=== PATIENT | male | born 1950 | race Caucasian/White ===

== ENCOUNTER → 2016-10-21 | Outpatient (CLI) | payer MEDICARE, OTHER ==
--- NOTE | 2016-10-21 13:49 | XR ---
EXAMINATION TYPE: XR chest 2V DATE OF EXAM: 10/21/2016 1:32 PM COMPARISON: Prior chest x-ray 04 August 2014 HISTORY: COPD TECHNIQUE: Frontal and lateral views of the chest are obtained. FINDINGS: There is no focal air space opacity, pleural effusion, or pneumothorax seen. The cardiac silhouette size is within stable. Prominent lung volume may be indicative of COPD. The osseous struc tures are remarkable for stable nonhealed right clavicular fracture. The aorta is dense. IMPRESSION: Cardiomegaly and additional findings above.
== END | disposition home or self-care (01) ==
LOC: RADXRMAIN 13:07
PROVIDERS: ATTEND Family Medicine
DX: I51.7 Cardiomegaly (principal)
CPT/HCPCS: 71020

== ENCOUNTER 2016-12-29 07:46 | Emergency (ER) | payer MEDICARE, OTHER ==
[2016-12-29 08:01] VITALS: RESP 16
[2016-12-29] MEDS ORDERED: DIPH,PERTUS(ACELL)TETVAC-LF 0.5 ML VIAL IM ONE (08:10)
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
--- NOTE | 2016-12-29 09:13 | XR ---
EXAMINATION TYPE: XR hand complete RT DATE OF EXAM ORDERED: 12/29/2016 9:08 AM HISTORY: Pain. COMPARISON: None. FINDINGS: There is a mildly displaced fracture through the proximal metaphysis of the first metacarp al. There is mild joint space loss in the PIP and PIP joints of the second through fifth digits. Ther e is a small ossific density adjacent to the interphalangeal joint of the thumb. This appears chronic . No other osseous lesion is seen. IMPRESSION: MILDLY DISPLACED FRACTURE THROUGH THE PROXIMAL METAPHYSIS OF THE FIRST METACARPAL.
--- NOTE | 2016-12-29 09:20 | CT ---
EXAMINATION TYPE: CT brain cspine wo con DATE OF EXAM: 12/29/2016 9:09 AM COMPARISON: NONE HISTORY: Fall injury with headache and neck pain. CT DLP: 1658.10 mGycm. Automated Exposure Control for Dose Reduction was Utilized. TECHNIQUE: CT scan of the head and cervical spine are performed without contrast. FINDINGS: There is no acute intracranial hemorrhage or midline shift identified. There is ventricul ar and sulcal prominence consistent with diffuse cerebral atrophy. Low-attenuation periventricular wh ite matter is present. There is persistent near complete opacification of left mastoid air cells. Sof t tissue density fills left external auditory canal likely reflects cerumen. There is additional soft tissue density surrounding middle ear ossicles on current study more prominent than prior. Moderate mucosal thickening anteriorly in left maxillary sinus is redemonstrated. Remainder paranasal sinuses are clear. Both lenses are thinned. Vascular calcification distal internal carotid arteries is redemo nstrated bilaterally. Calvarium is intact. Old displaced fracture mid right clavicle is redemonstrated on localizer Cervical spine is visualized in its entirety from C1 through upper thoracic levels and demonstrates satisfactory alignment withou t evidence of acute fracture or dislocation. Prevertebral soft tissue appears within normal limits. The C1-C2 articulation is within normal limits on the coronal images. Osseous structures are demineralized. Vertebral body heights and disc space heights are fairly well m aintained. Spinal canal is preserved. Review of axial images shows uncovertebral facet degenerative changes on the left at C2-C3 level bila terally at C3-C4 and C4-C5 levels. There is moderate to severe emphysematous change in visualized georgie g apices. There is partial visualization of prominent or mildly dilated proximal esophagus with some dependent debris. Scattered subcentimeter lymph nodes are seen throughout the neck bilaterally. There is moderate to severe calcified plaque at both carotid bulbs, right greater than left. Consider none mergent carotid ultrasound correlation. IMPRESSION: 1. There is no acute fracture or dislocation evident in the cervical spine. Demineralization, degener ative findings, and other findings as noted above. 2. No acute intracranial hemorrhage or midline shift is seen. Mild to moderate diffuse cerebral atrop hy and chronic small vessel ischemic change redemonstrated. No significant change from prior study is seen. Possible left-sided mastoiditis and middle ear infection. Clinical correlation advised. Consid er ENT follow-up.
[2016-12-29 09:40] VITALS: BP 173/97; PULSE 83; TEMP 98
== END 2016-12-29 09:40 | disposition home or self-care (01) ==
LOC: EC 07:46
DX: S62.291A Other fracture of first metacarpal bone, right hand, initial encounter for closed fracture (principal); S80.212A Abrasion, left knee, initial encounter; M54.2 Cervicalgia; I10 Essential (primary) hypertension; E78.5 Hyperlipidemia, unspecified; J44.9 Chronic obstructive pulmonary disease, unspecified; E11.9 Type 2 diabetes mellitus without complications; K21.9 Gastro-esophageal reflux disease without esophagitis; Z87.891 Personal history of nicotine dependence; Z79.01 Long term (current) use of anticoagulants; Z79.02 Long term (current) use of antithrombotics/antiplatelets; Z79.84 Long term (current) use of oral hypoglycemic drugs; Z79.899 Other long term (current) drug therapy; Z99.81 Dependence on supplemental oxygen; Z96.651 Presence of right artificial knee joint; Z23 Encounter for immunization; W01.0XXA Fall on same level from slipping, tripping and stumbling without subsequent striking against object, initial encounter
CPT/HCPCS: 29125; 70450; 72125; 90471; 90715; 99284

== ENCOUNTER 2017-05-06 11:52 | Inpatient (IN) | payer MEDICARE, OTHER ==
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
[2017-05-06] MEDS ORDERED: LORazepam 2 MG/ML SYRINGE IV STA (12:24)
[2017-05-06] MEDS ORDERED: LEVOFLOXACIN 750MG-D5W PMX 750 MG in DEXTROSE/WATER 1 150ML.BAG IVPB STA (12:24)
[2017-05-06] MEDS ORDERED: ACETAMINOPHEN IV (For NPO) 1,000 MG in EMPTY BAG 1 BAG IVPB STA (12:24)
[2017-05-06] MEDS ORDERED: ALBUTEROL NEBULIZED 2.5 MG/3 ML INHALATION STA (12:24)
[2017-05-06] MEDS ORDERED: KETOROLAC 30 MG/ML 1 ML VIAL IVP STA (12:24)
[2017-05-06] MEDS ORDERED: SODIUM CHLORIDE 0.9% 1,000 ML IV STA ×2 (12:24)
[2017-05-06] MEDS ORDERED: MORPHINE SULFATE 4 MG/ML SYRINGE IVP STA (12:24)
[2017-05-06] MEDS ORDERED: methylPREDNISolone SOD SUCCI 125 MG/2 ML VIAL IV STA (12:24)
[2017-05-06] MEDS ORDERED: IPRATROPIUM 0.5 MG/2.5 ML NEBU INHALATION STA (12:24)
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
[2017-05-06 12:47] LABS: Basophils # (A) 0.2 k/uL (0-0.2); Basophils % (A) 1 %; CH 30.4; CHCM 31.6; Eosinophils # (A) 0.2 k/uL (0-0.7); Eosinophils % (A) 1 %; HCT 43.4 % (39.0-53.0); HDW 2.67; HGB 13.2 gm/dL (13.0-17.5); Hypochromasia Slight; Luc % (Auto) 2; Lymphocytes # (A) 3.3 k/uL (1.0-4.8); Lymphocytes % (A) 22 %; MCH 29.5 pg (25.0-35.0); MCHC 30.4 g/dL (31.0-37.0); MCV 96.9 fL (80.0-100.0); Mean Platelet Volume 8.1; Monocytes # (A) 0.9 k/uL (0-1.0); Monocytes % (A) 6 %; Neutrophils # (A) 10.6 k/uL (1.3-7.7); Neutrophils % (A) 68 %; RBC 4.48 m/uL (4.30-5.90); RDW 15.6 % (11.5-15.5); WBC 15.5 k/uL (3.8-10.6); WBC (Perox) 15.18
[2017-05-06 12:56] LABS: ALT 31 U/L (21-72); AST 24 U/L (17-59); Alkaline Phosphatase 115 U/L (38-126); Anion Gap 11 mmol/L; Blood Urea Nitrogen 10 mg/dL (9-20); Carbon Dioxide 30 mmol/L (22-30); Chloride 104 mmol/L (98-107); Glucose 162 mg/dL (74-99); Magnesium 1.3 mg/dL (1.6-2.3); Non-African American GFR(MDRD) >60 (>60 ml/min/1.73 sqM); Potassium 4.6 mmol/L (3.5-5.1); Sodium 145 mmol/L (137-145); Total Bilirubin 0.3 mg/dL (0.2-1.3); Total Protein 7.2 g/dL (6.3-8.2)
[2017-05-06 13:16] LABS: Creatine Kinase 42 U/L (55-170)
[2017-05-06 13:27] LABS: Creatine Kinase MB 0.6 ng/mL (0.0-2.4); Troponin I <0.012 ng/mL (0.000-0.034)
[2017-05-06 13:40] LABS: INR 3.5 (<1.2); Prothrombin Time 33.9 sec (9.0-12.0)
[2017-05-06] MEDS ORDERED: PNEUMONIA PROTOCOL UTILIZED 1 EACH MISC PO PRN (13:47)
[2017-05-06 13:57] LABS: Partial Thromboplastin Time 31.6 sec (22.0-30.0)
[2017-05-06] MEDS: SODIUM CHLORIDE 0.9% 1,000 ML IV SCH (14:01)
[2017-05-06 15:42] VITALS: BMI 30.7
[2017-05-06] MEDS ORDERED: IPRATROPIUM-ALBUTEROL 3 ML NEB INHALATION SCH ×2 (16:00→20:00)
[2017-05-06 16:51] LABS: Glucose,Whole Blood 134 mg/dL (75-99)
[2017-05-06] MEDS: INSULIN LISPRO (humaLOG) 300 UNIT/3 ML VIAL SQ SCH ×2 (17:14→20:49)
[2017-05-06] MEDS ORDERED: WARFARIN 5 MG TAB PO SCH (18:00)
[2017-05-06] MEDS: metFORMIN 500 MG TAB PO SCH (18:21)
[2017-05-06] MEDS: BUDESONIDE 1 MG/2 ML NEBU INHALATION SCH (19:59)
[2017-05-06 20:06] LABS: Hemoglobin A1C 6.5 % (4.2-6.1)
[2017-05-06 20:27] LABS: Glucose,Whole Blood 206 mg/dL (75-99)
[2017-05-06] MEDS: guaiFENesin 600 MG TABLET.ER PO SCH (20:47)
[2017-05-06] MEDS: ATORVASTATIN 80 MG TAB PO SCH (20:48)
[2017-05-06] MEDS: METOPROLOL TARTRATE 25 MG TAB PO SCH (20:48)
[2017-05-06] MEDS: hydrALAZINE HCL 25 MG TAB PO SCH (20:48)
[2017-05-06] MEDS: HYDROcodone/APAP 10-325MG 1 EACH TAB PO PRN (20:48)
[2017-05-06] MEDS: METOCLOPRAMIDE 10 MG TAB PO SCH (20:48)
[2017-05-07] MEDS: SODIUM CHLORIDE 0.9% 1,000 ML IV SCH ×2 (00:28→21:57)
[2017-05-07] MEDS: HYDROcodone/APAP 10-325MG 1 EACH TAB PO PRN ×4 (02:33→19:50)
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
[2017-05-07] MEDS: BUDESONIDE 1 MG/2 ML NEBU INHALATION SCH ×2 (06:59→19:25)
[2017-05-07] MEDS: IPRATROPIUM-ALBUTEROL 3 ML NEB INHALATION SCH ×4 (06:59→19:25)
[2017-05-07 07:03] LABS: Glucose,Whole Blood 138 mg/dL (75-99)
[2017-05-07] MEDS: INSULIN LISPRO (humaLOG) 300 UNIT/3 ML VIAL SQ SCH ×4 (07:48→21:56)
[2017-05-07] MEDS: PANTOPRAZOLE 40 MG TABLET PO SCH (07:49)
[2017-05-07] MEDS: hydrALAZINE HCL 25 MG TAB PO SCH ×3 (07:49→21:06)
[2017-05-07] MEDS: ENOXAPARIN 40 MG/0.4 ML SYRINGE SQ SCH (07:49)
[2017-05-07] MEDS: metFORMIN 500 MG TAB PO SCH ×3 (07:49→16:33)
[2017-05-07] MEDS: guaiFENesin 600 MG TABLET.ER PO SCH ×2 (07:49→21:06)
[2017-05-07] MEDS: CLOPIDOGREL 75 MG TAB PO SCH (07:49)
[2017-05-07] MEDS: LISINOPRIL 10 MG TAB PO SCH (07:50)
[2017-05-07] MEDS: LORATADINE 10 MG TAB PO SCH (07:50)
[2017-05-07] MEDS: METOCLOPRAMIDE 10 MG TAB PO SCH ×3 (07:50→21:06)
[2017-05-07] MEDS: ISOSORBIDE MONONITRATE ER 60 MG TAB.ER.24H PO SCH (07:50)
[2017-05-07] MEDS: METOPROLOL TARTRATE 25 MG TAB PO SCH ×2 (07:50→21:05)
[2017-05-07] MEDS: VERAPAMIL SR 240 MG TABLET.ER PO SCH (07:50)
[2017-05-07 08:27] LABS: INR 3.5 (<1.2); Prothrombin Time 34.4 sec (9.0-12.0)
--- NOTE | 2017-05-07 09:08 | XR ---
EXAMINATION TYPE: XR chest 2V DATE OF EXAM: 05/07/2017 COMPARISON: 05/06/2017 TECHNIQUE: PA and lateral views submitted. HISTORY: Pneumonia FINDINGS: Diffuse interstitial pattern seen with tiny bilateral effusion and subsegmental basilar consolidation . Heart size mildly prominent but stable. Chronic deformity of the right clavicle. No pneumothorax. U nderlying COPD noted. Atherosclerotic change aorta and degenerative change spine. IMPRESSION: 1. Correlate for mild venous congestion or interstitial lung disease. 2. Basilar atelectasis or infiltrate stable with tiny effusions.
[2017-05-07] MEDS ORDERED: MULTIVITAMINS, THERA 1 EACH TAB PO SCH (12:00)
[2017-05-07 12:05] LABS: Glucose,Whole Blood 91 mg/dL (75-99)
--- NOTE | 2017-05-07 13:59 | P.PN ---
Progress Note - Text DATE OF SERVICE: 05/07/2017 PRESENTING COMPLAINT: Short of breath cough and wheezing HISTORY OF PRESENT ILLNESS: Patient presented with worsening shortness of breath, cough, clear sputum production, intermittent fever, weak, tired, rundown. Admitted for pneumonia, acute COPD exacerbation INTERVAL HISTORY: 05/07/2017: Patient sitting up in bed states he feels much better, breathing is better continues have a cough with clear sputum production no fever, appetite good eating between 75% and 100% of his meals, last BM 05/07/2017. Encouraged patient to be up and about in the [place]. REVIEW OF SYSTEMS: Done for constitutional ,cardiovascular, GI, pulmonary with relevant findings as above. CURRENT MEDICATIONS [place], DuoNeb 3 mL solution, Pulmicort, ceftriaxone thousand milligrams IV piggyback, Plavix 75 mg by mouth daily, Lovenox 40 mg subcu daily, guaifenesin 1200 mg by mouth twice a day, Imdur 60 mg by mouth daily, Levaquin 750 mg by mouth every 24 hours, Zestril 10 mg by mouth daily, Claritin 10 mg by mouth daily, Lopressor 25 mg by mouth twice a day. Verapamil 240 mg by mouth daily the Coumadin 5 mg Thursday, Coumadin 2.5 mg Thursday PHYSICAL EXAM VITAL SIGNS: GENERAL APPEARANCE: Average build. Lying in bed, not in distress. EYES: Pupils equal. Conjunctiva normal. NECK: JVD not raised. Mass not palpable. RESPIRATORY: Respiratory effort normal. Lungs clear to auscultation. CARDIOVASCULAR: First and second sounds normal. No edema. ABDOMEN: Soft. Liver and spleen not palpable. No tenderness. No mass palpable. PSYCHIATRY: Alert and oriented x3. Mood and affect normal. NEUROLOGICAL: Cranial nerves grossly intact. No facial asymmetry. Power and sensation grossly intact INVESTIGATIONS: INR 3.5 ASSESSMENT: -Acute chronic obstructive pulmonary disease exacerbation secondary to bilateral basal pneumonia suspect gram-negative organism, present on admission, but causing acute hypoxic respiratory failure. -Chronic hypoxic respiratory failure and chronic obstructive pulmonary disease in an ex-smoker. -Diabetes mellitus type 2 on oral hypoglycemics. -Gastroesophageal reflux disease. -Hyperlipidemia. -Essential hypertension. -Primary osteoarthritis of multiple joints bilateral. 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 -Coumadin monitoring PLAN: Continue ceftriaxone and Levaquin, Claritin, inhalers. INR 3.5 for the pre- past 2 days, Coumadin held. We'll resume once INR below 3. Patient will likely discharge in the morning tomorrow. Plan of care discussed the patient at the bedside he is in agreement. We'll follow closely. ANIMAL BIOLOGIST statement: Patient was seen and examined by nurse practitioner Carol Brown and all elements of the case discussed with attending Dr. Ayoub
[2017-05-07] MEDS ORDERED: LEVOFLOXACIN 750MG-D5W PMX 750 MG in DEXTROSE/WATER 1 150ML.BAG IVPB SCH (14:00)
[2017-05-07 14:17] LABS: CH 30.5; CHCM 31.8; HCT 39.3 % (39.0-53.0); HDW 2.76; HGB 12.2 gm/dL (13.0-17.5); Hypochromasia Slight; MCH 30.1 pg (25.0-35.0); MCHC 31.1 g/dL (31.0-37.0); MCV 96.8 fL (80.0-100.0); Mean Platelet Volume 9.5; RBC 4.06 m/uL (4.30-5.90); RDW 15.9 % (11.5-15.5); WBC 23.9 k/uL (3.8-10.6)
[2017-05-07] MEDS: predniSONE 20 MG TAB PO SCH (16:33)
[2017-05-07 17:05] LABS: Glucose,Whole Blood 94 mg/dL (75-99)
[2017-05-07 20:33] LABS: Glucose,Whole Blood 128 mg/dL (75-99)
[2017-05-07] MEDS ORDERED: traZODone HCL 50 MG TAB PO SCH (21:00)
[2017-05-07] MEDS: CEFUROXIME 250 MG TAB PO SCH (21:05)
[2017-05-07] MEDS: ATORVASTATIN 80 MG TAB PO SCH (21:06)
--- NOTE | 2017-05-07 22:11 | PN ---
PROGRESS NOTE DATE OF SERVICE: 05/07/2017. ATTENDING NOTE: This patient was seen and examined by me. I discussed with my nurse practitioner, Ms. Brown. Breathing is getting better. Some slight shortness of breath. Decreased cough. Decreased sputum production. Eating better, up to the bathroom. EXAMINATION: Afebrile, blood pressure 167/89. LUNGS: Decreased breath sounds. Prolonged expiration. CARDIOVASCULAR: 1st and 2nd sounds normal. INVESTIGATIONS: White count 23.9. INR 3.5. ASSESSMENT: 1. Acute chronic obstructive pulmonary disease exacerbation secondary to by bilateral basal pneumonia. 2. Leukocytosis likely from steroids. PLAN: Cut back the dose of Coumadin. Continued on IV ceftriaxone. Care was discussed with the patient. Follow. MMODL / IJN: [id number] /
[2017-05-08] MEDS: HYDROcodone/APAP 10-325MG 1 EACH TAB PO PRN ×2 (02:17→08:23)
[2017-05-08 07:09] LABS: Glucose,Whole Blood 112 mg/dL (75-99)
[2017-05-08] MEDS: CEFUROXIME 250 MG TAB PO SCH (07:40)
[2017-05-08] MEDS: metFORMIN 500 MG TAB PO SCH (07:40)
[2017-05-08] MEDS: LORATADINE 10 MG TAB PO SCH (07:40)
[2017-05-08] MEDS: hydrALAZINE HCL 25 MG TAB PO SCH (07:41)
[2017-05-08] MEDS: METOCLOPRAMIDE 10 MG TAB PO SCH (07:41)
[2017-05-08] MEDS: LISINOPRIL 10 MG TAB PO SCH (07:41)
[2017-05-08] MEDS: guaiFENesin 600 MG TABLET.ER PO SCH (07:41)
[2017-05-08] MEDS: predniSONE 20 MG TAB PO SCH (07:41)
[2017-05-08] MEDS: CLOPIDOGREL 75 MG TAB PO SCH (07:41)
[2017-05-08] MEDS: METOPROLOL TARTRATE 25 MG TAB PO SCH (07:41)
[2017-05-08] MEDS: VERAPAMIL SR 240 MG TABLET.ER PO SCH (07:41)
[2017-05-08 07:42] VITALS: RESP 18; TEMP 96.2
[2017-05-08] MEDS: PANTOPRAZOLE 40 MG TABLET PO SCH (07:42)
[2017-05-08] MEDS: ISOSORBIDE MONONITRATE ER 60 MG TAB.ER.24H PO SCH (07:42)
[2017-05-08] MEDS: INSULIN LISPRO (humaLOG) 300 UNIT/3 ML VIAL SQ SCH (07:44)
[2017-05-08] MEDS: ENOXAPARIN 40 MG/0.4 ML SYRINGE SQ SCH (07:44)
[2017-05-08] MEDS: BUDESONIDE 1 MG/2 ML NEBU INHALATION SCH (08:31)
[2017-05-08] MEDS: IPRATROPIUM-ALBUTEROL 3 ML NEB INHALATION SCH (08:32)
[2017-05-08 08:40] VITALS: BP 150/82
[2017-05-08 08:44] VITALS: PULSE 88
[2017-05-08 08:53] LABS: Basophils % (A) 0 %; CH 29.1; CHCM 30.2; Eosinophils # (A) 0.1 k/uL (0-0.7); Eosinophils % (A) 0 %; HCT 39.6 % (39.0-53.0); HDW 2.65; HGB 12.3 gm/dL (13.0-17.5); Hypochromasia Moderate; Luc # (Auto) 0.39; Luc % (Auto) 2; Lymphocytes # (A) 2.4 k/uL (1.0-4.8); Lymphocytes % (A) 11 %; MCH 30.3 pg (25.0-35.0); MCHC 31.2 g/dL (31.0-37.0); MCV 97.2 fL (80.0-100.0); Mean Platelet Volume 7.4; Monocytes # (A) 1.1 k/uL (0-1.0); Monocytes % (A) 5 %; Neutrophils # (A) 18.5 k/uL (1.3-7.7); Neutrophils % (A) 82 %; RBC 4.07 m/uL (4.30-5.90); WBC 22.5 k/uL (3.8-10.6); WBC (Perox) 24.03
[2017-05-08 09:05] LABS: Anion Gap 12 mmol/L; Blood Urea Nitrogen 16 mg/dL (9-20); Calcium 9.7 mg/dL (8.4-10.2); Carbon Dioxide 29 mmol/L (22-30); Chloride 104 mmol/L (98-107); Glucose 121 mg/dL (74-99); Non-African American GFR(MDRD) >60 (>60 ml/min/1.73 sqM); Potassium 4.7 mmol/L (3.5-5.1); Sodium 145 mmol/L (137-145)
[2017-05-08 09:26] LABS: INR 2.1 (<1.2)
[2017-05-08 10:02] LABS: Prothrombin Time 20.3 sec (9.0-12.0)
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
[2017-05-08] MEDS ORDERED: LEVOFLOXACIN 750 MG TAB PO SCH (14:00)
--- NOTE | 2017-05-10 11:06 | DS ---
DISCHARGE SUMMARY ATTENDING NOTE: This patient was seen and examined by me. I discussed this with the nurse practitioner, Ms. Brown. This patient was seen by me yesterday on 05/08/17. The patient is doing somewhat better. Only some clear sputum is coming up. The patient is very keen to go home. EXAMINATION: On exam, LUNGS: Decreased breath sounds. CARDIOVASCULAR: First and second sounds normal. ASSESSMENT: Pneumonia with clinical improvement and causing chronic obstructive pulmonary disease exacerbation. PLAN: Care was discussed with the patient. The patient should follow up with family doctor and check lab as outpatient. Discharge planning more than 35 minutes. MMODL / IJN: [id number] /
[2017-05-10] MEDS ORDERED: WARFARIN 2.5 MG TAB PO SCH (18:00)
== END 2017-05-08 08:54 | disposition home or self-care (01) | DRG 190 ==
LOC: EC 11:52 → 4MS4W 13:48
PROVIDERS: ADMIT Hospitalist; ATTEND Hospitalist
DX: J44.0 Chronic obstructive pulmonary disease with (acute) lower respiratory infection (principal); J15.6 Pneumonia due to other Gram-negative bacteria; J96.21 Acute and chronic respiratory failure with hypoxia; Z99.81 Dependence on supplemental oxygen; E11.9 Type 2 diabetes mellitus without complications; I10 Essential (primary) hypertension; D72.829 Elevated white blood cell count, unspecified; E78.5 Hyperlipidemia, unspecified; J44.1 Chronic obstructive pulmonary disease with (acute) exacerbation; H91.90 Unspecified hearing loss, unspecified ear; K21.9 Gastro-esophageal reflux disease without esophagitis; M15.9 Polyosteoarthritis, unspecified; T38.0X5A Adverse effect of glucocorticoids and synthetic analogues, initial encounter; Z79.01 Long term (current) use of anticoagulants; Z79.02 Long term (current) use of antithrombotics/antiplatelets; Z79.84 Long term (current) use of oral hypoglycemic drugs; Z79.899 Other long term (current) drug therapy; Z87.891 Personal history of nicotine dependence; Z89.511 Acquired absence of right leg below knee
CPT/HCPCS: 36415; 71010; 71020; 80048; 80053; 82550; 82553; 83036; 83735; 83880; 84484; 85025; 85027; 85610; 85730; 87040; 93005; 94640; 94644; 94760

== ENCOUNTER → 2017-12-23 | Outpatient (CLI) | payer MEDICARE, OTHER ==
[2017-12-23 10:22] LABS: Blood Urea Nitrogen 9 mg/dL (9-20)
--- NOTE | 2017-12-23 13:15 | CT ---
EXAMINATION TYPE: CT angio neck DATE OF EXAM: 12/23/2017 HISTORY: Carotid stenosis COMPARISON: 12/29/2016 CT DLP: 286.4 mGycm. Automated Exposure Control for Dose Reduction was Utilized. TECHNIQUE: CTA scan of the neck is performed with IV Contrast, patient injected with 65 mL of Isovue 370, axial images are obtained, coronal and sagittal reformatted images are reviewed. Three-D recons tructed images are created on an independent workstation and reviewed. FINDINGS: Carotid/Vascular Structures: Right carotid: There is approximately 20% stenosis (nonhemodynamically significant stenosis) from lela cific and noncalcific atheromatous plaquing at the ostia of the right brachiocephalic artery. Very mi nimal nonhemodynamically significant calcific and noncalcific atheromatous plaquing is seen of the co mmon carotid artery on the right. At the carotid bulb there is a short segment measuring 1.1 cm in le ngth where there is focal 80% stenosis. Distal to this within the internal carotid artery there are m ultifocal regions where there is 75% stenosis. The first is just distal to the carotid bulb measuring 8 mm in length and the second is approximately 50% stenosis measuring 1.4 cm in length. Approximatel y 50% stenosis is also seen in the supraclinoid portion of the right internal carotid artery. Left carotid: Nonhemodynamically significant atheromatous plaquing is seen at the ostia. Within the p roximal common carotid artery there is noncalcific plaquing occupying less than 50% of the luminal di ameter. At the carotid bulb there is stenosis over a 1.2 cm distance of approximately 50%. Distal to this within the internal carotid artery there is stenosis of approximately 70% proximally and up to 9 0% distally within a segment measuring 1.4 cm. The remainder of the left internal carotid artery demo nstrates no hemodynamically significant stenosis. Subclavian: There is severe stenosis of the proximal left subclavian artery of approximately 75% from the ostia to the branch point of the internal mammary artery. Vertebrals: There is a left vertebral artery occlusion with few collateral vessels seen. This raises suspicion for subclavian steal. Just proximal to the basilar artery there is a diminutive left verteb ral artery possibly from collateral vasculature flow or from a reversal flow. Intracranial vasculature: The visualized portion of the [place] appears unremarkable. Other: At least moderate centrilobular emphysematous changes are seen at the lung apices. Slight hete rogeneity of the thyroid gland is noted. IMPRESSION: 1. Complete occlusion of the left vertebral artery with few collateral vessels seen. There is diminut mark vertebral artery on the left seen just proximal to the basilar artery. Considering these findings there is concern for subclavian steal syndrome which could be confirmed with ultrasound demonstratin g reversal flow within the right vertebral artery. 2. Multifocal stenosis within the right carotid artery with carotid bulb stenosis of 80% and internal carotid artery stenosis of 75%. 3. Multifocal stenosis of the left carotid artery with a focal segment measuring 1.4 cm at the consumer insights intern al carotid artery proximally demonstrating 70% and distally demonstrating 90% stenosis. 4. Severe stenosis of the proximal left subclavian artery of approximately 75%.
== END | disposition home or self-care (01) ==
LOC: RADCTMAIN 09:55
PROVIDERS: ATTEND Thoracic Surgery (Cardiothoracic Vascular Surgery)
DX: I65.23 Occlusion and stenosis of bilateral carotid arteries (principal); I65.02 Occlusion and stenosis of left vertebral artery; I70.8 Atherosclerosis of other arteries
CPT/HCPCS: 82565; 84520; 70498; 36415; Q9967

== ENCOUNTER 2018-01-02 11:11 | Emergency (ER) | payer MEDICARE, OTHER ==
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
[2018-01-02 12:42] LABS: Prothrombin Time 49.6 sec (9.0-12.0)
[2018-01-02 12:48] LABS: INR 5.5 (<1.2)
[2018-01-02 13:21] VITALS: BP 177/74; PULSE 74; RESP 22; TEMP 97.4
== END 2018-01-02 13:20 | disposition home or self-care (01) ==
LOC: EC 11:11
DX: S51.812A Laceration without foreign body of left forearm, initial encounter (principal); J44.9 Chronic obstructive pulmonary disease, unspecified; E11.9 Type 2 diabetes mellitus without complications; K21.9 Gastro-esophageal reflux disease without esophagitis; E78.5 Hyperlipidemia, unspecified; I10 Essential (primary) hypertension; Z87.891 Personal history of nicotine dependence; Z79.02 Long term (current) use of antithrombotics/antiplatelets; Z79.51 Long term (current) use of inhaled steroids; Z79.01 Long term (current) use of anticoagulants; Z79.84 Long term (current) use of oral hypoglycemic drugs; Z79.899 Other long term (current) drug therapy; W01.10XA Fall on same level from slipping, tripping and stumbling with subsequent striking against unspecified object, initial encounter; Y92.89 Other specified places as the place of occurrence of the external cause; Z99.81 Dependence on supplemental oxygen
CPT/HCPCS: 36415; 85610; 99283

== ENCOUNTER → 2018-02-17 | Outpatient (CLI) | payer MEDICARE, OTHER ==
--- NOTE | 2018-02-17 13:32 | XR ---
EXAMINATION TYPE: XR chest 2V DATE OF EXAM: 02/17/2018 COMPARISON: 05/07/2017 TECHNIQUE: PA and lateral views submitted. HISTORY: COPD FINDINGS: Diffuse interstitial pattern is stable may be chronic, correlate clinically. Heart size mildly promin ent but stable. Atherosclerotic change aorta. Chronic deformity of the right clavicle. No pneumothor ax. Underlying COPD noted. Atherosclerotic change aorta and degenerative change spine. IMPRESSION:
== END | disposition home or self-care (01) ==
LOC: RADXRMAIN 12:46
PROVIDERS: ATTEND Family Medicine
DX: J44.9 Chronic obstructive pulmonary disease, unspecified (principal)
CPT/HCPCS: 71046

== ENCOUNTER → 2018-04-27 | Outpatient (CLI) | payer MEDICARE, OTHER ==
[2018-04-27 10:46] LABS: Anisocytosis Slight; Basophils # (A) 0.1 k/uL (0-0.2); Basophils % (A) 1 %; Eosinophils # (A) 0.3 k/uL (0-0.7); Eosinophils % (A) 3 %; HCT 36.2 % (39.0-53.0); HGB 10.5 gm/dL (13.0-17.5); Hypochromasia Marked; Lymphocytes # (A) 2.4 k/uL (1.0-4.8); Lymphocytes % (A) 22 %; MCH 27.4 pg (25.0-35.0); MCHC 28.8 g/dL (31.0-37.0); MCV 94.9 fL (80.0-100.0); Mean Platelet Volume 6.9; Monocytes # (A) 0.9 k/uL (0-1.0); Monocytes % (A) 8 %; Neutrophils # (A) 7.1 k/uL (1.3-7.7); Neutrophils % (A) 64 %; Platelet Count 454 k/uL (150-450); RBC 3.82 m/uL (4.30-5.90); WBC 11.1 k/uL (3.8-10.6)
[2018-04-27 10:49] LABS: Appearance,Urine Clear (Clear); Bilirubin,Urine Negative (Negative); Blood,Urine Negative (Negative); Color,Urine Yellow; Glucose,Urine (UA) Negative (Negative); Hyaline Casts,Urine 15 /lpf (0-2); Ketones,Urine Negative (Negative); Leukocyte Esterase,Urine Trace (Negative); Mucus,Urine Few /hpf; Nitrite,Urine Negative (Negative); PH, Urine 5.5 (5.0-8.0); Protein,Urine Trace (Negative); RBC,Urine 1 /hpf (0-5); Specific Gravity,Urine 1.017 (1.001-1.035); Squamous Epithelial Cell,Urine <1 /hpf (0-4); Urobilinogen,Urine <2.0 mg/dL (<2.0); WBC,Urine 5 /hpf (0-5)
[2018-04-27 10:59] LABS: INR 1.9 (<1.2); Partial Thromboplastin Time 28.5 sec (22.0-30.0); Prothrombin Time 17.6 sec (9.0-12.0)
[2018-04-27 11:06] LABS: Anion Gap 6 mmol/L; Blood Urea Nitrogen 6 mg/dL (9-20); Carbon Dioxide 36 mmol/L (22-30); Chloride 99 mmol/L (98-107); Glucose 112 mg/dL (74-99); Sodium 141 mmol/L (137-145)
[2018-04-27 11:09] LABS: Potassium 4.5 mmol/L (3.5-5.1)
== END | disposition home or self-care (01) ==
LOC: LABPAT 09:51
PROVIDERS: ATTEND Surgery
DX: Z01.812 Encounter for preprocedural laboratory examination (principal); I65.29 Occlusion and stenosis of unspecified carotid artery; E11.9 Type 2 diabetes mellitus without complications; Z79.01 Long term (current) use of anticoagulants
CPT/HCPCS: 36415; 80051; 81001; 82565; 82947; 84520; 85025; 85610; 85730; 86850; 86900; 86901

== ENCOUNTER 2018-05-04 06:43 | Inpatient (IN) | payer MEDICARE, OTHER ==
[2018-04-26 10:37] VITALS: BMI 29.4
[~2018-05-04 06:43] MED LIST: DEXAMETHASONE SOD PHOSPHATE 10 MG/ML 1 ML VIAL IV ONE; LIDOCAINE 1% 20 ML VIAL (10MG/ML) FOR IV START INTRADERMA PRN; MIDAZOLAM 2 MG/2 ML VIAL IV PRN; ONDANSETRON 4 MG/2 ML VIAL IVP ONE; ceFAZolin IN SWFI 2 GM/20 ML SYRINGE IVP ONE; fentaNYL (PF) 50 MCG/ML 2 ML AMP IV PRN
[2018-05-04] MEDS: LACTATED RINGERS 1,000 ML IV SCH (07:32)
[2018-05-04 07:43] LABS: Glucose,Whole Blood 109 mg/dL (75-99)
[2018-05-04 08:38] LABS: INR 1.1 (<1.2); Prothrombin Time 10.8 sec (9.0-12.0)
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
[2018-05-04] MEDS ORDERED: LIDOCAINE 1% INJ 10MG/ML (20 ML MDV) SQ ONE (10:08)
[2018-05-04] MEDS ORDERED: THROMBIN (BOVINE) 5,000 UNIT VIAL MISCELLANE ONE ×2 (10:26)
[2018-05-04] MEDS ORDERED: GELATIN SPONGE,ABSORB (LARGE) 1 EACH SPONGE MISCELLANE ONE (10:26)
[2018-05-04] MEDS ORDERED: ALBUTEROL NEBULIZED 2.5 MG/3 ML INHALATION PRN (11:51)
[2018-05-04] MEDS ORDERED: BENZOCAINE/MENTHOL LOZENG 1 EACH LOZENGE MUCOUS MEM PRN (11:53)
[2018-05-04] MEDS ORDERED: ACETAMINOPHEN TAB 325 MG TAB PO PRN (11:53)
[2018-05-04] MEDS ORDERED: TRIMETHOBENZAMIDE 100 MG/ML 2 ML VIAL IM PRN (11:53)
[2018-05-04] MEDS ORDERED: MAG HYDROX/AL HYDROX/SIMETH 30 ML CUP PO PRN (11:53)
[2018-05-04] MEDS ORDERED: MORPHINE SULFATE 2 MG/ML SYRINGE IVP PRN (11:53)
[2018-05-04] MEDS ORDERED: LACTATED RINGERS 1,000 ML IV ONE ×2 (11:56)
[2018-05-04] MEDS ORDERED: LACTATED RINGERS 1,000 ML IV SCH (12:00)
[2018-05-04 12:15] LABS: Glucose,Whole Blood 123 mg/dL (75-99)
[2018-05-04 12:35] LABS: Anisocytosis Slight; Basophils # (A) 0.1 k/uL (0-0.2); Basophils % (A) 1 %; Eosinophils % (A) 0 %; HCT 34.8 % (39.0-53.0); HGB 10.4 gm/dL (13.0-17.5); Hypochromasia Marked; Lymphocytes # (A) 1.2 k/uL (1.0-4.8); Lymphocytes % (A) 11 %; MCH 28.2 pg (25.0-35.0); MCHC 29.9 g/dL (31.0-37.0); MCV 94.5 fL (80.0-100.0); Mean Platelet Volume 6.9; Monocytes # (A) 0.2 k/uL (0-1.0); Monocytes % (A) 2 %; Neutrophils # (A) 9.8 k/uL (1.3-7.7); Neutrophils % (A) 87 %; Platelet Count 438 k/uL (150-450); RBC 3.69 m/uL (4.30-5.90); RDW 16.6 % (11.5-15.5); WBC 11.3 k/uL (3.8-10.6)
[2018-05-04 13:01] LABS: Glucose,Whole Blood 136 mg/dL (75-99)
[2018-05-04 13:29] LABS: Anion Gap 4 mmol/L; Blood Urea Nitrogen 8 mg/dL (9-20); Calcium 8.6 mg/dL (8.4-10.2); Carbon Dioxide 35 mmol/L (22-30); Chloride 102 mmol/L (98-107); Glucose 134 mg/dL (74-99); Sodium 141 mmol/L (137-145)
[2018-05-04] MEDS: HYDROcodone/APAP 10-325MG 1 EACH TAB PO PRN ×2 (15:50→21:31)
[2018-05-04] MEDS: HEPARIN SODIUM,PORCINE 5,000 UNIT/ML 1 ML VIAL SQ SCH (15:50)
[2018-05-04] MEDS: METOCLOPRAMIDE 10 MG TAB PO SCH ×2 (15:53→21:20)
--- NOTE | 2018-05-04 16:47 | P.OP ---
Date of Procedure: 05/04/18 Preoperative Diagnosis: Left internal carotid artery stenosis 80-99% Postoperative Diagnosis: Same Procedure(s) Performed: Left carotid endarterectomy with patch angioplasty Implants: Bovine pericardial patch Anesthesia: HUY Surgeon: Khalif Wong Estimated Blood Loss (ml): 30 Pathology: other (left carotid artery plaque) Condition: stable Disposition: PACU Indications for Procedure: 67-year-old gentleman who presented to the office secondary to increased stenosis of bilateral carotid arteries. Under ultrasound his left internal carotid artery was 80-99% stenosis and then visualized on CT angiogram demonstrated a common carotid stenosis as well as internal carotid artery stenosis greater than 80%. He presents to the hospital for an elective left carotid endarterectomy. Patient does have a history of symptoms in the past which she states stem from speech issues and with the increased stenosis his left carotid was to be done first. He denies any fevers, chills, chest pain or shortness of breath. He was seen by his picu nurse and cleared for surgical intervention. Operative Findings: Dense plaque within the left common and internal carotid artery extending with a posterior tongue to the internal carotid artery. The carotid system was rotated with the external carotid artery lateral and internal carotid artery which was posterior and medial. Description of Procedure: After written informed consent was obtained the patient all risks benefits competitions were described patient is brought to the operative suite and laid in a beach-chair position. The area of the neck was prepped and draped in usual sterile fashion after appropriate anesthetic was performed per the anesthesiologist. Timeout was performed in normal fashion antibiotics were administered prior to incision. An oblique incision just anterior to the sternocleidomastoid musculature was created and dissection was carried down with electrocautery to the carotid sheath. Sheath was then dissected free to the common carotid artery. Of note the ansa cervicalis was laying directly over the carotid artery and the external carotid artery. This was dissected free and moved laterally. There was a portion of the ansa cervicalis that was ligated in order to fully visualize the carotid artery. Dissection was then carried around the common carotid and external carotid arteries which were circumferentially dissected and controlled with vessel loops. The internal carotid artery which was posterior and medial to the external carotid artery was also dissected in circumferential manner and controlled with vessel loops. Upon palpation of the carotid vessel there was dense plaque noted extending distal to the internal carotid artery. A portion of the artery was then dissected free and controlled. Patient was administered heparin and followed with serial ACTs for appropriate heparinization. Once heparin was allowed to circulate for approximately 3-5 minutes the vessels were then clamped both proximally and distally with vascular clamps. Arteriotomy was then created with 11 blade scalpel and extended with Pott Duarte scissors to the internal carotid artery from the common carotid artery. Stump pressures were then obtained demonstrating a systolic blood pressure greater than 100 and mean arterial pressure of 80. Due to the stump pressures being elevated there is no shunt utilized. Endarterectomy was then performed with an endarterectomy knife and the plaque was removed and feathered to the internal carotid artery. There was good endpoint noted and all free debris was removed and irrigated with heparinized saline. Once completed a patch angioplasty was performed with a bovine pericardial patch with 6-0 Prolene suture in a running fashion. Prior to last sutures being placed the internal carotid artery was released allowing good backbleeding as well as the external carotid artery. Internal carotid artery was clamped and the common carotid artery was released allowing good pulsatile blood flow to expel any debris or air from the patch. Final sutures were then placed and the external carotid artery was released to allow for any free debris to be placed in the external system. After multiple pulsations the internal carotid artery was released. Flow was then assessed with Doppler demonstrating good multiphasic flow in the common carotid and external carotid and internal carotid artery without any diminished flow noted. The area was then copiously irrigated with antibiotic solution. Hemostasis was assured with Gelfoam and thrombin. Once hemostatic a 10-[place] drain was then placed and sutured in place with 3-0 nylon suture. The incision was then closed in a multilayer fashion skin was then cleansed and dressings were placed. The patient tied procedure well was awoken in the operating room following commands and moving his right upper extremity. He was then sent to PACU for recovery.
[2018-05-04] MEDS: SYMBICORT 80-4.5 MCG INHALER INHALATION SCH (19:46)
[2018-05-04] MEDS ORDERED: ATORVASTATIN 80 MG TAB PO SCH (21:00)
[2018-05-04] MEDS ORDERED: ADVAIR INHALATION SCH (21:00)
[2018-05-04] MEDS ORDERED: hydrALAZINE HCL 25 MG TAB PO SCH (21:00)
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
[2018-05-04] MEDS: hydrALAZINE HCL 25 MG TAB PO SCH (21:18)
[2018-05-04] MEDS: METOPROLOL TARTRATE 12.5 MG TAB PO SCH (21:18)
[2018-05-04] MEDS: ISOSORBIDE MONONITRATE ER 60 MG TAB.ER.24H PO SCH (21:30)
[2018-05-04] MEDS: LISINOPRIL 10 MG TAB PO SCH (21:31)
[2018-05-05] MEDS: HEPARIN SODIUM,PORCINE 5,000 UNIT/ML 1 ML VIAL SQ SCH ×2 (00:35→08:13)
[2018-05-05] MEDS: HYDROcodone/APAP 10-325MG 1 EACH TAB PO PRN ×2 (03:51→09:48)
[2018-05-05 04:27] LABS: Anisocytosis Slight; Basophils % (A) 0 %; Eosinophils % (A) 0 %; HCT 31.3 % (39.0-53.0); HGB 9.4 gm/dL (13.0-17.5); Hypochromasia Marked; Lymphocytes % (A) 13 %; MCH 28.2 pg (25.0-35.0); MCHC 30.2 g/dL (31.0-37.0); MCV 93.4 fL (80.0-100.0); Mean Platelet Volume 7.3; Monocytes # (A) 1.1 k/uL (0-1.0); Monocytes % (A) 7 %; Neutrophils # (A) 11.7 k/uL (1.3-7.7); Neutrophils % (A) 78 %; Platelet Count 404 k/uL (150-450); RBC 3.35 m/uL (4.30-5.90); RDW 16.8 % (11.5-15.5); WBC 15.1 k/uL (3.8-10.6)
[2018-05-05 04:31] LABS: Anion Gap 3 mmol/L; Blood Urea Nitrogen 9 mg/dL (9-20); Calcium 8.7 mg/dL (8.4-10.2); Carbon Dioxide 35 mmol/L (22-30); Chloride 99 mmol/L (98-107); Glucose 110 mg/dL (74-99); Magnesium 1.3 mg/dL (1.6-2.3); Potassium 4.8 mmol/L (3.5-5.1); Sodium 137 mmol/L (137-145)
[2018-05-05] MEDS ORDERED: Magnesium Replacement Protocol 1 EACH MISC MISCELLANE PRN (05:21)
[2018-05-05] MEDS: MAGNESIUM SULFATE-D5W PMX 1 GM in DEXTROSE/WATER 1 100ML.BAG IVPB SCH ×3 (05:27→08:40)
[2018-05-05] MEDS: LACTATED RINGERS 1,000 ML IV SCH (05:31)
[2018-05-05] MEDS: SYMBICORT 80-4.5 MCG INHALER INHALATION SCH (07:44)
[2018-05-05] MEDS ORDERED: IPRATROPIUM-ALBUTEROL 3 ML NEB INHALATION SCH (08:00)
[2018-05-05] MEDS: ISOSORBIDE MONONITRATE ER 60 MG TAB.ER.24H PO SCH (08:14)
[2018-05-05] MEDS: hydrALAZINE HCL 25 MG TAB PO SCH (08:15)
[2018-05-05] MEDS: METOPROLOL TARTRATE 12.5 MG TAB PO SCH (08:16)
[2018-05-05] MEDS: LISINOPRIL 10 MG TAB PO SCH (08:25)
[2018-05-05 08:28] VITALS: TEMP 98.2
[2018-05-05] MEDS: METOCLOPRAMIDE 10 MG TAB PO SCH (08:56)
[2018-05-05] MEDS ORDERED: MAGNESIUM OXIDE 400 MG TAB PO SCH (09:00)
[2018-05-05] MEDS ORDERED: PANTOPRAZOLE 40 MG TABLET PO SCH (09:00)
[2018-05-05] MEDS ORDERED: LORATADINE 10 MG TAB PO SCH (09:00)
[2018-05-05] MEDS ORDERED: CLOPIDOGREL 75 MG TAB PO SCH (09:00)
[2018-05-05] MEDS ORDERED: TAMSULOSIN 0.4 MG CAP.ER.24H PO SCH (09:00)
[2018-05-05] MEDS ORDERED: LISINOPRIL 10 MG TAB PO SCH (09:00)
[2018-05-05] MEDS ORDERED: ISOSORBIDE MONONITRATE ER 60 MG TAB.ER.24H PO SCH (09:00)
[2018-05-05] MEDS ORDERED: metFORMIN 500 MG TAB PO SCH (09:00)
[2018-05-05] MEDS ORDERED: METOPROLOL TARTRATE 25 MG TAB PO SCH (09:00)
[2018-05-05] MEDS ORDERED: VERAPAMIL SR 240 MG TABLET.ER PO SCH (09:00)
[2018-05-05] MEDS ORDERED: MULTIVITAMINS, THERA 1 EACH TAB PO SCH (12:00)
[2018-05-05 12:59] VITALS: BP 115/57; PULSE 69; RESP 29
--- NOTE | 2018-05-05 23:53 | PN ---
PROGRESS NOTE DATE OF SERVICE: 05/05/2018 PRESENTING COMPLAINT: Left carotid endarterectomy. INTERVAL HISTORY: Patient is status post left carotid endarterectomy, doing much better, tolerating a diet, sitting up. Breathing is stable. No chest pain or shortness of breath. REVIEW OF SYSTEMS: Done for constitutional, cardiovascular, GI, pulmonary; relevant findings as above. CURRENT MEDICATIONS: Reviewed. PHYSICAL EXAMINATION: Pulse 69, respiration 16, blood pressure 137/66, pulse ox 89% on 3 L. GENERAL APPEARANCE: Sitting up, comfortable. EYES: Pupils equal. Conjunctivae normal. HEENT: External appearance of nose and ears normal. Oral cavity normal. NECK: JVD not raised. Incision healing well. LUNGS: Decreased breath sounds. Mild wheezing. CARDIOVASCULAR: First and second sounds normal. No edema. ABDOMEN: Soft, non-tender. Liver and spleen not palpable. PSYCHIATRY: Alert and oriented x3. Mood and affect normal. INVESTIGATIONS: Hemoglobin 9.4, white count 15.1, potassium 4.8. ASSESSMENT: 1. Left carotid endarterectomy; incision healing well. 2. Chronic obstructive pulmonary disease in an ex-smoker. 3. Diabetes mellitus, type 2, on oral hypoglycemic. 4. Essential hypertension. 5. Primary osteoarthritis. 6. Hyperlipidemia. 7. Chronic hypoxic respiratory failure from underlying chronic obstructive pulmonary disease. 8. Gastroesophageal reflux disease. 9. Benign prostatic hypertrophy. PLAN: Patient's home medications are to be continued. I did stop patient's hydralazine and increased the Lopressor to 25 mg twice a day. Care was discussed with the patient. Patient should follow up with Dr. Marcus and Dr. Wong upon discharge. MMODL / IJN: [id number] /
[2018-05-06] MEDS ORDERED: WARFARIN 2.5 MG TAB PO SCH (18:00)
== END 2018-05-05 13:13 | disposition home or self-care (01) | DRG 38 ==
LOC: 2ORMAIN 06:43 → 6ICU 12:05
PROVIDERS: ADMIT Surgery; ATTEND Surgery
PROC: 03UL0KZ Supplement Left Internal Carotid Artery with Nonautologous Tissue Substitute, Open Approach (ICD-10-PCS; 2018-05-04)
PROC: 03CL0ZZ Extirpation of Matter from Left Internal Carotid Artery, Open Approach (ICD-10-PCS; principal; 2018-05-04 08:45)
DX: I65.23 Occlusion and stenosis of bilateral carotid arteries (principal); J96.11 Chronic respiratory failure with hypoxia; E78.5 Hyperlipidemia, unspecified; I10 Essential (primary) hypertension; J44.9 Chronic obstructive pulmonary disease, unspecified; K21.9 Gastro-esophageal reflux disease without esophagitis; M19.91 Primary osteoarthritis, unspecified site; N40.0 Benign prostatic hyperplasia without lower urinary tract symptoms; H91.92 Unspecified hearing loss, left ear; Z79.01 Long term (current) use of anticoagulants; Z79.02 Long term (current) use of antithrombotics/antiplatelets; Z79.84 Long term (current) use of oral hypoglycemic drugs; Z79.899 Other long term (current) drug therapy; E11.51 Type 2 diabetes mellitus with diabetic peripheral angiopathy without gangrene; Z87.891 Personal history of nicotine dependence; Z99.81 Dependence on supplemental oxygen; Z86.79 Personal history of other diseases of the circulatory system; Z97.13 Presence of artificial right leg (complete) (partial); Z89.511 Acquired absence of right leg below knee; Z90.81 Acquired absence of spleen; Z98.42 Cataract extraction status, left eye; Z98.41 Cataract extraction status, right eye; Z96.1 Presence of intraocular lens
CPT/HCPCS: 80048; 83735; 85025; 85610; 86850; 86900; 86901; 88304; 88311; 94640

== ENCOUNTER → 2018-09-10 | Outpatient (CLI) | payer MEDICARE, OTHER ==
--- NOTE | 2018-09-10 13:19 | XR ---
Lumbar spine HISTORY: Fecal urgency 3 views of the lumbar spine. There is anterolisthesis grade 1 at L5-S1, there is associated loss of disc height, spondylosis, vacu um phenomenon. Bilateral spondylolysis is suspected L5. Lumbar vertebral bodies show preserved height and bone mineralization is reduced. Sclerosis present in the posterior elements compatible with face t arthropathy. Surgical clips present in the upper abdomen. Dense vascular calcifications are present . IMPRESSION: Spondylolysis, spondylolisthesis, degenerative disc disease and facet arthropathy. Additi onal findings above.
== END ==
LOC: RADXRMAIN 10:08
PROVIDERS: ATTEND Family Medicine
DX: M51.36 Other intervertebral disc degeneration, lumbar region (principal); M47.816 Spondylosis without myelopathy or radiculopathy, lumbar region; M43.16 Spondylolisthesis, lumbar region; M46.96 Unspecified inflammatory spondylopathy, lumbar region
CPT/HCPCS: 72100

== ENCOUNTER → 2018-11-29 | Outpatient (CLI) | payer MEDICARE, OTHER ==
[2018-11-29 16:35] LABS: HCT 31.6 % (39.0-53.0); HGB 9.3 gm/dL (13.0-17.5); Hypochromasia Marked; MCH 27.9 pg (25.0-35.0); MCHC 29.6 g/dL (31.0-37.0); MCV 94.4 fL (80.0-100.0); Mean Platelet Volume 7.4; Platelet Count 428 k/uL (150-450); Poikilocytosis Slight; RBC 3.35 m/uL (4.30-5.90); RDW 15.7 % (11.5-15.5)
[2018-11-29 16:39] LABS: INR 3.6 (<1.2)
[2018-11-29 16:54] LABS: Anion Gap 7 mmol/L; Blood Urea Nitrogen 11 mg/dL (9-20); Carbon Dioxide 29 mmol/L (22-30); Chloride 110 mmol/L (98-107); Potassium 3.7 mmol/L (3.5-5.1); Sodium 146 mmol/L (137-145)
== END ==
LOC: LABPAT 15:29
PROVIDERS: ATTEND Internal Medicine Interventional Cardiology
DX: Z01.812 Encounter for preprocedural laboratory examination (principal); E11.9 Type 2 diabetes mellitus without complications; I10 Essential (primary) hypertension; I25.10 Atherosclerotic heart disease of native coronary artery without angina pectoris
CPT/HCPCS: 36415; 80051; 82565; 84520; 85027; 85610

== ENCOUNTER 2018-12-01 10:42 | Day surgery (SDC) | payer MEDICARE, OTHER ==
[2018-11-30 09:59] VITALS: BMI 27.8
[~2018-12-01 10:42] MED LIST changes: +ALPRAZolam 0.25 MG TAB PO PRN; +ALPRAZolam 0.5 MG TAB PO PRN; +ASPIRIN 325 MG TAB PO STA; +ATORVASTATIN 80 MG TAB PO STA; -DEXAMETHASONE SOD PHOSPHATE 10 MG/ML 1 ML VIAL IV ONE; -LIDOCAINE 1% 20 ML VIAL (10MG/ML) FOR IV START INTRADERMA PRN; -MIDAZOLAM 2 MG/2 ML VIAL IV PRN; +NITROGLYCERIN SL TABS 0.4 MG TAB SUBLINGUAL PRN; -ONDANSETRON 4 MG/2 ML VIAL IVP ONE; +SODIUM CHLORIDE 0.9% 1,000 ML in EMPTY BAG 1 BAG IV ONE; -ceFAZolin IN SWFI 2 GM/20 ML SYRINGE IVP ONE; -fentaNYL (PF) 50 MCG/ML 2 ML AMP IV PRN
[2018-12-01 11:18] LABS: Glucose,Whole Blood 124 mg/dL (75-99)
[2018-12-01] MEDS ORDERED: HEPARIN SODIUM 1,000 UN/ML (10ML VL) ONE (12:08)
[2018-12-01] MEDS ORDERED: fentaNYL (PF) 50 MCG/ML 2 ML AMP ONE (12:08)
[2018-12-01] MEDS ORDERED: VERAPAMIL 2.5 MG/ML 2 ML AMP ONE (12:08)
[2018-12-01 12:13] LABS: Basophils # (A) 0.1 k/uL (0-0.2); Basophils % (A) 1 %; Eosinophils # (A) 0.4 k/uL (0-0.7); Eosinophils % (A) 3 %; HCT 33.3 % (39.0-53.0); HGB 9.5 gm/dL (13.0-17.5); Hypochromasia Marked; Lymphocytes # (A) 2.5 k/uL (1.0-4.8); Lymphocytes % (A) 19 %; MCH 26.7 pg (25.0-35.0); MCHC 28.5 g/dL (31.0-37.0); MCV 93.4 fL (80.0-100.0); Mean Platelet Volume 7.7; Monocytes % (A) 8 %; Neutrophils # (A) 9.2 k/uL (1.3-7.7); Neutrophils % (A) 69 %; Platelet Count 480 k/uL (150-450); Poikilocytosis Slight; RBC 3.57 m/uL (4.30-5.90); RDW 15.7 % (11.5-15.5); WBC 13.5 k/uL (3.8-10.6)
[2018-12-01] MEDS ORDERED: LIDOCAINE 1% INJ 10MG/ML (20 ML MDV) ONE (12:17)
[2018-12-01 12:21] LABS: INR 1.9 (<1.2); Prothrombin Time 18.3 sec (9.0-12.0)
[2018-12-01] MEDS ORDERED: SODIUM CHLORIDE 0.9% 1,000 ML IV ONE (12:28)
[2018-12-01] MEDS ORDERED: LIDOCAINE 2% (PF) 20 MG/ML 2 ML VIAL SQ ONE (12:50)
[2018-12-01] MEDS ORDERED: fentaNYL (PF) 50 MCG/ML 2 ML AMP IVP ONE (12:50)
[2018-12-01] MEDS ORDERED: MIDAZOLAM 2 MG/2 ML VIAL IVP ONE (12:53)
[2018-12-01] MEDS ORDERED: VERAPAMIL SYRINGE (5 MG/10 ML) INTRAARTER ONE (12:53)
[2018-12-01] MEDS ORDERED: BIVALIRUDIN 250 MG in SODIUM CHLORIDE 0.9% 50 ML IV ONE (12:57)
[2018-12-01] MEDS ORDERED: BIVALIRUDIN BOLUS 250 MG/50 ML IV ONE (12:57)
[2018-12-01] MEDS ORDERED: NITROGLYCERIN 1000MCG/10ML SYRINGE INTRACORON ONE (13:11)
[2018-12-01] MEDS ORDERED: IOPAMIDOL-370 100ML BTL INJ ONE ×2 (13:13→13:26)
[2018-12-01] MEDS ORDERED: ZOLPIDEM 5 MG TAB PO PRN (13:39)
[2018-12-01] MEDS ORDERED: ATROPINE SULFATE 0.1 MG/ML 10ML SYRINGE IV PRN (13:39)
[2018-12-01] MEDS ORDERED: RX INFO: IV CONTRAST WAS GIVEN 1 EACH MISC MISCELLANE PRN (13:39)
[2018-12-01] MEDS ORDERED: NITROGLYCERIN SL TABS 0.4 MG TAB SUBLINGUAL PRN ×2 (13:39→13:40)
[2018-12-01] MEDS ORDERED: MAG HYDROX/AL HYDROX/SIMETH 30 ML CUP PO PRN (13:39)
[2018-12-01] MEDS ORDERED: ALBUTEROL NEBULIZED 2.5 MG/3 ML INHALATION PRN (13:40)
[2018-12-01] MEDS ORDERED: SODIUM CHLORIDE 0.9% 1,000 ML IV SCH (13:45)
[2018-12-01 16:20] LABS: Glucose,Whole Blood 134 mg/dL (75-99)
[2018-12-01] MEDS: CARVEDILOL 12.5 MG TAB PO SCH (17:17)
[2018-12-01] MEDS: HYDROcodone/APAP 10-325MG 1 EACH TAB PO PRN (18:27)
[2018-12-01] MEDS: SYMBICORT 80-4.5 MCG INHALER INHALATION SCH (19:31)
--- NOTE | 2018-12-01 20:08 | CC ---
CARDIAC CATHETERIZATION REPORT Mr. Burgos is a 68-year-old male with a history of coronary artery disease, who has underwent cardiac catheterization recently in [place] and was found to have critical stenosis involving the ostium of the left circumflex. The patient was treated medically, but has continued to complain of chest discomfort and after evaluation by Dr. Vu, recommendation made regarding cardiac catheterization. The procedures as well as risks and complications were discussed with the patient who is in full understanding and agreement. PROCEDURE: Patient was brought to mini lab operator in a fasting state after receiving fentanyl and Benadryl and achieving moderate conscious sedated state. Using Xylocaine anesthesia and Seldinger technique, a 6-[place] sheath was introduced in the right radial artery. Following that, 6-[place] 3.5 guiding catheter was introduced into the system. After contained cannulating the left main a 0.014 balanced medium weight J-wire was advanced and positioned in the distal LAD. Subsequently another 0.014 balanced medium weight J- wire was advanced and positioned in the first obtuse marginal branch. Attempts to advance a Whisper J-wire in the second obtuse marginal branch were unsuccessful. At that point, the whisper J-wire was removed and a 2.25 x 12 mm Trek balloon was advanced and one inflation was done at 8 atmospheres. Following that, the balloon was removed and a 2.5 x 12 mm Xience Regina stent was advanced, deployed and post dilated at 16 atmospheres. After the last inflation, after appropriate wait, the balloon and the guidewire were withdrawn back in the catheter. Images were obtained and repeated. Those images revealed stable successful stenting. At that point, the guiding catheter, the balloon and the guidewire were removed. The sheath was removed. Hemostasis was obtained with deployment of a TR band. There was no immediate complication. Patient was returned to his room in stable condition. Of note, the patient had chest discomfort with the inflation that improved at the end of the procedure. He had no significant EKG changes. RESULTS: Successful stenting of the ostium of the left circumflex with reduction of stenosis from 99% to less than 5%. RECOMMENDATION: Patient be continued on aspirin, Plavix, beta jaret, and LEIGHA inhibitor. The importance of dual antiplatelet treatment was discussed with the patient and his family who are in full understanding and agreement. Duration of procedure is 36 minutes. MMODL / IJN: [id number] /
[2018-12-01] MEDS ORDERED: ATORVASTATIN 80 MG TAB PO SCH (21:00)
[2018-12-01] MEDS ORDERED: TAMSULOSIN 0.4 MG CAP.ER.24H PO SCH (21:00)
[2018-12-01 21:01] LABS: Glucose,Whole Blood 129 mg/dL (75-99)
[2018-12-02] MEDS: HYDROcodone/APAP 10-325MG 1 EACH TAB PO PRN (00:31)
[2018-12-02 04:35] LABS: Glucose,Whole Blood 104 mg/dL (75-99)
[2018-12-02] MEDS: CARVEDILOL 12.5 MG TAB PO SCH (06:08)
[2018-12-02 07:20] LABS: Anion Gap 2 mmol/L; Blood Urea Nitrogen 13 mg/dL (9-20); Calcium 8.6 mg/dL (8.4-10.2); Carbon Dioxide 31 mmol/L (22-30); Chloride 110 mmol/L (98-107); Glucose 103 mg/dL (74-99); Potassium 3.9 mmol/L (3.5-5.1); Sodium 143 mmol/L (137-145)
[2018-12-02] MEDS ORDERED: PANTOPRAZOLE 40 MG TABLET PO SCH (07:30)
--- NOTE | 2018-12-02 07:36 | PN ---
PROGRESS NOTE Mr. Burgos is a 68-year-old male with known history of hypertension, hyperlipidemia, diabetes mellitus, who was found to have critical stenosis involving the ostium of the left circumflex underwent stenting of that vessel yesterday. He is doing well this morning. His breathing is stable. He is denying any chest pain. No dizziness. No palpitation. No nausea. He continues to be on aspirin once a day, Plavix 75 mg daily, Lipitor 80 mg daily, Coreg 12.5 mg twice a day, isosorbide mononitrate 60 mg daily, and Flomax. PHYSICAL EXAMINATION: Blood pressure 129/70 with the heart rate in the 70s. LUNGS: Clear. HEART: Regular rate and rhythm. S1, S2. No S3. No rub. ABDOMEN: Soft, nontender. EXTREMITIES: No edema. Right radial pulse intact. EKG revealed no acute changes. LAB DATA: Lab data revealed BUN and creatinine 13 and 0.67. IMPRESSION: 1. Status post stenting of the ostium of the left circumflex. 2. Hypertension. 3. Hyperlipidemia. 4. Diabetes mellitus. RECOMMENDATION: Patient will be able to be discharged home today and followed as an outpatient with Dr. Vu. MMAGUSL / SILVERION: [id number] /
[2018-12-02] MEDS ORDERED: IPRATROPIUM-ALBUTEROL 3 ML NEB INHALATION SCH (08:00)
[2018-12-02] MEDS: SYMBICORT 80-4.5 MCG INHALER INHALATION SCH (08:17)
[2018-12-02] MEDS ORDERED: ASPIRIN 81 MG PO SCH (09:00)
[2018-12-02] MEDS ORDERED: LORATADINE 10 MG TAB PO SCH (09:00)
[2018-12-02] MEDS ORDERED: ISOSORBIDE MONONITRATE ER 60 MG TAB.ER.24H PO SCH (09:00)
[2018-12-02] MEDS ORDERED: acetaZOLAMIDE 250 MG TAB PO SCH (09:00)
[2018-12-02] MEDS ORDERED: CLOPIDOGREL 75 MG TAB PO SCH (09:00)
[2018-12-02 09:29] VITALS: BP 124/71; PULSE 79; RESP 16; TEMP 97.9
== END 2018-12-02 09:17 | disposition home or self-care (01) ==
LOC: CATHCVL 10:42 → 3SCARD 13:58 → CATHCVL 12-02 09:17
PROVIDERS: ATTEND Internal Medicine Interventional Cardiology
DX: I25.10 Atherosclerotic heart disease of native coronary artery without angina pectoris (principal); I10 Essential (primary) hypertension; Z72.0 Tobacco use; I77.9 Disorder of arteries and arterioles, unspecified; E78.00 Pure hypercholesterolemia, unspecified; J44.9 Chronic obstructive pulmonary disease, unspecified; E11.51 Type 2 diabetes mellitus with diabetic peripheral angiopathy without gangrene; I71.4 Abdominal aortic aneurysm, without rupture; Z89.519 Acquired absence of unspecified leg below knee; E78.5 Hyperlipidemia, unspecified; Z79.01 Long term (current) use of anticoagulants; Z79.84 Long term (current) use of oral hypoglycemic drugs; Z79.51 Long term (current) use of inhaled steroids; Z79.899 Other long term (current) drug therapy; Z79.02 Long term (current) use of antithrombotics/antiplatelets; Z79.891 Long term (current) use of opiate analgesic
CPT/HCPCS: 94640 ×4; 85347; 80048; 85025; 85610; C9600; C1769 ×3; C1887; C1894; C1725; C1874; J2250; J3010; J0583; J2001; Q9967

== ENCOUNTER → 2019-06-25 | Outpatient (CLI) | payer MEDICARE, OTHER ==
--- NOTE | 2019-06-25 17:22 | XR ---
EXAMINATION TYPE: XR humerus RT DATE OF EXAM: 06/25/2019 COMPARISON: None HISTORY: Pain TECHNIQUE: 2 view right humerus FINDINGS: No acute fractures are evident. Joint spaces appear preserved. Soft tissues are unremarkabl e. Old right clavicular fracture is present. IMPRESSION: 1. Normal 2 view right humerus.
== END | disposition home or self-care (01) ==
LOC: RADXRMAIN 11:15
PROVIDERS: ATTEND Family Medicine
DX: M79.601 Pain in right arm (principal)

== ENCOUNTER → 2019-08-03 | Outpatient (CLI) | payer MEDICARE, OTHER ==
--- NOTE | 2019-08-03 11:17 | XR ---
EXAMINATION TYPE: XR cervical spine limited DATE OF EXAM: 08/03/2019 COMPARISON: NONE HISTORY: Pain TECHNIQUE: Four views are submitted. FINDINGS: The odontoid is intact. There are no compression deformities. The prevertebral soft tissue structur es are within normal limits. Multilevel facet arthropathy. There is a grade 1 anterolisthesis of C4 on C5. Degenerative disc disease C5-6 and C6-C7. IMPRESSION: 1. Multilevel degenerative disc disease and facet arthropathy with grade 1 anterolisthesis C4 on C5. Recommend follow-up MRI.
== END | disposition home or self-care (01) ==
LOC: RADXRMAIN 10:52
PROVIDERS: ATTEND Family Medicine
DX: M50.322 Other cervical disc degeneration at C5-C6 level (principal); M43.12 Spondylolisthesis, cervical region; M46.92 Unspecified inflammatory spondylopathy, cervical region
CPT/HCPCS: 72040

== ENCOUNTER → 2019-09-16 | Outpatient (CLI) | payer MEDICARE, OTHER ==
--- NOTE | 2019-09-16 12:03 | XR ---
EXAMINATION TYPE: XR chest 2V DATE OF EXAM: 09/16/2019 COMPARISON: 02/17/2018 TECHNIQUE: PA and lateral views submitted. HISTORY: Shortness of breath FINDINGS: The lungs are clear and there is no pneumothorax, pleural effusion, or focal pneumonia. Atheroscler otic change aorta. Chronic deformity of the right clavicle. Arthropathy of the left shoulder. Enlarge ment pulmonary arteries compatible with pulmonary arterial hypertension. No consolidation. IMPRESSION: 1. COPD. Correlate for pulmonary arterial hypertension.
== END | disposition home or self-care (01) ==
LOC: RADXRMAIN 09:49
PROVIDERS: ATTEND Family Medicine
DX: J44.9 Chronic obstructive pulmonary disease, unspecified (principal)
CPT/HCPCS: 71046

== ENCOUNTER 2019-10-05 07:43 | Day surgery (SDC) | payer MEDICARE, OTHER ==
[2019-09-30 17:23] VITALS: BMI 27.3
[~2019-10-05 07:43] MED LIST changes: -ALPRAZolam 0.25 MG TAB PO PRN; -ALPRAZolam 0.5 MG TAB PO PRN; -ASPIRIN 325 MG TAB PO STA; -ATORVASTATIN 80 MG TAB PO STA; +LACTATED RINGERS 1,000 ML IV SCH; +LIDOCAINE 1% 20 ML VIAL (10MG/ML) FOR IV START INTRADERMA PRN; -NITROGLYCERIN SL TABS 0.4 MG TAB SUBLINGUAL PRN; -SODIUM CHLORIDE 0.9% 1,000 ML in EMPTY BAG 1 BAG IV ONE
[2019-10-05 08:02] VITALS: TEMP 97.9
[2019-10-05 08:09] LABS: Glucose,Whole Blood 111 mg/dL (75-99)
[2019-10-05] MEDS ORDERED: PROPOFOL 10 MG/ML 20 ML VIAL IV ONE (08:30)
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
--- NOTE | 2019-10-05 09:02 | P.PCN ---
Date of Procedure: 10/05/19 Description of Procedure: PREOPERATIVE DIAGNOSIS: Colonoscopy screening Ischemic cardiomyopathy Chronic anticoagulation Long-term anticoagulant use Oxygen dependence status Colonoscopy screening History of leg amputation POSTOPERATIVE DIAGNOSIS: Colonoscopy screening Ischemic cardiomyopathy Chronic anticoagulation Long-term anticoagulant use Oxygen dependence status Colonoscopy screening History of leg amputation Sigmoid diverticulosis Hepatic flexure OPERATION: Colonoscopy to the ileocecal valve and appendiceal orifice. Colonoscopy with hot snare polypectomies SURGEON: Devora Nunn MD. ANESTHESIA: MAC. INDICATIONS: The patient is an 69-year-old male who presents for colonoscopy screening. Last colonoscopy 5 years ago. Benefits and risks were described and informed consent was obtained. DESCRIPTION OF PROCEDURE: The patient had undergone Suprep. He had been brought into the operating room and laid in the left lateral decubitus position. After adequate intravenous sedation, the rectum was examined with 2% lidocaine jelly. The prostate fossa was unremarkable. External hemorrhoids were encountered. The rectal tone was within normal limits. No lesions were palpated in the rectal vault. An Olympus colonoscope was advanced until the ileocecal valve and appendiceal orifice were clearly viewed. The prep was fair. Sigmoid diverticulosis was encountered. Hepatic flexure adenoma 8 mm was snare polypectomy. No evidence of focal colitis was found. Retroflexion of the scope demonstrated grade 1 internal hemorrhoids without active bleeding or inflammation. The colon was desufflated. The patient had tolerated the procedure well. Withdrawal time was over 6 minutes. FINDINGS: Aronchick preparation quality scale 2 (1-5) Internal hemorrhoids, grade 1 No external hemorrhoids No arteriovenous malformations. Sigmoid diverticulosis Removal of 1 polyps: - Snare polypectomy hepatic flexure, 8 mm tubulovillous adenoma polyp. No focal colitis. RECOMMENDATIONS: Repeat colonoscopy in 3 years, 2022 Plan - Discharge Summary Discharge Rx Participant: No New Discharge Prescriptions: No Action Warfarin [Coumadin] 2.5 mg PO DAILY HYDROcodone/APAP 10-325MG [[place] 10-325] 1 tab PO Q6H PRN PRN Reason: Pain Fluticasone/Salmeterol [Advair 250-50 Diskus] 1 puff INHALATION RT-BID Isosorbide Mononitrate ER [Imdur] 60 mg PO DAILY Atorvastatin [Lipitor] 80 mg PO HS Tamsulosin [Flomax] 0.4 mg PO DAILY Ipratropium/Albuterol Sulfate [Combivent Respimat Inhaler] 1 puff INHALATION RT-DAILY Pantoprazole [Protonix] 40 mg PO HS acetaZOLAMIDE [Diamox] 250 mg PO DAILY Aspirin 81 mg PO DAILY Loratadine 10 mg PO BID metFORMIN HCL ER [Glucophage Xr] 500 mg PO DAILY Carvedilol 25 mg PO BID Discharge Medication List Fluticasone/Salmeterol [Advair 250-50 Diskus] 1 puff INHALATION RT-BID 11/07/14 [History] HYDROcodone/APAP 10-325MG [[place] 10-325] 1 tab PO Q6H PRN 11/07/14 [History] Isosorbide Mononitrate ER [Imdur] 60 mg PO DAILY 11/07/14 [History] Warfarin [Coumadin] 2.5 mg PO DAILY 11/07/14 [History] Atorvastatin [Lipitor] 80 mg PO HS 11/28/15 [History] Ipratropium/Albuterol Sulfate [Combivent Respimat Inhaler] 1 puff INHALATION RT- DAILY 04/26/18 [History] Pantoprazole [Protonix] 40 mg PO HS 04/26/18 [History] Tamsulosin [Flomax] 0.4 mg PO DAILY 04/26/18 [History] Aspirin 81 mg PO DAILY 11/30/18 [History] acetaZOLAMIDE [Diamox] 250 mg PO DAILY 11/30/18 [History] Carvedilol 25 mg PO BID 02/21/19 [History] Loratadine 10 mg PO BID 02/21/19 [History] metFORMIN HCL ER [Glucophage Xr] 500 mg PO DAILY 02/21/19 [History] Follow up Appointment(s)/Referral(s): Devora Nunn MD [STAFF PHYSICIAN] - As Needed Patient Instructions/Handouts: Colorectal Polyps (DC), Diverticulosis Diet (GEN) Activity/Diet/Wound Care/Special Instructions: Repeat colonoscopy in 3 years, 2022 Discharge Disposition: HOME SELF-CARE
[2019-10-05 09:17] VITALS: BP 159/78; PULSE 102; RESP 18
== END 2019-10-05 10:08 | disposition home or self-care (01) ==
LOC: ORWHC2ENDO 07:43
PROVIDERS: ATTEND Surgery Plastic and Reconstructive Surgery
DX: Z12.11 Encounter for screening for malignant neoplasm of colon (principal); D12.3 Benign neoplasm of transverse colon; K57.30 Diverticulosis of large intestine without perforation or abscess without bleeding; K64.4 Residual hemorrhoidal skin tags; K64.0 First degree hemorrhoids; I25.5 Ischemic cardiomyopathy; J44.9 Chronic obstructive pulmonary disease, unspecified; K21.9 Gastro-esophageal reflux disease without esophagitis; H91.90 Unspecified hearing loss, unspecified ear; E78.5 Hyperlipidemia, unspecified; I10 Essential (primary) hypertension; M19.90 Unspecified osteoarthritis, unspecified site; Z99.81 Dependence on supplemental oxygen; Z89.511 Acquired absence of right leg below knee; I73.9 Peripheral vascular disease, unspecified; Z95.820 Peripheral vascular angioplasty status with implants and grafts; I65.29 Occlusion and stenosis of unspecified carotid artery; Z98.49 Cataract extraction status, unspecified eye; Z97.2 Presence of dental prosthetic device (complete) (partial); Z87.891 Personal history of nicotine dependence; I25.2 Old myocardial infarction; E11.9 Type 2 diabetes mellitus without complications; Z79.4 Long term (current) use of insulin; Z79.01 Long term (current) use of anticoagulants; Z79.84 Long term (current) use of oral hypoglycemic drugs; Z79.891 Long term (current) use of opiate analgesic; Z79.82 Long term (current) use of aspirin; Z79.51 Long term (current) use of inhaled steroids; Z79.899 Other long term (current) drug therapy
CPT/HCPCS: 45385; 88305

== ENCOUNTER → 2020-03-09 | Outpatient (CLI) | payer MEDICARE, OTHER ==
--- NOTE | 2020-03-09 12:16 | MR ---
EXAMINATION TYPE: MR cervical spine wo con DATE OF EXAM: 03/09/2020 11:47 AM COMPARISON: NONE HISTORY: Neck pain Multiplanar MultiSpin echo imaging of the cervical spine was performed. Examination is limited by pa tient motion and resultant artifact. Comparison: none C2-C3: No evidence for degenerative disc disease. No disc bulge/herniation or protrusion. No Canal stenosis. Foramina are patent bilaterally. C3-C4: Mild decreased signal ossified compatible with degenerative disc disease. Posterior disc bulge with mild effacement ventral thecal sac. No herniation or central stenosis. Hypertrophic change righ t-sided uncovertebral joints with foraminal encroachment. C4-C5: Mild decreased signal ossified compatible with degenerative disc disease. Posterior disc bulge with mild effacement ventral thecal sac. No herniation or central stenosis. Hypertrophic change righ t-sided uncovertebral joints with foraminal encroachment. C5-C6: Mild disc desiccation with posterior disc bulge. Mild effacement ventral thecal sac. No eviden ce for herniation or central stenosis. No foraminal encroachment. C6-C7: Mild disc desiccation with posterior disc bulge. Mild effacement ventral thecal sac. No eviden ce for herniation or central stenosis. Mild left-sided foraminal encroachment. C7-T1: No evidence for degenerative disc disease. No disc bulge/herniation or protrusion. No Canal stenosis. Foramina ar e patent bilaterally. Cervical segments are intact. There is normal alignment. Cervical spinal cord is of normal signal. Craniovertebral junction relationships are within normal limits. IMPRESSION: 1. Degenerative disc disease with varying degrees of disc bulging however there is no evidence for he rniation or central stenosis. Foraminal encroachment as outlined above.
== END | disposition home or self-care (01) ==
LOC: RADMRIMAIN 10:49
PROVIDERS: ATTEND Physical Medicine & Rehabilitation
DX: M50.10 Cervical disc disorder with radiculopathy, unspecified cervical region (principal)
CPT/HCPCS: 72141

== ENCOUNTER → 2020-04-03 | Outpatient (CLI) | payer MEDICARE, OTHER ==
[2020-04-03 18:12] LABS: INR 1.03 (0.90-1.11); Partial Thromboplastin Time 25.4 sec (24.7-29.9)
[2020-04-03 18:51] LABS: ALT 9 U/L (10-49); AST 15 U/L (14-35); Albumin/Globulin Ratio 1.57 (1.60-3.17); Alkaline Phosphatase 103 U/L (41-126); Bilirubin, Conjugated <0.20 mg/dL (0.20-0.40); Globulin 2.3 g/dL (1.6-3.3); Total Bilirubin 0.4 mg/dL (0.2-1.2); Total Protein 5.9 g/dL (6.2-8.2)
== END | disposition home or self-care (01) ==
LOC: LABWHC1 11:24
PROVIDERS: ATTEND Physical Medicine & Rehabilitation
DX: M54.6 Pain in thoracic spine (principal); M50.122 Cervical disc disorder at C5-C6 level with radiculopathy; M47.812 Spondylosis without myelopathy or radiculopathy, cervical region; Z79.01 Long term (current) use of anticoagulants
CPT/HCPCS: 36415; 80076; 85610; 85730

== ENCOUNTER → 2020-04-17 | Outpatient (CLI) | payer MEDICARE, OTHER ==
[2020-04-17 12:28] LABS: Anisocytosis Slight; HCT 36.1 % (39.0-53.0); HGB 9.8 gm/dL (13.0-17.5); Hypochromasia Marked; MCH 25.8 pg (25.0-35.0); MCHC 27.1 g/dL (31.0-37.0); MCV 95.3 fL (80.0-100.0); Mean Platelet Volume 7.8; Platelet Count 434 k/uL (150-450); RBC 3.78 m/uL (4.30-5.90); RDW 17.4 % (11.5-15.5); WBC 7.3 k/uL (3.8-10.6)
[2020-04-17 18:27] LABS: ALT 12 U/L (10-49); AST 15 U/L (14-35); Albumin/Globulin Ratio 1.64 (1.60-3.17); Alkaline Phosphatase 92 U/L (41-126); Bilirubin, Conjugated <0.20 mg/dL (0.20-0.40); Globulin 2.2 g/dL (1.6-3.3); Total Bilirubin 0.3 mg/dL (0.2-1.2); Total Protein 5.8 g/dL (6.2-8.2)
== END | disposition home or self-care (01) ==
LOC: LABWHC1 10:47
PROVIDERS: ATTEND Physical Medicine & Rehabilitation
DX: M54.6 Pain in thoracic spine (principal); M50.123 Cervical disc disorder at C6-C7 level with radiculopathy; M47.812 Spondylosis without myelopathy or radiculopathy, cervical region
CPT/HCPCS: 36415; 80076; 85027; 85730

== ENCOUNTER → 2020-04-18 | Outpatient (CLI) | payer MEDICARE, OTHER ==
[2020-04-18 08:29] LABS: INR 1.2 (<1.2); Prothrombin Time 12.2 sec (9.0-12.0)
== END | disposition home or self-care (01) ==
LOC: LABWHC1 07:46
PROVIDERS: ATTEND Physical Medicine & Rehabilitation
DX: Z51.81 Encounter for therapeutic drug level monitoring (principal); Z79.01 Long term (current) use of anticoagulants
CPT/HCPCS: 36415; 85610

== ENCOUNTER → 2020-05-11 | Outpatient (CLI) | payer MEDICARE, OTHER ==
--- NOTE | 2020-05-11 13:19 | CT ---
EXAMINATION TYPE: CT chest wo con DATE OF EXAM: 05/11/2020 COMPARISON: 10/25/2011 HISTORY: right side chest pain CT DLP: 326.2 mGycm. Automated Exposure Control for Dose Reduction was Utilized. TECHNIQUE: CT scan of the thorax is performed without IV contrast. FINDINGS: LUNGS: Diffuse emphysematous changes are seen. Areas of subsegmental groundglass changes are most typ ical of atelectasis bilaterally. No sizable pneumothorax or pleural effusion. Peripheral vague 5 mm n odule lateral margin of left lower lobes likely postinflammatory. Additional areas of consolidation a re seen at the lung bases most likely on the basis of atelectasis.. MEDIASTINUM: Lack of IV contrast is noted to limit evaluation for mediastinal and especially hilar ad enopathy. There are no definitive greater than 1 cm hilar or mediastinal lymph nodes. Large hiatal he rnia. Tiny pericardial effusion with dense three-vessel coronary artery disease. Heart is mildly enla rged. Atherosclerotic change aorta. Trace gynecomastia bilaterally. Hypoechoic density in the left up per quadrant likely represents a splenule.. OTHER: Chronic rib deformities are suggestive of remote trauma. Hypertrophic change of the spine.. Ex tensive atherosclerotic changes and vascular. IMPRESSION: 1. Diffuse COPD no evidence of pneumothorax. Areas of subsegmental consolidation which atelectasis is favored over pneumonia correlate clinically. 2. Dense coronary artery calcification is cardiomegaly and tiny pericardial effusion correlate clinic ally. 3. Moderate to large sized hiatal hernia. 4. Vague 5 mm peripheral left lower lobe nodule likely postinflammatory recommend 6 month follow-up t o confirm stability.
== END | disposition home or self-care (01) ==
LOC: RADCTMAIN 12:49
PROVIDERS: ATTEND Physical Medicine & Rehabilitation
DX: J44.9 Chronic obstructive pulmonary disease, unspecified (principal); J98.11 Atelectasis; I25.10 Atherosclerotic heart disease of native coronary artery without angina pectoris; I51.7 Cardiomegaly; R91.1 Solitary pulmonary nodule
CPT/HCPCS: 71250

== ENCOUNTER 2020-06-18 15:23 | Inpatient (IN) | payer MEDICARE, OTHER ==
[2020-06-18] MEDS ORDERED: SODIUM CHLORIDE 0.9% 1,000 ML IV STA (15:49)
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
[2020-06-18 16:25] LABS: Anisocytosis Slight; Basophils # (A) 0.1 k/uL (0-0.2); Basophils % (A) 1 %; Eosinophils # (A) 0.1 k/uL (0-0.7); Eosinophils % (A) 1 %; HCT 35.8 % (39.0-53.0); HGB 9.8 gm/dL (13.0-17.5); Hypochromasia Marked; Lymphocytes # (A) 2.2 k/uL (1.0-4.8); Lymphocytes % (A) 20 %; MCH 26.8 pg (25.0-35.0); MCHC 27.4 g/dL (31.0-37.0); MCV 98.1 fL (80.0-100.0); Macrocytosis Slight; Mean Platelet Volume 8.4; Monocytes # (A) 0.9 k/uL (0-1.0); Monocytes % (A) 8 %; Neutrophils # (A) 7.2 k/uL (1.3-7.7); Neutrophils % (A) 67 %; Platelet Count 482 k/uL (150-450); RBC 3.65 m/uL (4.30-5.90); RDW 17.9 % (11.5-15.5); WBC 10.8 k/uL (3.8-10.6)
[2020-06-18 16:39] LABS: Albumin 3.4 g/dL (3.5-5.0); Magnesium 1.4 mg/dL (1.6-2.3); Phosphorus 3.1 mg/dL (2.5-4.5); Potassium 4.6 mmol/L (3.5-5.1); Total Bilirubin 0.5 mg/dL (0.2-1.3); Total Protein 6.5 g/dL (6.3-8.2)
[2020-06-18 16:52] LABS: INR 2.9 (<1.2); Partial Thromboplastin Time 31.8 sec (22.0-30.0); Prothrombin Time 28.6 sec (9.0-12.0)
--- NOTE | 2020-06-18 17:20 | CT ---
EXAMINATION TYPE: CT brain wo con DATE OF EXAM: 06/18/2020 HISTORY: SOB, weakness CT DLP: 975.9 mGycm. Automated Exposure Control for Dose Reduction was Utilized. TECHNIQUE: CT scan of the head is performed without contrast. COMPARISON: CT brain December 29, 2016. FINDINGS: There is no acute intracranial hemorrhage or midline shift identified. There is diffuse v entricular and sulcal prominence consistent with diffuse age-related cerebral atrophy. There is low- attenuation in the periventricular white matter consistent with chronic small vessel ischemic change. The calvarium is intact. The globes are intact and the visualized sinuses are clear. IMPRESSION: No acute intracranial hemorrhage or midline shift. There is mild to moderate diffuse ag e-related cerebral atrophy and chronic small vessel ischemic change redemonstrated. No significant c hange from prior study.
--- NOTE | 2020-06-18 17:27 | CT ---
EXAMINATION TYPE: CT ChestAbdPelvis w con DATE OF EXAM: 06/18/2020 COMPARISON: 05/11/2020 HISTORY: SOB, weakness CT DLP: 909.6 mGycm Automated exposure control for dose reduction was used. CONTRAST: CT scan of the chest, abdomen and pelvis is performed without Oral Contrast and with IV Contrast, pat ient injected with 80 mL of Isovue 300. FINDINGS: LUNGS: There is moderate to marked centrilobular emphysema. There are small opacities in the left upp er and bilateral lower lobes. No pleural effusion or pneumothorax. MEDIASTINUM: There are no greater than 1 cm hilar or mediastinal lymph nodes. No pericardial effusi on is seen. OTHER: No additional significant abnormality is seen. LIVER/GB: No significant abnormality is appreciated. PANCREAS: No significant abnormality is seen. SPLEEN: No significant abnormality is seen. ADRENALS: No significant abnormality is seen. KIDNEYS: No significant abnormality is seen. BOWEL: No significant abnormality is seen. Colonic diverticulosis without acute diverticulitis. REPRODUCTIVE ORGANS: No gross abnormality seen. LYMPH NODES: No greater than 1 cm abdominal or pelvic lymph nodes are appreciated. OSSEOUS STRUCTURES: No acute abnormality. Moderate to severe L5-S1 spondylosis with grade 1 anterolis thesis. OTHER: Advanced atherosclerotic disease. IMPRESSION: Marked emphysema with bilateral small airspace opacities which may represent chronic change versus de veloping infiltrates. Recommend clinical correlation. No acute abnormality of the abdomen or pelvis.
[2020-06-18] MEDS ORDERED: ASPIRIN 81 MG PO STA (17:55)
[2020-06-18] MEDS ORDERED: NITROGLYCERIN SL TABS 0.4 MG TAB SUBLINGUAL PRN (17:55)
[2020-06-18] MEDS: METOPROLOL TARTRATE 25 MG TAB PO SCH (19:37)
[2020-06-18] MEDS: SODIUM CHLORIDE 0.9% 1,000 ML IV SCH (19:38)
[2020-06-18 21:01] LABS: Glucose,Whole Blood 134 mg/dL (75-99)
[2020-06-18] MEDS: NITROGLYCERIN OINT 1 INCH/GM PACKET TOPICAL SCH (21:13)
[2020-06-18] MEDS: HEPARIN SOD,PORK IN 0.45% NACL 25,000 UNIT in 0.45% NACL 1 250ML.BAG IV SCH (21:14)
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
[2020-06-18] MEDS: LORATADINE 10 MG TAB PO SCH (22:50)
[2020-06-18] MEDS: PREGABALIN 75 MG CAP PO SCH (22:50)
[2020-06-18] MEDS: PANTOPRAZOLE 40 MG TABLET PO SCH (22:50)
[2020-06-18] MEDS: carvediloL 12.5 MG TAB PO SCH (22:50)
[2020-06-18] MEDS: INSULIN ASPART (NovoLOG) 100 UNIT/ML VIAL SQ SCH (22:51)
[2020-06-18] MEDS: IPRATROPIUM-ALBUTEROL 3 ML NEB INHALATION SCH (23:22)
--- NOTE | 2020-06-18 23:36 | US ---
EXAMINATION TYPE: US kidneys/renal and bladder DATE OF EXAM: 06/18/2020 COMPARISON: CT, US CLINICAL HISTORY: elevated creatinine. Elevated creatinine. EXAM MEASUREMENTS: Right Kidney: 12.1 x 5.2 x 5.9 cm Left Kidney: 11.3 x 6.1 x 6.2 cm Right Kidney: Measures slightly enlarged versus upper limits of normal. Hypoechoic area seen upper po le measurin.0 x 1.0 x 0.9 cm. Left Kidney: No hydronephrosis or masses seen. Spleen not visualized for comparison. Bladder: Appears to be anechoic. Bilateral Jets seen: Not during exam. IMPRESSION: Small right renal cortical cyst. No evidence of solid renal mass or obstruction. Ureteral jets not se en during the exam.
[2020-06-19 03:13] LABS: Appearance,Urine Clear (Clear); Bilirubin,Urine Negative (Negative); Blood,Urine Negative (Negative); Color,Urine Yellow; Glucose,Urine (UA) Negative (Negative); Ketones,Urine Trace (Negative); Leukocyte Esterase,Urine Negative (Negative); Nitrite,Urine Negative (Negative); Protein,Urine Trace (Negative); Urobilinogen,Urine <2.0 mg/dL (<2.0)
[2020-06-19 03:14] LABS: Specific Gravity,Urine >1.050 (1.001-1.035)
[2020-06-19] MEDS: IPRATROPIUM-ALBUTEROL 3 ML NEB INHALATION SCH ×6 (03:44→23:48)
[2020-06-19 03:49] LABS: Cholesterol 80 mg/dL (<200); HDL Cholesterol 35 mg/dL (40-60); LDL Cholesterol,Calculated 20 mg/dL (0-99); Triglycerides 126 mg/dL (<150)
[2020-06-19] MEDS: NITROGLYCERIN OINT 1 INCH/GM PACKET TOPICAL SCH ×5 (04:59→23:12)
[2020-06-19] MEDS: carvediloL 12.5 MG TAB PO SCH ×2 (06:08→17:14)
[2020-06-19] MEDS: SODIUM CHLORIDE 0.9% 1,000 ML IV SCH ×3 (06:09→23:12)
[2020-06-19 06:25] LABS: Glucose,Whole Blood 101 mg/dL (75-99)
[2020-06-19] MEDS: INSULIN ASPART (NovoLOG) 100 UNIT/ML VIAL SQ SCH ×4 (06:38→20:24)
[2020-06-19] MEDS ORDERED: INSULIN ASPART (NovoLOG) 100 UNIT/ML VIAL SQ SCH (07:30)
[2020-06-19] MEDS: BUDESONIDE 1 MG/2 ML NEBU INHALATION SCH ×2 (08:00→19:52)
[2020-06-19] MEDS: PREGABALIN 75 MG CAP PO SCH ×2 (08:15→20:22)
[2020-06-19] MEDS: LORATADINE 10 MG TAB PO SCH ×2 (08:15→20:21)
[2020-06-19] MEDS: ISOSORBIDE MONONITRATE ER 60 MG TAB.ER.24H PO SCH (08:15)
[2020-06-19] MEDS: acetaZOLAMIDE 250 MG TAB PO SCH (08:15)
[2020-06-19] MEDS: ATORVASTATIN 80 MG TAB PO SCH (08:16)
[2020-06-19] MEDS: TAMSULOSIN 0.4 MG CAP.ER.24H PO SCH (08:16)
[2020-06-19] MEDS: METOPROLOL TARTRATE 25 MG TAB PO SCH (08:19)
[2020-06-19] MEDS: metFORMIN 500 MG TAB PO SCH ×2 (08:19→20:22)
[2020-06-19] MEDS ORDERED: ASPIRIN 325 MG TAB PO SCH (09:00)
[2020-06-19] MEDS ORDERED: amLODIPine 5 MG TAB PO SCH (09:15)
--- NOTE | 2020-06-19 09:24 | XR ---
EXAMINATION TYPE: XR chest 2V DATE OF EXAM: 06/19/2020 CLINICAL HISTORY: Shortness of breath TECHNIQUE: Frontal and lateral views of the chest are obtained. COMPARISON: 09/16/[address] chest 06/18/2020 FINDINGS: Cardiomegaly. Marked emphysematous change with bronchiectasis and interstitial coarsening. Right basilar airspace opacity. No pneumothorax. No pleural effusion. Old redemonstrated right clavi cular discontinuity may be related to old trauma or postsurgical change. IMPRESSION: Marked emphysematous change. Superimposed right basilar airspace opacity may represent at electasis and/or pneumonia.
[2020-06-19] MEDS: LOSARTAN 50 MG TAB PO SCH (10:14)
[2020-06-19] MEDS ORDERED: Magnesium Replacement Protocol 1 EACH MISC MISCELLANE PRN (11:44)
[2020-06-19] MEDS: MAGNESIUM SULFATE-D5W PMX 1 GM in DEXTROSE/WATER 1 100ML.BAG IVPB SCH ×3 (11:56→14:09)
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
--- NOTE | 2020-06-19 12:02 | ECHOF ---
Referral Reason:elevTrop MEASUREMENTS -------- HEIGHT: 177.8 cm WEIGHT: 79.8 kg BP: 163/69 IVSd: 1.3 cm (0.6 - 1.1) LVIDd: 4.5 cm (3.9 - 5.3) LVPWd: 1.4 cm (0.6 - 1.1) IVSs: 1.9 cm LVIDs: 2.1 cm LVPWs: 2.1 cm LAESV Index (A-L): 26.42 ml/m Ao Diam: 2.8 cm (2.0 - 3.7) AV Cusp: 1.9 cm (1.5 - 2.6) LA Diam: 3.1 cm (2.7 - 3.8) MV EXCURSION: 20.477 mm (> 18.000) MV EF SLOPE: 68 mm/s (70 - 150) EPSS: 0.3 cm MV E Jorge: 1.07 m/s MV DecT: 247 ms MV A Jorge: 1.04 m/s MV E/A Ratio: 1.03 AR PHT: 199 ms RAP: 15.00 mmHg RVSP: 27.59 mmHg TAPSE: 25.14 mm FINDINGS -------- This was a technically good study. The left ventricular size is normal. There is moderate concentric left ventricular hypertrophy. O verall left ventricular systolic function is normal with, an EF between 55 - 60 %. Takotsubo The right ventricle is normal in size. The left atrial size is normal. Normal LA size by volume 22+/-6 ml/m2. The right atrial size is normal. Interatrial and interventricular septum intact. The aortic valve is trileaflet and appears structurally normal. Trace amount of aortic regurgitatio n. The mitral valve is normal. Mild mitral annular calcification present. Mild mitral regurgitation is present. The tricuspid valve appears structurally normal. Mild tricuspid regurgitation present. Right vent ricular systolic pressure is normal at < 35 mmHg. There is no pulmonic regurgitation present. The aortic root size is normal. The inferior vena cava is mildly dilated. There is no pericardial effusion. CONCLUSIONS -------- 1. The left ventricular size is normal. 2. There is moderate concentric left ventricular hypertrophy. 3. Overall left ventricular systolic function is normal with, an EF between 55 - 60 %. 4. The aortic valve is trileaflet and appears structurally normal. 5. Trace amount of aortic regurgitation. 6. Mild mitral annular calcification present. 7. Mild mitral regurgitation is present. 8. Mild tricuspid regurgitation present. 9. There is no pericardial effusion. RECORD MAKER: Cassy Mccullough RDCS
[2020-06-19 12:05] LABS: INR 2.6 (<1.2); Prothrombin Time 25.8 sec (9.0-12.0)
[2020-06-19 12:07] LABS: Glucose,Whole Blood 162 mg/dL (75-99)
[2020-06-19 12:41] LABS: African American GFR (CKD) >90 (>60 ml/min/1.73 sqM); Anion Gap -1 mmol/L; Blood Urea Nitrogen 19 mg/dL (9-20); Carbon Dioxide 38 mmol/L (22-30); Chloride 107 mmol/L (98-107); Glucose 165 mg/dL (74-99); Non-African American GFR(CKD) 89 (>60 ml/min/1.73 sqM); Potassium 4.5 mmol/L (3.5-5.1); Sodium 144 mmol/L (137-145)
[2020-06-19 16:59] LABS: Glucose,Whole Blood 135 mg/dL (75-99)
[2020-06-19 20:14] LABS: Glucose,Whole Blood 145 mg/dL (75-99)
[2020-06-19] MEDS: HYDROcodone/APAP 10-325MG 1 EACH TAB PO PRN (20:21)
[2020-06-19] MEDS: PANTOPRAZOLE 40 MG TABLET PO SCH (20:22)
[2020-06-19] MEDS: HEPARIN SOD,PORK IN 0.45% NACL 25,000 UNIT in 0.45% NACL 1 250ML.BAG IV SCH (20:24)
[2020-06-19] MEDS: methylPREDNISolone SOD SUCCI 40 MG/ML 1 ML VIAL IV SCH ×2 (23:12→23:19)
--- NOTE | 2020-06-19 23:21 | P.PN ---
Progress Note - Text Progress Note Date: 06/19/20 Chief Complaint: Feeling unwell History of presenting complaint: This is a 69-year-old patient of Dr. Patti Marcus. Chronic stable medical conditions include COPD, diabetes, GERD, hypertension, hyperlipidemia, osteoarthritis, right below-knee amputation, hard of hearing, splenectomy, home oxygen 3 L. Patient presents with multiple nonspecific symptoms. Has been having nausea chest pain dizziness lightheadedness perspiration. Falling. At her baseline is always short of breath. No new edema. Tired rundown. Troponin came back elevated in the ER at 7.2. Patient's INR is only 2.9. Cardiology was consulted. Just feels tired and rundown short of breath. Admitted with acute non-ST elevation myocardial infarction, acute COPD exacerbation. INR was therapeutic. Coumadin was held. Started on IV Solu- Medrol, bronchodilators Today-laying in bed. Breathing better. No chest pain. Some wheezing. Review of systems: Was done for constitutional, cardiovascular, GI, pulmonary. relevant finding as above Active Medications Hydrocodone Bitart/Acetaminophen (Hydrocodone/Apap 10-325mg 1 Each Tab) 1 each PO Q6H PRN PRN Reason: Pain Last Admin: 06/19/20 20:21 Dose: 1 each Documented by: Acetazolamide (Acetazolamide 250 Mg Tab) 250 mg PO QAM [facility] Last Admin: 06/19/20 08:15 Dose: 250 mg Documented by: Albuterol/Ipratropium (Ipratropium-Albuterol 3 Ml Neb) 3 ml INHALATION RT-Q4H [facility] Last Admin: 06/19/20 19:52 Dose: 3 ml Documented by: Aspirin (Aspirin 81 Mg) 81 mg PO DAILY [facility] Atorvastatin Calcium (Atorvastatin 80 Mg Tab) 80 mg PO DAILY [facility] Last Admin: 06/19/20 08:16 Dose: 80 mg Documented by: Budesonide (Budesonide 1 Mg/2 Ml Nebu) 1 mg INHALATION RT-BID [facility] Last Admin: 06/19/20 19:52 Dose: 1 mg Documented by: Carvedilol (Carvedilol 12.5 Mg Tab) 12.5 mg PO HS@1730 [facility] Last Admin: 06/19/20 17:14 Dose: 12.5 mg Documented by: Carvedilol (Carvedilol 12.5 Mg Tab) 25 mg PO QAM@0730 [facility] Last Admin: 06/19/20 06:08 Dose: 25 mg Documented by: Sodium Chloride (Saline 0.9%) 1,000 mls @ 100 mls/hr IV .Q10H [facility] Last Admin: 06/19/20 23:12 Dose: 100 mls/hr Documented by: Heparin Sodium/Sodium Chloride (25,000 unit/ Sodium Chloride) 250 mls @ 9.525 mls/hr IV .Q24H [facility]; Protocol Last Admin: 06/19/20 20:24 Dose: 12 units/kg/hr, 9.525 mls/hr Documented by: Insulin Aspart (Insulin Aspart (Novolog) 100 Unit/Ml Vial) 0 unit SQ ACHS [facility]; Protocol Last Admin: 06/19/20 20:24 Dose: Not Given Documented by: Isosorbide Mononitrate (Isosorbide Mononitrate Er 60 Mg Tab.Er.24h) 60 mg PO QAM [facility] Last Admin: 06/19/20 08:15 Dose: 60 mg Documented by: Loratadine (Loratadine 10 Mg Tab) 10 mg PO BID [facility] Last Admin: 06/19/20 20:21 Dose: 10 mg Documented by: Losartan Potassium (Losartan 50 Mg Tab) 100 mg PO DAILY [facility] Last Admin: 06/19/20 10:14 Dose: 100 mg Documented by: Metformin HCl (Metformin 500 Mg Tab) 250 mg PO BID [facility] Last Admin: 06/19/20 20:22 Dose: 250 mg Documented by: Methylprednisolone Sodium Succinate (Methylprednisolone Sod Succi 40 Mg/Ml 1 Ml Vial) 40 mg IV Q8HR [facility] Last Admin: 06/19/20 23:12 Dose: 40 mg Documented by: Miscellaneous Information (Magnesium Replacement Protocol [facility]) 1 each MISCELLANE DAILY PRN; Protocol PRN Reason: Per Protocol Nitroglycerin (Nitroglycerin Sl Tabs 0.4 Mg Tab) 0.4 mg SUBLINGUAL Q5M PRN PRN Reason: Chest Pain Nitroglycerin (Nitroglycerin Oint 1 Inch/Gm Packet) 1 inch TOPICAL Q6HR [facility] Last Admin: 06/19/20 23:12 Dose: 1 inch Documented by: Pantoprazole Sodium (Pantoprazole 40 Mg Tablet) 40 mg PO HS [facility] Last Admin: 06/19/20 20:22 Dose: 40 mg Documented by: Pregabalin (Pregabalin 75 Mg Cap) 75 mg PO BID [facility] Last Admin: 06/19/20 20:22 Dose: 75 mg Documented by: Tamsulosin HCl (Tamsulosin 0.4 Mg Cap.Er.24h) 0.4 mg PO DAILY [facility] Last Admin: 06/19/20 08:16 Dose: 0.4 mg Documented by: Physical examination: VITAL SIGNS: 98.1, 70, 17, 120/60, 96% on 3 L GENERAL: Laying in bed, but more restful EYES: Pupils equal. Conjunctiva normal. HEENT: External appearance of nose and ears normal, oral cavity grossly normal. NECK: JVD not raised; masses not palpable. HEART: First and second heart sounds are normal; no edema. LUNGS:[ Respiratory rate increased; decreased breath sounds prolonged expiration. ABDOMEN: Soft, nontender, liver spleen not palpable, no masses palpable. PSYCH: Alert and oriented x3; mood and affect tired. MUSCULAR skeletal: Right below-knee amputation with a prosthesis INVESTIGATIONS, reviewed in the clinical context: INR 2.6 potassium 4.5 creatinine 0.88 Pro-calcitonin 0.10 Admission testing White count 10.8 hemoglobin 9.8 platelets 42 2 INR 2.9 potassium 4.6 bun 23 creatinine 1.28 Troponin I 7.2, 8.5 TSH 0.345 EKG tracing personally reviewed by me-sinus rhythm, ST segment depression in leads V4 to V6 and subtle changes in lead 1 and aVL. Computed tomography scan brain-chronic changes Computed tomography scan of the chest EMPHYSEMA with bilateral small airspace opacities. Moderate to severe L5-S1 spondylosis. Colonic diverticulosis. Assessment: -Acute non-ST elevation myocardial infarction suspect in the inferior lateral wall -Acute COPD exacerbation in an ex-smoker -Diabetes mellitus type 2 -GERD -Hard of hearing -Hyperlipidemia -Essential hypertension -Primary osteoarthritis -Chronic hypoxic respiratory failure on home oxygen 3 L -Right below-knee amputation with a right leg prosthesis -Splenectomy should follow up for immunizations with his family doctor -Peripheral artery disease with a stent to the left leg -Suspect chronic kidney disease with a creatinine of 1.8. Patient lost documented normal creatinine was 0.7 in November 2018. -Possible pneumonia Plan: Continue with bronchodilators steroids. On Nitropaste. Consult nephrology. Repeat BMP in the morning.
[2020-06-20] MEDS: IPRATROPIUM-ALBUTEROL 3 ML NEB INHALATION SCH ×5 (03:33→22:01)
[2020-06-20] MEDS: LORATADINE 10 MG TAB PO SCH ×2 (04:56→20:31)
[2020-06-20] MEDS: TAMSULOSIN 0.4 MG CAP.ER.24H PO SCH (04:56)
[2020-06-20] MEDS: HYDROcodone/APAP 10-325MG 1 EACH TAB PO PRN ×2 (04:57→17:21)
[2020-06-20] MEDS: PREGABALIN 75 MG CAP PO SCH ×2 (04:57→20:31)
[2020-06-20] MEDS: ISOSORBIDE MONONITRATE ER 60 MG TAB.ER.24H PO SCH (04:58)
[2020-06-20] MEDS: acetaZOLAMIDE 250 MG TAB PO SCH (04:58)
[2020-06-20] MEDS: ATORVASTATIN 80 MG TAB PO SCH (04:59)
[2020-06-20] MEDS: LOSARTAN 50 MG TAB PO SCH (04:59)
[2020-06-20] MEDS: carvediloL 12.5 MG TAB PO SCH ×2 (04:59→17:12)
[2020-06-20] MEDS: NITROGLYCERIN OINT 1 INCH/GM PACKET TOPICAL SCH ×3 (05:00→17:13)
[2020-06-20] MEDS: methylPREDNISolone SOD SUCCI 40 MG/ML 1 ML VIAL IV SCH ×2 (05:00→17:13)
[2020-06-20 06:05] LABS: Glucose,Whole Blood 201 mg/dL (75-99)
[2020-06-20] MEDS: INSULIN ASPART (NovoLOG) 100 UNIT/ML VIAL SQ SCH ×4 (06:47→20:31)
[2020-06-20] MEDS: metFORMIN 500 MG TAB PO SCH ×2 (07:25→20:31)
[2020-06-20] MEDS: BUDESONIDE 1 MG/2 ML NEBU INHALATION SCH ×2 (07:27→22:01)
[2020-06-20 07:51] LABS: INR 1.5 (<1.2); Partial Thromboplastin Time 52.4 sec (22.0-30.0); Prothrombin Time 14.4 sec (9.0-12.0)
[2020-06-20 08:14] LABS: African American GFR (CKD) >90 (>60 ml/min/1.73 sqM); Anion Gap 0 mmol/L; Blood Urea Nitrogen 16 mg/dL (9-20); Calcium 7.5 mg/dL (8.4-10.2); Carbon Dioxide 35 mmol/L (22-30); Chloride 107 mmol/L (98-107); Glucose 174 mg/dL (74-99); Magnesium 1.7 mg/dL (1.6-2.3); Non-African American GFR(CKD) >90 (>60 ml/min/1.73 sqM); Potassium 4.7 mmol/L (3.5-5.1); Sodium 142 mmol/L (137-145)
[2020-06-20] MEDS ORDERED: ASPIRIN 81 MG PO SCH (09:00)
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
[2020-06-20] MEDS ORDERED: ALPRAZolam 0.25 MG TAB PO PRN (11:07)
[2020-06-20] MEDS ORDERED: SODIUM CHLORIDE 0.9% 1,000 ML in EMPTY BAG 1 BAG IV ONE (11:07)
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
[2020-06-20 12:00] LABS: Glucose,Whole Blood 245 mg/dL (75-99)
[2020-06-20] MEDS: SODIUM CHLORIDE 0.9% 1,000 ML IV SCH (12:29)
[2020-06-20 16:59] LABS: Glucose,Whole Blood 182 mg/dL (75-99)
--- NOTE | 2020-06-20 19:17 | P.PN ---
Progress Note - Text Progress Note Date: 06/20/20 Chief Complaint: Feeling unwell History of presenting complaint: This is a 69-year-old patient of Dr. Patti Marcus. Chronic stable medical conditions include COPD, diabetes, GERD, hypertension, hyperlipidemia, osteoarthritis, right below-knee amputation, hard of hearing, splenectomy, home oxygen 3 L. Patient presents with multiple nonspecific symptoms. Has been having nausea chest pain dizziness lightheadedness perspiration. Falling. At her baseline is always short of breath. No new edema. Tired rundown. Troponin came back elevated in the ER at 7.2. Patient's INR is only 2.9. Cardiology was consulted. Just feels tired and rundown short of breath. Admitted with acute non-ST elevation myocardial infarction, acute COPD exacerbation, pneumonia. INR was therapeutic. Coumadin was held. Started on IV Solu-Medrol, bronchodilators. [place] to have acute kidney injury. Creatinine dropped from 1.8 down to 0.8. Today-breathing improved. No chest pain. Eating better. Cardiology is planning for cath tomorrow. Review of systems: Was done for constitutional, cardiovascular, GI, pulmonary. relevant finding as above Active Medications Hydrocodone Bitart/Acetaminophen (Hydrocodone/Apap 10-325mg 1 Each Tab) 1 each PO Q6H PRN PRN Reason: Pain Last Admin: 06/20/20 17:21 Dose: 1 each Documented by: Acetazolamide (Acetazolamide 250 Mg Tab) 250 mg PO QAM [facility] Last Admin: 06/20/20 04:58 Dose: 250 mg Documented by: Albuterol/Ipratropium (Ipratropium-Albuterol 3 Ml Neb) 3 ml INHALATION RT-Q4H [facility] Last Admin: 06/20/20 15:22 Dose: 3 ml Documented by: Alprazolam (Alprazolam 0.25 Mg Tab) 0.25 mg PO Q6HR PRN PRN Reason: Mild Anxiety Alprazolam (Alprazolam 0.5 Mg Tab) 0.5 mg PO Q6HR PRN PRN Reason: Moderate Anxiety Aspirin (Aspirin 325 Mg Tab) 325 mg PO ONCE ONE Stop: 06/21/20 06:01 Aspirin (Aspirin 81 Mg) 81 mg PO DAILY [facility] Atorvastatin Calcium (Atorvastatin 80 Mg Tab) 80 mg PO DAILY [facility] Last Admin: 06/20/20 04:59 Dose: 80 mg Documented by: Budesonide (Budesonide 1 Mg/2 Ml Nebu) 1 mg INHALATION RT-BID [facility] Last Admin: 06/20/20 07:27 Dose: 1 mg Documented by: Carvedilol (Carvedilol 12.5 Mg Tab) 12.5 mg PO HS@1730 [facility] Last Admin: 06/20/20 17:12 Dose: 12.5 mg Documented by: Carvedilol (Carvedilol 12.5 Mg Tab) 25 mg PO QAM@0730 [facility] Last Admin: 06/20/20 04:59 Dose: 25 mg Documented by: Heparin Sodium/Sodium Chloride (25,000 unit/ Sodium Chloride) 250 mls @ 9.525 mls/hr IV .Q24H [facility]; Protocol Last Admin: 06/19/20 20:24 Dose: 12 units/kg/hr, 9.525 mls/hr Documented by: Ceftriaxone Sodium 1 gm/ (Sodium Chloride) 50 mls @ 100 mls/hr IVPB Q24H [facility] Last Admin: 06/20/20 00:23 Dose: 100 mls/hr Documented by: Sodium Chloride 1,000 ml/ IV (Solution) 1,000 mls @ 80.1 mls/hr IV .[id number] ONE Stop: 06/20/20 23:36 Last Admin: 06/20/20 13:21 Dose: 80.1 mls/hr Documented by: Insulin Aspart (Insulin Aspart (Novolog) 100 Unit/Ml Vial) 0 unit SQ ACHS [facility]; Protocol Last Admin: 06/20/20 17:13 Dose: 4 unit Documented by: Isosorbide Mononitrate (Isosorbide Mononitrate Er 60 Mg Tab.Er.24h) 60 mg PO QAM [facility] Last Admin: 06/20/20 04:58 Dose: 60 mg Documented by: Loratadine (Loratadine 10 Mg Tab) 10 mg PO BID [facility] Last Admin: 06/20/20 04:56 Dose: 10 mg Documented by: Losartan Potassium (Losartan 50 Mg Tab) 100 mg PO DAILY [facility] Last Admin: 06/20/20 04:59 Dose: 100 mg Documented by: Metformin HCl (Metformin 500 Mg Tab) 250 mg PO BID [facility] Last Admin: 06/20/20 07:25 Dose: Not Given Documented by: Methylprednisolone Sodium Succinate (Methylprednisolone Sod Succi 40 Mg/Ml 1 Ml Vial) 40 mg IV Q8HR [facility] Last Admin: 06/20/20 17:13 Dose: 40 mg Documented by: Miscellaneous Information (Magnesium Replacement Protocol 1 Each [facility]) 1 each MISCELLANE DAILY PRN; Protocol PRN Reason: Per Protocol Nitroglycerin (Nitroglycerin Sl Tabs 0.4 Mg Tab) 0.4 mg SUBLINGUAL Q5M PRN PRN Reason: Chest Pain Nitroglycerin (Nitroglycerin Oint 1 Inch/Gm Packet) 1 inch TOPICAL Q6HR [facility] Last Admin: 06/20/20 17:13 Dose: 1 inch Documented by: Pantoprazole Sodium (Pantoprazole 40 Mg Tablet) 40 mg PO HS [facility] Last Admin: 06/19/20 20:22 Dose: 40 mg Documented by: Pregabalin (Pregabalin 75 Mg Cap) 75 mg PO BID [facility] Last Admin: 06/20/20 04:57 Dose: 75 mg Documented by: Tamsulosin HCl (Tamsulosin 0.4 Mg Cap.Er.24h) 0.4 mg PO DAILY [facility] Last Admin: 06/20/20 04:56 Dose: 0.4 mg Documented by: Physical examination: VITAL SIGNS: 97.7, 69, 20, 150/69, 94% on 6 L GENERAL: Laying in bed, comfortable EYES: Pupils equal. Conjunctiva normal. HEENT: External appearance of nose and ears normal, oral cavity grossly normal. NECK: JVD not raised; masses not palpable. HEART: First and second heart sounds are normal; no edema. LUNGS:[ Respiratory rate normal; decreased breath sounds. ABDOMEN: Soft, nontender, liver spleen not palpable, no masses palpable. PSYCH: Alert and oriented x3; mood and affect tired. MUSCULAR skeletal: Right below-knee amputation with a prosthesis INVESTIGATIONS, reviewed in the clinical context: INR 1.5 potassium 4.7 creatinine 0.8 Pro-calcitonin 0.10 Admission testing White count 10.8 hemoglobin 9.8 platelets 42 2 INR 2.9 potassium 4.6 bun 23 creatinine 1.28 Troponin I 7.2, 8.5 TSH 0.345 EKG tracing personally reviewed by me-sinus rhythm, ST segment depression in leads V4 to V6 and subtle changes in lead 1 and aVL. Computed tomography scan brain-chronic changes Computed tomography scan of the chest EMPHYSEMA with bilateral small airspace opacities. Moderate to severe L5-S1 spondylosis. Colonic diverticulosis. Assessment: -Acute non-ST elevation myocardial infarction suspect in the inferior lateral wall -Acute COPD exacerbation in an ex-smoker -Diabetes mellitus type 2 -GERD -Hard of hearing -Hyperlipidemia -Essential hypertension -Primary osteoarthritis -Chronic hypoxic respiratory failure on home oxygen 3 L -Right below-knee amputation with a right leg prosthesis -Splenectomy should follow up for immunizations with his family doctor -Peripheral artery disease with a stent to the left leg -Acute kidney injury-possibly ATN [No chronic kidney disease. documented normal creatinine was 0.7 in November 2018]. 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 Awaiting cardiac catheterization tomorrow. Continue ceftriaxone. [place] Solu-Medrol to by mouth prednisone-starting morning.
[2020-06-20 20:23] LABS: Glucose,Whole Blood 154 mg/dL (75-99)
[2020-06-20] MEDS: PANTOPRAZOLE 40 MG TABLET PO SCH (20:31)
[2020-06-20] MEDS: HEPARIN SOD,PORK IN 0.45% NACL 25,000 UNIT in 0.45% NACL 1 250ML.BAG IV SCH (22:34)
[2020-06-21] MEDS: IPRATROPIUM-ALBUTEROL 3 ML NEB INHALATION SCH ×7 (00:06→23:42)
[2020-06-21] MEDS: NITROGLYCERIN OINT 1 INCH/GM PACKET TOPICAL SCH ×5 (01:30→22:48)
[2020-06-21] MEDS: HYDROcodone/APAP 10-325MG 1 EACH TAB PO PRN ×3 (04:41→20:01)
[2020-06-21] MEDS ORDERED: ASPIRIN 325 MG TAB PO ONE (06:00)
[2020-06-21] MEDS: ATORVASTATIN 80 MG TAB PO SCH (06:11)
[2020-06-21] MEDS: carvediloL 12.5 MG TAB PO SCH ×2 (06:11→17:32)
[2020-06-21] MEDS: acetaZOLAMIDE 250 MG TAB PO SCH (06:11)
[2020-06-21] MEDS: PREGABALIN 75 MG CAP PO SCH ×2 (06:12→19:59)
[2020-06-21] MEDS: LOSARTAN 50 MG TAB PO SCH (06:12)
[2020-06-21] MEDS: LORATADINE 10 MG TAB PO SCH ×2 (06:12→19:58)
[2020-06-21] MEDS: predniSONE 20 MG TAB PO SCH (06:12)
[2020-06-21] MEDS: ISOSORBIDE MONONITRATE ER 60 MG TAB.ER.24H PO SCH (06:12)
[2020-06-21] MEDS: metFORMIN 500 MG TAB PO SCH ×2 (06:14→19:54)
[2020-06-21] MEDS: TAMSULOSIN 0.4 MG CAP.ER.24H PO SCH (06:14)
[2020-06-21] MEDS: INSULIN ASPART (NovoLOG) 100 UNIT/ML VIAL SQ SCH ×4 (06:17→20:44)
[2020-06-21 06:18] LABS: Glucose,Whole Blood 138 mg/dL (75-99)
[2020-06-21] MEDS: BUDESONIDE 1 MG/2 ML NEBU INHALATION SCH ×2 (07:35→20:56)
[2020-06-21] MEDS ORDERED: LIDOCAINE 1% INJ 10MG/ML (20 ML MDV) ONE (07:43)
--- NOTE | 2020-06-21 09:37 | P.PN ---
Subjective Patient is seen in follow-up for acute kidney injury. Renal function back to baseline. Oral intake is fair. No vomiting or diarrhea. Scheduled for cardiac catheterization. Vital signs are stable. General: The patient appeared well nourished and normally developed. HEENT: Head exam is unremarkable. Neck is without jugular venous distension. LUNGS: Lungs are clear to auscultation and percussion. Breath sounds decreased. HEART: Rate and Rhythm are regular. ABDOMEN: Soft, nontender. EXTREMITITES: No clubbing, cyanosis, or edema. Right BKA. Objective - Vital Signs Vital signs: Vital Signs Temp 97.5 F L 06/21/20 07:06 Pulse 72 06/21/20 07:49 Resp 18 06/21/20 07:45 BP 104/51 06/21/20 07:06 Pulse Ox 96 06/21/20 07:06 Intake & Output 06/20/20 06/21/20 06/21/20 18:59 06:59 18:59 Intake Total 900 249.238 86.995 Output Total 100 300 Balance 800 -50.762 86.995 Weight 76.1 kg Intake: Intake, IV Titration 249.238 86.995 Amount Heparin Sod,Pork in 0.45% 249.238 86.995 NaCl 25,000 unit In 0.45 % NaCl 1 250ml.bag @ 12 UNITS/KG/HR 9.525 mls/hr IV .Q24H [facility] Rx#: [id number] Oral 900 0 Output: Urine 100 300 Other: Voiding Method Urinal # Voids 0 # Bowel Movements 0 - Labs CBC & Chem 7: 06/18/20 16:12 06/20/20 07:16 Labs: Abnormal Lab Results - Last 24 Hours (Table) 06/20/20 06/20/20 06/20/20 Range/Units 11:56 16:58 20:21 POC Glucose (mg/dL) 245 H 182 H 154 H (75-99) mg/dL 06/21/20 Range/Units 06:16 POC Glucose (mg/dL) 138 H (75-99) mg/dL Assessment and Plan Plan: Assessment: 1. Acute kidney injury mostly prerenal improved with IV hydration. GFR back to baseline. UA fairly benign. No hydronephrosis noted on kidney ultrasound. 2. Status post right thcyq-wxq-ydtg amputation. 3. Non-ST elevated myocardial infarction maintained on heparin drip. Cardiology following. Scheduled for cardiac catheterization today. 4. Hypomagnesemia from poor intake status post replacement. Better. 5. Diabetes mellitus. 6. COPD exacerbation. 7. Benign hypertension. Currently on the lower side. Plan: Maintain IV hydration. Hep-Lock IV fluids 8 hours after cardiac catheteriza tion. Continue metformin. Avoid a GFR less than 30. Hold losartan for systolic blood pressure less than 120. Avoid nephrotoxins. Continue to monitor renal function and urine output. He received IV contrast on June 18 and is scheduled to receive IV contrast again today.
[2020-06-21 10:34] LABS: INR 1.3 (<1.2); Partial Thromboplastin Time 25.3 sec (22.0-30.0); Prothrombin Time 13.3 sec (9.0-12.0)
[2020-06-21] MEDS ORDERED: IV FLUID CONTINUATION 1,000 ML IV ONE (11:08)
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
[2020-06-21] MEDS ORDERED: fentaNYL (PF) 50 MCG/ML 2 ML AMP IV ONE (11:36)
[2020-06-21] MEDS ORDERED: LIDOCAINE 1% INJ 10MG/ML (20 ML MDV) SQ ONE ×2 (11:38→12:01)
[2020-06-21] MEDS ORDERED: IOPAMIDOL-370 125ML BTL INJ ONE (12:29)
[2020-06-21] MEDS ORDERED: RX INFO: IV CONTRAST WAS GIVEN 1 EACH MISC MISCELLANE PRN (12:43)
--- NOTE | 2020-06-21 12:51 | P.CARDCATH ---
Date of Procedure: 06/21/20 Preoperative Diagnosis: Subacute myocardial infarction Postoperative Diagnosis: Cardiac catheterization was abandoned because of access difficulties Description of Procedure: Patient was brought to the lab in a fasting state. He was prepped and draped in the usual fashion. Both groins were prepared. Attempts were made to the Patient from the right groin. The artery was cannulated and widely was advanced but sheaths could not be advanced after multiple attempts with the dilators. The procedure was abandoned from the right groin. The left was prepared in the usual fashion. Lidocaine was given for local anesthesia in both groins. The left femoral artery was entered and wide was advanced. A 5-Tajik sheath was advanced with difficulty. However, while could not. Once the antibiotics. 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 There is a good downward floor. The films were reviewed with Dr. Peralta. Because of the dissection, the procedure was abandoned. Manual compression was applied in both groins for hemostasis. Patient tolerated the procedure well. Both legs were warm and have good perfusion. The procedure was canceled for today. Attempts will be made to do the procedure, probably from the brachial approach in 24-48 hours
[2020-06-21] MEDS: SODIUM CHLORIDE 0.9% 1,000 ML IV SCH (12:57)
[2020-06-21 13:02] LABS: Glucose,Whole Blood 140 mg/dL (75-99)
[2020-06-21 17:11] LABS: Glucose,Whole Blood 234 mg/dL (75-99)
[2020-06-21] MEDS: HEPARIN SOD,PORK IN 0.45% NACL 25,000 UNIT in 0.45% NACL 1 250ML.BAG IV SCH (17:28)
[2020-06-21] MEDS: PANTOPRAZOLE 40 MG TABLET PO SCH (19:58)
[2020-06-21 20:43] LABS: Glucose,Whole Blood 115 mg/dL (75-99)
--- NOTE | 2020-06-22 00:21 | P.PN ---
Progress Note - Text Progress Note Date: 06/21/20 Chief Complaint: Feeling unwell History of presenting complaint: This is a 69-year-old patient of Dr. Patti Marcus. Chronic stable medical conditions include COPD, diabetes, GERD, hypertension, hyperlipidemia, osteoarthritis, right below-knee amputation, hard of hearing, splenectomy, home oxygen 3 L. Patient presents with multiple nonspecific symptoms. Has been having nausea chest pain dizziness lightheadedness perspiration. Falling. At her baseline is always short of breath. No new edema. Tired rundown. Troponin came back elevated in the ER at 7.2. Patient's INR is only 2.9. Cardiology was consulted. Just feels tired and rundown short of breath. Admitted with acute non-ST elevation myocardial infarction, acute COPD exacerbation, pneumonia. INR was therapeutic. Coumadin was held. Started on IV Solu-Medrol, bronchodilators. Dinosaur to have acute kidney injury. Creatinine dropped from 1.8 down to 0.8. Today-cardiac catheterization was aborted. Trouble having an access. No chest pain. Laying in bed. Review of systems: Was done for constitutional, cardiovascular, GI, pulmonary. relevant finding as above A Active Medications Hydrocodone Bitart/Acetaminophen (Hydrocodone/Apap 10-325mg 1 Each Tab) 1 each PO Q6H PRN PRN Reason: Pain Last Admin: 06/21/20 20:01 Dose: 1 each Documented by: Acetazolamide (Acetazolamide 250 Mg Tab) 250 mg PO QAM [facility] Last Admin: 06/21/20 06:11 Dose: 250 mg Documented by: Albuterol/Ipratropium (Ipratropium-Albuterol 3 Ml Neb) 3 ml INHALATION RT-Q4H [facility] Last Admin: 06/21/20 23:42 Dose: Not Given Documented by: Alprazolam (Alprazolam 0.25 Mg Tab) 0.25 mg PO Q6HR PRN PRN Reason: Mild Anxiety Alprazolam (Alprazolam 0.5 Mg Tab) 0.5 mg PO Q6HR PRN PRN Reason: Moderate Anxiety Aspirin (Aspirin 81 Mg) 81 mg PO DAILY [facility] Atorvastatin Calcium (Atorvastatin 80 Mg Tab) 80 mg PO DAILY [facility] Last Admin: 06/21/20 06:11 Dose: 80 mg Documented by: Budesonide (Budesonide 1 Mg/2 Ml Nebu) 1 mg INHALATION RT-BID [facility] Last Admin: 06/21/20 20:56 Dose: 1 mg Documented by: Carvedilol (Carvedilol 12.5 Mg Tab) 12.5 mg PO HS@1730 [facility] Last Admin: 06/21/20 17:32 Dose: 12.5 mg Documented by: Carvedilol (Carvedilol 12.5 Mg Tab) 25 mg PO QAM@0730 [facility] Last Admin: 06/21/20 06:11 Dose: 25 mg Documented by: Heparin Sodium/Sodium Chloride (25,000 unit/ Sodium Chloride) 250 mls @ 9.525 mls/hr IV .Q24H [facility]; Protocol Last Admin: 06/21/20 17:28 Dose: 12 units/kg/hr, 9.525 mls/hr Documented by: Ceftriaxone Sodium 1 gm/ (Sodium Chloride) 50 mls @ 100 mls/hr IVPB Q24H [facility] Last Admin: 06/21/20 22:48 Dose: 100 mls/hr Documented by: Sodium Chloride (Saline 0.9%) 1,000 mls @ 75 mls/hr IV .[id number] [facility] Last Admin: 06/21/20 12:57 Dose: 75 mls/hr Documented by: Insulin Aspart (Insulin Aspart (Novolog) 100 Unit/Ml Vial) 0 unit SQ ACHS [facility]; Protocol Last Admin: 06/21/20 20:44 Dose: Not Given Documented by: Isosorbide Mononitrate (Isosorbide Mononitrate Er 60 Mg Tab.Er.24h) 60 mg PO QAM [facility] Last Admin: 06/21/20 06:12 Dose: 60 mg Documented by: Loratadine (Loratadine 10 Mg Tab) 10 mg PO BID [facility] Last Admin: 06/21/20 19:58 Dose: 10 mg Documented by: Losartan Potassium (Losartan 50 Mg Tab) 100 mg PO DAILY [facility] Last Admin: 06/21/20 06:12 Dose: 100 mg Documented by: Metformin HCl (Metformin 500 Mg Tab) 250 mg PO BID [facility] Last Admin: 06/21/20 19:54 Dose: Not Given Documented by: Miscellaneous Information (Magnesium Replacement Protocol 1 Each Misc) 1 each MISCELLANE DAILY PRN; Protocol PRN Reason: Per Protocol Miscellaneous Information (Rx Info: Iv Contrast Was Given 1 Each Misc) 1 each MISCELLANE DAILY PRN PRN Reason: Per Protocol Stop: 06/23/20 12:43 Nitroglycerin (Nitroglycerin Sl Tabs 0.4 Mg Tab) 0.4 mg SUBLINGUAL Q5M PRN PRN Reason: Chest Pain Last Admin: 06/21/20 11:14 Dose: 0.4 mg Documented by: Nitroglycerin (Nitroglycerin Oint 1 Inch/Gm Packet) 1 inch TOPICAL Q6HR [facility] Last Admin: 06/21/20 22:48 Dose: 1 inch Documented by: Pantoprazole Sodium (Pantoprazole 40 Mg Tablet) 40 mg PO HS [facility] Last Admin: 06/21/20 19:58 Dose: 40 mg Documented by: Prednisone (Prednisone 20 Mg Tab) 40 mg PO DAILY [facility] Last Admin: 06/21/20 06:12 Dose: 40 mg Documented by: Pregabalin (Pregabalin 75 Mg Cap) 75 mg PO BID [facility] Last Admin: 06/21/20 19:59 Dose: 75 mg Documented by: Tamsulosin HCl (Tamsulosin 0.4 Mg Cap.Er.24h) 0.4 mg PO DAILY [facility] Last Admin: 06/21/20 06:14 Dose: Not Given Documented by: Physical examination: VITAL SIGNS: 86.5, 91, 79, 14, and 60/72, 91% on 5 L GENERAL: Laying in bed, comfortable EYES: Pupils equal. Conjunctiva normal. HEENT: External appearance of nose and ears normal, oral cavity grossly normal. NECK: JVD not raised; masses not palpable. HEART: First and second heart sounds are normal; no edema. LUNGS:[ Respiratory rate normal; decreased breath sounds. ABDOMEN: Soft, nontender, liver spleen not palpable, no masses palpable. PSYCH: Alert and oriented x3; mood and affect tired. MUSCULAR skeletal: Right below-knee amputation with a prosthesis INVESTIGATIONS, reviewed in the clinical context: INR 1.3 Pro-calcitonin 0.10 Admission testing White count 10.8 hemoglobin 9.8 platelets 42 2 INR 2.9 potassium 4.6 bun 23 creatinine 1.28 Troponin I 7.2, 8.5 TSH 0.345 EKG tracing personally reviewed by me-sinus rhythm, ST segment depression in leads V4 to V6 and subtle changes in lead 1 and aVL. Computed tomography scan brain-chronic changes Computed tomography scan of the chest EMPHYSEMA with bilateral small airspace opacities. Moderate to severe L5-S1 spondylosis. Colonic diverticulosis. Assessment: -Acute non-ST elevation myocardial infarction suspect in the inferior lateral wall. Cardiac catheterization was aborted because of unable to access -Acute COPD exacerbation in an ex-smoker -Diabetes mellitus type 2 -GERD -Hard of hearing -Hyperlipidemia -Essential hypertension -Primary osteoarthritis -Chronic hypoxic respiratory failure on home oxygen 3 L -Right below-knee amputation with a right leg prosthesis -Splenectomy should follow up for immunizations with his family doctor -Peripheral artery disease with a stent to the left leg -Acute kidney injury-possibly ATN [No chronic kidney disease. documented normal creatinine was 0.7 in November 2018]. -Possible pneumonia Plan: Continue current medication treatment plan. Discussed with the patient. Hopefully home tomorrow.
[2020-06-22] MEDS: SODIUM CHLORIDE 0.9% 1,000 ML IV SCH (01:26)
[2020-06-22] MEDS: IPRATROPIUM-ALBUTEROL 3 ML NEB INHALATION SCH ×7 (03:47→23:38)
[2020-06-22] MEDS ORDERED: FUROSEMIDE 10 MG/ML 4 ML VIAL ONE (05:39)
[2020-06-22 05:46] LABS: Glucose,Whole Blood 115 mg/dL (75-99)
--- NOTE | 2020-06-22 05:56 | XR ---
EXAMINATION TYPE: XR chest 1V portable DATE OF EXAM: 06/22/2020 CLINICAL HISTORY: Difficulty breathing progress study. TECHNIQUE: Single AP portable upright view of the chest is obtained. COMPARISON: Chest x-ray from 3 days earlier and older studies. CT 4 days ago. FINDINGS: Background chronic emphysematous change and cardiomegaly with increasing central vascular congestion. Persistent right basilar opacity. Persistent bilateral hilar prominence suspicious for un derlying pulmonary artery hypertension. Atherosclerotic thoracic aorta. Old nonhealed displaced fract ure deformity right clavicle redemonstrated. IMPRESSION: Increasing central vascular congestion felt present. Background chronic emphysematous chastity nge and cardiomegaly. Stable right basilar acute infiltrate and/or atelectasis.
[2020-06-22] MEDS ORDERED: FUROSEMIDE 10 MG/ML 4 ML VIAL IV STA (06:16)
[2020-06-22 06:28] LABS: Glucose,Whole Blood 123 mg/dL (75-99)
[2020-06-22] MEDS: INSULIN ASPART (NovoLOG) 100 UNIT/ML VIAL SQ SCH ×4 (06:28→20:51)
[2020-06-22 06:32] LABS: African American GFR (CKD) >90 (>60 ml/min/1.73 sqM); Anion Gap 3 mmol/L; Blood Urea Nitrogen 15 mg/dL (9-20); Calcium 7.7 mg/dL (8.4-10.2); Carbon Dioxide 33 mmol/L (22-30); Chloride 109 mmol/L (98-107); Glucose 113 mg/dL (74-99); Magnesium 1.5 mg/dL (1.6-2.3); Non-African American GFR(CKD) 89 (>60 ml/min/1.73 sqM); Potassium 4.7 mmol/L (3.5-5.1); Sodium 145 mmol/L (137-145)
[2020-06-22] MEDS: NITROGLYCERIN OINT 1 INCH/GM PACKET TOPICAL SCH ×4 (06:33→22:45)
[2020-06-22] MEDS: carvediloL 12.5 MG TAB PO SCH ×2 (06:33→17:01)
[2020-06-22] MEDS: MAGNESIUM SULFATE-D5W PMX 1 GM in DEXTROSE/WATER 1 100ML.BAG IVPB SCH ×4 (06:49→22:52)
[2020-06-22] MEDS: BUDESONIDE 1 MG/2 ML NEBU INHALATION SCH ×2 (07:43→19:43)
[2020-06-22] MEDS: HEPARIN SOD,PORK IN 0.45% NACL 25,000 UNIT in 0.45% NACL 1 250ML.BAG IV SCH (08:29)
[2020-06-22] MEDS: LOSARTAN 50 MG TAB PO SCH (08:31)
[2020-06-22] MEDS: predniSONE 20 MG TAB PO SCH (08:31)
[2020-06-22] MEDS: TAMSULOSIN 0.4 MG CAP.ER.24H PO SCH (08:31)
[2020-06-22] MEDS: LORATADINE 10 MG TAB PO SCH ×2 (08:31→20:50)
[2020-06-22] MEDS: ATORVASTATIN 80 MG TAB PO SCH (08:31)
[2020-06-22] MEDS: ASPIRIN 81 MG PO SCH (08:31)
[2020-06-22] MEDS: ISOSORBIDE MONONITRATE ER 60 MG TAB.ER.24H PO SCH (08:31)
[2020-06-22] MEDS: acetaZOLAMIDE 250 MG TAB PO SCH (08:31)
[2020-06-22] MEDS: metFORMIN 500 MG TAB PO SCH ×2 (08:32→20:50)
[2020-06-22] MEDS: PREGABALIN 75 MG CAP PO SCH ×2 (08:32→20:49)
[2020-06-22] MEDS ORDERED: LACTULOSE 20 GM/30 ML CUP PO PRN (09:08)
--- NOTE | 2020-06-22 09:23 | P.PN ---
Subjective Patient is seen in follow-up for acute kidney injury. Renal function back to baseline. This morning patient became short of breath and received 2 doses of 40 mg IV Lasix. Feels better now. Cardiac catheterization could not be done yesterday due to access issues. Radial attempt will be made today. Vital signs are stable. General: The patient appeared well nourished and normally developed. HEENT: Head exam is unremarkable. Neck is without jugular venous distension. LUNGS: Lungs are clear to auscultation and percussion. Breath sounds decreased. HEART: Rate and Rhythm are regular. ABDOMEN: Soft, nontender. EXTREMITITES: No clubbing, cyanosis, or edema. Right BKA. Objective - Vital Signs Vital signs: Vital Signs Temp 97.6 F 06/22/20 08:24 Pulse 67 06/22/20 08:24 Resp 22 06/22/20 08:55 BP 117/56 06/22/20 08:24 Pulse Ox 88 L 06/22/20 08:55 Intake & Output 06/21/20 06/22/20 06/22/20 18:59 06:59 18:59 Intake Total 1444.995 607.243 39.767 Output Total 800 1200 1200 Balance 644.995 -592.757 -1160.233 Weight 76.1 kg 89.5 kg Intake: IV 1358 10 Invasive Line 1 10 Sodium Chloride 0.9% 1, 600 000 ml @ 75 mls/hr IV . [id number] [facility] Rx#:[id number] Sodium Chloride 0.9% 1, 608 000 ml In Empty Bag 1 bag @ 1 ML/KG/HR 80.1 mls/hr IV .[id number] [facility] Rx#: [id number] Intake, IV Titration 86.995 137.243 29.767 Amount Heparin Sod,Pork in 0.45% 86.995 137.243 29.767 NaCl 25,000 unit In 0.45 % NaCl 1 250ml.bag @ 12 UNITS/KG/HR 9.525 mls/hr IV .Q24H [facility] Rx#: [id number] Oral 0 470 Output: Urine 800 1200 1200 Uretheral (Crane) 800 1200 Other: Voiding Method Indwelling Catheter Indwelling Catheter - Labs CBC & Chem 7: 06/18/20 16:12 06/22/20 05:55 Labs: Abnormal Lab Results - Last 24 Hours (Table) 06/21/20 06/21/20 06/21/20 Range/Units 09:54 12:58 17:08 PT 13.3 H (9.0-12.0) sec INR 1.3 H (<1.2) APTT (22.0-30.0) sec Chloride (98-107) mmol/L Carbon Dioxide (22-30) mmol/L Glucose (74-99) mg/dL POC Glucose (mg/dL) 140 H 234 H (75-99) mg/dL Calcium (8.4-10.2) mg/dL Magnesium (1.6-2.3) mg/dL Troponin I (0.000-0.034) ng/mL 06/21/20 06/21/20 06/22/20 Range/Units 20:42 23:30 05:44 PT (9.0-12.0) sec INR (<1.2) APTT 33.9 H (22.0-30.0) sec Chloride (98-107) mmol/L Carbon Dioxide (22-30) mmol/L Glucose (74-99) mg/dL POC Glucose (mg/dL) 115 H 115 H (75-99) mg/dL Calcium (8.4-10.2) mg/dL Magnesium (1.6-2.3) mg/dL Troponin I (0.000-0.034) ng/mL 06/22/20 06/22/20 06/22/20 Range/Units 05:55 05:55 05:55 PT (9.0-12.0) sec INR (<1.2) APTT 34.4 H (22.0-30.0) sec Chloride 109 H (98-107) mmol/L Carbon Dioxide 33 H (22-30) mmol/L Glucose 113 H (74-99) mg/dL POC Glucose (mg/dL) (75-99) mg/dL Calcium 7.7 L (8.4-10.2) mg/dL Magnesium 1.5 L (1.6-2.3) mg/dL Troponin I 1.160 H* (0.000-0.034) ng/mL 06/22/20 Range/Units 06:27 PT (9.0-12.0) sec INR (<1.2) APTT (22.0-30.0) sec Chloride (98-107) mmol/L Carbon Dioxide (22-30) mmol/L Glucose (74-99) mg/dL POC Glucose (mg/dL) 123 H (75-99) mg/dL Calcium (8.4-10.2) mg/dL Magnesium (1.6-2.3) mg/dL Troponin I (0.000-0.034) ng/mL Assessment and Plan Plan: Assessment: 1. Acute kidney injury mostly prerenal improved with IV hydration. GFR back to baseline. UA fairly benign. No hydronephrosis noted on kidney ultrasound. 2. Status post right ugwjw-[id number]-tebd amputation. 3. Non-ST elevated myocardial infarction maintained on heparin drip. Cardiology following. Reattempt cardiac catheterization today via radial a pproach. 4. Hypomagnesemia from poor intake and diuresis. 5. Diabetes mellitus. 6. COPD exacerbation. 7. Benign hypertension. Controlled. 8. Volume overload. Status post 2 doses IV Lasix this morning. Plan: Hep-Lock IV fluids. Continue metformin. Avoid if GFR less than 30. Hold losartan for systolic blood pressure less than 120. Avoid nephrotoxins. Continue to monitor renal function and urine output. He received IV contrast on June 18 and is scheduled to receive IV contrast again today. Replace magnesium. 2 g IV today.
[2020-06-22 12:04] LABS: Glucose,Whole Blood 110 mg/dL (75-99)
[2020-06-22] MEDS: methylPREDNISolone SOD SUCCI 125 MG/2 ML VIAL IV SCH ×3 (12:11→22:45)
[2020-06-22] MEDS: FUROSEMIDE 10 MG/ML 4 ML VIAL IV SCH ×3 (12:12→22:45)
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
[2020-06-22 17:03] LABS: Glucose,Whole Blood 194 mg/dL (75-99)
[2020-06-22] MEDS: HYDROcodone/APAP 10-325MG 1 EACH TAB PO PRN ×2 (17:19→22:48)
[2020-06-22] MEDS: FORMOTEROL FUMARATE 20 MCG/2 ML NEBU INHALATION SCH (19:43)
[2020-06-22 20:31] LABS: Glucose,Whole Blood 171 mg/dL (75-99)
[2020-06-22] MEDS: ALPRAZolam 0.5 MG TAB PO PRN (20:50)
[2020-06-22] MEDS: PANTOPRAZOLE 40 MG TABLET PO SCH (20:50)
[2020-06-22] MEDS: HEPARIN SODIUM,PORCINE 5,000 UNIT/ML 1 ML VIAL SQ SCH (20:51)
--- NOTE | 2020-06-22 22:52 | P.PN ---
Progress Note - Text Progress Note Date: 06/22/20 Chief Complaint: Feeling unwell History of presenting complaint: This is a 69-year-old patient of Dr. Patti Marcus. Chronic stable medical conditions include COPD, diabetes, GERD, hypertension, hyperlipidemia, osteoarthritis, right below-knee amputation, hard of hearing, splenectomy, home oxygen 3 L. Patient presents with multiple nonspecific symptoms. Has been having nausea chest pain dizziness lightheadedness perspiration. Falling. At her baseline is always short of breath. No new edema. Tired rundown. Troponin came back elevated in the ER at 7.2. Patient's INR is only 2.9. Cardiology was consulted. Just feels tired and rundown short of breath. Admitted with acute non-ST elevation myocardial infarction, acute COPD exacerbation, pneumonia. INR was therapeutic. Coumadin was held. Started on IV Solu-Medrol, bronchodilators. [place] to have acute kidney injury. Creatinine dropped from 1.8 down to 0.8.cardiac catheterization attempt was aborted. Trouble with access. Today- went into respiratory distress this morning. Short of breath. Given IV Lasix. Doing better. On high flow oxygen. Review of systems: Was done for constitutional, cardiovascular, GI, pulmonary. relevant finding as above Active Medications Hydrocodone Bitart/Acetaminophen (Hydrocodone/Apap 10-325mg 1 Each Tab) 1 each PO Q6H PRN PRN Reason: Pain Last Admin: 06/22/20 17:19 Dose: 1 each Documented by: Acetazolamide (Acetazolamide 250 Mg Tab) 250 mg PO QAM [facility] Last Admin: 06/22/20 08:31 Dose: 250 mg Documented by: Albuterol/Ipratropium (Ipratropium-Albuterol 3 Ml Neb) 3 ml INHALATION RT-Q4H [facility] Last Admin: 06/22/20 19:43 Dose: 3 ml Documented by: Alprazolam (Alprazolam 0.25 Mg Tab) 0.25 mg PO Q6HR PRN PRN Reason: Mild Anxiety Alprazolam (Alprazolam 0.5 Mg Tab) 0.5 mg PO Q6HR PRN PRN Reason: Moderate Anxiety Last Admin: 06/22/20 20:50 Dose: 0.5 mg Documented by: Aspirin (Aspirin 81 Mg) 81 mg PO DAILY [facility] Last Admin: 06/22/20 08:31 Dose: 81 mg Documented by: Atorvastatin Calcium (Atorvastatin 80 Mg Tab) 80 mg PO DAILY [facility] Last Admin: 06/22/20 08:31 Dose: 80 mg Documented by: Budesonide (Budesonide 1 Mg/2 Ml Nebu) 1 mg INHALATION RT-BID [facility] Last Admin: 06/22/20 19:43 Dose: 1 mg Documented by: Carvedilol (Carvedilol 12.5 Mg Tab) 12.5 mg PO HS@1730 [facility] Last Admin: 06/22/20 17:01 Dose: 12.5 mg Documented by: Carvedilol (Carvedilol 12.5 Mg Tab) 25 mg PO QAM@0730 [facility] Last Admin: 06/22/20 06:33 Dose: 25 mg Documented by: Formoterol Fumarate (Formoterol Fumarate 20 Mcg/2 Ml Nebu) 20 mcg INHALATION RT-BID [facility] Last Admin: 06/22/20 19:43 Dose: 20 mcg Documented by: Furosemide (Furosemide 10 Mg/Ml 4 Ml Vial) 40 mg IV Q8HR [facility] Last Admin: 06/22/20 22:45 Dose: 40 mg Documented by: Heparin Sodium (Porcine) (Heparin Sodium,Porcine 5,000 Unit/Ml 1 Ml Vial) 5,000 unit SQ Q12HR [facility] Last Admin: 06/22/20 20:51 Dose: 5,000 unit Documented by: Ceftriaxone Sodium 1 gm/ (Sodium Chloride) 50 mls @ 100 mls/hr IVPB Q24H [facility] Last Admin: 06/22/20 22:12 Dose: 100 mls/hr Documented by: Magnesium Sulfate/Dextrose 1 (gm/ IV Solution) 100 mls @ 100 mls/hr IVPB Q1H [facility] Stop: 06/23/20 00:29 Insulin Aspart (Insulin Aspart (Novolog) 100 Unit/Ml Vial) 0 unit SQ ACHS [facility]; Protocol Last Admin: 06/22/20 20:51 Dose: 4 unit Documented by: Isosorbide Mononitrate (Isosorbide Mononitrate Er 60 Mg Tab.Er.24h) 60 mg PO QAM [facility] Last Admin: 06/22/20 08:31 Dose: 60 mg Documented by: Lactulose (Lactulose 20 Gm/30 Ml Cup) 15 gm PO ONCE PRN PRN Reason: Constipation Last Admin: 06/22/20 17:19 Dose: 15 gm Documented by: Loratadine (Loratadine 10 Mg Tab) 10 mg PO BID [facility] Last Admin: 06/22/20 20:50 Dose: 10 mg Documented by: Losartan Potassium (Losartan 50 Mg Tab) 100 mg PO DAILY [facility] Last Admin: 06/22/20 08:31 Dose: 100 mg Documented by: Metformin HCl (Metformin 500 Mg Tab) 250 mg PO BID [facility] Last Admin: 06/22/20 20:50 Dose: Not Given Documented by: Methylprednisolone Sodium Succinate (Methylprednisolone Sod Succi 125 Mg/2 Ml Vial) 60 mg IV Q6HR [facility] Last Admin: 06/22/20 22:45 Dose: 60 mg Documented by: Miscellaneous Information (Magnesium Replacement Protocol 1 Each Misc) 1 each MISCELLANE DAILY PRN; Protocol PRN Reason: Per Protocol Miscellaneous Information (Rx Info: Iv Contrast Was Given 1 Each Misc) 1 each MISCELLANE DAILY PRN PRN Reason: Per Protocol Stop: 06/23/20 12:43 Nitroglycerin (Nitroglycerin Sl Tabs 0.4 Mg Tab) 0.4 mg SUBLINGUAL Q5M PRN PRN Reason: Chest Pain Last Admin: 06/21/20 11:14 Dose: 0.4 mg Documented by: Nitroglycerin (Nitroglycerin Oint 1 Inch/Gm Packet) 1 inch TOPICAL Q6HR [facility] Last Admin: 06/22/20 22:45 Dose: 1 inch Documented by: Pantoprazole Sodium (Pantoprazole 40 Mg Tablet) 40 mg PO HS [facility] Last Admin: 06/22/20 20:50 Dose: 40 mg Documented by: Pregabalin (Pregabalin 75 Mg Cap) 75 mg PO BID [facility] Last Admin: 06/22/20 20:49 Dose: 75 mg Documented by: Tamsulosin HCl (Tamsulosin 0.4 Mg Cap.Er.24h) 0.4 mg PO DAILY [facility] Last Admin: 06/22/20 08:31 Dose: 0.4 mg Documented by: Physical examination: VITAL SIGNS: 98.6, 72, 20, 108/53, 93% on 10 L GENERAL: [place] in bed, short of breath EYES: Pupils equal. Conjunctiva normal. HEENT: External appearance of nose and ears normal, oral cavity grossly normal. NECK: JVD not raised; masses not palpable. HEART: First and second heart sounds are normal; no edema. LUNGS:[ Respiratory rate increased decreased breath sounds. ABDOMEN: Soft, nontender, liver spleen not palpable, no masses palpable. PSYCH: Alert and oriented x3; mood and affect . Anxious MUSCULAR skeletal: Right below-knee amputation with a prosthesis INVESTIGATIONS, reviewed in the clinical context: Potassium 4.7 creatinine 0.88 troponin 1.1 Admission testing White count 10.8 hemoglobin 9.8 platelets 42 2 INR 2.9 potassium 4.6 bun 23 creatinine 1.28 Troponin I 7.2, 8.5 TSH 0.345 EKG tracing personally reviewed by me-sinus rhythm, ST segment depression in leads V4 to V6 and subtle changes in lead 1 and aVL. Computed tomography scan brain-chronic changes Computed tomography scan of the chest EMPHYSEMA with bilateral small airspace opacities. Moderate to severe L5-S1 spondylosis. Colonic diverticulosis. Pro-calcitonin 0.10 2-D echocardiogram-moderate concentric LVH, EF 55-60% Assessment: -Acute non-ST elevation myocardial infarction suspect in the inferior lateral wall. Cardiac catheterization was aborted because of unable to access -Acute hypoxic respiratory failure-today from pulmonary edema -Acute congestive heart failure exacerbation from diastolic dysfunction EF 55- 60% -Acute COPD exacerbation in an ex-smoker -Diabetes mellitus type 2 -GERD -Hard of hearing -Hyperlipidemia -Essential hypertension -Primary osteoarthritis -Chronic hypoxic respiratory failure on home oxygen 3 L -Right below-knee amputation with a right leg prosthesis -Splenectomy should follow up for immunizations with his family doctor -Peripheral artery disease with a stent to the left leg -Acute kidney injury-possibly ATN [No chronic kidney disease documented normal creatinine was 0.7 in November 2018]. -Possible pneumonia Plan: Gen. quitting high flow oxygen. Not stable to proceed for any further cardiac catheterization at this point. Patient is already outside the 48 hours window of an acute [place]. Given his acute hypoxic failure and kidney dysfunction postponing cardiac catheterization will be a prudent option. Care discussed with the patient and the mother at the bedside.
[2020-06-23] MEDS: MAGNESIUM SULFATE-D5W PMX 1 GM in DEXTROSE/WATER 1 100ML.BAG IVPB SCH (00:08)
[2020-06-23] MEDS: IPRATROPIUM-ALBUTEROL 3 ML NEB INHALATION SCH ×6 (03:10→23:39)
[2020-06-23 06:15] LABS: Glucose,Whole Blood 188 mg/dL (75-99)
[2020-06-23] MEDS: NITROGLYCERIN OINT 1 INCH/GM PACKET TOPICAL SCH ×4 (06:34→23:16)
[2020-06-23] MEDS: INSULIN ASPART (NovoLOG) 100 UNIT/ML VIAL SQ SCH ×4 (06:35→20:33)
[2020-06-23] MEDS: carvediloL 12.5 MG TAB PO SCH (06:35)
[2020-06-23] MEDS: methylPREDNISolone SOD SUCCI 125 MG/2 ML VIAL IV SCH ×4 (06:35→23:11)
[2020-06-23] MEDS: FORMOTEROL FUMARATE 20 MCG/2 ML NEBU INHALATION SCH ×2 (07:46→21:00)
[2020-06-23] MEDS: BUDESONIDE 1 MG/2 ML NEBU INHALATION SCH ×2 (07:46→21:00)
[2020-06-23] MEDS: ATORVASTATIN 80 MG TAB PO SCH (08:44)
[2020-06-23] MEDS: TAMSULOSIN 0.4 MG CAP.ER.24H PO SCH (08:44)
[2020-06-23] MEDS: LOSARTAN 50 MG TAB PO SCH (08:44)
[2020-06-23] MEDS: PREGABALIN 75 MG CAP PO SCH ×2 (08:44→20:32)
[2020-06-23] MEDS: metFORMIN 500 MG TAB PO SCH ×2 (08:44→20:32)
[2020-06-23] MEDS: ISOSORBIDE MONONITRATE ER 60 MG TAB.ER.24H PO SCH (08:44)
[2020-06-23] MEDS: HEPARIN SODIUM,PORCINE 5,000 UNIT/ML 1 ML VIAL SQ SCH ×2 (08:44→20:33)
[2020-06-23] MEDS: FUROSEMIDE 10 MG/ML 4 ML VIAL IV SCH ×3 (08:44→23:11)
[2020-06-23] MEDS: ASPIRIN 81 MG PO SCH (08:44)
[2020-06-23] MEDS: LORATADINE 10 MG TAB PO SCH ×2 (08:45→20:32)
[2020-06-23] MEDS: acetaZOLAMIDE 250 MG TAB PO SCH (08:45)
[2020-06-23 08:49] LABS: African American GFR (CKD) >90 (>60 ml/min/1.73 sqM); Blood Urea Nitrogen 17 mg/dL (9-20); Chloride 98 mmol/L (98-107); Glucose 158 mg/dL (74-99); Magnesium 2.1 mg/dL (1.6-2.3); Non-African American GFR(CKD) >90 (>60 ml/min/1.73 sqM); Potassium 3.9 mmol/L (3.5-5.1); Sodium 142 mmol/L (137-145)
[2020-06-23] MEDS: HYDROcodone/APAP 10-325MG 1 EACH TAB PO PRN (08:53)
[2020-06-23] MEDS: ALPRAZolam 0.5 MG TAB PO PRN (08:53)
[2020-06-23] MEDS ORDERED: FUROSEMIDE 40 MG TAB PO SCH (09:00)
[2020-06-23 09:05] LABS: Anion Gap 7 mmol/L; Carbon Dioxide 37 mmol/L (22-30)
[2020-06-23 11:54] LABS: Glucose,Whole Blood 224 mg/dL (75-99)
--- NOTE | 2020-06-23 12:44 | P.PN ---
Subjective This is a 69-year-old patient of Dr. Patti Marcus. Chronic stable medical conditions include COPD, diabetes, GERD, hypertension, hyperlipidemia, osteoarthritis, right below-knee amputation, hard of hearing, splenectomy, home oxygen 3 L. Patient presents with multiple nonspecific symptoms. Has been having nausea chest pain dizziness lightheadedness perspiration. Falling. At her baseline is always short of breath. No new edema. Tired rundown. Troponin came back elevated in the ER at 7.2. Patient's INR is only 2.9. Cardiology was consulted. Just feels tired and rundown short of breath. Admitted with acute non-ST elevation myocardial infarction, acute COPD exacerbation, pneumonia. INR was therapeutic. Coumadin was held. Started on IV Solu-Medrol, bronchodilators. [place] to have acute kidney injury. Creatinine dropped from 1.8 down to 0.8.cardiac catheterization attempt was aborted. Trouble with access. Today- went into respiratory distress this morning. Short of breath. Given IV Lasix. Doing better. On high flow oxygen. 06/23/2020 Patient remains on 10 L positive this time. Patient does have bibasilar crackles patient is on IV Lasix no much of wheezing we'll cut down the dose of IV steroids. Constitutional: Denied any fatigue denied any fever. Cardio vascular: denied any chest pain, palpitations Gastrointestinal denied any nausea vomiting Pulmonary: He believes his shortness of breath is better Neurologic denied any new focal deficits All inpatient medications were reviewed and appropriate changes in these medications as dictated in the interval history and assessment and plan. Objective - Vital Signs Vital signs: Vital Signs Temp 97.6 F 06/23/20 11:30 Pulse 64 06/23/20 11:40 Resp 18 06/23/20 11:40 BP 100/50 06/23/20 11:30 Pulse Ox 90 L 06/23/20 11:30 Intake & Output 06/22/20 06/23/20 06/23/20 18:59 06:59 18:59 Intake Total 1272.158 200 180 Output Total 2800 6480 525 Balance -1527.842 -6280 -345 Weight 87.2 kg Intake: IV 40 Invasive Line 1 40 Intake, IV Titration 92.158 200 Amount Heparin Sod,Pork in 0.45% 92.158 NaCl 25,000 unit In 0.45 % NaCl 1 250ml.bag @ 12 UNITS/KG/HR 9.525 mls/hr IV .Q24H [facility] Rx#: [id number] Magnesium Sulfate-D5w Pmx 200 1 gm In Dextrose/Water 1 100ml.bag @ 100 mls/hr IVPB Q1H [facility] Rx#: [id number] Oral 1140 180 Output: Urine 2800 6480 525 Uretheral (Crane) 2800 1600 Other: Voiding Method Indwelling Catheter Indwelling Catheter Indwelling Catheter - Exam PHYSICAL EXAMINATION: GENERAL: The patient is alert and oriented x3, not in any acute distress. Well developed, well nourished. HEENT: Pupils are round and equally reacting to light. EOMI. No scleral icterus. No conjunctival pallor. Normocephalic, atraumatic. No pharyngeal erythema. No thyromegaly. CARDIOVASCULAR: S1 and S2 present. No murmurs, rubs, or gallops. PULMONARY: Bibasilar crackles. ABDOMEN: Soft, nontender, nondistended, normoactive bowel sounds. No palpable organomegaly. MUSCULOSKELETAL: No joint swelling or deformity. EXTREMITIES: No cyanosis, clubbing, or pedal edema. NEUROLOGICAL: Gross neurological examination did not reveal any focal deficits. SKIN: No rashes. - Labs CBC & Chem 7: 06/18/20 16:12 06/23/20 07:13 Labs: Abnormal Lab Results - Last 24 Hours (Table) 06/22/20 06/22/20 06/22/20 Range/Units 12:26 16:56 20:29 APTT 40.2 H (22.0-30.0) sec Carbon Dioxide (22-30) mmol/L Glucose (74-99) mg/dL POC Glucose (mg/dL) 194 H 171 H (75-99) mg/dL Calcium (8.4-10.2) mg/dL 06/23/20 06/23/20 06/23/20 Range/Units 06:14 07:13 11:52 APTT (22.0-30.0) sec Carbon Dioxide 37 H (22-30) mmol/L Glucose 158 H (74-99) mg/dL POC Glucose (mg/dL) 188 H 224 H (75-99) mg/dL Calcium 8.0 L (8.4-10.2) mg/dL Assessment and Plan Plan: -Acute non-ST elevation myocardial infarction suspect in the inferior lateral wall. Cardiac catheterization was aborted because of unable to access -Acute hypoxic respiratory failure-today from pulmonary edema -Acute congestive heart failure exacerbation from diastolic dysfunction EF 55- 60% with acute exacerbation continue with IV Lasix presently on 10 L of oxygen will continue to taper this down -Acute COPD exacerbation in an ex-smoker with mild acute exacerbation and the cutting down the steroids as mentioned above -Diabetes mellitus type 2 -GERD -Hard of hearing -Hyperlipidemia -Essential hypertension -Primary osteoarthritis -Chronic hypoxic respiratory failure on home oxygen 3 L -Right below-knee amputation with a right leg prosthesis -Splenectomy should follow up for immunizations with his family doctor -Peripheral artery disease with a stent to the left leg -Acute kidney injury-possibly ATN [No chronic kidney disease documented normal creatinine was 0.7 in November 2018].
--- NOTE | 2020-06-23 13:00 | PN ---
PROGRESS NOTE HISTORY: Patient is seen for followup for acute kidney injury. Renal function has improved. Patient denies any significant complaints. EXAMINATION: Today blood pressure was 100/50, heart rate 64 per minute, he is afebrile. Examination of the heart S1, S2. Examination of the lungs, bilateral breath sounds are heard. Abdomen is soft, nontender. Examination of lower extremities shows no significant edema. Patient has right BKA. LABS: From today show sodium 142, potassium 3.9, BUN 17, creatinine 0.83. ASSESSMENT: 1. Acute kidney injury on initial admission, currently improved. 2. Status post right BKA. 3. Non-ST elevation [place], maintained on heparin drip. 4. Volume overload currently improved. PLAN: Renal function is significantly improved. We will continue to monitor post IV contrast exposure. Continue to hold off on the losartan for now as blood pressure stays on the lower side. MMODL / IJN: [id number] /
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
[2020-06-23 15:20] LABS: ABG Base Excess 13.4 mmol/L; ABG Oxygen Saturation 92.9 % (94-97); ABG PH 7.31 (7.35-7.45); ABG PO2 71 mmHg (83-108); ABG TCO2 42 mmol/L (19-24); Allen Test Performed? Yes
[2020-06-23 15:27] LABS: ABG PCO2 80 mmHg (35-45)
[2020-06-23 15:28] LABS: ABG HCO3 40 mmol/L (21-25)
--- NOTE | 2020-06-23 15:36 | PN ---
PROGRESS NOTE Mr. Burgos is in sinus rhythm. He had aborted cardiac cath because of bilateral groin vascular disease. However, he is very lethargic and sleepy and he has significant severe COPD with CO2 retention type picture. I have asked the nurse to call and talk to the show horse driver and possibly place him on a BiPAP machine. According to Dr. Grace is note he was a he has advised him not to have any coronary angiography until his pulmonary status has stabilized. We will therefore cancel his cardiac cath. Blood pressure is 110/70, pulse rate is about 70 per minute. JVD is 1-2 cm. No carotid bruit. S1-S2 heard normally. Distant heart sounds. Diminished air entry. Abdomen and lower extremity exam unchanged plan are unchanged. The plan is to reduce his losartan and Coreg and continue with BiPAP and see how he does. Prognosis remains guarded. MMAGUSL / SILVERION: [id number] /
[2020-06-23] MEDS ORDERED: methylPREDNISolone SOD SUCCI 40 MG/ML 1 ML VIAL IV SCH ×2 (16:00→21:00)
[2020-06-23 16:54] LABS: Glucose,Whole Blood 167 mg/dL (75-99)
[2020-06-23] MEDS: carvediloL 3.125 MG TAB PO SCH (18:13)
[2020-06-23 19:46] LABS: Glucose,Whole Blood 152 mg/dL (75-99)
[2020-06-23] MEDS: PANTOPRAZOLE 40 MG TABLET PO SCH (20:32)
[2020-06-24] MEDS: IPRATROPIUM-ALBUTEROL 3 ML NEB INHALATION SCH ×6 (03:38→23:52)
[2020-06-24] MEDS: methylPREDNISolone SOD SUCCI 125 MG/2 ML VIAL IV SCH ×2 (06:06→11:56)
[2020-06-24] MEDS: NITROGLYCERIN OINT 1 INCH/GM PACKET TOPICAL SCH ×4 (06:06→23:27)
[2020-06-24 06:08] LABS: Glucose,Whole Blood 154 mg/dL (75-99)
[2020-06-24] MEDS: INSULIN ASPART (NovoLOG) 100 UNIT/ML VIAL SQ SCH ×4 (06:32→20:56)
[2020-06-24 07:09] LABS: Anisocytosis Slight; HGB 9.1 gm/dL (13.0-17.5); Hypochromasia Marked; MCH 27.5 pg (25.0-35.0); MCHC 28.3 g/dL (31.0-37.0); MCV 97.1 fL (80.0-100.0); Macrocytosis Slight; Mean Platelet Volume 8.5; Platelet Count 498 k/uL (150-450); RDW 17.8 % (11.5-15.5); WBC 30.2 k/uL (3.8-10.6)
[2020-06-24 07:21] LABS: African American GFR (CKD) >90 (>60 ml/min/1.73 sqM); Anion Gap 3 mmol/L; Blood Urea Nitrogen 25 mg/dL (9-20); Calcium 7.8 mg/dL (8.4-10.2); Chloride 99 mmol/L (98-107); Glucose 142 mg/dL (74-99); Non-African American GFR(CKD) 87 (>60 ml/min/1.73 sqM); Potassium 4.2 mmol/L (3.5-5.1); Sodium 142 mmol/L (137-145)
[2020-06-24] MEDS: BUDESONIDE 1 MG/2 ML NEBU INHALATION SCH ×2 (07:37→19:54)
[2020-06-24] MEDS: FORMOTEROL FUMARATE 20 MCG/2 ML NEBU INHALATION SCH ×2 (07:37→19:54)
[2020-06-24 07:48] LABS: Carbon Dioxide 40 mmol/L (22-30)
[2020-06-24 08:21] LABS: ABG Base Excess 17.6 mmol/L; ABG Oxygen Saturation 93.1 % (94-97); ABG PCO2 68 mmHg (35-45); ABG PO2 65 mmHg (83-108); ABG TCO2 44 mmol/L (19-24); Allen Test Performed? Yes
[2020-06-24 08:23] LABS: ABG HCO3 42 mmol/L (21-25)
[2020-06-24] MEDS: LORATADINE 10 MG TAB PO SCH ×2 (09:27→21:31)
[2020-06-24] MEDS: TAMSULOSIN 0.4 MG CAP.ER.24H PO SCH (09:27)
[2020-06-24] MEDS: FUROSEMIDE 10 MG/ML 4 ML VIAL IV SCH ×3 (09:27→23:26)
[2020-06-24] MEDS: ATORVASTATIN 80 MG TAB PO SCH (09:28)
[2020-06-24] MEDS: HEPARIN SODIUM,PORCINE 5,000 UNIT/ML 1 ML VIAL SQ SCH ×2 (09:28→20:56)
[2020-06-24] MEDS: acetaZOLAMIDE 250 MG TAB PO SCH ×2 (09:28→21:31)
[2020-06-24] MEDS: ISOSORBIDE MONONITRATE ER 60 MG TAB.ER.24H PO SCH (09:28)
[2020-06-24] MEDS: LOSARTAN 25 MG TAB PO SCH (09:28)
[2020-06-24] MEDS: metFORMIN 500 MG TAB PO SCH ×2 (09:28→21:30)
[2020-06-24] MEDS: ASPIRIN 81 MG PO SCH (09:28)
--- NOTE | 2020-06-24 10:26 | PN ---
PROGRESS NOTE Mr. Burgos feels better. He was on a BiPAP yesterday, felt much better. He is more alert, oriented, communicating, talking, complains of some discomfort in the right IV site. No chest pain. Given his multiple medical problems including severe pulmonary issues, we will hold off on the cath for now and see how he does. Vitals are stable today. Blood pressure is actually elevated. We will increase losartan to 50 mg. S1-S2 heard normally. Short systolic murmur noted. Lungs reveal diminished air entry. Abdomen and lower exam is unchanged. MMODL / IJN: [id number] /
[2020-06-24 11:46] LABS: Glucose,Whole Blood 193 mg/dL (75-99)
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
--- NOTE | 2020-06-24 12:20 | PN ---
PROGRESS NOTE The patient is seen for acute kidney injury, metabolic acidosis. He is being diuresed for volume overload and congestive heart failure exacerbation. Serum creatinine is about 0.9. However, his CO2 has gone up to 40. The patient has been maintained on oral Diamox. He remains with bilateral lower extremity edema, although his respiratory status has improved per patient. PHYSICAL EXAMINATION: On examination today, blood pressure was 131/60, heart rate 86 per minute. He is afebrile. Examination of the heart S1, S2. Examination of the lungs, bilateral breath sounds are heard. Decreased breath sounds at bases. Abdomen is soft, nontender. Examination of lower extremities shows edema 2+ bilaterally. 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 LABS: Show sodium 142, potassium 4.2, CO2 is 40, BUN 25, creatinine 0.9, hemoglobin 9.1 g/dL. ASSESSMENT: 1. Metabolic alkalosis associated with diuresis. Increase Diamox to 500 mg b.i.d. 2. Acute kidney injury mostly cardiorenal, currently improved. 3. Volume overload, maintained on IV Lasix. The patient remains with significant edema. I will continue with the IV Lasix for now. 4. Non ST elevation myocardial infarction, maintained on heparin drip. 5. Status post right BKA. PLAN: Increase the Diamox. Continue to hold off on losartan for now. Continue with IV Lasix. Repeat labs in a.m. MMODL / IJN: [id number] /
--- NOTE | 2020-06-24 13:10 | P.PN ---
Subjective This is a 69-year-old patient of Dr. Patti Marcus. Chronic stable medical conditions include COPD, diabetes, GERD, hypertension, hyperlipidemia, osteoarthritis, right below-knee amputation, hard of hearing, splenectomy, home oxygen 3 L. Patient presents with multiple nonspecific symptoms. Has been having nausea chest pain dizziness lightheadedness perspiration. Falling. At her baseline is always short of breath. No new edema. Tired rundown. Troponin came back elevated in the ER at 7.2. Patient's INR is only 2.9. Cardiology was consulted. Just feels tired and rundown short of breath. Admitted with acute non-ST elevation myocardial infarction, acute COPD exacerbation, pneumonia. INR was therapeutic. Coumadin was held. Started on IV Solu-Medrol, bronchodilators. [place] to have acute kidney injury. Creatinine dropped from 1.8 down to 0.8.cardiac catheterization attempt was aborted. Trouble with access. Today- went into respiratory distress this morning. Short of breath. Given IV Lasix. Doing better. On high flow oxygen. 06/23/2020 Patient remains on 10 L positive this time. Patient does have bibasilar crackles patient is on IV Lasix no much of wheezing we'll cut down the dose of IV steroids. 06/24/2020 Patient the is on high flow Lungs in today does have significant wheezing on exam. Patient appears to have both a acute hypoxic as well as hypercapnic respiratory failure was on BiPAP cutting down the steroids again to resume 40 every 8 continue with breathing treatments is pretty support. Constitutional: Denied any fatigue denied any fever. Cardio vascular: denied any chest pain, palpitations Gastrointestinal denied any nausea vomiting Pulmonary: He believes his shortness of breath is better Neurologic denied any new focal deficits All inpatient medications were reviewed and appropriate changes in these medications as dictated in the interval history and assessment and plan. Objective - Vital Signs Vital signs: Vital Signs Temp 97.9 F 06/24/20 11:59 Pulse 75 06/24/20 11:59 Resp 15 06/24/20 11:59 BP 104/48 06/24/20 11:59 Pulse Ox 83 L 06/24/20 11:59 Intake & Output 06/23/20 06/24/20 06/24/20 18:59 06:59 18:59 Intake Total 478 220 240 Output Total 525 800 900 Balance -47 580 -660 Weight 81.5 kg Intake: Intake, IV Titration 100 Amount cefTRIAXone 1 gm In 100 Sodium Chloride 0.9% 50 ml @ 100 mls/hr IVPB Q24H [facility] Rx#:[id number] Oral 478 120 240 Output: Urine 525 800 900 Uretheral (Crane) 800 Other: Voiding Method Indwelling Catheter Indwelling Catheter Indwelling Catheter - Exam PHYSICAL EXAMINATION: GENERAL: The patient is alert and oriented x3, not in any acute distress. Well developed, well nourished. HEENT: Pupils are round and equally reacting to light. EOMI. No scleral icterus. No conjunctival pallor. Normocephalic, atraumatic. No pharyngeal erythema. No thyromegaly. CARDIOVASCULAR: S1 and S2 present. No murmurs, rubs, or gallops. PULMONARY: Bibasilar crackles, significant expiratory wheezing. ABDOMEN: Soft, nontender, nondistended, normoactive bowel sounds. No palpable organomegaly. MUSCULOSKELETAL: No joint swelling or deformity. EXTREMITIES: No cyanosis, clubbing, or pedal edema. NEUROLOGICAL: Gross neurological examination did not reveal any focal deficits. SKIN: No rashes. - Labs CBC & Chem 7: 06/24/20 06:51 06/24/20 06:51 Labs: Abnormal Lab Results - Last 24 Hours (Table) 06/23/20 06/23/20 06/23/20 Range/Units 14:58 16:52 19:43 WBC (3.8-10.6) k/uL RBC (4.30-5.90) m/uL Hgb (13.0-17.5) gm/dL Hct (39.0-53.0) % MCHC (31.0-37.0) g/dL RDW (11.5-15.5) % Plt Count (150-450) k/uL ABG pH 7.31 L (7.35-7.45) ABG pCO2 80 H* (35-45) mmHg ABG pO2 71 L (83-108) mmHg ABG HCO3 40 H* (21-25) mmol/L ABG Total CO2 42 H (19-24) mmol/L ABG O2 Saturation 92.9 L (94-97) % Carbon Dioxide (22-30) mmol/L BUN (9-20) mg/dL Glucose (74-99) mg/dL POC Glucose (mg/dL) 167 H 152 H (75-99) mg/dL Calcium (8.4-10.2) mg/dL 06/24/20 06/24/20 06/24/20 Range/Units 06:06 06:51 06:51 WBC 30.2 H (3.8-10.6) k/uL RBC 3.30 L (4.30-5.90) m/uL Hgb 9.1 L (13.0-17.5) gm/dL Hct 32.0 L (39.0-53.0) % MCHC 28.3 L (31.0-37.0) g/dL RDW 17.8 H (11.5-15.5) % Plt Count 498 H (150-450) k/uL ABG pH (7.35-7.45) ABG pCO2 (35-45) mmHg ABG pO2 (83-108) mmHg ABG HCO3 (21-25) mmol/L ABG Total CO2 (19-24) mmol/L ABG O2 Saturation (94-97) % Carbon Dioxide 40 H (22-30) mmol/L BUN 25 H (9-20) mg/dL Glucose 142 H (74-99) mg/dL POC Glucose (mg/dL) 154 H (75-99) mg/dL Calcium 7.8 L (8.4-10.2) mg/dL 06/24/20 06/24/20 Range/Units 08:12 11:44 WBC (3.8-10.6) k/uL RBC (4.30-5.90) m/uL Hgb (13.0-17.5) gm/dL Hct (39.0-53.0) % MCHC (31.0-37.0) g/dL RDW (11.5-15.5) % Plt Count (150-450) k/uL ABG pH (7.35-7.45) ABG pCO2 68 H (35-45) mmHg ABG pO2 65 L (83-108) mmHg ABG HCO3 42 H* (21-25) mmol/L ABG Total CO2 44 H (19-24) mmol/L ABG O2 Saturation 93.1 L (94-97) % Carbon Dioxide (22-30) mmol/L BUN (9-20) mg/dL Glucose (74-99) mg/dL POC Glucose (mg/dL) 193 H (75-99) mg/dL Calcium (8.4-10.2) mg/dL Assessment and Plan Plan: -Acute non-ST elevation myocardial infarction suspect in the inferior lateral wall. Cardiac catheterization was aborted because of poor access. -Acute hypoxic respiratory failure from pulmonary edema -Acute hypercapnic respiratory failure secondary to COPD exacerbation continue with systemic steroids inhalational treatments -Acute congestive heart failure exacerbation from diastolic dysfunction EF 55- 60% with acute exacerbation continue with IV Lasix presently on 10 L of oxygen will continue to taper this down -Acute COPD exacerbation in an ex-smoker with acute exacerbation and the cutting down the steroids as mentioned above -Diabetes mellitus type 2 -GERD -Hard of hearing -Hyperlipidemia -Essential hypertension -Primary osteoarthritis -Chronic hypoxic respiratory failure on home oxygen 3 L -Right below-knee amputation with a right leg prosthesis -Splenectomy should follow up for immunizations with his family doctor -Peripheral artery disease with a stent to the left leg -Acute kidney injury-possibly ATN [No chronic kidney disease documented normal creatinine was 0.7 in November 2018].
[2020-06-24 16:47] LABS: Glucose,Whole Blood 108 mg/dL (75-99)
[2020-06-24] MEDS: carvediloL 3.125 MG TAB PO SCH (17:13)
[2020-06-24] MEDS: methylPREDNISolone SOD SUCCI 40 MG/ML 1 ML VIAL IV SCH ×2 (17:13→23:26)
[2020-06-24 20:12] LABS: Glucose,Whole Blood 226 mg/dL (75-99)
[2020-06-24] MEDS: PANTOPRAZOLE 40 MG TABLET PO SCH (21:31)
[2020-06-25] MEDS: IPRATROPIUM-ALBUTEROL 3 ML NEB INHALATION SCH ×5 (04:16→19:45)
[2020-06-25] MEDS: NITROGLYCERIN OINT 1 INCH/GM PACKET TOPICAL SCH ×4 (05:33→23:12)
[2020-06-25 06:36] LABS: Glucose,Whole Blood 134 mg/dL (75-99)
[2020-06-25] MEDS: INSULIN ASPART (NovoLOG) 100 UNIT/ML VIAL SQ SCH ×4 (06:38→20:55)
[2020-06-25] MEDS: FORMOTEROL FUMARATE 20 MCG/2 ML NEBU INHALATION SCH ×2 (08:24→19:45)
[2020-06-25] MEDS: FUROSEMIDE 10 MG/ML 4 ML VIAL IV SCH ×3 (08:24→23:12)
[2020-06-25] MEDS: BUDESONIDE 1 MG/2 ML NEBU INHALATION SCH ×2 (08:24→19:45)
[2020-06-25] MEDS: acetaZOLAMIDE 250 MG TAB PO SCH ×2 (08:25→20:55)
[2020-06-25] MEDS: HEPARIN SODIUM,PORCINE 5,000 UNIT/ML 1 ML VIAL SQ SCH ×2 (08:25→20:55)
[2020-06-25] MEDS: methylPREDNISolone SOD SUCCI 40 MG/ML 1 ML VIAL IV SCH ×3 (08:25→23:12)
[2020-06-25] MEDS: ISOSORBIDE MONONITRATE ER 60 MG TAB.ER.24H PO SCH (08:25)
[2020-06-25] MEDS: ASPIRIN 81 MG PO SCH (08:25)
[2020-06-25] MEDS: ATORVASTATIN 80 MG TAB PO SCH (08:25)
[2020-06-25] MEDS: TAMSULOSIN 0.4 MG CAP.ER.24H PO SCH (08:26)
[2020-06-25] MEDS: LORATADINE 10 MG TAB PO SCH ×2 (08:26→20:55)
[2020-06-25] MEDS: metFORMIN 500 MG TAB PO SCH ×2 (08:26→20:56)
[2020-06-25 08:27] LABS: African American GFR (CKD) >90 (>60 ml/min/1.73 sqM); Blood Urea Nitrogen 24 mg/dL (9-20); Calcium 8.3 mg/dL (8.4-10.2); Chloride 98 mmol/L (98-107); Glucose 143 mg/dL (74-99); Non-African American GFR(CKD) 89 (>60 ml/min/1.73 sqM); Potassium 3.5 mmol/L (3.5-5.1); Sodium 144 mmol/L (137-145)
[2020-06-25 08:34] LABS: Anion Gap 8 mmol/L; Carbon Dioxide 38 mmol/L (22-30)
--- NOTE | 2020-06-25 08:59 | XR ---
EXAMINATION TYPE: XR chest 1V portable DATE OF EXAM: 06/25/2020 COMPARISON: Prior chest x-ray 06/22/2020 HISTORY: Congestive heart failure TECHNIQUE: Single frontal view of the chest is obtained. FINDINGS: Findings are similar to prior exam. No evident pneumothorax. Patchy basilar density is aga in seen. Heart is at the upper limit of normal, size may be accentuated by rotation. Prominence of pu lmonary artery could be indicative of pulmonary artery hypertension. Aorta is dense. IMPRESSION: Findings are similar to prior exam. Emphysema. Findings could represent congestive failu re in a patient with pre-existing COPD, correlate for pneumonia versus edema or atelectasis.
[2020-06-25] MEDS ORDERED: RX INFO: IV CONTRAST WAS GIVEN 1 EACH MISC MISCELLANE PRN (10:19)
[2020-06-25] MEDS: LOSARTAN 25 MG TAB PO SCH (10:57)
[2020-06-25] MEDS: PIPERACILLIN-TAZOBACTAM 3.375 GM in SODIUM CHLORIDE 0.9% 100 ML IVPB SCH ×3 (12:15→23:12)
[2020-06-25 12:16] LABS: Glucose,Whole Blood 146 mg/dL (75-99)
--- NOTE | 2020-06-25 12:18 | P.PN ---
Subjective This is a 69-year-old patient of Dr. Patti Marcus. Chronic stable medical conditions include COPD, diabetes, GERD, hypertension, hyperlipidemia, osteoarthritis, right below-knee amputation, hard of hearing, splenectomy, home oxygen 3 L. Patient presents with multiple nonspecific symptoms. Has been having nausea chest pain dizziness lightheadedness perspiration. Falling. At her baseline is always short of breath. No new edema. Tired rundown. Troponin came back elevated in the ER at 7.2. Patient's INR is only 2.9. Cardiology was consulted. Just feels tired and rundown short of breath. Admitted with acute non-ST elevation myocardial infarction, acute COPD exacerbation, pneumonia. INR was therapeutic. Coumadin was held. Started on IV Solu-Medrol, bronchodilators. [place] to have acute kidney injury. Creatinine dropped from 1.8 down to 0.8.cardiac catheterization attempt was aborted. Trouble with access. Today- went into respiratory distress this morning. Short of breath. Given IV Lasix. Doing better. On high flow oxygen. 06/23/2020 Patient remains on 10 L positive this time. Patient does have bibasilar crackles patient is on IV Lasix no much of wheezing we'll cut down the dose of IV steroids. 06/24/2020 Patient the is on high flow Lungs in today does have significant wheezing on exam. Patient appears to have both a acute hypoxic as well as hypercapnic respiratory failure was on BiPAP cutting down the steroids again to resume 40 every 8 continue with breathing treatments is pretty support. 06/25/2020 Patient is still requiring the significant amount of oxygen patient will undergo CT of the chest today. Constitutional: Denied any fatigue denied any fever. Cardio vascular: denied any chest pain, palpitations Gastrointestinal denied any nausea vomiting Pulmonary: He believes his shortness of breath is better Neurologic denied any new focal deficits All inpatient medications were reviewed and appropriate changes in these medications as dictated in the interval history and assessment and plan. Objective - Vital Signs Vital signs: Vital Signs Temp 98.4 F 06/25/20 08:00 Pulse 83 06/25/20 11:37 Resp 24 06/25/20 11:37 BP 132/60 06/25/20 10:54 Pulse Ox 94 L 06/25/20 11:00 Intake & Output 06/24/20 06/25/20 06/25/20 18:59 06:59 18:59 Intake Total 720 470 365 Output Total 1875 925 Balance -5458 -544 573 Weight 76.8 kg Intake: Intake, IV Titration 50 Amount cefTRIAXone 1 gm In 50 Sodium Chloride 0.9% 50 ml @ 100 mls/hr IVPB Q24H [facility] Rx#:[id number] Oral 720 420 365 Output: Urine 1875 925 Other: Voiding Method Indwelling Catheter Indwelling Catheter Indwelling Catheter # Voids 1 - Exam PHYSICAL EXAMINATION: GENERAL: The patient is alert and oriented x3, not in any acute distress. Well developed, well nourished. HEENT: Pupils are round and equally reacting to light. EOMI. No scleral icterus. No conjunctival pallor. Normocephalic, atraumatic. No pharyngeal erythema. No thyromegaly. CARDIOVASCULAR: S1 and S2 present. No murmurs, rubs, or gallops. PULMONARY: Bibasilar crackles, significant expiratory wheezing. ABDOMEN: Soft, nontender, nondistended, normoactive bowel sounds. No palpable organomegaly. MUSCULOSKELETAL: No joint swelling or deformity. EXTREMITIES: No cyanosis, clubbing, or pedal edema. NEUROLOGICAL: Gross neurological examination did not reveal any focal deficits. SKIN: No rashes. - Labs CBC & Chem 7: 06/24/20 06:51 06/25/20 07:47 Labs: Abnormal Lab Results - Last 24 Hours (Table) 06/24/20 06/24/20 06/25/20 Range/Units 16:45 20:10 06:34 Carbon Dioxide (22-30) mmol/L BUN (9-20) mg/dL Glucose (74-99) mg/dL POC Glucose (mg/dL) 108 H 226 H 134 H (75-99) mg/dL Calcium (8.4-10.2) mg/dL 06/25/20 Range/Units 07:47 Carbon Dioxide 38 H (22-30) mmol/L BUN 24 H (9-20) mg/dL Glucose 143 H (74-99) mg/dL POC Glucose (mg/dL) (75-99) mg/dL Calcium 8.3 L (8.4-10.2) mg/dL Assessment and Plan Plan: -Acute non-ST elevation myocardial infarction suspect in the inferior lateral wall. Cardiac catheterization was aborted because of poor access. -Acute hypoxic respiratory failure from pulmonary edema -Acute hypercapnic respiratory failure secondary to COPD exacerbation continue with systemic steroids inhalational treatments -Acute congestive heart failure exacerbation from diastolic dysfunction EF 55- 60% with acute exacerbation continue with IV Lasix presently on 10 L of oxygen will continue to taper this down -Acute COPD exacerbation in an ex-smoker with acute exacerbation and the cutting down the steroids as mentioned above -Diabetes mellitus type 2 -GERD -Hard of hearing -Hyperlipidemia -Essential hypertension -Primary osteoarthritis -Chronic hypoxic respiratory failure on home oxygen 3 L -Right below-knee amputation with a right leg prosthesis -Splenectomy should follow up for immunizations with his family doctor -Peripheral artery disease with a stent to the left leg -Acute kidney injury-possibly ATN [No chronic kidney disease documented normal creatinine was 0.7 in November 2018].
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
--- NOTE | 2020-06-25 14:04 | CT ---
EXAMINATION TYPE: CT chest w con DATE OF EXAM: 06/25/2020 COMPARISON: CT chest 06/18/2020. CT abdomen pelvis 11/17/2013. HISTORY: Shortness of breath CT DLP: 433.4 mGycm Automated exposure control for dose reduction was used. CONTRAST: CT scan of the chest is performed with IV Contrast, patient injected with 100 mL of Isovue 300. FINDINGS: LUNGS: There is severe centrilobular emphysema. There are multifocal patchy consolidative opacities o f the bilateral lower lobes and the right middle lobe which are new versus 06/18/2020 CT comparison. Trace right pleural effusion and adjacent atelectasis. No pneumothorax. The tracheobronchial tree is patent. MEDIASTINUM/SOFT TISSUES: No axillary, hilar, or mediastinal lymphadenopathy greater than 1 cm. Cardi omegaly. Calcified coronary artery disease and mitral annular calcification. Trace new pericardial ef fusion. No thoracic aortic aneurysm. Marked calcified atherosclerotic disease. Bilateral gynecomastia . UPPER ABDOMEN: Moderate hiatal hernia. 1 cm hypodense lesion of the posterior right liver segment 7 i s likely hepatic cyst, and not significantly changed from 11/25/2013 CT comparison. Incompletely visua lized left renal too small to characterize hypodense lesion. OSSEOUS: No acute osseous abnormality. IMPRESSION: 1. Multilobar patchy airspace opacities, most likely pneumonia, and trace right pleural effusion are new versus 06/18/2020 CT comparison. 2. Severe emphysema. 3. Moderate hiatal hernia.
[2020-06-25 17:00] LABS: Glucose,Whole Blood 148 mg/dL (75-99)
[2020-06-25] MEDS: carvediloL 3.125 MG TAB PO SCH (17:20)
[2020-06-25 20:51] LABS: Glucose,Whole Blood 187 mg/dL (75-99)
[2020-06-25] MEDS: PANTOPRAZOLE 40 MG TABLET PO SCH (20:55)
[2020-06-26] MEDS: IPRATROPIUM-ALBUTEROL 3 ML NEB INHALATION SCH ×6 (02:48→20:06)
[2020-06-26 06:17] LABS: Glucose,Whole Blood 177 mg/dL (75-99)
[2020-06-26] MEDS: NITROGLYCERIN OINT 1 INCH/GM PACKET TOPICAL SCH ×2 (06:29→12:30)
[2020-06-26] MEDS: INSULIN ASPART (NovoLOG) 100 UNIT/ML VIAL SQ SCH ×4 (06:29→20:42)
[2020-06-26 07:47] LABS: Anisocytosis Slight; HCT 31.4 % (39.0-53.0); HGB 8.4 gm/dL (13.0-17.5); Hypochromasia Marked; MCH 26.2 pg (25.0-35.0); MCHC 26.9 g/dL (31.0-37.0); MCV 97.5 fL (80.0-100.0); Macrocytosis Slight; Mean Platelet Volume 8.9; Platelet Count 518 k/uL (150-450); RBC 3.22 m/uL (4.30-5.90); RDW 17.5 % (11.5-15.5); WBC 23.6 k/uL (3.8-10.6)
[2020-06-26 08:05] LABS: African American GFR (CKD) >90 (>60 ml/min/1.73 sqM); Blood Urea Nitrogen 25 mg/dL (9-20); Calcium 8.1 mg/dL (8.4-10.2); Chloride 100 mmol/L (98-107); Glucose 157 mg/dL (74-99); Magnesium 1.5 mg/dL (1.6-2.3); Non-African American GFR(CKD) 89 (>60 ml/min/1.73 sqM); Potassium 3.3 mmol/L (3.5-5.1); Sodium 144 mmol/L (137-145)
[2020-06-26 08:11] LABS: Anion Gap 6 mmol/L; Carbon Dioxide 38 mmol/L (22-30)
[2020-06-26] MEDS: FORMOTEROL FUMARATE 20 MCG/2 ML NEBU INHALATION SCH ×2 (08:18→20:06)
[2020-06-26] MEDS: BUDESONIDE 1 MG/2 ML NEBU INHALATION SCH ×2 (08:18→20:06)
[2020-06-26] MEDS: methylPREDNISolone SOD SUCCI 40 MG/ML 1 ML VIAL IV SCH ×3 (08:58→22:50)
[2020-06-26] MEDS: PIPERACILLIN-TAZOBACTAM 3.375 GM in SODIUM CHLORIDE 0.9% 100 ML IVPB SCH ×3 (08:59→22:50)
[2020-06-26] MEDS: ATORVASTATIN 80 MG TAB PO SCH (09:07)
[2020-06-26] MEDS: HEPARIN SODIUM,PORCINE 5,000 UNIT/ML 1 ML VIAL SQ SCH ×2 (09:07→20:41)
[2020-06-26] MEDS: ASPIRIN 81 MG PO SCH (09:07)
[2020-06-26] MEDS: acetaZOLAMIDE 250 MG TAB PO SCH (09:08)
[2020-06-26] MEDS: LORATADINE 10 MG TAB PO SCH ×2 (09:08→20:41)
[2020-06-26] MEDS ORDERED: Potassium Replacement Protocol 1 EACH MISC MISCELLANE PRN (09:11)
[2020-06-26] MEDS: metFORMIN 500 MG TAB PO SCH ×2 (09:11→20:42)
[2020-06-26] MEDS: TAMSULOSIN 0.4 MG CAP.ER.24H PO SCH (09:13)
[2020-06-26] MEDS: FUROSEMIDE 10 MG/ML 4 ML VIAL IV SCH (09:48)
--- NOTE | 2020-06-26 10:20 | P.PN ---
Subjective This is a 69-year-old patient of Dr. Patti Marcus. Chronic stable medical conditions include COPD, diabetes, GERD, hypertension, hyperlipidemia, osteoarthritis, right below-knee amputation, hard of hearing, splenectomy, home oxygen 3 L. Patient presents with multiple nonspecific symptoms. Has been having nausea chest pain dizziness lightheadedness perspiration. Falling. At her baseline is always short of breath. No new edema. Tired rundown. Troponin came back elevated in the ER at 7.2. Patient's INR is only 2.9. Cardiology was consulted. Just feels tired and rundown short of breath. Admitted with acute non-ST elevation myocardial infarction, acute COPD exacerbation, pneumonia. INR was therapeutic. Coumadin was held. Started on IV Solu-Medrol, bronchodilators. Coleman to have acute kidney injury. Creatinine dropped from 1.8 down to 0.8.cardiac catheterization attempt was aborted. Trouble with access. Today- went into respiratory distress this morning. Short of breath. Given IV Lasix. Doing better. On high flow oxygen. 06/23/2020 Patient remains on 10 L positive this time. Patient does have bibasilar crackles patient is on IV Lasix no much of wheezing we'll cut down the dose of IV steroids. 06/24/2020 Patient the is on high flow Lungs in today does have significant wheezing on exam. Patient appears to have both a acute hypoxic as well as hypercapnic respiratory failure was on BiPAP cutting down the steroids again to resume 40 every 8 continue with breathing treatments is pretty support. 06/25/2020 Patient is still requiring the significant amount of oxygen patient will undergo CT of the chest today. 06/21/[address] of the chestwhich showed diffuse emphysema with multilobar patchy of [id number] can be CHF or atypical pneumonia. Patient's antibiotic so switched from Rocephin to Zosyn with improvement in white blood cell count all the cultures are so far negative. I do not have any urine cultures available at this time there is no urinalysis available neither. Patient is h ypomagnesemic magnesium will be replaced is hypokalemic potassium will be replaced as well. Patient remains on IV Lasix Constitutional: Denied any fatigue denied any fever. Cardio vascular: denied any chest pain, palpitations Gastrointestinal denied any nausea vomiting Pulmonary: He believes his shortness of breath is better Neurologic denied any new focal deficits All inpatient medications were reviewed and appropriate changes in these medications as dictated in the interval history and assessment and plan. Objective - Vital Signs Vital signs: Vital Signs Temp 97.9 F 06/26/20 08:02 Pulse 72 06/26/20 08:39 Resp 20 06/26/20 08:02 BP 150/67 06/26/20 08:02 Pulse Ox 100 06/26/20 08:19 Intake & Output 06/25/20 06/26/20 06/26/20 18:59 06:59 18:59 Intake Total 837 540 380 Output Total 1999 1500 Balance -1163 960 380 Weight 78.8 kg Intake: Oral 837 540 380 Output: Urine 1999 1500 Other: Voiding Method Indwelling Catheter Indwelling Catheter # Voids 1 # Bowel Movements 1 - Exam PHYSICAL EXAMINATION: GENERAL: The patient is alert and oriented x3, not in any acute distress. Well developed, well nourished. HEENT: Pupils are round and equally reacting to light. EOMI. No scleral icterus. No conjunctival pallor. Normocephalic, atraumatic. No pharyngeal erythema. No thyromegaly. CARDIOVASCULAR: S1 and S2 present. No murmurs, rubs, or gallops. PULMONARY: Bibasilar crackles, wheezing improved ABDOMEN: Soft, nontender, nondistended, normoactive bowel sounds. No palpable organomegaly. MUSCULOSKELETAL: No joint swelling or deformity. EXTREMITIES: No cyanosis, clubbing, or pedal edema. NEUROLOGICAL: Gross neurological examination did not reveal any focal deficits. SKIN: No rashes. - Labs CBC & Chem 7: 06/26/20 07:16 06/26/20 07:16 Labs: Abnormal Lab Results - Last 24 Hours (Table) 06/25/20 06/25/20 06/25/20 Range/Units 12:05 16:56 20:41 WBC (3.8-10.6) k/uL RBC (4.30-5.90) m/uL Hgb (13.0-17.5) gm/dL Hct (39.0-53.0) % MCHC (31.0-37.0) g/dL RDW (11.5-15.5) % Plt Count (150-450) k/uL Potassium (3.5-5.1) mmol/L Carbon Dioxide (22-30) mmol/L BUN (9-20) mg/dL Glucose (74-99) mg/dL POC Glucose (mg/dL) 146 H 148 H 187 H (75-99) mg/dL Calcium (8.4-10.2) mg/dL Magnesium (1.6-2.3) mg/dL 06/26/20 06/26/20 06/26/20 Range/Units 06:06 07:16 07:16 WBC 23.6 H (3.8-10.6) k/uL RBC 3.22 L (4.30-5.90) m/uL Hgb 8.4 L (13.0-17.5) gm/dL Hct 31.4 L (39.0-53.0) % MCHC 26.9 L (31.0-37.0) g/dL RDW 17.5 H (11.5-15.5) % Plt Count 518 H (150-450) k/uL Potassium 3.3 L (3.5-5.1) mmol/L Carbon Dioxide 38 H (22-30) mmol/L BUN 25 H (9-20) mg/dL Glucose 157 H (74-99) mg/dL POC Glucose (mg/dL) 177 H (75-99) mg/dL Calcium 8.1 L (8.4-10.2) mg/dL Magnesium 1.5 L (1.6-2.3) mg/dL Assessment and Plan Plan: -Acute non-ST elevation myocardial infarction suspect in the inferior lateral wall. Cardiac catheterization was aborted because of poor access. -Acute hypoxic respiratory failure from pulmonary edema -Acute hypercapnic respiratory failure secondary to COPD exacerbation continue with systemic steroids inhalational treatments -Acute congestive heart failure exacerbation from diastolic dysfunction EF 55- 60% with acute exacerbation continue with IV Lasix presently on airvoand 50% FiO2. Possibility of pneumonia cannot be ruled out and patient is presently on Zosyn with improvement in leukocytosis -Acute COPD exacerbation in an ex-smoker with acute exacerbation and on kimberley roids -leukocytosis: Improving white blood cell count with Zosyn source probably pneumonia -Diabetes mellitus type 2 -GERD -Hyperlipidemia -Essential hypertension -Primary osteoarthritis -Chronic hypoxic respiratory failure on home oxygen 3 L -Peripheral artery disease with a stent to the left leg
[2020-06-26] MEDS: ISOSORBIDE MONONITRATE ER 60 MG TAB.ER.24H PO SCH ×2 (11:03→20:42)
[2020-06-26] MEDS: POTASSIUM CHLORIDE ER 20 MEQ TAB.ER PO SCH ×2 (11:04→12:31)
[2020-06-26] MEDS: LOSARTAN 25 MG TAB PO SCH (11:04)
[2020-06-26] MEDS: MAGNESIUM SULFATE-D5W PMX 1 GM in DEXTROSE/WATER 1 100ML.BAG IVPB SCH ×2 (11:06→12:31)
[2020-06-26 11:50] LABS: Glucose,Whole Blood 175 mg/dL (75-99)
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
--- NOTE | 2020-06-26 14:28 | PN ---
PROGRESS NOTE Patient is seen for followup for acute kidney injury, volume overload, metabolic alkalosis currently with significantly improved renal function. He remains on Lasix at 40 mg. He remains on Lasix currently switched to p.o. Lower extremity edema has improved. Serum creatinine has been staying at 0.8 mg/dL. PHYSICAL EXAMINATION: On examination today, blood pressure was 149/66, heart rate 72 per minute, patient is afebrile. Examination of the heart S1, S2. Examination of the lungs, bilateral breath sounds are heard. Abdomen is soft, nontender. Examination of lower extremities shows much decreased edema. 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 The patient has right BKA. LAB: 1. Show sodium 144, potassium 3.3, chloride 100, CO2 is 38, BUN 25, creatinine 0.8, hemoglobin 8.4 g/dL. ASSESSMENT: 1. Acute kidney injury cardiorenal, currently resolved. 2. Metabolic alkalosis secondary to diuretics currently stable status post Diamox. 3. Hypokalemia associated with diuresis now improved. 4. Volume overload, significantly improved. 5. Non ST elevation OH with history of coronary artery disease status post previous PCI to ostial circumflex in November of 2018. 6. Pneumonia maintained on antibiotics. Chest CT done yesterday shows patchy air space opacities, most likely pneumonia. PLAN: Agree with switching to oral diuretics. Replace potassium. MMODL / IJN: [id number] /
[2020-06-26 16:41] LABS: Glucose,Whole Blood 179 mg/dL (75-99)
[2020-06-26] MEDS: FUROSEMIDE 40 MG TAB PO SCH (17:33)
[2020-06-26] MEDS: carvediloL 3.125 MG TAB PO SCH (17:33)
[2020-06-26 20:15] LABS: Glucose,Whole Blood 147 mg/dL (75-99)
[2020-06-26] MEDS: PANTOPRAZOLE 40 MG TABLET PO SCH (20:41)
[2020-06-27] MEDS: IPRATROPIUM-ALBUTEROL 3 ML NEB INHALATION SCH ×6 (00:09→19:19)
[2020-06-27 06:06] LABS: Glucose,Whole Blood 192 mg/dL (75-99)
[2020-06-27] MEDS: INSULIN ASPART (NovoLOG) 100 UNIT/ML VIAL SQ SCH ×4 (06:37→20:58)
[2020-06-27 07:37] LABS: Anisocytosis Slight; HCT 32.2 % (39.0-53.0); HGB 9.2 gm/dL (13.0-17.5); Hypochromasia Marked; MCH 27.7 pg (25.0-35.0); MCHC 28.5 g/dL (31.0-37.0); MCV 97.2 fL (80.0-100.0); Macrocytosis Slight; Mean Platelet Volume 9.2; Platelet Count 533 k/uL (150-450); RBC 3.32 m/uL (4.30-5.90); RDW 17.8 % (11.5-15.5)
[2020-06-27 07:38] LABS: ALT 124 U/L (4-49); AST 44 U/L (17-59); African American GFR (CKD) >90 (>60 ml/min/1.73 sqM); Albumin 2.9 g/dL (3.5-5.0); Alkaline Phosphatase 78 U/L (38-126); Anion Gap 4 mmol/L; Blood Urea Nitrogen 29 mg/dL (9-20); Carbon Dioxide 35 mmol/L (22-30); Chloride 108 mmol/L (98-107); Glucose 208 mg/dL (74-99); Magnesium 1.9 mg/dL (1.6-2.3); Non-African American GFR(CKD) 89 (>60 ml/min/1.73 sqM); Potassium 4.5 mmol/L (3.5-5.1); Sodium 147 mmol/L (137-145); Total Bilirubin 0.6 mg/dL (0.2-1.3); Total Protein 5.8 g/dL (6.3-8.2)
[2020-06-27] MEDS: FORMOTEROL FUMARATE 20 MCG/2 ML NEBU INHALATION SCH ×2 (08:00→19:20)
[2020-06-27] MEDS: BUDESONIDE 1 MG/2 ML NEBU INHALATION SCH ×2 (08:00→19:20)
[2020-06-27 08:26] LABS: Lymphocytes # (M) 0.32 k/uL (1.0-4.8); Monocytes # (M) 0.32 k/uL (0-1.0); Neutrophils # (M) 15.42 k/uL (1.3-7.7); Neutrophils % (M) 97 %; Nucleated Red Blood Cells 2 /100 WBC (0-0); Total Cells Counted 200; WBC 15.9 k/uL (3.8-10.6)
[2020-06-27 08:28] LABS: Mixed Population RBC Present; Poikilocytosis (M) Present; Target Cells Present
[2020-06-27 08:29] LABS: RBC Fragments Present
[2020-06-27] MEDS ORDERED: HYDROcodone/APAP 10-325MG 1 EACH TAB PO ONE (08:36)
[2020-06-27] MEDS: LOSARTAN 25 MG TAB PO SCH (08:38)
[2020-06-27] MEDS: methylPREDNISolone SOD SUCCI 40 MG/ML 1 ML VIAL IV SCH ×3 (08:38→23:23)
[2020-06-27] MEDS: HEPARIN SODIUM,PORCINE 5,000 UNIT/ML 1 ML VIAL SQ SCH ×2 (08:38→20:39)
[2020-06-27] MEDS: TAMSULOSIN 0.4 MG CAP.ER.24H PO SCH (08:39)
[2020-06-27] MEDS: ASPIRIN 81 MG PO SCH (08:39)
[2020-06-27] MEDS: ATORVASTATIN 80 MG TAB PO SCH (08:39)
[2020-06-27] MEDS: FUROSEMIDE 40 MG TAB PO SCH ×2 (08:39→17:46)
[2020-06-27] MEDS: ISOSORBIDE MONONITRATE ER 60 MG TAB.ER.24H PO SCH ×2 (08:39→20:39)
[2020-06-27] MEDS: LORATADINE 10 MG TAB PO SCH ×2 (08:39→22:14)
[2020-06-27] MEDS: metFORMIN 500 MG TAB PO SCH ×2 (08:39→20:37)
[2020-06-27] MEDS: PIPERACILLIN-TAZOBACTAM 3.375 GM in SODIUM CHLORIDE 0.9% 100 ML IVPB SCH ×3 (08:39→23:24)
[2020-06-27] MEDS ORDERED: LOSARTAN 25 MG TAB PO STA (08:47)
[2020-06-27] MEDS: LOSARTAN 50 MG TAB PO SCH (09:07)
--- NOTE | 2020-06-27 09:20 | XR ---
EXAMINATION TYPE: XR chest 1V DATE OF EXAM: 06/27/2020 CLINICAL HISTORY: FU pneumonia. TECHNIQUE: Portable frontal view of the chest. COMPARISON: 06/25/2020 chest radiograph FINDINGS: Hiatal hernia. Lungs are hyperinflated with interstitial coarsening and flattening of the hemidiaphragms. The cardiomediastinal silhouette is within normal limits for size. There is mildly im proved aeration of the bilateral lung bases with no residual pleural effusion seen. Mildly persistent patchy airspace opacities. No pneumothorax. Postsurgical changes of the right clavicle. The osseous structures are intact. IMPRESSION: 1. Mildly improved aeration of the bilateral lung bases versus 06/25/2020. Persistent patchy airspace opacities. 2. Marked emphysematous change.
[2020-06-27 11:35] VITALS: BMI 24.3
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
[2020-06-27 12:02] LABS: Glucose,Whole Blood 210 mg/dL (75-99)
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
--- NOTE | 2020-06-27 16:17 | PN ---
PROGRESS NOTE Patient is seen for followup for acute kidney injury and volume overload. Renal function has improved with creatinine now at 0.8; however, sodium is noted to be 147 today. Patient has been switched to p.o. diuretics, currently getting 40 mg b.i.d. No significant complaints today. PHYSICAL EXAMINATION: Blood pressure was 132/61, heart rate 61 per minute, patient is afebrile. Examination of the heart S1 and S2. Examination of the lungs. bilateral breath sounds are heard. Decreased breath sounds at bases. Abdomen is soft, nontender. Examination of the lower extremities shows much improved edema. [employer]FT[employer] exam grossly intact. LABS: Show sodium of 147, potassium 4.5, chloride 108, CO2 is 35, BUN 29, creatinine 0.8, hemoglobin of 9.2 g/dL. ASSESSMENT: 1. Acute kidney injury cardiorenal, currently resolved. 2. Hypernatremia associated with free water deficit and recent diuresis. Patient is encouraged to increase free water just for 24 to 48 hours. I will recheck his sodium tomorrow. 3. Non ST elevation [place] with history of coronary artery disease, status post previous coronary stent placement in November of 2018. 4. Pneumonia maintained on antibiotics. Chest x-ray from today shows persistent patchy airspace disease with marked emphysematous changes. 5. CHF acute on top of chronic, mainly diastolic, ejection fraction 55%-60%. PLAN: Continue current dose of Lasix. Repeat labs in a.m. I will add free water if the sodium is worse tomorrow. MMODL / IJN: [id number] /
[2020-06-27 16:59] LABS: Glucose,Whole Blood 133 mg/dL (75-99)
[2020-06-27] MEDS: carvediloL 3.125 MG TAB PO SCH (17:16)
[2020-06-27] MEDS ORDERED: HYDROcodone/APAP 5-325MG 1 EACH TAB PO STA (19:45)
[2020-06-27 20:39] LABS: Glucose,Whole Blood 183 mg/dL (75-99)
[2020-06-27] MEDS: PANTOPRAZOLE 40 MG TABLET PO SCH (20:39)
[2020-06-28] MEDS: IPRATROPIUM-ALBUTEROL 3 ML NEB INHALATION SCH ×7 (00:15→23:45)
--- NOTE | 2020-06-28 01:11 | P.PN ---
Subjective Progress Note Date: 06/27/20 Principal diagnosis: -Acute hypoxic respiratory failure Secondary to acute CHF and COPD This is a 69-year-old patient of Dr. Patti Marcus. Chronic stable medical conditions include COPD, diabetes, GERD, hypertension, hyperlipidemia, osteoarthritis, right below-knee amputation, hard of hearing, splenectomy, home oxygen 3 L. Patient presents with multiple nonspecific symptoms. Has been having nausea chest pain dizziness lightheadedness perspiration. Falling. At her baseline is always short of breath. No new edema. Tired rundown. Troponin came back elevated in the ER at 7.2. Patient's INR is only 2.9. Cardiology was consulted. Just feels tired and rundown short of breath. Admitted with acute non-ST elevation myocardial infarction, acute COPD exacerbation, pneumonia. INR was therapeutic. Coumadin was held. Started on IV Solu-Medrol, bronchodilators. [place] to have acute kidney injury. Creatinine dropped from 1.8 down to 0.8.cardiac catheterization attempt was aborted. Trouble with access. Today- went into respiratory distress this morning. Short of breath. Given IV Lasix. Doing better. On high flow oxygen. 06/23/2020 Patient remains on 10 L positive this time. Patient does have bibasilar crackles patient is on IV Lasix no much of wheezing we'll cut down the dose of IV steroids. 06/24/2020 Patient the is on high flow Lungs in today does have significant wheezing on exam. Patient appears to have both a acute hypoxic as well as hypercapnic respiratory failure was on BiPAP cutting down the steroids again to resume 40 every 8 continue with breathing treatments is pretty support. 06/25/2020 Patient is still requiring the significant amount of oxygen patient will undergo CT of the chest today. 06/26/[address] of the chestwhich showed diffuse emphysema with multilobar patchy of [id number] can be CHF or atypical pneumonia. Patient's antibiotic so switched from Rocephin to Zosyn with improvement in white blood cell count all the cultures are so far negative. I do not have any urine cultures available at this time there is no urinalysis available neither. Patient is hypomagnesemic magnesium will be replaced is hypokalemic potassium will be replaced as well. Patient remains on IV Lasix 06/27/2020 Patient is currently lying in the bed comfortably. Currently on 15 L oxygen via Airvo. Denied any complaints of chest pain or shortness of breath. Breathing status is improving slowly. No fever no chills. Laboratory data showed WBC 15.9, hemoglobin 9.2, platelets 533 and RDW 17.8 Sodium 147, potassium 4.5, chloride 108, BUN 29 and creatinine 0.88 bicarb 35 albumin 2.9 and calcium 9.0 Constitutional: Denied any fatigue denied any fever. Cardio vascular: denied any chest pain, palpitations Gastrointestinal denied any nausea vomiting Pulmonary: He believes his shortness of breath is better Neurologic denied any new focal deficits All inpatient medications were reviewed and appropriate changes in these medications as dictated in the interval history and assessment and plan. Objective - Vital Signs Vital signs: Vital Signs Temp 98.2 F 06/27/20 11:45 Pulse 76 06/27/20 16:05 Resp 22 06/27/20 11:45 BP 132/61 06/27/20 11:45 Pulse Ox 92 L 06/27/20 15:57 Intake & Output 06/26/20 06/27/20 06/27/20 18:59 06:59 18:59 Intake Total 860 240 780 Output Total 1075 600 Balance -215 -360 780 Weight 79.2 kg 79.2 kg Intake: Intake, IV Titration 100 Amount Piperacillin-Tazobactam 3 100 .375 gm In Sodium Chloride 0.9% 100 ml @ 25 mls/hr IVPB Q8HR [facility] Rx# :[id number] Oral 860 240 680 Output: Urine 1075 600 Other: Voiding Method Indwelling Catheter Indwelling Catheter Indwelling Catheter - Exam PHYSICAL EXAMINATION: GENERAL: The patient is alert and oriented x3, not in any acute distress. Well developed, well nourished. HEENT: Pupils are round and equally reacting to light. EOMI. No scleral icterus. No conjunctival pallor. Normocephalic, atraumatic. No pharyngeal erythema. No thyromegaly. CARDIOVASCULAR: S1 and S2 present. No murmurs, rubs, or gallops. PULMONARY: Bibasilar crackles, wheezing improved ABDOMEN: Soft, nontender, nondistended, normoactive bowel sounds. No palpable organomegaly. MUSCULOSKELETAL: No joint swelling or deformity. EXTREMITIES: No cyanosis, clubbing, or pedal edema. RT BKA NEUROLOGICAL: Gross neurological examination did not reveal any focal deficits. SKIN: No rashes. - Labs CBC & Chem 7: 06/27/20 06:38 06/27/20 06:38 Labs: Abnormal Lab Results - Last 24 Hours (Table) 06/26/20 06/26/20 06/27/20 Range/Units 16:40 20:14 06:05 WBC (3.8-10.6) k/uL RBC (4.30-5.90) m/uL Hgb (13.0-17.5) gm/dL Hct (39.0-53.0) % MCHC (31.0-37.0) g/dL RDW (11.5-15.5) % Plt Count (150-450) k/uL Neutrophils # (Manual) (1.3-7.7) k/uL Lymphocytes # (Manual) (1.0-4.8) k/uL Nucleated RBCs (0-0) /100 WBC Sodium (137-145) mmol/L Chloride (98-107) mmol/L Carbon Dioxide (22-30) mmol/L BUN (9-20) mg/dL Glucose (74-99) mg/dL POC Glucose (mg/dL) 179 H 147 H 192 H (75-99) mg/dL ALT (4-49) U/L Total Protein (6.3-8.2) g/dL Albumin (3.5-5.0) g/dL 06/27/20 06/27/20 06/27/20 Range/Units 06:38 06:38 12:01 WBC 15.9 H (3.8-10.6) k/uL RBC 3.32 L (4.30-5.90) m/uL Hgb 9.2 L (13.0-17.5) gm/dL Hct 32.2 L (39.0-53.0) % MCHC 28.5 L (31.0-37.0) g/dL RDW 17.8 H (11.5-15.5) % Plt Count 533 H (150-450) k/uL Neutrophils # (Manual) 15.42 H (1.3-7.7) k/uL Lymphocytes # (Manual) 0.32 L (1.0-4.8) k/uL Nucleated RBCs 2 H (0-0) /100 WBC Sodium 147 H (137-145) mmol/L Chloride 108 H (98-107) mmol/L Carbon Dioxide 35 H (22-30) mmol/L BUN 29 H (9-20) mg/dL Glucose 208 H (74-99) mg/dL POC Glucose (mg/dL) 210 H (75-99) mg/dL ALT 124 H (4-49) U/L Total Protein 5.8 L (6.3-8.2) g/dL Albumin 2.9 L (3.5-5.0) g/dL Assessment and Plan Assessment: -Acute non-ST elevation myocardial infarction suspect in the inferior lateral wall. Cardiac catheterization was aborted because of poor access. -Acute hypoxic respiratory failure from pulmonary edema -Acute hypercapnic respiratory failure secondary to COPD exacerbation continue with systemic steroids inhalational treatments -Acute congestive heart failure exacerbation from diastolic dysfunction EF 55- 60% with acute exacerbation continue with IV Lasix presently on airvoand 50% FiO2. Possibility of pneumonia cannot be ruled out and patient is presently on Zosyn with improvement in leukocytosis -Acute COPD exacerbation in an ex-smoker with acute exacerbation and on steroids -leukocytosis: Improving white blood cell count with Zosyn source probably pneumonia -Diabetes mellitus type 2 -GERD -Hyperlipidemia -Essential hypertension -Primary osteoarthritis -Chronic hypoxic respiratory failure on home oxygen 3 L -Peripheral artery disease with a stent to the left leg, Rt BKA Time with Patient: Greater than 30
[2020-06-28 05:58] LABS: Glucose,Whole Blood 217 mg/dL (75-99)
[2020-06-28] MEDS: INSULIN ASPART (NovoLOG) 100 UNIT/ML VIAL SQ SCH ×4 (06:38→20:55)
[2020-06-28] MEDS: FORMOTEROL FUMARATE 20 MCG/2 ML NEBU INHALATION SCH ×2 (07:54→19:23)
[2020-06-28] MEDS: BUDESONIDE 1 MG/2 ML NEBU INHALATION SCH ×2 (07:54→19:23)
[2020-06-28 08:58] LABS: Anisocytosis Slight; Basophils % (A) 0 %; Eosinophils # (A) 0.1 k/uL (0-0.7); Eosinophils % (A) 0 %; HCT 33.8 % (39.0-53.0); HGB 9.2 gm/dL (13.0-17.5); Hypochromasia Marked; Lymphocytes # (A) 0.6 k/uL (1.0-4.8); Lymphocytes % (A) 4 %; MCH 26.3 pg (25.0-35.0); MCHC 27.1 g/dL (31.0-37.0); Macrocytosis Slight; Mean Platelet Volume 8.5; Monocytes # (A) 0.8 k/uL (0-1.0); Monocytes % (A) 5 %; Neutrophils % (A) 91 %; Platelet Count 562 k/uL (150-450); RBC 3.49 m/uL (4.30-5.90); RDW 17.5 % (11.5-15.5); WBC 16.6 k/uL (3.8-10.6)
[2020-06-28 09:51] LABS: African American GFR (CKD) >90 (>60 ml/min/1.73 sqM); Anion Gap 5 mmol/L; Blood Urea Nitrogen 35 mg/dL (9-20); Calcium 9.2 mg/dL (8.4-10.2); Carbon Dioxide 36 mmol/L (22-30); Chloride 103 mmol/L (98-107); Glucose 221 mg/dL (74-99); Non-African American GFR(CKD) 87 (>60 ml/min/1.73 sqM); Potassium 4.5 mmol/L (3.5-5.1); Sodium 144 mmol/L (137-145)
[2020-06-28] MEDS: methylPREDNISolone SOD SUCCI 40 MG/ML 1 ML VIAL IV SCH ×2 (10:07→16:51)
[2020-06-28] MEDS: PIPERACILLIN-TAZOBACTAM 3.375 GM in SODIUM CHLORIDE 0.9% 100 ML IVPB SCH ×3 (10:07→23:44)
[2020-06-28] MEDS: LORATADINE 10 MG TAB PO SCH ×2 (10:07→20:55)
[2020-06-28] MEDS: ASPIRIN 81 MG PO SCH (10:07)
[2020-06-28] MEDS: ISOSORBIDE MONONITRATE ER 60 MG TAB.ER.24H PO SCH ×2 (10:08→20:55)
[2020-06-28] MEDS: HEPARIN SODIUM,PORCINE 5,000 UNIT/ML 1 ML VIAL SQ SCH ×2 (10:08→20:55)
[2020-06-28] MEDS: metFORMIN 500 MG TAB PO SCH ×2 (10:08→20:55)
[2020-06-28] MEDS: FUROSEMIDE 40 MG TAB PO SCH ×2 (10:08→16:51)
[2020-06-28] MEDS: LOSARTAN 50 MG TAB PO SCH (10:08)
[2020-06-28] MEDS: ATORVASTATIN 80 MG TAB PO SCH (10:09)
[2020-06-28 11:46] LABS: Glucose,Whole Blood 168 mg/dL (75-99)
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
--- NOTE | 2020-06-28 12:05 | PN ---
PROGRESS NOTE Patient is seen for followup for acute kidney injury. Hypernatremia, his serum sodium has improved to 144. Serum creatinine staying at 0.8-0.9 mg/dL. Overall patient is fairly stable. He is still requiring large amounts of oxygen with O2 saturations 95% on 15 L nasal cannula. Chest x-ray from yesterday showed evidence of mild improvement of bilateral lung patchy airspace disease. PHYSICAL EXAMINATION: On examination today, blood pressure 157/67, heart rate 76 per minute, he is afebrile. Examination of the heart S1, S2. Examination of the lungs, bilateral breath sounds are heard. Abdomen is soft, nontender. Examination of lower extremities shows edema 1+ with the right BKA. 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 LABS: Show sodium 144, potassium 4.5, chloride 103, CO2 is 36, BUN 35, creatinine 0.9, hemoglobin 9.2 g/dL. ASSESSMENT: 1. Acute kidney injury, currently resolved. 2. Volume overload improved; however, patient remains with large amount of oxygen requirement at 15 L. 3. Status post non ST elevation [place]. 4. Hypernatremia, currently improved. Continue with current dose of Lasix. 5. Pneumonia, maintained on antibiotics. 6. CHF acute on top of chronic, mainly diastolic. PLAN: Continue with diuretics and repeat labs in a.m. MMODL / IJN: [id number] /
[2020-06-28] MEDS: TAMSULOSIN 0.4 MG CAP.ER.24H PO SCH (12:47)
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
[2020-06-28] MEDS: carvediloL 3.125 MG TAB PO SCH (16:51)
[2020-06-28 17:05] LABS: Glucose,Whole Blood 184 mg/dL (75-99)
--- NOTE | 2020-06-28 19:13 | P.PN ---
Progress Note - Text Progress Note Date: 06/28/20 Chief Complaint: Feeling unwell History of presenting complaint: This is a 69-year-old patient of Dr. Patti Marcus. Chronic stable medical conditions include COPD, diabetes, GERD, hypertension, hyperlipidemia, osteoarthritis, right below-knee amputation, hard of hearing, splenectomy, home oxygen 3 L. Patient presents with multiple nonspecific symptoms. Has been having nausea chest pain dizziness lightheadedness perspiration. Falling. At her baseline is always short of breath. No new edema. Tired rundown. Troponin came back elevated in the ER at 7.2. Patient's INR is only 2.9. Cardiology was consulted. Just feels tired and rundown short of breath. Admitted with acute non-ST elevation myocardial infarction, acute COPD exacerbation, pneumonia. INR was therapeutic. Coumadin was held. Started on IV Solu-Medrol, bronchodilators. [place] to have acute kidney injury. Creatinine dropped from 1.8 down to 0.8.cardiac catheterization attempt was aborted. Trouble with access. Admitted to acute respiratory distress. Given Lasix. Today-breathing better. Down to 8 L nasal cannula. Appetite improving. Up in a chair. No chest pain Review of systems: Was done for constitutional, cardiovascular, GI, pulmonary. relevant finding as above Active Medications Albuterol/Ipratropium (Ipratropium-Albuterol 3 Ml Neb) 3 ml INHALATION RT-Q4H [facility] Last Admin: 06/28/20 15:23 Dose: 3 ml Documented by: Aspirin (Aspirin 81 Mg) 81 mg PO DAILY [facility] Last Admin: 06/28/20 10:07 Dose: 81 mg Documented by: Atorvastatin Calcium (Atorvastatin 80 Mg Tab) 80 mg PO DAILY [facility] Last Admin: 06/28/20 10:09 Dose: 80 mg Documented by: Budesonide (Budesonide 1 Mg/2 Ml Nebu) 1 mg INHALATION RT-BID ABDI Last Admin: 06/28/20 07:54 Dose: 1 mg Documented by: Carvedilol (Carvedilol 3.125 Mg Tab) 3.125 mg PO BID-W/MEALS [facility] Last Admin: 06/28/20 16:51 Dose: 3.125 mg Documented by: Formoterol Fumarate (Formoterol Fumarate 20 Mcg/2 Ml Nebu) 20 mcg INHALATION RT-BID [facility] Last Admin: 06/28/20 07:54 Dose: 20 mcg Documented by: Furosemide (Furosemide 40 Mg Tab) 40 mg PO BID@0900,1600 [facility] Last Admin: 06/28/20 16:51 Dose: 40 mg Documented by: Heparin Sodium (Porcine) (Heparin Sodium,Porcine 5,000 Unit/Ml 1 Ml Vial) 5,000 unit SQ Q12HR [facility] Last Admin: 06/28/20 10:08 Dose: 5,000 unit Documented by: Piperacillin Sod/Tazobactam (Sod 3.375 gm/ Sodium Chloride) 100 mls @ 25 mls/hr IVPB Q8HR [facility] Last Admin: 06/28/20 16:51 Dose: 25 mls/hr Documented by: Insulin Aspart (Insulin Aspart (Novolog) 100 Unit/Ml Vial) 0 unit SQ ACHS [facility]; Protocol Last Admin: 06/28/20 17:16 Dose: 4 unit Documented by: Isosorbide Mononitrate (Isosorbide Mononitrate Er 60 Mg Tab.Er.24h) 60 mg PO BID [facility] Last Admin: 06/28/20 10:08 Dose: 60 mg Documented by: Lactulose (Lactulose 20 Gm/30 Ml Cup) 15 gm PO ONCE PRN PRN Reason: Constipation Last Admin: 06/22/20 17:19 Dose: 15 gm Documented by: Loratadine (Loratadine 10 Mg Tab) 10 mg PO BID [facility] Last Admin: 06/28/20 10:07 Dose: 10 mg Documented by: Losartan Potassium (Losartan 50 Mg Tab) 50 mg PO DAILY [facility] Last Admin: 06/28/20 10:08 Dose: 50 mg Documented by: Metformin HCl (Metformin 500 Mg Tab) 250 mg PO BID [facility] Last Admin: 06/28/20 10:08 Dose: 250 mg Documented by: Methylprednisolone Sodium Succinate (Methylprednisolone Sod Succi 40 Mg/Ml 1 Ml Vial) 40 mg IV Q8HR [facility] Last Admin: 06/28/20 16:51 Dose: 40 mg Documented by: Miscellaneous Information (Magnesium Replacement Protocol 1 Each Misc) 1 each MISCELLANE DAILY PRN; Protocol PRN Reason: Per Protocol Miscellaneous Information (Potassium Replacement Protocol 1 Each Misc) 1 each MISCELLANE DAILY PRN; Protocol PRN Reason: Per Protocol Nitroglycerin (Nitroglycerin Sl Tabs 0.4 Mg Tab) 0.4 mg SUBLINGUAL Q5M PRN PRN Reason: Chest Pain Last Admin: 06/21/20 11:14 Dose: 0.4 mg Documented by: Pantoprazole Sodium (Pantoprazole 40 Mg Tablet) 40 mg PO HS [facility] Last Admin: 06/27/20 20:39 Dose: 40 mg Documented by: Tamsulosin HCl (Tamsulosin 0.4 Mg Cap.Er.24h) 0.4 mg PO DAILY [facility] Last Admin: 06/28/20 12:47 Dose: 0.4 mg Documented by: Physical examination: VITAL SIGNS: 96.9, 85, 18, 163/70, 95% on 8 L GENERAL: Laying in bed, breathing better, EYES: Pupils equal. Conjunctiva normal. HEENT: External appearance of nose and ears normal, oral cavity grossly normal. NECK: JVD not raised; masses not palpable. HEART: First and second heart sounds are normal; no edema. LUNGS:[ Respiratory rate increased decreased breath sounds. ABDOMEN: Soft, nontender, liver spleen not palpable, no masses palpable. PSYCH: Alert and oriented x3; mood and affect . Anxious MUSCULAR skeletal: Right below-knee amputation with a prosthesis INVESTIGATIONS, reviewed in the clinical context: White count 16.6 hemoglobin 9.2 platelets 562 potassium 4.5 creatinine 0.90 Computed tomography scan of the chest-June 25-multilobar patchy airspace opacities, severe emphysema, moderate hiatal hernia Admission testing White count 10.8 hemoglobin 9.8 platelets 42 2 INR 2.9 potassium 4.6 bun 23 creatinine 1.28 Troponin I 7.2, 8.5 TSH 0.345 EKG tracing personally reviewed by me-sinus rhythm, ST segment depression in leads V4 to V6 and subtle changes in lead 1 and aVL. Computed tomography scan brain-chronic changes Computed tomography scan of the chest EMPHYSEMA with bilateral small airspace opacities. Moderate to severe L5-S1 spondylosis. Colonic diverticulosis. Pro-calcitonin 0.10 2-D echocardiogram-moderate concentric LVH, EF 55-60% Assessment: -Acute non-ST elevation myocardial infarction suspect in the inferior lateral wall. Cardiac catheterization was aborted because of unable to access -Acute hypoxic respiratory failure-today from pulmonary edema -Acute congestive heart failure exacerbation from diastolic dysfunction EF 55- 60% -Acute COPD exacerbation in an ex-smoker -Diabetes mellitus type 2 -GERD -Hard of hearing -Hyperlipidemia -Essential hypertension -Primary osteoarthritis -Chronic hypoxic respiratory failure on home oxygen 3 L -Right below-knee amputation with a prosthesis -Splenectomy should follow up for immunizations with his family doctor -Peripheral artery disease with a stent to the left leg -Acute kidney injury-possibly ATN [No chronic kidney disease documented normal creatinine was 0.7 in November 2018].-Recovered -Possible pneumonia, suspect gram-negative organism Plan: Patient daughter 8 L of nasal cannula. We'll cut back on Solu-Medrol. Remains and IV Zosyn. We'll check a pro-calcitonin. Other medications to continue.
[2020-06-28] MEDS: PANTOPRAZOLE 40 MG TABLET PO SCH (20:55)
[2020-06-28 20:58] LABS: Glucose,Whole Blood 240 mg/dL (75-99)
[2020-06-29] MEDS ORDERED: IPRATROPIUM-ALBUTEROL 3 ML NEB INHALATION PRN (00:55)
[2020-06-29 06:36] LABS: Glucose,Whole Blood 162 mg/dL (75-99)
[2020-06-29] MEDS: carvediloL 3.125 MG TAB PO SCH (06:39)
[2020-06-29] MEDS: INSULIN ASPART (NovoLOG) 100 UNIT/ML VIAL SQ SCH ×4 (06:40→20:48)
[2020-06-29] MEDS: IPRATROPIUM-ALBUTEROL 3 ML NEB INHALATION SCH ×4 (08:08→20:26)
[2020-06-29] MEDS: FORMOTEROL FUMARATE 20 MCG/2 ML NEBU INHALATION SCH ×2 (08:08→20:26)
[2020-06-29] MEDS: BUDESONIDE 1 MG/2 ML NEBU INHALATION SCH ×2 (08:08→20:26)
--- NOTE | 2020-06-29 08:57 | XR ---
EXAMINATION TYPE: XR chest 1V portable DATE OF EXAM: 06/29/2020 COMPARISON: Prior chest x-ray 06/27/2020 HISTORY: Hypoxemia TECHNIQUE: Single frontal view of the chest is obtained. FINDINGS: Right clavicle shows a stable appearance. Patchy bibasilar density persists. No evident pn eumothorax or pleural effusion. Aorta is dense. Cardiac mediastinal silhouette, pulmonary vascularity and phan are stable, heart is enlarged. IMPRESSION: Stable findings. Probable subsegmental basilar atelectatic change. There is underlying e mphysema. Correlate to exclude pneumonia.
[2020-06-29] MEDS ORDERED: predniSONE 20 MG TAB PO SCH (09:00)
[2020-06-29] MEDS: PIPERACILLIN-TAZOBACTAM 3.375 GM in SODIUM CHLORIDE 0.9% 100 ML IVPB SCH (10:19)
[2020-06-29] MEDS: ATORVASTATIN 80 MG TAB PO SCH (10:20)
[2020-06-29] MEDS: HEPARIN SODIUM,PORCINE 5,000 UNIT/ML 1 ML VIAL SQ SCH ×2 (10:20→21:33)
[2020-06-29] MEDS: TAMSULOSIN 0.4 MG CAP.ER.24H PO SCH (10:20)
[2020-06-29] MEDS: metFORMIN 500 MG TAB PO SCH ×2 (10:21→21:32)
[2020-06-29] MEDS: FUROSEMIDE 40 MG TAB PO SCH ×2 (10:21→17:02)
[2020-06-29] MEDS: LORATADINE 10 MG TAB PO SCH ×2 (10:22→21:32)
[2020-06-29] MEDS: ASPIRIN 81 MG PO SCH (10:22)
[2020-06-29] MEDS: LOSARTAN 50 MG TAB PO SCH (10:22)
[2020-06-29] MEDS: ISOSORBIDE MONONITRATE ER 60 MG TAB.ER.24H PO SCH ×2 (10:22→21:32)
--- NOTE | 2020-06-29 10:35 | P.PN ---
Subjective Patient looks comfortable in bed however he did complain of recurrent chest discomfort last night but troponin standpoint he showing significant improvement While his air entry is significantly reduced bilaterally his oxygenation is better and his color looks better On examination pulse rate in the 80s Blood pressure 136/80 mmHg respirations 20 Breath sounds are reduced bilaterally very poor air entry bilaterally Heart sounds S1 is soft No JVD Impression Non-ST segment elevation CO Acute and chronic diastolic heart failure which has improved line coronary artery disease status post PA-C I to the ostial left circumflex in 2008 Acute kidney injury Bilateral pneumonitis which is improving Plan Further maximization of medical treatment and possible coronary angiography on Thursday Carvedilol increased to 6.25 mg twice daily Message sent to Dr. Vu Objective - Vital Signs Vital signs: Vital Signs Temp 98.3 F 06/29/20 04:00 Pulse 82 06/29/20 08:30 Resp 20 06/29/20 04:00 BP 136/80 06/29/20 04:00 Pulse Ox 97 06/29/20 04:13 Intake & Output 06/28/20 06/29/20 06/29/20 18:59 06:59 18:59 Intake Total 1200 820 120 Output Total 1800 450 200 Balance -600 370 -80 Weight 76.8 kg Intake: Intake, IV Titration 100 Amount Piperacillin-Tazobactam 3 100 .375 gm In Sodium Chloride 0.9% 100 ml @ 25 mls/hr IVPB Q8HR [facility] Rx# :[id number] Oral 1200 720 120 Output: Urine 1800 450 200 Uretheral (Crane) 200 Other: Voiding Method Indwelling Catheter Indwelling Catheter # Bowel Movements 1 - Labs CBC & Chem 7: 06/28/20 08:33 06/28/20 08:33 Labs: Abnormal Lab Results - Last 24 Hours (Table) 06/28/20 06/28/20 06/28/20 Range/Units 11:45 17:04 20:53 POC Glucose (mg/dL) 168 H 184 H 240 H (75-99) mg/dL 06/29/20 Range/Units 06:28 POC Glucose (mg/dL) 162 H (75-99) mg/dL
[2020-06-29] MEDS ORDERED: carvediloL 3.125 MG TAB PO STA (10:36)
[2020-06-29 12:00] LABS: Glucose,Whole Blood 134 mg/dL (75-99)
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
[2020-06-29] MEDS: carvediloL 6.25 MG TAB PO SCH (17:02)
[2020-06-29 17:06] LABS: Glucose,Whole Blood 267 mg/dL (75-99)
[2020-06-29 20:30] LABS: Glucose,Whole Blood 223 mg/dL (75-99)
[2020-06-29] MEDS: PANTOPRAZOLE 40 MG TABLET PO SCH (21:32)
[2020-06-29] MEDS: AMOXIC-POT CLAV 875-125MG 1 EACH TAB PO SCH (21:32)
[2020-06-29] MEDS: ACETAMINOPHEN TAB 325 MG TAB PO PRN (21:53)
--- NOTE | 2020-06-29 22:29 | P.PN ---
Progress Note - Text Progress Note Date: 06/29/20 Chief Complaint: Feeling unwell History of presenting complaint: This is a 69-year-old patient of Dr. Patti Marcus. Chronic stable medical conditions include COPD, diabetes, GERD, hypertension, hyperlipidemia, osteoarthritis, right below-knee amputation, hard of hearing, splenectomy, home oxygen 3 L. Patient presents with multiple nonspecific symptoms. Has been having nausea chest pain dizziness lightheadedness perspiration. Falling. At her baseline is always short of breath. No new edema. Tired rundown. Troponin came back elevated in the ER at 7.2. Patient's INR is only 2.9. Cardiology was consulted. Just feels tired and rundown short of breath. Admitted with acute non-ST elevation myocardial infarction, acute COPD exacerbation, pneumonia. INR was therapeutic. Coumadin was held. Started on IV Solu-Medrol, bronchodilators. [place] to have acute kidney injury. Creatinine dropped from 1.8 down to 0.8.cardiac catheterization attempt was aborted. Trouble with access. Admitted to acute respiratory distress. Given Lasix. Today-breathing slowly continues to improve. On nasal cannula. Eating better. Review of systems: Was done for constitutional, cardiovascular, GI, pulmonary. relevant finding as above Active Medications Acetaminophen (Acetaminophen Tab 325 Mg Tab) 650 mg PO Q4HR PRN PRN Reason: Fever and/ or Pain Last Admin: 06/29/20 21:53 Dose: 650 mg Documented by: Albuterol/Ipratropium (Ipratropium-Albuterol 3 Ml Neb) 3 ml INHALATION RT-QID PRN PRN Reason: Shortness Of Breath Or Wheezing Albuterol/Ipratropium (Ipratropium-Albuterol 3 Ml Neb) 3 ml INHALATION RT-QID [facility] Last Admin: 06/29/20 20:26 Dose: 3 ml Documented by: Amoxicillin/Clavulanate Potassium (Amoxic-Pot Clav 875-125mg 1 Each Tab) 1 each PO Q12HR [facility] Last Admin: 06/29/20 21:32 Dose: 1 each Documented by: Aspirin (Aspirin 81 Mg) 81 mg PO DAILY [facility] Last Admin: 06/29/20 10:22 Dose: 81 mg Documented by: Atorvastatin Calcium (Atorvastatin 80 Mg Tab) 80 mg PO DAILY [facility] Last Admin: 06/29/20 10:20 Dose: 80 mg Documented by: Budesonide (Budesonide 1 Mg/2 Ml Nebu) 1 mg INHALATION RT-BID [facility] Last Admin: 06/29/20 20:26 Dose: 1 mg Documented by: Carvedilol (Carvedilol 6.25 Mg Tab) 6.25 mg PO BID-W/MEALS [facility] Last Admin: 06/29/20 17:02 Dose: 6.25 mg Documented by: Formoterol Fumarate (Formoterol Fumarate 20 Mcg/2 Ml Nebu) 20 mcg INHALATION RT-BID [facility] Last Admin: 06/29/20 20:26 Dose: 20 mcg Documented by: Furosemide (Furosemide 40 Mg Tab) 40 mg PO BID@0900,1600 [facility] Last Admin: 06/29/20 17:02 Dose: 40 mg Documented by: Heparin Sodium (Porcine) (Heparin Sodium,Porcine 5,000 Unit/Ml 1 Ml Vial) 5,000 unit SQ Q12HR [facility] Last Admin: 06/29/20 21:33 Dose: 5,000 unit Documented by: Insulin Aspart (Insulin Aspart (Novolog) 100 Unit/Ml Vial) 0 unit SQ ACHS [facility]; Protocol Last Admin: 06/29/20 20:48 Dose: 3 unit Documented by: Isosorbide Mononitrate (Isosorbide Mononitrate Er 60 Mg Tab.Er.24h) 60 mg PO BID [facility] Last Admin: 06/29/20 21:32 Dose: 60 mg Documented by: Lactulose (Lactulose 20 Gm/30 Ml Cup) 15 gm PO ONCE PRN PRN Reason: Constipation Last Admin: 06/22/20 17:19 Dose: 15 gm Documented by: Loratadine (Loratadine 10 Mg Tab) 10 mg PO BID [facility] Last Admin: 06/29/20 21:32 Dose: 10 mg Documented by: Losartan Potassium (Losartan 50 Mg Tab) 50 mg PO DAILY [facility] Last Admin: 06/29/20 10:22 Dose: 50 mg Documented by: Metformin HCl (Metformin 500 Mg Tab) 250 mg PO BID [facility] Last Admin: 06/29/20 21:32 Dose: 250 mg Documented by: Miscellaneous Information (Magnesium Replacement Protocol 1 Each Misc) 1 each MISCELLANE DAILY PRN; Protocol PRN Reason: Per Protocol Miscellaneous Information (Potassium Replacement Protocol 1 Each Misc) 1 each MISCELLANE DAILY PRN; Protocol PRN Reason: Per Protocol Nitroglycerin (Nitroglycerin Sl Tabs 0.4 Mg Tab) 0.4 mg SUBLINGUAL Q5M PRN PRN Reason: Chest Pain Last Admin: 06/21/20 11:14 Dose: 0.4 mg Documented by: Pantoprazole Sodium (Pantoprazole 40 Mg Tablet) 40 mg PO HS [facility] Last Admin: 06/29/20 21:32 Dose: 40 mg Documented by: Prednisone (Prednisone 20 Mg Tab) 60 mg PO DAILY [facility] Last Admin: 06/29/20 10:20 Dose: 60 mg Documented by: Tamsulosin HCl (Tamsulosin 0.4 Mg Cap.Er.24h) 0.4 mg PO DAILY [facility] Last Admin: 06/29/20 10:20 Dose: 0.4 mg Documented by: Physical examination: VITAL SIGNS: 97.3, 78, 20, 108/51, 92% on 4 L GENERAL: Laying in bed, breathing better, EYES: Pupils equal. Conjunctiva normal. HEENT: External appearance of nose and ears normal, oral cavity grossly normal. NECK: JVD not raised; masses not palpable. HEART: First and second heart sounds are normal; no edema. LUNGS:[ Respiratory rate increased decreased breath sounds. ABDOMEN: Soft, nontender, liver spleen not palpable, no masses palpable. PSYCH: Alert and oriented x3; mood and affect . Anxious MUSCULAR skeletal: Right below-knee amputation with a prosthesis INVESTIGATIONS, reviewed in the clinical context: pro-calcitonin 0.08 Admission testing White count 10.8 hemoglobin 9.8 platelets 42 2 INR 2.9 potassium 4.6 bun 23 creatinine 1.28 Troponin I 7.2, 8.5 TSH 0.345 EKG tracing personally reviewed by me-sinus rhythm, ST segment depression in leads V4 to V6 and subtle changes in lead 1 and aVL. Computed tomography scan brain-chronic changes Computed tomography scan of the chest EMPHYSEMA with bilateral small airspace opacities. Moderate to severe L5-S1 spondylosis. Colonic diverticulosis. Pro-calcitonin 0.10 2-D echocardiogram-moderate concentric LVH, EF 55-60% Computed tomography scan of the chest-June 25-multilobar patchy airspace opacities, severe emphysema, moderate hiatal hernia Assessment: -Acute non-ST elevation myocardial infarction suspect in the inferior lateral wall. Cardiac catheterization was aborted because of unable to access -Acute hypoxic respiratory failure-improving -Acute congestive heart failure exacerbation from diastolic dysfunction EF 55- 60% -Acute COPD exacerbation in an ex-smoker -Diabetes mellitus type 2 -GERD -Hard of hearing -Hyperlipidemia -Essential hypertension -Primary osteoarthritis -Chronic hypoxic respiratory failure on home oxygen 3 L -Right below-knee amputation with a prosthesis -Splenectomy should follow up for immunizations with his family doctor -Peripheral artery disease with a stent to the left leg -Acute kidney injury-possibly ATN [No chronic kidney disease documented normal creatinine was 0.7 in November 2018].-Recovered -Possible pneumonia, suspect gram-negative organism Plan: we'll switch the patient over to oral Augmentin.started oral prednisone this morning. Decreased to 40 mg tomorrow. [facility] planning for a cardiac catheterization on Thursday. On oral Lasix.
[2020-06-30 06:04] LABS: Glucose,Whole Blood 146 mg/dL (75-99)
[2020-06-30] MEDS: INSULIN ASPART (NovoLOG) 100 UNIT/ML VIAL SQ SCH ×4 (06:07→21:03)
[2020-06-30] MEDS: carvediloL 6.25 MG TAB PO SCH ×2 (06:34→17:58)
[2020-06-30] MEDS: IPRATROPIUM-ALBUTEROL 3 ML NEB INHALATION SCH ×4 (08:29→19:48)
[2020-06-30] MEDS: BUDESONIDE 1 MG/2 ML NEBU INHALATION SCH ×2 (08:30→19:48)
[2020-06-30] MEDS: FORMOTEROL FUMARATE 20 MCG/2 ML NEBU INHALATION SCH ×2 (08:30→19:48)
[2020-06-30 08:37] LABS: African American GFR (CKD) >90 (>60 ml/min/1.73 sqM); Blood Urea Nitrogen 32 mg/dL (9-20); Calcium 8.5 mg/dL (8.4-10.2); Chloride 101 mmol/L (98-107); Glucose 107 mg/dL (74-99); Non-African American GFR(CKD) >90 (>60 ml/min/1.73 sqM); Potassium 3.9 mmol/L (3.5-5.1); Sodium 143 mmol/L (137-145)
[2020-06-30 08:47] LABS: Anion Gap 4 mmol/L
[2020-06-30 09:16] LABS: Carbon Dioxide 38 mmol/L (22-30)
[2020-06-30] MEDS: TAMSULOSIN 0.4 MG CAP.ER.24H PO SCH (09:17)
[2020-06-30] MEDS: LORATADINE 10 MG TAB PO SCH ×2 (09:18→21:03)
[2020-06-30] MEDS: ASPIRIN 81 MG PO SCH (09:18)
[2020-06-30] MEDS: metFORMIN 500 MG TAB PO SCH ×2 (09:18→21:04)
[2020-06-30] MEDS: ATORVASTATIN 80 MG TAB PO SCH (09:18)
[2020-06-30] MEDS: FUROSEMIDE 40 MG TAB PO SCH ×2 (09:18→17:58)
[2020-06-30] MEDS: HEPARIN SODIUM,PORCINE 5,000 UNIT/ML 1 ML VIAL SQ SCH ×2 (09:18→21:03)
[2020-06-30] MEDS: predniSONE 20 MG TAB PO SCH (09:18)
[2020-06-30] MEDS: LOSARTAN 50 MG TAB PO SCH (09:18)
[2020-06-30] MEDS: ISOSORBIDE MONONITRATE ER 60 MG TAB.ER.24H PO SCH ×2 (09:18→21:03)
[2020-06-30] MEDS: AMOXIC-POT CLAV 875-125MG 1 EACH TAB PO SCH ×2 (09:18→21:03)
[2020-06-30] MEDS: ACETAMINOPHEN TAB 325 MG TAB PO PRN ×2 (09:18→22:57)
[2020-06-30 11:34] LABS: Glucose,Whole Blood 214 mg/dL (75-99)
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
[2020-06-30] MEDS ORDERED: NITROGLYCERIN SL TABS 0.4 MG TAB SUBLINGUAL PRN (13:17)
[2020-06-30] MEDS ORDERED: ALPRAZolam 0.5 MG TAB PO PRN (13:17)
[2020-06-30] MEDS ORDERED: ALPRAZolam 0.25 MG TAB PO PRN (13:17)
[2020-06-30] MEDS ORDERED: SODIUM CHLORIDE 0.9% 1,000 ML in EMPTY BAG 1 BAG IV ONE (13:17)
--- NOTE | 2020-06-30 13:18 | P.PN ---
Subjective Progress Note Date: 06/30/20 The patient is resting comfortably in bed. He denies any chest pain, chest pressure, palpitations, dyspnea, dizziness, or vertigo. He has not been up ambulating around the room due to having a prosthetic limb. Occasionally he states he will develop some discomfort along his right side, however it is from his neck down through his right leg. GENERAL: This is a 69-year-old male in no apparent distress at the time of my examination. HEENT: Head is atraumatic, normocephalic. Pupils are equal, round. Sclerae anicteric. Conjunctivae are clear. Mucous membranes of the mouth are moist. Neck is supple. There is no jugular venous distention. No carotid bruit is heard. LUNGS: Clear to auscultation no wheezes, rales or rhonchi. No chest wall tenderness is noted on palpation or with deep breathing. HEART: Regular rate and rhythm without murmurs, rubs or gallops. S1 and S2 heard. ABDOMEN: Soft, nontender. Bowel sounds are heard. No organomegaly noted. EXTREMITIES: No evidence of peripheral edema and no calf tenderness noted. VASCULAR: Radial and dorsalis pedis pulses palpated, no evidence of clubbing. NEUROLOGIC: Patient is awake, alert and oriented x3. VITALS: Blood pressure 09/23/1957, respiratory rate 18, pulse rate 77, SpO2 93 on 3 L nasal cannula TELEMETRY: Sinus mechanism LABS: Sodium 143, potassium 3.9, BUN 32, creatinine 0.77 IMPRESSION: #1 NSTEMI, will need coronary angiography #2 acute on chronic diastolic heart failure, stable #3 CANDACE, continue to monitor electrolytes and kidney function #4 Bilateral pneumonitis PLAN: Continue current medication regimen. Possible coronary angiography on Thursday with Dr. Vu/Dr. Peralta. Objective - Vital Signs Vital signs: Vital Signs Temp 98.0 F 06/30/20 09:10 Pulse 78 06/30/20 11:57 Resp 18 06/30/20 11:38 BP 124/59 06/30/20 11:38 Pulse Ox 93 L 06/30/20 11:38 Intake & Output 06/29/20 06/30/20 06/30/20 18:59 06:59 18:59 Intake Total 700 240 240 Output Total 675 650 Balance 25 -410 240 Weight 78 kg Intake: Intake, IV Titration 100 Amount Piperacillin-Tazobactam 3 100 .375 gm In Sodium Chloride 0.9% 100 ml @ 25 mls/hr IVPB Q8HR [facility] Rx# :[id number] Oral 600 240 240 Output: Urine 675 650 Uretheral (Crane) 200 Other: Voiding Method Indwelling Catheter Indwelling Catheter Indwelling Catheter - Labs CBC & Chem 7: 06/28/20 08:33 06/30/20 07:33 Labs: Abnormal Lab Results - Last 24 Hours (Table) 06/29/20 06/29/20 06/30/20 Range/Units 17:05 20:29 06:03 Carbon Dioxide (22-30) mmol/L BUN (9-20) mg/dL Glucose (74-99) mg/dL POC Glucose (mg/dL) 267 H 223 H 146 H (75-99) mg/dL 06/30/20 06/30/20 Range/Units 07:33 11:30 Carbon Dioxide 38 H (22-30) mmol/L BUN 32 H (9-20) mg/dL Glucose 107 H (74-99) mg/dL POC Glucose (mg/dL) 214 H (75-99) mg/dL
[2020-06-30 17:36] LABS: Glucose,Whole Blood 226 mg/dL (75-99)
[2020-06-30 20:19] LABS: Glucose,Whole Blood 218 mg/dL (75-99)
[2020-06-30] MEDS: PANTOPRAZOLE 40 MG TABLET PO SCH (21:03)
--- NOTE | 2020-06-30 22:53 | P.PN ---
Progress Note - Text Progress Note Date: 06/30/20 Chief Complaint: Feeling unwell History of presenting complaint: This is a 69-year-old patient of Dr. Patti Marcus. Chronic stable medical conditions include COPD, diabetes, GERD, hypertension, hyperlipidemia, osteoarthritis, right below-knee amputation, hard of hearing, splenectomy, home oxygen 3 L. Patient presents with multiple nonspecific symptoms. Has been having nausea chest pain dizziness lightheadedness perspiration. Falling. At her baseline is always short of breath. No new edema. Tired rundown. Troponin came back elevated in the ER at 7.2. Patient's INR is only 2.9. Cardiology was consulted. Just feels tired and rundown short of breath. Admitted with acute non-ST elevation myocardial infarction, acute COPD exacerbation, pneumonia. INR was therapeutic. Coumadin was held. Started on IV Solu-Medrol, bronchodilators. [place] to have acute kidney injury. Creatinine dropped from 1.8 down to 0.8.cardiac catheterization attempt was aborted. Trouble with access. Admitted to acute respiratory distress. Given Lasix. Today-sitting up in the bed. Eating well. On nasal cannula. Breathing improving. No chest pain Review of systems: Was done for constitutional, cardiovascular, GI, pulmonary. relevant finding as above Active Medications Acetaminophen (Acetaminophen Tab 325 Mg Tab) 650 mg PO Q4HR PRN PRN Reason: Fever and/ or Pain Last Admin: 06/30/20 09:18 Dose: 650 mg Documented by: Albuterol/Ipratropium (Ipratropium-Albuterol 3 Ml Neb) 3 ml INHALATION RT-QID PRN PRN Reason: Shortness Of Breath Or Wheezing Albuterol/Ipratropium (Ipratropium-Albuterol 3 Ml Neb) 3 ml INHALATION RT-QID [facility] Last Admin: 06/30/20 19:48 Dose: 3 ml Documented by: Alprazolam (Alprazolam 0.25 Mg Tab) 0.25 mg PO Q6HR PRN PRN Reason: Mild Anxiety Alprazolam (Alprazolam 0.5 Mg Tab) 0.5 mg PO Q6HR PRN PRN Reason: Moderate Anxiety Amoxicillin/Clavulanate Potassium (Amoxic-Pot Clav 875-125mg 1 Each Tab) 1 each PO Q12HR [facility] Last Admin: 06/30/20 21:03 Dose: 1 each Documented by: Aspirin (Aspirin 81 Mg) 81 mg PO DAILY [facility] Last Admin: 06/30/20 09:18 Dose: 81 mg Documented by: Aspirin (Aspirin 325 Mg Tab) 325 mg PO ONCE ONE Stop: 07/02/20 06:01 Atorvastatin Calcium (Atorvastatin 80 Mg Tab) 80 mg PO DAILY [facility] Last Admin: 06/30/20 09:18 Dose: 80 mg Documented by: Atorvastatin Calcium (Atorvastatin 80 Mg Tab) 80 mg PO ONCE ONE Stop: 07/02/20 06:01 Budesonide (Budesonide 1 Mg/2 Ml Nebu) 1 mg INHALATION RT-BID [facility] Last Admin: 06/30/20 19:48 Dose: 1 mg Documented by: Carvedilol (Carvedilol 6.25 Mg Tab) 6.25 mg PO BID-W/MEALS [facility] Last Admin: 06/30/20 17:58 Dose: 6.25 mg Documented by: Formoterol Fumarate (Formoterol Fumarate 20 Mcg/2 Ml Nebu) 20 mcg INHALATION RT-BID [facility] Last Admin: 06/30/20 19:48 Dose: 20 mcg Documented by: Furosemide (Furosemide 40 Mg Tab) 40 mg PO BID@0900,1600 [facility] Last Admin: 06/30/20 17:58 Dose: 40 mg Documented by: Heparin Sodium (Porcine) (Heparin Sodium,Porcine 5,000 Unit/Ml 1 Ml Vial) 5,000 unit SQ Q12HR [facility] Last Admin: 06/30/20 21:03 Dose: 5,000 unit Documented by: Sodium Chloride 1,000 ml/ IV (Solution) 1,000 mls @ 78 mls/hr IV .[id number] ONE Stop: 07/01/20 02:06 Last Admin: 06/30/20 17:57 Dose: Not Given Documented by: Insulin Aspart (Insulin Aspart (Novolog) 100 Unit/Ml Vial) 0 unit SQ ACHS [facility]; Protocol Last Admin: 06/30/20 21:03 Dose: 3 unit Documented by: Isosorbide Mononitrate (Isosorbide Mononitrate Er 60 Mg Tab.Er.24h) 60 mg PO BID [facility] Last Admin: 06/30/20 21:03 Dose: 60 mg Documented by: Lactulose (Lactulose 20 Gm/30 Ml Cup) 15 gm PO ONCE PRN PRN Reason: Constipation Last Admin: 06/22/20 17:19 Dose: 15 gm Documented by: Loratadine (Loratadine 10 Mg Tab) 10 mg PO BID [facility] Last Admin: 06/30/20 21:03 Dose: 10 mg Documented by: Losartan Potassium (Losartan 50 Mg Tab) 50 mg PO DAILY [facility] Last Admin: 06/30/20 09:18 Dose: 50 mg Documented by: Metformin HCl (Metformin 500 Mg Tab) 250 mg PO BID [facility] Last Admin: 06/30/20 21:04 Dose: 250 mg Documented by: Miscellaneous Information (Magnesium Replacement Protocol 1 Each Misc) 1 each MISCELLANE DAILY PRN; Protocol PRN Reason: Per Protocol Miscellaneous Information (Potassium Replacement Protocol 1 Each [facility]) 1 each MISCELLANE DAILY PRN; Protocol PRN Reason: Per Protocol Nitroglycerin (Nitroglycerin Sl Tabs 0.4 Mg Tab) 0.4 mg SUBLINGUAL Q5M PRN PRN Reason: Chest Pain Last Admin: 06/21/20 11:14 Dose: 0.4 mg Documented by: Pantoprazole Sodium (Pantoprazole 40 Mg Tablet) 40 mg PO HS [facility] Last Admin: 06/30/20 21:03 Dose: 40 mg Documented by: Prednisone (Prednisone 20 Mg Tab) 40 mg PO DAILY [facility] Last Admin: 06/30/20 09:18 Dose: 40 mg Documented by: Tamsulosin HCl (Tamsulosin 0.4 Mg Cap.Er.24h) 0.4 mg PO DAILY [facility] Last Admin: 06/30/20 09:17 Dose: 0.4 mg Documented by: Physical examination: VITAL SIGNS: 98.6, 84, 18, 136/60, 94% on 3 L GENERAL: Sitting up, comfortable EYES: Pupils equal. Conjunctiva normal. HEENT: External appearance of nose and ears normal, oral cavity grossly normal. NECK: JVD not raised; masses not palpable. HEART: First and second heart sounds are normal; no edema. LUNGS:[ Respiratory rate increased decreased breath sounds. ABDOMEN: Soft, nontender, liver spleen not palpable, no masses palpable. PSYCH: Alert and oriented x3; mood and affect . Anxious MUSCULAR skeletal: Right below-knee amputation with a prosthesis INVESTIGATIONS, reviewed in the clinical context: Potassium 3.9 creatinine 0.77 Admission testing White count 10.8 hemoglobin 9.8 platelets 42 2 INR 2.9 potassium 4.6 bun 23 creatinine 1.28 Troponin I 7.2, 8.5 TSH 0.345 EKG tracing personally reviewed by me-sinus rhythm, ST segment depression in leads V4 to V6 and subtle changes in lead 1 and aVL. Computed tomography scan brain-chronic changes Computed tomography scan of the chest EMPHYSEMA with bilateral small airspace opacities. Moderate to severe L5-S1 spondylosis. Colonic diverticulosis. Pro-calcitonin 0.10 2-D echocardiogram-moderate concentric LVH, EF 55-60% Computed tomography scan of the chest-June 25-multilobar patchy airspace opacities, severe emphysema, moderate hiatal hernia Assessment: -Acute non-ST elevation myocardial infarction suspect in the inferior lateral wall. Cardiac catheterization was aborted because of unable to access -Acute hypoxic respiratory failure-improving -Acute congestive heart failure exacerbation from diastolic dysfunction EF 55- 60% -Acute COPD exacerbation in an ex-smoker -Diabetes mellitus type 2 -GERD -Hard of hearing -Hyperlipidemia -Essential hypertension -Primary osteoarthritis -Chronic hypoxic respiratory failure on home oxygen 3 L -Right below-knee amputation with a prosthesis -Splenectomy should follow up for immunizations with his family doctor -Peripheral artery disease with a stent to the left leg -Acute kidney injury-possibly ATN [No chronic kidney disease documented normal creatinine was 0.7 in November 2018].-Recovered -Possible pneumonia, suspect gram-negative organism Plan: Pending cardiac catheterization on Thursday. On oral steroids and Augmentin.
[2020-07-01 06:06] LABS: Glucose,Whole Blood 105 mg/dL (75-99)
[2020-07-01] MEDS: INSULIN ASPART (NovoLOG) 100 UNIT/ML VIAL SQ SCH ×4 (06:09→21:43)
[2020-07-01] MEDS: carvediloL 6.25 MG TAB PO SCH ×2 (06:35→17:19)
[2020-07-01] MEDS: ACETAMINOPHEN TAB 325 MG TAB PO PRN (06:37)
[2020-07-01] MEDS: FORMOTEROL FUMARATE 20 MCG/2 ML NEBU INHALATION SCH ×2 (08:17→19:57)
[2020-07-01] MEDS: IPRATROPIUM-ALBUTEROL 3 ML NEB INHALATION SCH ×4 (08:17→19:58)
[2020-07-01] MEDS: BUDESONIDE 1 MG/2 ML NEBU INHALATION SCH ×2 (08:17→19:58)
[2020-07-01] MEDS: AMOXIC-POT CLAV 875-125MG 1 EACH TAB PO SCH ×2 (09:44→21:46)
[2020-07-01] MEDS: LOSARTAN 50 MG TAB PO SCH (09:44)
[2020-07-01] MEDS: ASPIRIN 81 MG PO SCH (09:44)
[2020-07-01] MEDS: predniSONE 20 MG TAB PO SCH (09:44)
[2020-07-01] MEDS: TAMSULOSIN 0.4 MG CAP.ER.24H PO SCH (09:45)
[2020-07-01] MEDS: ISOSORBIDE MONONITRATE ER 60 MG TAB.ER.24H PO SCH ×2 (09:45→21:46)
[2020-07-01] MEDS: LORATADINE 10 MG TAB PO SCH ×2 (09:45→21:44)
[2020-07-01] MEDS: HEPARIN SODIUM,PORCINE 5,000 UNIT/ML 1 ML VIAL SQ SCH ×2 (09:45→21:44)
[2020-07-01] MEDS: ATORVASTATIN 80 MG TAB PO SCH (09:45)
[2020-07-01] MEDS: FUROSEMIDE 40 MG TAB PO SCH ×2 (09:45→17:19)
[2020-07-01] MEDS: metFORMIN 500 MG TAB PO SCH ×2 (09:45→21:44)
[2020-07-01 11:51] LABS: Glucose,Whole Blood 133 mg/dL (75-99)
--- NOTE | 2020-07-01 12:35 | P.PN ---
Subjective Progress Note Date: 07/01/20 Patient was interviewed and examined resting comfortably in bed. He states he has been up to the bedside commode and did not experience any chest pain or shortness of breath. He also denies any dizziness or lightheadedness. The patient continues to have nitroglycerin patch on left chest wall, however he states he has not been change in several days. Patch discontinued. GENERAL: Well-appearing, well-nourished and in no acute distress. NECK: Supple without JVD or thyromegaly. LUNGS: Breath sounds clear to auscultation bilaterally. Respiration equal and unlabored. No wheezes, rales or rhonchi. HEART: Regular rate and rhythm without murmurs, rubs or gallops. S1 and S2 heard. EXTREMITIES: Normal range of motion, no edema. No clubbing or cyanosis. Peripheral pulses intact and strong. Right AKA. VITALS: Blood pressure 127/68, SpO2 91% on 3 L nasal cannula, heart rate 88, respiratory rate 18, temperature 98.6F LABS: No new labs today IMPRESSION: #1 NSTEMI, coronary angiography pending #2 acute on chronic diastolic heart failure, stable #3 AKA, continue to monitor lectures if kidney function #4 bilateral pneumonitis PLAN: Continue current medication regimen. Plan for coronary angiography tomorrow morning with Dr. Vu/Dr. Peralta. Objective - Vital Signs Vital signs: Vital Signs Temp 98.6 F 07/01/20 08:00 Pulse 84 07/01/20 11:50 Resp 18 07/01/20 08:00 BP 127/60 07/01/20 08:00 Pulse Ox 97 07/01/20 08:17 Intake & Output 06/30/20 07/01/20 07/01/20 19:59 06:59 18:59 Intake Total 240 Output Total Balance 240 Weight Intake: Intake, IV Titration Amount Sodium Chloride 0.9% 1, 000 ml In Empty Bag 1 bag @ 1 ML/KG/HR 78 mls/hr IV .[id number] ONE Rx#: [id number] Oral 240 Output: Urine Other: Voiding Method Indwelling Catheter - Labs CBC & Chem 7: 06/28/20 08:33 06/30/20 07:33 Labs: Abnormal Lab Results - Last 24 Hours (Table) 06/30/20 06/30/2020 Range/Units 17:33 20:18 06:05 POC Glucose (mg/dL) 226 H 218 H 105 H (75-99) mg/dL 07/01/20 Range/Units 11:44 POC Glucose (mg/dL) 133 H (75-99) mg/dL
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
[2020-07-01] MEDS ORDERED: CALCIUM CARBONATE 500 MG CHEWABLE PO PRN (14:49)
--- NOTE | 2020-07-01 15:41 | P.PN ---
Progress Note - Text Progress Note Date: 07/01/20 Chief Complaint: Feeling unwell History of presenting complaint: This is a 69-year-old patient of Dr. Patti Marcus. Chronic stable medical conditions include COPD, diabetes, GERD, hypertension, hyperlipidemia, osteoarthritis, right below-knee amputation, hard of hearing, splenectomy, home oxygen 3 L. Patient presents with multiple nonspecific symptoms. Has been having nausea chest pain dizziness lightheadedness perspiration. Falling. At her baseline is always short of breath. No new edema. Tired rundown. Troponin came back elevated in the ER at 7.2. Patient's INR is only 2.9. Cardiology was consulted. Just feels tired and rundown short of breath. Admitted with acute non-ST elevation myocardial infarction, acute COPD exacerbation, pneumonia. INR was therapeutic. Coumadin was held. Started on IV Solu-Medrol, bronchodilators. [place] to have acute kidney injury. Creatinine dropped from 1.8 down to 0.8.cardiac catheterization attempt was aborted. Trouble with access. Admitted to acute respiratory distress. Given Lasix. Today-no chest pain. Breathing stable. Starting a diet. Review of systems: Was done for constitutional, cardiovascular, GI, pulmonary. relevant finding as above Active Medications Acetaminophen (Acetaminophen Tab 325 Mg Tab) 650 mg PO Q4HR PRN PRN Reason: Fever and/ or Pain Last Admin: 07/01/20 06:37 Dose: 650 mg Documented by: Albuterol/Ipratropium (Ipratropium-Albuterol 3 Ml Neb) 3 ml INHALATION RT-QID PRN PRN Reason: Shortness Of Breath Or Wheezing Albuterol/Ipratropium (Ipratropium-Albuterol 3 Ml Neb) 3 ml INHALATION RT-QID [facility] Last Admin: 07/01/20 11:39 Dose: 3 ml Documented by: Alprazolam (Alprazolam 0.25 Mg Tab) 0.25 mg PO Q6HR PRN PRN Reason: Mild Anxiety Alprazolam (Alprazolam 0.5 Mg Tab) 0.5 mg PO Q6HR PRN PRN Reason: Moderate Anxiety Amoxicillin/Clavulanate Potassium (Amoxic-Pot Clav 875-125mg 1 Each Tab) 1 each PO Q12HR [facility] Last Admin: 07/01/20 09:44 Dose: 1 each Documented by: Aspirin (Aspirin 81 Mg) 81 mg PO DAILY [facility] Last Admin: 07/01/20 09:44 Dose: 81 mg Documented by: Aspirin (Aspirin 325 Mg Tab) 325 mg PO ONCE ONE Stop: 07/02/20 06:01 Atorvastatin Calcium (Atorvastatin 80 Mg Tab) 80 mg PO DAILY [facility] Last Admin: 07/01/20 09:45 Dose: 80 mg Documented by: Atorvastatin Calcium (Atorvastatin 80 Mg Tab) 80 mg PO ONCE ONE Stop: 07/02/20 06:01 Budesonide (Budesonide 1 Mg/2 Ml Nebu) 1 mg INHALATION RT-BID [facility] Last Admin: 07/01/20 08:17 Dose: 1 mg Documented by: Calcium Carbonate/Glycine (Calcium Carbonate 500 Mg Chewable) 500 mg PO QID PRN PRN Reason: Heartburn Last Admin: 07/01/20 15:00 Dose: 500 mg Documented by: Carvedilol (Carvedilol 6.25 Mg Tab) 6.25 mg PO BID-W/MEALS [facility] Last Admin: 07/01/20 06:35 Dose: 6.25 mg Documented by: Formoterol Fumarate (Formoterol Fumarate 20 Mcg/2 Ml Nebu) 20 mcg INHALATION RT-BID [facility] Last Admin: 07/01/20 08:17 Dose: 20 mcg Documented by: Furosemide (Furosemide 40 Mg Tab) 40 mg PO BID@0900,1600 [facility] Last Admin: 07/01/20 09:45 Dose: 40 mg Documented by: Heparin Sodium (Porcine) (Heparin Sodium,Porcine 5,000 Unit/Ml 1 Ml Vial) 5,000 unit SQ Q12HR [facility] Last Admin: 07/01/20 09:45 Dose: 5,000 unit Documented by: Insulin Aspart (Insulin Aspart (Novolog) 100 Unit/Ml Vial) [address] [facility]; Protocol Last Admin: 07/01/20 15:00 Dose: Not Given Documented by: Isosorbide Mononitrate (Isosorbide Mononitrate Er 60 Mg Tab.Er.24h) 60 mg PO BID [facility] Last Admin: 07/01/20 09:45 Dose: 60 mg Documented by: Lactulose (Lactulose 20 Gm/30 Ml Cup) 15 gm PO ONCE PRN PRN Reason: Constipation Last Admin: 06/22/20 17:19 Dose: 15 gm Documented by: Loratadine (Loratadine 10 Mg Tab) 10 mg PO BID [facility] Last Admin: 07/01/20 09:45 Dose: 10 mg Documented by: Losartan Potassium (Losartan 50 Mg Tab) 50 mg PO DAILY [facility] Last Admin: 07/01/20 09:44 Dose: 50 mg Documented by: Metformin HCl (Metformin 500 Mg Tab) 250 mg PO BID [facility] Last Admin: 07/01/20 09:45 Dose: 250 mg Documented by: Miscellaneous Information (Magnesium Replacement Protocol 1 Each Misc) 1 each MISCELLANE DAILY PRN; Protocol PRN Reason: Per Protocol Miscellaneous Information (Potassium Replacement Protocol 1 Each Misc) 1 each MISCELLANE DAILY PRN; Protocol PRN Reason: Per Protocol Nitroglycerin (Nitroglycerin Sl Tabs 0.4 Mg Tab) 0.4 mg SUBLINGUAL Q5M PRN PRN Reason: Chest Pain Last Admin: 06/21/20 11:14 Dose: 0.4 mg Documented by: Pantoprazole Sodium (Pantoprazole 40 Mg Tablet) 40 mg PO HS [facility] Last Admin: 06/30/20 21:03 Dose: 40 mg Documented by: Prednisone (Prednisone 20 Mg Tab) 40 mg PO DAILY [facility] Last Admin: 07/01/20 09:44 Dose: 40 mg Documented by: Tamsulosin HCl (Tamsulosin 0.4 Mg Cap.Er.24h) 0.4 mg PO DAILY [facility] Last Admin: 07/01/20 09:45 Dose: 0.4 mg Documented by: Physical examination: VITAL SIGNS: 98.6, 88, 18, 127/60, 91% on 3 L GENERAL: Sitting up, comfortable EYES: Pupils equal. Conjunctiva normal. HEENT: External appearance of nose and ears normal, oral cavity grossly normal. NECK: JVD not raised; masses not palpable. HEART: First and second heart sounds are normal; no edema. LUNGS:[ Respiratory rate increased decreased breath sounds. ABDOMEN: Soft, nontender, liver spleen not palpable, no masses palpable. PSYCH: Alert and oriented x3; mood and affect . Anxious MUSCULAR skeletal: Right below-knee amputation with a prosthesis INVESTIGATIONS, reviewed in the clinical context: Potassium 3.9 creatinine 0.77 Admission testing White count 10.8 hemoglobin 9.8 platelets 42 2 INR 2.9 potassium 4.6 bun 23 creatinine 1.28 Troponin I 7.2, 8.5 TSH 0.345 EKG tracing personally reviewed by me-sinus rhythm, ST segment depression in leads V4 to V6 and subtle changes in lead 1 and aVL. Computed tomography scan brain-chronic changes Computed tomography scan of the chest EMPHYSEMA with bilateral small airspace opacities. Moderate to severe L5-S1 spondylosis. Colonic diverticulosis. Pro-calcitonin 0.10 2-D echocardiogram-moderate concentric LVH, EF 55-60% Computed tomography scan of the chest-June 25-multilobar patchy airspace opacities, severe emphysema, moderate hiatal hernia Assessment: -Acute non-ST elevation myocardial infarction suspect in the inferior lateral wall. Cardiac catheterization was aborted because of unable to access -Acute hypoxic respiratory failure-improving -Acute congestive heart failure exacerbation from diastolic dysfunction EF 55- 60% -Acute COPD exacerbation in an ex-smoker -Diabetes mellitus type 2 -GERD -Hard of hearing -Hyperlipidemia -Essential hypertension -Primary osteoarthritis -Chronic hypoxic respiratory failure on home oxygen 3 L -Right below-knee amputation with a prosthesis -Splenectomy should follow up for immunizations with his family doctor -Peripheral artery disease with a stent to the left leg -Acute kidney injury-possibly ATN [No chronic kidney disease documented normal creatinine was 0.7 in November 2018].-Recovered -Possible pneumonia, suspect gram-negative organism Plan: Pending cardiac catheterization on Thursday. Continue other medications. Otherwise stable.
[2020-07-01 17:14] LABS: Glucose,Whole Blood 242 mg/dL (75-99)
[2020-07-01 20:42] LABS: Glucose,Whole Blood 213 mg/dL (75-99)
[2020-07-01] MEDS: PANTOPRAZOLE 40 MG TABLET PO SCH (21:46)
[2020-07-02] MEDS ORDERED: ATORVASTATIN 80 MG TAB PO ONE (06:00)
[2020-07-02] MEDS ORDERED: ASPIRIN 325 MG TAB PO ONE (06:00)
[2020-07-02 06:11] LABS: Glucose,Whole Blood 105 mg/dL (75-99)
[2020-07-02] MEDS: carvediloL 6.25 MG TAB PO SCH ×2 (06:18→16:50)
[2020-07-02] MEDS: IPRATROPIUM-ALBUTEROL 3 ML NEB INHALATION SCH ×4 (07:03→21:55)
[2020-07-02] MEDS: BUDESONIDE 1 MG/2 ML NEBU INHALATION SCH ×2 (07:03→21:55)
[2020-07-02] MEDS: FORMOTEROL FUMARATE 20 MCG/2 ML NEBU INHALATION SCH ×2 (07:03→22:00)
[2020-07-02] MEDS: metFORMIN 500 MG TAB PO SCH (10:38)
[2020-07-02] MEDS: INSULIN ASPART (NovoLOG) 100 UNIT/ML VIAL SQ SCH ×4 (10:38→20:49)
[2020-07-02] MEDS ORDERED: MIDAZOLAM 2 MG/2 ML VIAL IVP ONE (10:42)
[2020-07-02] MEDS ORDERED: fentaNYL (PF) 50 MCG/ML 2 ML AMP IVP ONE (10:42)
[2020-07-02] MEDS ORDERED: LIDOCAINE 1% INJ 10MG/ML (20 ML MDV) SQ ONE (10:45)
[2020-07-02] MEDS ORDERED: IV FLUID CONTINUATION 1,000 ML IV ONE (10:47)
[2020-07-02] MEDS ORDERED: VERAPAMIL SYRINGE (5 MG/10 ML) INTRAARTER ONE (11:00)
[2020-07-02] MEDS ORDERED: HEPARIN SODIUM 1,000 UN/ML (10ML VL) IV ONE (11:10)
[2020-07-02] MEDS ORDERED: IOPAMIDOL-370 125ML BTL INJ ONE (11:26)
[2020-07-02] MEDS ORDERED: RX INFO: IV CONTRAST WAS GIVEN 1 EACH MISC MISCELLANE PRN (11:30)
--- NOTE | 2020-07-02 11:41 | P.CARDCATH ---
Date of Procedure: 07/02/20 Preoperative Diagnosis: Non-STEMI Postoperative Diagnosis: Stable coronary artery disease Procedure(s) Performed: Left heart catheterization without left ventriculography Description of Procedure: HISTORY: This is a 69-year-old gentleman with history of ischemic heart disease, COPD, chronic shortness of breath was admitted to the hospital with shortness of breath and abnormal troponin values suggestive of non-STEMI. Patient also had pneumonia for which he was treated. Patient is advised to have cardiac catheterization for definitive diagnosis. CONSENT:I have discussed the risks, benefits and alternative therapies for the above-mentioned procedure and for both sedation/analgesia as well as necessary blood product administration, if indicated, as they pertain to this patient. The patient has indicated understanding and acceptance of the risks and procedures discussed. PROCEDURE: Patient was brought to the lab in a fasting state. Patient was given some IV sedation. The left wrist is infiltrated with lidocaine and attempts were made to enter the left radial artery. Radial artery could not be cannulated. The catheterization was done from the right brachial approach. The right brachial artery was entered using Seldinger technique. A 6-Armenian catheter was left in place and selective coronary arteriography was performed. Patient tolerated the procedure well. Manual compression was applied for hemos tasis. No immediate complications were noted and patient was transferred to [facility] in a stable condition Conscious Sedation: Versed 0.5mg Fentanyl 12.5 g Duration 46minutes HEMODYNAMICS: Aortic pressure was about 140/70. Left ventricular end-diastolic pressure was not measured. SELECTIVE CORONARY ARTERIOGRAPHY: LEFT MAIN: Relatively short and free of occlusive di sease THE LEFT ANTERIOR DESCENDING CORONARY ARTERY: This is a good caliber vessel giving rise to good-sized diagonal branch. The LAD is free of any significant focal occlusive disease. Mild irregularities are noted THE LEFT CIRCUMFLEX AND IS CORONARY ARTERY: . Patient is a good caliber vessel with patent stent in the proximal portion. It is n ondominant in distribution THE RIGHT CORONARY ARTERY: Is a dominant vessel giving rise to good-sized PDA and PLV. Mild diffuse plaque were noted without any significant focal lesion LEFT VENTRICULOGRAPHY: . Not performed FINAL IMPRESSION: , Patent stent in the circumflex. Mild diffuse disease with involving the rest of the system without any critical lesions PLAN: Continuation maximum medical therapy and this factor modification PROGNOSIS: fair
[2020-07-02 12:39] LABS: Glucose,Whole Blood 120 mg/dL (75-99)
[2020-07-02] MEDS: HEPARIN SODIUM,PORCINE 5,000 UNIT/ML 1 ML VIAL SQ SCH ×2 (12:53→20:04)
[2020-07-02] MEDS: LOSARTAN 50 MG TAB PO SCH (12:59)
[2020-07-02] MEDS: LORATADINE 10 MG TAB PO SCH ×2 (12:59→20:04)
[2020-07-02] MEDS: TAMSULOSIN 0.4 MG CAP.ER.24H PO SCH (12:59)
[2020-07-02] MEDS: ISOSORBIDE MONONITRATE ER 60 MG TAB.ER.24H PO SCH ×2 (12:59→20:04)
[2020-07-02] MEDS: AMOXIC-POT CLAV 875-125MG 1 EACH TAB PO SCH ×2 (12:59→20:04)
[2020-07-02] MEDS: predniSONE 20 MG TAB PO SCH (12:59)
[2020-07-02] MEDS: FUROSEMIDE 40 MG TAB PO SCH ×2 (13:00→16:50)
[2020-07-02] MEDS: SODIUM CHLORIDE 0.9% 1,000 ML IV SCH (13:06)
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
[2020-07-02] MEDS: ACETAMINOPHEN TAB 325 MG TAB PO PRN (16:12)
[2020-07-02 16:35] LABS: Glucose,Whole Blood 316 mg/dL (75-99)
--- NOTE | 2020-07-02 19:31 | P.PN ---
Progress Note - Text Progress Note Date: 07/02/20 Chief Complaint: Feeling unwell History of presenting complaint: This is a 69-year-old patient of Dr. Patti Marcus. Chronic stable medical conditions include COPD, diabetes, GERD, hypertension, hyperlipidemia, osteoarthritis, right below-knee amputation, hard of hearing, splenectomy, home oxygen 3 L. Patient presents with multiple nonspecific symptoms. Has been having nausea chest pain dizziness lightheadedness perspiration. Falling. At her baseline is always short of breath. No new edema. Tired rundown. Troponin came back elevated in the ER at 7.2. Patient's INR is only 2.9. Cardiology was consulted. Just feels tired and rundown short of breath. Admitted with acute non-ST elevation myocardial infarction, acute COPD exacerbation, pneumonia. INR was therapeutic. Coumadin was held. Started on IV Solu-Medrol, bronchodilators. [place] to have acute kidney injury. Creatinine dropped from 1.8 down to 0.8.cardiac catheterization attempt was aborted. Trouble with access. Admitted to acute respiratory distress. Given Lasix. Today-sitting up in bed. Comfortable. No chest pain. Later today underwent a cardiac catheterization.-No critical stenosis Review of systems: Was done for constitutional, cardiovascular, GI, pulmonary. relevant finding as above Active Medications Acetaminophen (Acetaminophen Tab 325 Mg Tab) 650 mg PO Q4HR PRN PRN Reason: Fever and/ or Pain Last Admin: 07/02/20 16:12 Dose: 650 mg Documented by: Albuterol/Ipratropium (Ipratropium-Albuterol 3 Ml Neb) 3 ml INHALATION RT-QID PRN PRN Reason: Shortness Of Breath Or Wheezing Albuterol/Ipratropium (Ipratropium-Albuterol 3 Ml Neb) 3 ml INHALATION RT-QID [facility] Last Admin: 07/02/20 15:14 Dose: 3 ml Documented by: Alprazolam (Alprazolam 0.25 Mg Tab) 0.25 mg PO Q6HR PRN PRN Reason: Mild Anxiety Alprazolam (Alprazolam 0.5 Mg Tab) 0.5 mg PO Q6HR PRN PRN Reason: Moderate Anxiety Amoxicillin/Clavulanate Potassium (Amoxic-Pot Clav 875-125mg 1 Each Tab) 1 each PO Q12HR [facility] Last Admin: 07/02/20 12:59 Dose: 1 each Documented by: Aspirin (Aspirin 81 Mg) 81 mg PO DAILY [facility] Last Admin: 07/01/20 09:44 Dose: 81 mg Documented by: Atorvastatin Calcium (Atorvastatin 80 Mg Tab) 80 mg PO DAILY [facility] Last Admin: 07/01/20 09:45 Dose: 80 mg Documented by: Budesonide (Budesonide 1 Mg/2 Ml Nebu) 1 mg INHALATION RT-BID [facility] Last Admin: 07/02/20 07:03 Dose: 1 mg Documented by: Calcium Carbonate/Glycine (Calcium Carbonate 500 Mg Chewable) 500 mg PO QID PRN PRN Reason: Heartburn Last Admin: 07/01/20 15:00 Dose: 500 mg Documented by: Carvedilol (Carvedilol 6.25 Mg Tab) 6.25 mg PO BID-W/MEALS [facility] Last Admin: 07/02/20 16:50 Dose: 6.25 mg Documented by: Formoterol Fumarate (Formoterol Fumarate 20 Mcg/2 Ml Nebu) 20 mcg INHALATION RT-BID [facility] Last Admin: 07/02/20 07:03 Dose: 20 mcg Documented by: Furosemide (Furosemide 40 Mg Tab) 40 mg PO BID@0900,1600 [facility] Last Admin: 07/02/20 16:50 Dose: 40 mg Documented by: Heparin Sodium (Porcine) (Heparin Sodium,Porcine 5,000 Unit/Ml 1 Ml Vial) 5,000 unit SQ Q12HR [facility] Last Admin: 07/02/20 12:53 Dose: Not Given Documented by: Sodium Chloride (Saline 0.9%) 1,000 mls @ 75 mls/hr IV .[id number] [facility] Last Admin: 07/02/20 13:06 Dose: 75 mls/hr Documented by: Insulin Aspart (Insulin Aspart (Novolog) 100 Unit/Ml Vial) 0 unit SQ ACHS [facility]; Protocol Last Admin: 07/02/20 16:50 Dose: 5 unit Documented by: Isosorbide Mononitrate (Isosorbide Mononitrate Er 60 Mg Tab.Er.24h) 60 mg PO BID [facility] Last Admin: 07/02/20 12:59 Dose: 60 mg Documented by: Lactulose (Lactulose 20 Gm/30 Ml Cup) 15 gm PO ONCE PRN PRN Reason: Constipation Last Admin: 06/22/20 17:19 Dose: 15 gm Documented by: Loratadine (Loratadine 10 Mg Tab) 10 mg PO BID [facility] Last Admin: 07/02/20 12:59 Dose: 10 mg Documented by: Losartan Potassium (Losartan 50 Mg Tab) 50 mg PO DAILY [facility] Last Admin: 07/02/20 12:59 Dose: 50 mg Documented by: Metformin HCl (Metformin 500 Mg Tab) 250 mg PO BID [facility] Last Admin: 07/02/20 10:38 Dose: Not Given Documented by: Miscellaneous Information (Magnesium Replacement Protocol 1 Each Misc) 1 each MISCELLANE DAILY PRN; Protocol PRN Reason: Per Protocol Miscellaneous Information (Potassium Replacement Protocol 1 Each Misc) 1 each MISCELLANE DAILY PRN; Protocol PRN Reason: Per Protocol Miscellaneous Information (Rx Info: Iv Contrast Was Given 1 Each Misc) 1 each MISCELLANE DAILY PRN PRN Reason: Per Protocol Stop: 07/04/20 11:31 Nitroglycerin (Nitroglycerin Sl Tabs 0.4 Mg Tab) 0.4 mg SUBLINGUAL Q5M PRN PRN Reason: Chest Pain Last Admin: 06/21/20 11:14 Dose: 0.4 mg Documented by: Pantoprazole Sodium (Pantoprazole 40 Mg Tablet) 40 mg PO HS [facility] Last Admin: 07/01/20 21:46 Dose: 40 mg Documented by: Prednisone (Prednisone 20 Mg Tab) 40 mg PO DAILY [facility] Last Admin: 07/02/20 12:59 Dose: 40 mg Documented by: Tamsulosin HCl (Tamsulosin 0.4 Mg Cap.Er.24h) 0.4 mg PO DAILY [facility] Last Admin: 07/02/20 12:59 Dose: 0.4 mg Documented by: Physical examination: VITAL SIGNS: 98.3, 94, 16, 114/56, 91% on 4 L GENERAL: Laying in bed comfortable EYES: Pupils equal. Conjunctiva normal. HEENT: External appearance of nose and ears normal, oral cavity grossly normal. NECK: JVD not raised; masses not palpable. HEART: First and second heart sounds are normal; no edema. LUNGS:Respiratory rate increased decreased breath sounds. ABDOMEN: Soft, nontender, liver spleen not palpable, no masses palpable. PSYCH: Alert and oriented x3; mood and affect . Anxious MUSCULAR skeletal: Right below-knee amputation with a prosthesis INVESTIGATIONS, reviewed in the clinical context: Potassium 3.9 creatinine 0.77 Admission testing White count 10.8 hemoglobin 9.8 platelets 42 2 INR 2.9 potassium 4.6 bun 23 creatinine 1.28 Troponin I 7.2, 8.5 TSH 0.345 EKG tracing personally reviewed by me-sinus rhythm, ST segment depression in leads V4 to V6 and subtle changes in lead 1 and aVL. Computed tomography scan brain-chronic changes Computed tomography scan of the chest EMPHYSEMA with bilateral small airspace opacities. Moderate to severe L5-S1 spondylosis. Colonic diverticulosis. Pro-calcitonin 0.10 2-D echocardiogram-moderate concentric LVH, EF 55-60% Computed tomography scan of the chest-June 25-multilobar patchy airspace opacities, severe emphysema, moderate hiatal hernia Assessment: -Acute non-ST elevation myocardial infarction suspect in the inferior lateral wall. Initial Cardiac catheterization attempt was aborted because poor access. Repeat cardiac catheterization today showed noncritical stenosis. -Coronary artery disease with stent -Acute hypoxic respiratory failure-improving -Acute congestive heart failure exacerbation from diastolic dysfunction EF 55- 60% -Acute COPD exacerbation in an ex-smoker -Diabetes mellitus type 2 -GERD -Hard of hearing -Hyperlipidemia -Essential hypertension -Primary osteoarthritis -Chronic hypoxic respiratory failure on home oxygen 3 L -Right below-knee amputation with a prosthesis -Splenectomy should follow up for immunizations with his family doctor -Peripheral artery disease with a stent to the left leg -Acute kidney injury-possibly ATN [No chronic kidney disease documented normal creatinine was 0.7 in November 2018].-Recovered -Possible pneumonia, suspect gram-negative organism Plan: Continue current medical treatment plan. Repeat labs in the morning. Is stable should be able to be discharged tomorrow.
[2020-07-02] MEDS: PANTOPRAZOLE 40 MG TABLET PO SCH (20:04)
[2020-07-02 20:14] LABS: Glucose,Whole Blood 276 mg/dL (75-99)
[2020-07-03] MEDS: SODIUM CHLORIDE 0.9% 1,000 ML IV SCH (01:00)
[2020-07-03] MEDS: carvediloL 6.25 MG TAB PO SCH (06:08)
[2020-07-03] MEDS: INSULIN ASPART (NovoLOG) 100 UNIT/ML VIAL SQ SCH (06:11)
[2020-07-03 06:12] LABS: Glucose,Whole Blood 126 mg/dL (75-99)
[2020-07-03 08:15] VITALS: BP 143/65; RESP 18; TEMP 98.7
[2020-07-03] MEDS: ISOSORBIDE MONONITRATE ER 60 MG TAB.ER.24H PO SCH (08:15)
[2020-07-03] MEDS: AMOXIC-POT CLAV 875-125MG 1 EACH TAB PO SCH (08:15)
[2020-07-03] MEDS: LORATADINE 10 MG TAB PO SCH (08:15)
[2020-07-03] MEDS: LOSARTAN 50 MG TAB PO SCH (08:15)
[2020-07-03] MEDS: ASPIRIN 81 MG PO SCH (08:15)
[2020-07-03] MEDS: predniSONE 20 MG TAB PO SCH (08:16)
[2020-07-03] MEDS: TAMSULOSIN 0.4 MG CAP.ER.24H PO SCH (08:16)
[2020-07-03] MEDS: FUROSEMIDE 40 MG TAB PO SCH (08:16)
[2020-07-03] MEDS: ATORVASTATIN 80 MG TAB PO SCH (08:16)
[2020-07-03] MEDS: FORMOTEROL FUMARATE 20 MCG/2 ML NEBU INHALATION SCH (08:52)
[2020-07-03] MEDS: BUDESONIDE 1 MG/2 ML NEBU INHALATION SCH (08:52)
[2020-07-03] MEDS: IPRATROPIUM-ALBUTEROL 3 ML NEB INHALATION SCH ×2 (08:52→12:35)
[2020-07-03 08:53] LABS: African American GFR (CKD) >90 (>60 ml/min/1.73 sqM); Blood Urea Nitrogen 29 mg/dL (9-20); Calcium 8.2 mg/dL (8.4-10.2); Chloride 101 mmol/L (98-107); Glucose 96 mg/dL (74-99); Non-African American GFR(CKD) >90 (>60 ml/min/1.73 sqM); Potassium 3.5 mmol/L (3.5-5.1); Sodium 142 mmol/L (137-145)
[2020-07-03 09:01] LABS: Anion Gap 3 mmol/L; Carbon Dioxide 38 mmol/L (22-30)
[2020-07-03 09:17] VITALS: PULSE 82
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
--- NOTE | 2020-07-04 00:12 | P.DS ---
Providers Date of admission: 06/18/20 17:55 Expected date of discharge: 07/03/20 Attending physician: Shabbir Ayoub Consults: 06/18/20 17:55 Consult Physician Urgent Consulting Provider: Margot Walters Consult Reason/Comments: nstemi Do you want consulting provider notified?: Yes 06/19/20 12:25 Consult Physician Routine Consulting Provider: Omar Saucedo Consult Reason/Comments: renal failure Do you want consulting provider notified?: Yes 06/22/20 08:45 Consult Physician Urgent Consulting Provider: Evangelista Hebert Consult Reason/Comments: hypoxia, hx copd Do you want consulting provider notified?: Yes Primary care physician: Pasha Marcus [facility] Course: Chief Complaint: Feeling unwell History of presenting complaint: This is a 69-year-old patient of Dr. Patti Marcus. Chronic stable medical conditions include COPD, diabetes, GERD, hypertension, hyperlipidemia, osteoarthritis, right below-knee amputation, hard of hearing, splenectomy, home oxygen 3 L. Patient presents with multiple nonspecific symptoms. Has been having nausea chest pain dizziness lightheadedness perspiration. Falling. At her baseline is always short of breath. No new edema. Tired rundown. Troponin came back elevated in the ER at 7.2. Patient's INR is only 2.9. Cardiology was consulted. Just feels tired and rundown short of breath. Admitted with acute non-ST elevation myocardial infarction, acute COPD exacerbation, pneumonia. INR was therapeutic. Coumadin was held. Started on IV Solu-Medrol, bronchodilators. [place] to have acute kidney injury. Creatinine dropped from 1.8 down to 0.8.cardiac catheterization attempt was aborted. Trouble with access. Also had fluid overload.-Respond to Lasix..cardiac catheterization.-No critical stenosis. Also treated for pneumonia. Today-stable. Breathing stable. Discussed with the patient. Medication adjusted. Discussion and discharge planning more than 35 minutes Consultation: [facility] Dr. Rhoades: External pulmonary Nephrology Physical examination: VITAL SIGNS: 98.7, 82, 18, 1 43 x 65, 95% on 3 L GENERAL: Sitting up, comfortable EYES: Pupils equal. Conjunctiva normal. HEENT: External appearance of nose and ears normal, oral cavity grossly normal. NECK: JVD not raised; masses not palpable. HEART: First and second heart sounds are normal; no edema. LUNGS:Respiratory rate increased decreased breath sounds. ABDOMEN: Soft, nontender, liver spleen not palpable, no masses palpable. PSYCH: Alert and oriented x3; mood and affect . Anxious MUSCULAR skeletal: Right below-knee amputation with a prosthesis INVESTIGATIONS, reviewed in the clinical context: Potassium 3.5 creatinine 0.78 Admission testing White count 10.8 hemoglobin 9.8 platelets 42 2 INR 2.9 potassium 4.6 bun 23 creatinine 1.28 Troponin I 7.2, 8.5 TSH 0.345 EKG tracing personally reviewed by me-sinus rhythm, ST segment depression in leads V4 to V6 and subtle changes in lead 1 and aVL. Computed tomography scan brain-chronic changes Computed tomography scan of the chest EMPHYSEMA with bilateral small airspace opacities. Moderate to severe L5-S1 spondylosis. Colonic diverticulosis. Pro-calcitonin 0.10 2-D echocardiogram-moderate concentric LVH, EF 55-60% Computed tomography scan of the chest-June 25-multilobar patchy airspace opacities, severe emphysema, moderate hiatal hernia Assessment: -Acute non-ST elevation myocardial infarction suspect in the inferior lateral wall. Initial Cardiac catheterization attempt was aborted because poor access. Repeat cardiac catheterization - showed noncritical stenosis. -Coronary artery disease with stent -Acute hypoxic respiratory failure-improving -Acute congestive heart failure exacerbation from diastolic dysfunction EF 55- 60% -Acute COPD exacerbation in an ex-smoker -Diabetes mellitus type 2 -GERD -Hard of hearing -Hyperlipidemia -Essential hypertension -Primary osteoarthritis -Chronic hypoxic respiratory failure on home oxygen 3 L -Right below-knee amputation with a prosthesis -Splenectomy should follow up for immunizations with his family doctor -Peripheral artery disease with a stent to the left leg -Acute kidney injury-possibly ATN [No chronic kidney disease documented normal creatinine was 0.7 in November 2018].-Recovered -Possible pneumonia, suspect gram-negative organism Disposition: Home Patient Condition at Discharge: Stable Plan - Discharge Summary New Discharge Prescriptions: New carvediloL [Coreg] 6.25 mg PO BID-W/MEALS #60 tab Losartan [Cozaar] 50 mg PO DAILY #30 tab Nitroglycerin Sl Tabs [Nitrostat] 0.4 mg SUBLINGUAL Q5M PRN #25 tab PRN Reason: Chest Pain predniSONE 10 mg PO DAILY #30 tab Ipratropium-Albuterol Nebulize [Duoneb 0.5 mg-3 mg/3 ml Soln] 3 ml INHALATION TID #90 ml Furosemide [Lasix] 40 mg PO Q48H #30 tab Continue Fluticasone/Salmeterol [Advair 250-50 Diskus] 1 puff INHALATION RT-BID Atorvastatin [Lipitor] 80 mg PO HS Tamsulosin [Flomax] 0.4 mg PO DAILY Pantoprazole [Protonix] 40 mg PO HS Aspirin 81 mg PO DAILY Loratadine 10 mg PO BID metFORMIN HCL ER [Glucophage Xr] 500 mg PO QAM Changed Ipratropium/Albuterol Sulfate [Combivent Respimat Inhaler] 1 puff INHALATION TID #0 Isosorbide Mononitrate ER [Imdur] 60 mg PO BID #60 tab Discontinued HYDROcodone/APAP 10-325MG [[place] 10-325] 1 tab PO Q6H PRN PRN Reason: Pain acetaZOLAMIDE [Diamox] 250 mg PO QAM carvediloL [Carvedilol] 25 mg PO QAM Pregabalin [Lyrica] 75 mg PO BID carvediloL [Carvedilol] 12.5 mg PO HS No Action Warfarin [Coumadin] 2.5 mg PO DAILY Discharge Medication List Fluticasone/Salmeterol [Advair 250-50 Diskus] 1 puff INHALATION RT-BID 11/07/14 [History] Warfarin [Coumadin] 2.5 mg PO DAILY 11/07/14 [History] Atorvastatin [Lipitor] 80 mg PO HS 11/28/15 [History] Pantoprazole [Protonix] 40 mg PO HS 04/26/18 [History] Tamsulosin [Flomax] 0.4 mg PO DAILY 04/26/18 [History] Aspirin 81 mg PO DAILY 11/30/18 [History] Loratadine 10 mg PO BID 02/21/19 [History] metFORMIN HCL ER [Glucophage Xr] 500 mg PO QAM 02/21/19 [History] Furosemide [Lasix] 40 mg PO Q48H #30 tab 07/03/20 [Rx] Ipratropium-Albuterol Nebulize [Duoneb 0.5 mg-3 mg/3 ml Soln] 3 ml INHALATION TID #90 ml 07/03/20 [Rx] Ipratropium/Albuterol Sulfate [Combivent Respimat Inhaler] 1 puff INHALATION TID #0 07/03/20 [Rx] Isosorbide Mononitrate ER [Imdur] 60 mg PO BID #60 tab 07/03/20 [Rx] Losartan [Cozaar] 50 mg PO DAILY #30 tab 07/03/20 [Rx] Nitroglycerin Sl Tabs [Nitrostat] 0.4 mg SUBLINGUAL Q5M PRN #25 tab 07/03/20 [Rx] carvediloL [Coreg] 6.25 mg PO BID-W/MEALS #60 tab 07/03/20 [Rx] predniSONE 10 mg PO DAILY #30 tab 07/03/20 [Rx] Follow up Appointment(s)/Referral(s): [facility], [NON-STAFF] - Pasha Marcus DO [Primary Care Provider] - 07/05/20 1:15 pm Brian Vu MD [STAFF PHYSICIAN] - 07/10/20 3:15 pm Shelly Rhoades MD [STAFF PHYSICIAN] - 07/13/20 1:00 pm Patient Instructions/Handouts: Heart Attack (DC), Heart Catheterization (DC) Activity/Diet/Wound Care/Special Instructions: resume warfarin if ok with cardiology cbc/bmp/inr - 5 days Discharge Disposition: HOME SELF-CARE
== END 2020-07-03 12:41 | disposition home or self-care (01) | DRG 280 ==
LOC: EC 15:23 → 3SCARD 17:55
PROVIDERS: ADMIT Hospitalist; ATTEND Hospitalist
PROC: 06HN33Z Insertion of Infusion Device into Left Femoral Vein, Percutaneous Approach (ICD-10-PCS; 2020-06-21)
PROC: 4A023N7 Measurement of Cardiac Sampling and Pressure, Left Heart, Percutaneous Approach (ICD-10-PCS; principal; 2020-07-02 10:00)
PROC: B2111ZZ Fluoroscopy of Multiple Coronary Arteries using Low Osmolar Contrast (ICD-10-PCS; principal; 2020-07-02 10:00)
DX: I21.4 Non-ST elevation (NSTEMI) myocardial infarction (principal); I50.33 Acute on chronic diastolic (congestive) heart failure; J96.21 Acute and chronic respiratory failure with hypoxia; J96.22 Acute and chronic respiratory failure with hypercapnia; I77.72 Dissection of iliac artery; N17.0 Acute kidney failure with tubular necrosis; J15.6 Pneumonia due to other Gram-negative bacteria; I13.0 Hypertensive heart and chronic kidney disease with heart failure and stage 1 through stage 4 chronic kidney disease, or unspecified chronic kidney disease; E87.4 Mixed disorder of acid-base balance; E87.0 Hyperosmolality and hypernatremia; J44.0 Chronic obstructive pulmonary disease with (acute) lower respiratory infection; J44.1 Chronic obstructive pulmonary disease with (acute) exacerbation; J98.11 Atelectasis; N17.9 Acute kidney failure, unspecified; E87.3 Alkalosis; E87.6 Hypokalemia; H91.92 Unspecified hearing loss, left ear; I25.10 Atherosclerotic heart disease of native coronary artery without angina pectoris; I25.2 Old myocardial infarction; I49.3 Ventricular premature depolarization; Z66 Do not resuscitate; I65.29 Occlusion and stenosis of unspecified carotid artery; Z89.611 Acquired absence of right leg above knee; E11.22 Type 2 diabetes mellitus with diabetic chronic kidney disease; E11.51 Type 2 diabetes mellitus with diabetic peripheral angiopathy without gangrene; E78.00 Pure hypercholesterolemia, unspecified; I71.4 Abdominal aortic aneurysm, without rupture; E78.5 Hyperlipidemia, unspecified; E83.42 Hypomagnesemia; M19.91 Primary osteoarthritis, unspecified site; K21.9 Gastro-esophageal reflux disease without esophagitis; N18.9 Chronic kidney disease, unspecified; N28.1 Cyst of kidney, acquired; T50.2X5A Adverse effect of carbonic-anhydrase inhibitors, benzothiadiazides and other diuretics, initial encounter; V89.2XXS Person injured in unspecified motor-vehicle accident, traffic, sequela; Z79.01 Long term (current) use of anticoagulants; Z79.82 Long term (current) use of aspirin; Z79.84 Long term (current) use of oral hypoglycemic drugs; Z79.899 Other long term (current) drug therapy; Z83.3 Family history of diabetes mellitus; Z86.79 Personal history of other diseases of the circulatory system; Z87.891 Personal history of nicotine dependence; Z90.81 Acquired absence of spleen; Z95.5 Presence of coronary angioplasty implant and graft; Z97.13 Presence of artificial right leg (complete) (partial); Z99.81 Dependence on supplemental oxygen; Z53.09 Procedure and treatment not carried out because of other contraindication; Z86.718 Personal history of other venous thrombosis and embolism; Z86.711 Personal history of pulmonary embolism; Z96.651 Presence of right artificial knee joint; R29.6 Repeated falls; Z91.81 History of falling
CPT/HCPCS: 36600; 70450; 71045; 71046; 71260; 74177; 76770; 80048; 80053; 80061; 81003; 82550; 82805; 83605; 83690; 83735; 83880; 84100; 84145; 84443; 84484; 85025; 85027; 85347; 85379; 85610; 85730; 93005; 93306; 93454; 94640; 94660; 94760; 96360; 99291

== ENCOUNTER 2020-08-12 16:53 | Inpatient (IN) | payer MEDICARE, OTHER ==
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
[2020-08-12 17:35] LABS: Anisocytosis Slight; Basophils # (A) 0.1 k/uL (0-0.2); Basophils % (A) 1 %; Eosinophils # (A) 0.3 k/uL (0-0.7); Eosinophils % (A) 2 %; HCT 31.6 % (39.0-53.0); HGB 9.4 gm/dL (13.0-17.5); Hypochromasia Marked; Lymphocytes # (A) 2.3 k/uL (1.0-4.8); Lymphocytes % (A) 18 %; MCH 27.2 pg (25.0-35.0); MCHC 29.7 g/dL (31.0-37.0); Mean Platelet Volume 8.5; Monocytes # (A) 0.9 k/uL (0-1.0); Monocytes % (A) 7 %; Neutrophils # (A) 8.8 k/uL (1.3-7.7); Neutrophils % (A) 70 %; Platelet Count 348 k/uL (150-450); RBC 3.45 m/uL (4.30-5.90); WBC 12.6 k/uL (3.8-10.6)
[2020-08-12 17:41] LABS: MCV 91.6 fL (80.0-100.0)
[2020-08-12 17:43] LABS: Partial Thromboplastin Time 38.1 sec (22.0-30.0)
[2020-08-12 17:47] LABS: Prothrombin Time 111.6 sec (9.0-12.0)
--- NOTE | 2020-08-12 17:50 | CT ---
EXAMINATION TYPE: CT brain wo con DATE OF EXAM: 08/12/2020 COMPARISON: 06/18/2020. HISTORY: Numbness and tingling/paresthesias. CT DLP: 1119 mGycm Automated exposure control for dose reduction was used. FINDINGS: There is no acute intracranial hemorrhage, midline shift or hydrocephalus. There are old bilateral la cunar infarcts. There is mild white matter disease and parenchymal volume loss. There is remote mild deformities of the bilateral maxillary sinus. There is mild paranasal sinus dise ase. There is minimal opacification of the left mastoid air cells. No calvarium is intact. IMPRESSION: NO ACUTE INTRACRANIAL ABNORMALITY. OLD LACUNAR INFARCTS.
[2020-08-12 17:53] LABS: ALT 10 U/L (4-49); AST 23 U/L (17-59); African American GFR (CKD) 61 (>60 ml/min/1.73 sqM); Albumin 2.8 g/dL (3.5-5.0); Alkaline Phosphatase 55 U/L (38-126); Anion Gap 12 mmol/L; Blood Urea Nitrogen 25 mg/dL (9-20); Carbon Dioxide 29 mmol/L (22-30); Chloride 98 mmol/L (98-107); Glucose 120 mg/dL (74-99); Non-African American GFR(CKD) 53 (>60 ml/min/1.73 sqM); Potassium 3.9 mmol/L (3.5-5.1); Sodium 139 mmol/L (137-145); Total Bilirubin 0.5 mg/dL (0.2-1.3); Total Protein 5.7 g/dL (6.3-8.2)
[2020-08-12 17:54] LABS: INR >10.0 (<1.2)
[2020-08-12 18:02] LABS: Calcium 5.1 mg/dL (8.4-10.2); Magnesium <0.4 mg/dL (1.6-2.3)
[2020-08-12] MEDS ORDERED: CALCIUM GLUCONATE 2 GM in SODIUM CHLORIDE 0.9% 100 ML IVPB ONE (18:04)
[2020-08-12] MEDS: MAGNESIUM SULFATE-D5W PMX 1 GM in DEXTROSE/WATER 1 100ML.BAG IVPB SCH ×3 (18:34→21:36)
[2020-08-12] MEDS ORDERED: PHYTONADIONE ORAL 5 MG/5 ML ORAL.SYRG PO STA (19:00)
--- NOTE | 2020-08-12 19:02 | XR ---
EXAMINATION TYPE: XR chest 1V portable DATE OF EXAM: 08/12/2020 COMPARISON: 06/29/2020. HISTORY: Numbness and weakness. TECHNIQUE: Single frontal view of the chest is obtained. FINDINGS: There are chronic moderate bibasilar opacities. No pleural effusion, or pneumothorax seen. The cardiac silhouette size is within normal limits. The osseous structures are intact. IMPRESSION: Chronic bibasilar opacities. Acute component cannot be excluded.
[2020-08-12] MEDS: ATORVASTATIN 80 MG TAB PO SCH (21:36)
[2020-08-12 22:17] LABS: Appearance,Urine Clear (Clear); Bacteria,Urine Rare /hpf; Bilirubin,Urine 1+ (Negative); Blood,Urine Negative (Negative); Cellular Casts,Urine 3 /lpf (0); Color,Urine Yellow; Glucose,Urine (UA) Negative (Negative); Granular Casts,Urine 1 /lpf (0); Hyaline Casts,Urine 31 /lpf (0-2); Ketones,Urine Negative (Negative); Leukocyte Esterase,Urine Small (Negative); Mucus,Urine Rare /hpf; Nitrite,Urine Negative (Negative); Protein,Urine 1+ (Negative); RBC,Urine 1 /hpf (0-5); Specific Gravity,Urine 1.017 (1.001-1.035); Squamous Epithelial Cell,Urine 1 /hpf (0-4); Urobilinogen,Urine <2.0 mg/dL (<2.0); WBC,Urine 10 /hpf (0-5)
[2020-08-13 06:24] LABS: Glucose,Whole Blood 109 mg/dL (75-99)
[2020-08-13 07:17] LABS: Anisocytosis Slight; Basophils # (A) 0.1 k/uL (0-0.2); Basophils % (A) 1 %; Eosinophils # (A) 0.2 k/uL (0-0.7); Eosinophils % (A) 2 %; HCT 30.7 % (39.0-53.0); HGB 9.4 gm/dL (13.0-17.5); Hypochromasia Marked; Lymphocytes % (A) 16 %; MCH 28.1 pg (25.0-35.0); MCHC 30.6 g/dL (31.0-37.0); MCV 91.9 fL (80.0-100.0); Mean Platelet Volume 8.3; Monocytes # (A) 0.9 k/uL (0-1.0); Monocytes % (A) 7 %; Neutrophils # (A) 8.5 k/uL (1.3-7.7); Neutrophils % (A) 72 %; Platelet Count 458 k/uL (150-450); RBC 3.34 m/uL (4.30-5.90); RDW 16.9 % (11.5-15.5); WBC 11.9 k/uL (3.8-10.6)
[2020-08-13 07:28] LABS: INR 3.7 (<1.2); Prothrombin Time 36.1 sec (9.0-12.0)
[2020-08-13] MEDS ORDERED: INSULIN ASPART (NovoLOG) 100 UNIT/ML VIAL SQ SCH (07:30)
[2020-08-13 07:55] LABS: Albumin 2.8 g/dL (3.5-5.0); Potassium 3.5 mmol/L (3.5-5.1); Total Bilirubin 0.4 mg/dL (0.2-1.3); Total Protein 5.8 g/dL (6.3-8.2)
[2020-08-13 08:12] LABS: Calcium 6.4 mg/dL (8.4-10.2)
[2020-08-13] MEDS ORDERED: MAGNESIUM OXIDE 400 MG TAB PO SCH (09:00)
[2020-08-13] MEDS: metFORMIN 500 MG TAB PO SCH ×2 (10:32→21:07)
[2020-08-13] MEDS: TAMSULOSIN 0.4 MG CAP.ER.24H PO SCH (10:32)
[2020-08-13] MEDS ORDERED: HYDROcodone/APAP 10-325MG 1 EACH TAB PO PRN (11:15)
[2020-08-13] MEDS ORDERED: NITROGLYCERIN SL TABS 0.4 MG TAB SUBLINGUAL PRN (11:15)
[2020-08-13] MEDS ORDERED: Magnesium Replacement Protocol 1 EACH MISC MISCELLANE PRN (11:18)
[2020-08-13 11:46] LABS: Glucose,Whole Blood 108 mg/dL (75-99)
[2020-08-13] MEDS: ISOSORBIDE MONONITRATE ER 60 MG TAB.ER.24H PO SCH ×2 (13:02→21:08)
[2020-08-13] MEDS: ASPIRIN 81 MG PO SCH (13:02)
[2020-08-13] MEDS: carvediloL 6.25 MG TAB PO SCH ×2 (13:02→15:52)
[2020-08-13] MEDS: MAGNESIUM SULFATE-D5W PMX 1 GM in DEXTROSE/WATER 1 100ML.BAG IVPB SCH ×4 (13:03→17:07)
[2020-08-13] MEDS ORDERED: MAGNESIUM SULFATE-D5W PMX 1 GM in DEXTROSE/WATER 1 100ML.BAG IVPB ONE (15:23)
[2020-08-13] MEDS: IPRATROPIUM-ALBUTEROL 3 ML NEB INHALATION SCH ×2 (15:51→21:12)
[2020-08-13] MEDS: SYMBICORT 80-4.5 MCG INHALER INHALATION SCH ×3 (15:51→21:13)
[2020-08-13 16:57] LABS: Glucose,Whole Blood 129 mg/dL (75-99)
[2020-08-13] MEDS: CALCIUM CARB-VIT D 500MG-200UN 1 EACH TAB PO SCH (17:07)
[2020-08-13] MEDS ORDERED: WARFARIN 0.5 MG TAB PO ONE (18:00)
[2020-08-13 20:19] LABS: Glucose,Whole Blood 187 mg/dL (75-99)
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
[2020-08-13] MEDS ORDERED: PANTOPRAZOLE 40 MG TABLET PO SCH (21:00)
[2020-08-13] MEDS ORDERED: SODIUM CHLORIDE 0.9% 1,000 ML IV SCH (21:00)
[2020-08-13] MEDS: ATORVASTATIN 80 MG TAB PO SCH (21:08)
[2020-08-13] MEDS: MAGNESIUM OXIDE 400 MG TAB PO SCH (21:08)
[2020-08-13] MEDS ORDERED: CALCIUM GLUCONATE 2 GM in SODIUM CHLORIDE 0.9% 100 ML IVPB ONE (21:30)
[2020-08-14 06:21] LABS: Glucose,Whole Blood 118 mg/dL (75-99)
[2020-08-14] MEDS: carvediloL 6.25 MG TAB PO SCH (06:43)
[2020-08-14] MEDS: CALCIUM CARB-VIT D 500MG-200UN 1 EACH TAB PO SCH (06:43)
[2020-08-14] MEDS: SYMBICORT 80-4.5 MCG INHALER INHALATION SCH (08:38)
[2020-08-14] MEDS: IPRATROPIUM-ALBUTEROL 3 ML NEB INHALATION SCH ×2 (08:38→12:06)
[2020-08-14] MEDS: ASPIRIN 81 MG PO SCH (08:51)
[2020-08-14] MEDS: MAGNESIUM OXIDE 400 MG TAB PO SCH (08:52)
[2020-08-14] MEDS: TAMSULOSIN 0.4 MG CAP.ER.24H PO SCH (08:52)
[2020-08-14] MEDS: ISOSORBIDE MONONITRATE ER 60 MG TAB.ER.24H PO SCH (08:52)
[2020-08-14] MEDS: metFORMIN 500 MG TAB PO SCH (08:52)
[2020-08-14 09:01] VITALS: RESP 16; TEMP 97
[2020-08-14 09:24] LABS: Ionized Calcium 4.2 mg/dL (4.5-5.3)
[2020-08-14 09:31] LABS: INR 1.2 (<1.2); Prothrombin Time 11.7 sec (9.0-12.0)
[2020-08-14 09:39] LABS: African American GFR (CKD) >90 (>60 ml/min/1.73 sqM); Anion Gap 2 mmol/L; Blood Urea Nitrogen 13 mg/dL (9-20); Calcium 7.3 mg/dL (8.4-10.2); Carbon Dioxide 40 mmol/L (22-30); Chloride 99 mmol/L (98-107); Glucose 157 mg/dL (74-99); Magnesium 1.8 mg/dL (1.6-2.3); Non-African American GFR(CKD) >90 (>60 ml/min/1.73 sqM); Potassium 3.5 mmol/L (3.5-5.1); Sodium 141 mmol/L (137-145)
[2020-08-14] MEDS ORDERED: CALCIUM GLUCONATE 2 GM in SODIUM CHLORIDE 0.9% 100 ML IVPB ONE (11:30)
[2020-08-14 11:52] LABS: Glucose,Whole Blood 115 mg/dL (75-99)
[2020-08-14 12:08] VITALS: BP 151/67
[2020-08-14 12:16] VITALS: PULSE 74
[2020-08-14] MEDS ORDERED: WARFARIN 2.5 MG TAB PO SCH (18:00)
--- NOTE | 2020-08-14 20:36 | P.DS ---
Providers Date of admission: 08/12/20 19:02 Expected date of discharge: 08/14/20 Attending physician: Shabbir Ayoub Primary care physician: Pasha Marcus [facility] Course: Chief Complaint: Tingling and weakness in arms and legs History of presenting complaint: This is a 70-year-old patient of Dr. Patti Marcus. Chronic stable medical conditions include COPD, diabetes, GERD, hypertension, hyperlipidemia, o steoarthritis, right below-knee amputation, hard of hearing, splenectomy, home oxygen 3 L. admitted-end May 2020-acute non-ST elevation IN, COPD exacerbation, pneumonia. Cardiac catheterization showed no critical stenosis. Patient now presents with numbness tingling in both lower extremities. Feeling very weak especially in the legs. Was not not able to get up on his legs. He felt always his limbs flaccid sleeping. Patient has a right below-knee amputation. Patient's found to have a INR greater than 10. Depleted magnesium and calcium. Calcium and magnesium were replaced. 2.5 mg of vitamin K was given. Today-feeling much better. Another amp of calcium gluconate given today. Care was discussed with the patient. Coumadin to be resumed. Care was discussed with the patient. Lasix cutback to twice a week. Patient put on all oral supplemental magnesium and calcium. Discussion and discharge planning more than 35 minutes Physical examination: VITAL SIGNS: Afebrile, 68, 16, 1 51 x 77, 97% on 3 L GENERAL:, sitting up in bed, comfortable EYES: Pupils equal. Conjunctiva normal. NECK: JVD not raised; masses not palpable. HEART: First and second heart sounds are normal; no edema. LUNGS:[ Respiratory rate increased; decreased breath sounds ABDOMEN: Soft, nontender, liver spleen not palpable, no masses palpable. PSYCH: Alert and oriented x3; mood and affect normal MUSCULAR skeletal: Right below-knee amputation with a prosthesis INVESTIGATIONS, reviewed in the clinical context: August 14: Potassium 3.5 creatinine 0.64 ionized calcium 4.2 when she 1.8 White count 12.6 hemoglobin 9.4 platelets 348 INR greater than 10 potassium 3.9 bun 3025 creatinine 1.35 Calcium 5.1 lesion less than 0.4 Troponin I less than 0.038, 0.037, 0.036 EKG tracing personally reviewed by me-normal sinus rhythm, some ST segment changes. Computed tomography scan of the brain-old lacunar infarct Assessment: -Acute weakness and numbness tingling from severe electrolyte abnormality including hypocalcemia and hypomagnesemia.-POA -Coronary artery disease with stent. -Chronic congestive heart failure exacerbation from diastolic dysfunction EF 55- 60% - COPD in an ex-smoker -Diabetes mellitus type 2 -GERD -Hard of hearing -Hyperlipidemia -Essential hypertension -Primary osteoarthritis -Chronic hypoxic respiratory failure on home oxygen 3 L -Right below-knee amputation with a prosthesis -Splenectomy should follow up for immunizations with his family doctor -Peripheral artery disease with a stent to the left leg -Troponin leak from a hemodynamic mismatch. No cardiac symptoms. -Coumadin toxicity follow INR Plan: Doing better- Both IV and IV magnesium and calcium is being replaced. . Repeat labs in the morning. Including INR Labs: BMP calcium magnesium-1 week Patient Condition at Discharge: Stable Plan - Discharge Summary Discharge Rx Participant: No New Discharge Prescriptions: New Magnesium Oxide [Mag-Ox] 400 mg PO DAILY tab Calcium Carb-Vit D 500Mg-200Un [Oscal 500+D] 1 each PO BID-W/MEALS tab Continue Warfarin [Coumadin] 2.5 mg PO DAILY Fluticasone/Salmeterol [Advair 250-50 Diskus] 1 puff INHALATION RT-BID Atorvastatin [Lipitor] 80 mg PO HS Tamsulosin [Flomax] 0.4 mg PO DAILY Pantoprazole [Protonix] 40 mg PO HS Aspirin 81 mg PO DAILY metFORMIN HCL ER [Glucophage Xr] 500 mg PO DAILY Losartan [Cozaar] 50 mg PO DAILY #30 tab Nitroglycerin Sl Tabs [Nitrostat] 0.4 mg SUBLINGUAL Q5M PRN #25 tab PRN Reason: Chest Pain Isosorbide Mononitrate ER [Imdur] 60 mg PO BID #60 tab HYDROcodone/APAP 10-325MG [Clyde 10-325] 1 tab PO Q6H PRN PRN Reason: Pain Ipratropium-Albuterol Nebulize [Duoneb 0.5 mg-3 mg/3 ml Soln] 3 ml INHALATION RT-TID Ipratropium/Albuterol Sulfate [Combivent Respimat Inhaler] 1 puff INHALATION RT-TID carvediloL [Coreg] 6.25 mg PO AC-BID Changed Furosemide [Lasix] 40 mg PO TUSA #30 tab Discontinued Loratadine 10 mg PO BID Discharge Medication List Fluticasone/Salmeterol [Advair 250-50 Diskus] 1 puff INHALATION RT-BID 11/07/14 [History] Warfarin [Coumadin] 2.5 mg PO DAILY 11/07/14 [History] Atorvastatin [Lipitor] 80 mg PO HS 11/28/15 [History] Pantoprazole [Protonix] 40 mg PO HS 04/26/18 [History] Tamsulosin [Flomax] 0.4 mg PO DAILY 04/26/18 [History] Aspirin 81 mg PO DAILY 11/30/18 [History] metFORMIN HCL ER [Glucophage Xr] 500 mg PO DAILY 02/21/19 [History] Isosorbide Mononitrate ER [Imdur] 60 mg PO BID #60 tab 07/03/20 [Rx] Losartan [Cozaar] 50 mg PO DAILY #30 tab 07/03/20 [Rx] Nitroglycerin Sl Tabs [Nitrostat] 0.4 mg SUBLINGUAL Q5M PRN #25 tab 07/03/20 [ Rx] HYDROcodone/APAP 10-325MG [Clyde 10-325] 1 tab PO Q6H PRN 08/12/20 [History] Ipratropium-Albuterol Nebulize [Duoneb 0.5 mg-3 mg/3 ml Soln] 3 ml INHALATION RT-TID 08/12/20 [History] Ipratropium/Albuterol Sulfate [Combivent Respimat Inhaler] 1 puff INHALATION RT- TID 08/12/20 [History] carvediloL [Coreg] 6.25 mg PO AC-BID 08/12/20 [History] Calcium Carb-Vit D 500Mg-200Un [Oscal 500+D] 1 each PO BID-W/MEALS tab 08/14/20 [Rx] Furosemide [Lasix] 40 mg PO TUSA #30 tab 08/14/20 [Rx] Magnesium Oxide [Mag-Ox] 400 mg PO DAILY tab 08/14/20 [Rx] Follow up Appointment(s)/Referral(s): Pasha Marcus DO [Primary Care Provider] - 08/16/20 4:00 pm Activity/Diet/Wound Care/Special Instructions: bmp - 7 days Discharge Disposition: HOME SELF-CARE
== END 2020-08-14 15:21 | disposition home or self-care (01) | DRG 640 ==
LOC: EC 16:53 → 3SCARD 19:02
PROVIDERS: ADMIT Hospitalist; ATTEND Hospitalist
DX: E83.51 Hypocalcemia (principal); I50.33 Acute on chronic diastolic (congestive) heart failure; J96.11 Chronic respiratory failure with hypoxia; E11.51 Type 2 diabetes mellitus with diabetic peripheral angiopathy without gangrene; Z99.81 Dependence on supplemental oxygen; I11.0 Hypertensive heart disease with heart failure; J44.9 Chronic obstructive pulmonary disease, unspecified; Z89.511 Acquired absence of right leg below knee; E83.42 Hypomagnesemia; M62.81 Muscle weakness (generalized); I25.10 Atherosclerotic heart disease of native coronary artery without angina pectoris; E78.5 Hyperlipidemia, unspecified; I44.4 Left anterior fascicular block; I65.29 Occlusion and stenosis of unspecified carotid artery; R79.1 Abnormal coagulation profile; T45.515A Adverse effect of anticoagulants, initial encounter; H91.92 Unspecified hearing loss, left ear; R77.8 Other specified abnormalities of plasma proteins; K21.9 Gastro-esophageal reflux disease without esophagitis; M19.91 Primary osteoarthritis, unspecified site; Z79.82 Long term (current) use of aspirin; Z79.51 Long term (current) use of inhaled steroids; Z79.84 Long term (current) use of oral hypoglycemic drugs; Z79.01 Long term (current) use of anticoagulants; Z79.899 Other long term (current) drug therapy; Z87.891 Personal history of nicotine dependence; Z97.13 Presence of artificial right leg (complete) (partial); Z95.5 Presence of coronary angioplasty implant and graft; Z86.79 Personal history of other diseases of the circulatory system; Z95.828 Presence of other vascular implants and grafts; Z98.42 Cataract extraction status, left eye; Z98.41 Cataract extraction status, right eye; Z90.81 Acquired absence of spleen; Z98.890 Other specified postprocedural states; Z83.3 Family history of diabetes mellitus; K76.9 Liver disease, unspecified
CPT/HCPCS: 36415; 70450; 71045; 80048; 80053; 81001; 82330; 83735; 84100; 84484; 85025; 85610; 85730; 93005; 94640; 96365; 96366; 96368; 99285

== ENCOUNTER 2020-10-27 18:32 | Inpatient (IN) | payer MEDICARE, OTHER ==
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
[2020-10-27 19:49] LABS: Anisocytosis Slight; Basophils # (A) 0.1 k/uL (0-0.2); Basophils % (A) 1 %; Eosinophils # (A) 0.3 k/uL (0-0.7); Eosinophils % (A) 3 %; HCT 22.5 % (39.0-53.0); Hypochromasia Marked; Lymphocytes # (A) 1.9 k/uL (1.0-4.8); Lymphocytes % (A) 19 %; MCH 26.9 pg (25.0-35.0); MCHC 29.2 g/dL (31.0-37.0); MCV 92.1 fL (80.0-100.0); Mean Platelet Volume 7.4; Monocytes # (A) 0.8 k/uL (0-1.0); Monocytes % (A) 8 %; Neutrophils # (A) 6.7 k/uL (1.3-7.7); Neutrophils % (A) 68 %; Platelet Count 536 k/uL (150-450); RBC 2.45 m/uL (4.30-5.90); RDW 17.7 % (11.5-15.5); WBC 9.9 k/uL (3.8-10.6)
[2020-10-27 19:54] LABS: HGB 6.6 gm/dL (13.0-17.5)
[2020-10-27 20:10] LABS: Albumin 3.2 g/dL (3.5-5.0); Calcium 7.8 mg/dL (8.4-10.2); Potassium 4.7 mmol/L (3.5-5.1); Total Bilirubin 0.8 mg/dL (0.2-1.3); Total Protein 6.1 g/dL (6.3-8.2)
--- NOTE | 2020-10-27 20:15 | CT ---
EXAMINATION TYPE: CT brain wo con DATE OF EXAM: 10/27/2020 COMPARISON: 08/12/2020 HISTORY: Fall with head trauma while on coumadin. CT DLP: 1131.4 mGycm Automated exposure control for dose reduction was used. There is mild cerebral atrophy. There is no mass effect nor midline shift. There is no sign of intrac ranial hemorrhage. The calvarium is intact. Skull base is intact. There is no evidence of intracrania l mass. There is some mild hypodensity in the right internal capsule near the genu. IMPRESSION: Mild cerebral atrophy. Old lacunar infarct right internal capsule. No change compared to old exam.
[2020-10-27 21:04] LABS: Prothrombin Time >130.0 sec (9.0-12.0)
[2020-10-27 21:08] LABS: INR >10.0 (<1.2); Partial Thromboplastin Time 85.4 sec (22.0-30.0)
[2020-10-27] MEDS ORDERED: PHYTONADIONE ORAL 5 MG/5 ML ORAL.SYRG PO STA (21:16)
[2020-10-27] MEDS ORDERED: SODIUM CHLORIDE 0.9% 1,000 ML IV STA (21:17)
--- NOTE | 2020-10-27 22:50 | CT ---
EXAMINATION TYPE: CT abdomen pelvis wo con DATE OF EXAM: 10/27/2020 COMPARISON: 06/18/2020 HISTORY: Hemoglobin drop. Bleeding of unknown origin. CT DLP: 519.3 mGycm Automated exposure control for dose reduction was used. Images obtained from the diaphragm to the floor the pelvis without contrast. There is some interstitial infiltrates and atelectasis at the lung bases. Heart size is normal. There is small pericardial effusion. There is moderate hiatal hernia. Liver appears intact. Spleen is absent. There is 3 similar rounded density that could be regenerative spleen. There is no evidence of pancreatic mass. The bile ducts are not dilated. Gallbladder appears normal. There is no adrenal mass. Kidneys have normal size. There is left-sided hydronephrosis and perinephri c edema. Bladder distends smoothly. I see no ureteral calculus. There is renal vascular calcification . There is no retroperitoneal adenopathy. There is a few bilateral inguinal lymph nodes measuring up to 1 cm. There is moderate vascular calcification. There is aortoiliac bypass graft. There is no mesenteric edema. There are multiple colonic diverticula without sign of diverticulitis. There is no ascites or free air. Appendix is partly filled with air and appears normal. The lumbar spine shows no compression fracture. There is L5 spondylolysis with a mild first-degree L5 -S1 spondylolisthesis. The bony pelvis is intact. Hip joints are intact. There is intramedullary sacha in the right femur. IMPRESSION: Atherosclerotic vascular disease. There is new left-sided hydronephrosis and perinephric edema compared to old exam. This could relate to nonopaque stone or recently passed stone and is a change compared to old exam. There is some pleural reaction and infiltrate and atelectasis at the right lung base that is increase d compared to old exam. Normal appendix.
[2020-10-27 22:51] LABS: Appearance,Urine Clear (Clear); Bilirubin,Urine Negative (Negative); Blood,Urine Trace (Negative); Color,Urine Light Yellow; Glucose,Urine (UA) Negative (Negative); Ketones,Urine Negative (Negative); Leukocyte Esterase,Urine Negative (Negative); Nitrite,Urine Negative (Negative); PH, Urine 5.5 (5.0-8.0); Protein,Urine Negative (Negative); RBC,Urine 1 /hpf (0-5); Specific Gravity,Urine 1.006 (1.001-1.035); Urobilinogen,Urine <2.0 mg/dL (<2.0); WBC,Urine 1 /hpf (0-5)
[2020-10-28] MEDS ORDERED: PHYTONADIONE 5 MG in SODIUM CHLORIDE 0.9% 50 ML IVPB STA (00:36)
[2020-10-28] MEDS ORDERED: THIAMINE 100 MG/ML 2 ML VIAL IM STA (00:37)
[2020-10-28] MEDS ORDERED: LORazepam 2 MG/ML INJ IV PRN ×3 (00:37)
[2020-10-28] MEDS ORDERED: PANTOPRAZOLE 40 MG TABLET PO STA (00:38)
[2020-10-28] MEDS ORDERED: NALOXONE 0.4 MG/ML 1 ML VIAL IV PRN (00:38)
--- NOTE | 2020-10-28 01:06 | XR ---
EXAMINATION TYPE: XR chest 1V portable DATE OF EXAM: 10/28/2020 COMPARISON: 08/12/2020 HISTORY: Fall. Pain. TECHNIQUE: FINDINGS: Heart is enlarged. There is bilateral interstitial infiltrates in the mid and lower lung fi elds. There is no pleural effusion. There is no obvious heart failure. There is old ununited right cl avicle fracture. Thoracic aorta is atheromatous. IMPRESSION: Coarse pulmonary interstitial infiltrates increased compared to old exam and could relate to pulmonar y fibrosis. No pleural fluid seen to suggest heart failure.
[2020-10-28 01:41] LABS: Alcohol <10 mg/dL; Lipase 36 U/L (23-300); Magnesium 1.1 mg/dL (1.6-2.3); Phosphorus 4.4 mg/dL (2.5-4.5)
[2020-10-28] MEDS: MORPHINE SULFATE 4 MG/ML SYRINGE IV PRN ×2 (02:40→18:26)
[2020-10-28 06:15] LABS: Glucose,Whole Blood 158 mg/dL (75-99)
[2020-10-28 09:02] LABS: INR 2.1 (<1.2); Prothrombin Time 20.6 sec (9.0-12.0)
[2020-10-28 09:05] LABS: ALT 7 U/L (4-49); AST 20 U/L (17-59); African American GFR (CKD) >90 (>60 ml/min/1.73 sqM); Albumin 3.1 g/dL (3.5-5.0); Alkaline Phosphatase 79 U/L (38-126); Blood Urea Nitrogen 21 mg/dL (9-20); Calcium 8.4 mg/dL (8.4-10.2); Chloride 97 mmol/L (98-107); Glucose 114 mg/dL (74-99); Lipase 49 U/L (23-300); Magnesium 1.3 mg/dL (1.6-2.3); Non-African American GFR(CKD) 89 (>60 ml/min/1.73 sqM); Phosphorus 2.9 mg/dL (2.5-4.5); Potassium 4.5 mmol/L (3.5-5.1); Sodium 140 mmol/L (137-145); Total Bilirubin 1.1 mg/dL (0.2-1.3); Total Protein 5.9 g/dL (6.3-8.2)
[2020-10-28 09:12] LABS: Anisocytosis Slight; Basophils # (A) 0.1 k/uL (0-0.2); Basophils % (A) 1 %; Eosinophils # (A) 0.2 k/uL (0-0.7); Eosinophils % (A) 2 %; HCT 26.7 % (39.0-53.0); HGB 7.9 gm/dL (13.0-17.5); Hypochromasia Marked; Lymphocytes % (A) 19 %; MCH 27.3 pg (25.0-35.0); MCHC 29.6 g/dL (31.0-37.0); MCV 92.4 fL (80.0-100.0); Mean Platelet Volume 7.5; Monocytes # (A) 0.9 k/uL (0-1.0); Monocytes % (A) 9 %; Neutrophils # (A) 6.9 k/uL (1.3-7.7); Neutrophils % (A) 67 %; Platelet Count 516 k/uL (150-450); Poikilocytosis Slight; RBC 2.89 m/uL (4.30-5.90); RDW 17.7 % (11.5-15.5); WBC 10.3 k/uL (3.8-10.6)
[2020-10-28 09:15] LABS: Anion Gap 6 mmol/L; Carbon Dioxide 37 mmol/L (22-30)
[2020-10-28] MEDS: PANTOPRAZOLE 40 MG/10 ML VIAL IV SCH ×2 (09:47→20:05)
[2020-10-28] MEDS ORDERED: NITROGLYCERIN SL TABS 0.4 MG TAB SUBLINGUAL PRN (10:03)
[2020-10-28 11:37] LABS: Glucose,Whole Blood 127 mg/dL (75-99)
--- NOTE | 2020-10-28 12:19 | XR ---
EXAMINATION TYPE: XR ankle complete LT DATE OF EXAM: 10/28/2020 CLINICAL HISTORY: Pain after fall injury TECHNIQUE: Frontal, lateral and oblique images of the left ankle are obtained. COMPARISON: None. FINDINGS: There is no acute fracture/dislocation evident in the left ankle. Old healed fracture thro ugh the lateral malleolus The ankle mortise appears within normal limits. Mild to moderate diffuse s ubcutaneous edema with moderate posterior small vessel arterial vascular calcification. IMPRESSION: There is no acute fracture or dislocation in the left ankle.
[2020-10-28 13:08] LABS: Reticulocyte % 3.6 % (0.5-2.0)
[2020-10-28 13:57] LABS: Hemoglobin A1C 6.2 % (4.0-6.0)
[2020-10-28] MEDS ORDERED: Magnesium Replacement Protocol 1 EACH MISC MISCELLANE PRN (15:06)
[2020-10-28] MEDS: MAGNESIUM SULFATE-D5W PMX 1 GM in DEXTROSE/WATER 1 100ML.BAG IVPB SCH ×3 (15:46→17:44)
[2020-10-28] MEDS: THIAMINE 100 MG TAB PO SCH (15:54)
[2020-10-28] MEDS: carvediloL 6.25 MG TAB PO SCH (15:55)
[2020-10-28 16:28] LABS: Protein, Total 4.4 g/dL (6.2-8.2)
[2020-10-28 16:29] LABS: % Iron Saturation 8.83 (15.00-50.00)
[2020-10-28 16:42] LABS: Glucose,Whole Blood 149 mg/dL (75-99)
[2020-10-28 16:48] LABS: Folate, Serum 14.3 ng/mL
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
[2020-10-28] MEDS: ISOSORBIDE MONONITRATE ER 60 MG TAB.ER.24H PO SCH (20:05)
[2020-10-28] MEDS: ATORVASTATIN 80 MG TAB PO SCH (20:05)
--- NOTE | 2020-10-28 20:30 | US ---
EXAMINATION TYPE: US renals and bladder DATE OF EXAM: 10/28/2020 COMPARISON: CT Ultrasound 06/18/2020. CLINICAL HISTORY: hydronephrosis . Left hydronephrosis noted on CT. EXAM MEASUREMENTS: Right Kidney: 12.0 x 5.6 x 5.3 cm Left Kidney: 11.5 x 4.7 x 6.0 cm Post Void Residual Volume: not assessed on inpatient Right Kidney: No hydronephrosis seen; cortical calcification is seen mid cortex = 0.4 x 0.3 x 0.2cm Left Kidney: No hydronephrosis or masses seen Bladder: wnl Bilateral Jets seen: yes There is no evidence for hydronephrosis at this point in time. No masses are identified. The urinary bladder is anechoic. Bilateral ureteral jets are seen. IMPRESSION: There is possible tiny nonobstructing right renal calcification. No renal mass or obstruction. Overal l no adverse change compared to old ultrasound exam. There is some left side hydronephrosis on the CT scan yesterday that is not evident on today's exam.
[2020-10-28 20:54] LABS: Glucose,Whole Blood 142 mg/dL (75-99)
[2020-10-29] MEDS: metFORMIN 500 MG TAB PO SCH ×2 (06:21→16:44)
[2020-10-29] MEDS: carvediloL 6.25 MG TAB PO SCH ×2 (06:21→16:44)
[2020-10-29] MEDS: THIAMINE 100 MG TAB PO SCH ×3 (06:21→17:38)
[2020-10-29 06:34] LABS: Glucose,Whole Blood 113 mg/dL (75-99)
[2020-10-29 07:25] LABS: Anisocytosis Slight; Basophils # (A) 0.1 k/uL (0-0.2); Basophils % (A) 1 %; Eosinophils # (A) 0.6 k/uL (0-0.7); Eosinophils % (A) 5 %; HCT 25.9 % (39.0-53.0); HGB 7.8 gm/dL (13.0-17.5); Hypochromasia Marked; Lymphocytes # (A) 2.3 k/uL (1.0-4.8); Lymphocytes % (A) 21 %; MCH 28.5 pg (25.0-35.0); MCHC 30.2 g/dL (31.0-37.0); MCV 94.4 fL (80.0-100.0); Mean Platelet Volume 7.6; Monocytes # (A) 1.2 k/uL (0-1.0); Monocytes % (A) 10 %; Neutrophils # (A) 6.8 k/uL (1.3-7.7); Neutrophils % (A) 61 %; Platelet Count 475 k/uL (150-450); Poikilocytosis Slight; RBC 2.75 m/uL (4.30-5.90); RDW 17.7 % (11.5-15.5); WBC 11.1 k/uL (3.8-10.6)
[2020-10-29 07:39] LABS: African American GFR (CKD) >90 (>60 ml/min/1.73 sqM); Blood Urea Nitrogen 19 mg/dL (9-20); Calcium 8.5 mg/dL (8.4-10.2); Chloride 99 mmol/L (98-107); Glucose 115 mg/dL (74-99); Magnesium 1.8 mg/dL (1.6-2.3); Non-African American GFR(CKD) 89 (>60 ml/min/1.73 sqM); Potassium 4.2 mmol/L (3.5-5.1); Sodium 142 mmol/L (137-145)
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
[2020-10-29 07:47] LABS: Anion Gap 6 mmol/L; Carbon Dioxide 37 mmol/L (22-30)
[2020-10-29] MEDS: TAMSULOSIN 0.4 MG CAP.ER.24H PO SCH (08:22)
[2020-10-29] MEDS: PANTOPRAZOLE 40 MG/10 ML VIAL IV SCH ×2 (08:22→21:04)
[2020-10-29] MEDS: LOSARTAN 50 MG TAB PO SCH (08:22)
[2020-10-29] MEDS: ISOSORBIDE MONONITRATE ER 60 MG TAB.ER.24H PO SCH ×2 (08:22→21:04)
--- NOTE | 2020-10-29 09:22 | P.PN ---
Subjective This is a 70-year-old patient of Dr. Patti Marcus. Chronic stable medical conditions include COPD, diabetes, GERD, hypertension, hyperlipidemia, osteoarthritis, right below-knee amputation, hard of hearing, splenectomy, home oxygen 3 L. admitted-end of May 2020-acute non-ST elevation [place], COPD exacerbation, pneumonia. Cardiac catheterization showed no critical stenosis. Patient is awake and alert today and he told me he was brought by the police when his no adverse called 911 after he fell getting out of his car given he has a Right leg due to his history of right BKA. He denies dizziness or presyncope/syncope. Patient states that he just lost his balance and fell. There is a bruise in his left for her to this report of recurrent falling. Also patient should be on home oxygen 3 L/m as he states and reported by EMS on arriv al he was not wearing his oxygen. Patient denies specific complaints no chest pain or dyspnea or coughing. No abdominal pain. No nausea vomiting or diarrhea. No change in bowel habits. He denies any urinary symptoms, no dysuria or change in frequency flank pain or back pain. Patient states that he P his follow-up when he takes Lasix on Saturdays on Tuesdays. He denies headache or weakness or numbness or blurred vision. He has a bruise in his left arm posteriorly and a smaller one in the left ankle and he complains from He takes Coumadin at home this To him by Dr. Marcus however he wasn't sure why he takes that, I checked with the cardiology team who went over his office visit. His patient support assistant is Dr. Vu, he has history of stent in his left circumflex artery, his last cardiac cath in last July showing patent stents. No reported history of atrial fibrillation. He states that he has a left leg clot about 2 years ago He denies smoking or illicit drugs. He drinks 2-5 mixed leak or every day. No beer or wine Vitas looks stable. Labs showing a hemoglobin of 6.6 upon admission, went up after blood transfusion to 7.9. Platelets is elevated 536 and 516 K. Patient is on Coumadin and his INR was more than 10 on admission, came down to 2.1 today. BMP is unremarkable. Liver enzymes not elevated. Magnesium is low at 1.1 and 1.3. Urine showed no infection. Acute blood in his stool is negative. Serum alcohol was elevated 132 yesterday and less than 10 today. Brunson virus not detected. Chest x-ray: R's pulmonary interstitial infiltrates increased compared to old exam and could relate to pulmonary fibrosis. No pleural fluid seen to suggest heart failure CT of the abdomen and pelvis without contrast: Left sided hydronephrosis and perinephric edema. No kidney stone. And there is aortoiliac bypass grafting. Multiple diverticuli without diverticulitis CT of the brain: Mild cerebral atrophy. Old lacunar infarct right internal capsule. No change compared to old exam the emergency room she got 5 mg of IV vitamin K and 2.5 mg of oral vitamin K, sh e got thiamine, started on Protonix 40 mg twice a day and put on CIWA protocol 10/29/2020 Patient is lying in bed with no chest pain or dyspnea or other symptoms. Fistula feels generally weak. Vitas looks stable. Patient is saturating 93 200% on 3 L oxygen via nasal cannula. He has mild leukocytosis. Hemoglobin is 7.8 after 1 unit of blood transfusion 2 days ago. ESR is 25. Platelets 470 5K. BMP is unremarkable with normal adnexa wasn't creatinine are sugar controlled on magnesium normal at 1.8. Renal ultrasound failed to show the left hydronephrosis seen on CAT scan on admission. Studies have shown an deficiency anemia and natural history collections curator recommended to repeat EGD/colonoscopy. Also the recommended cardiology consult for the need of anticoagulation. I contacted his ECP office Dr. Marcus and left a message on callback number to find out why she started him on warfarin. His alcoholic on CIWA protocol. Also is on Protonix. By mouth Lasix. Recheck INR. Review of Systems CONSTITUTIONAL: No fever, no malaise, no fatigue. HEENT: No recent visual problems or hearing problems. Denied any sore throat. CARDIOVASCULAR: No orthopnea, PND, no palpitations, no syncope. PULMONARY: No shortness of breath, no cough, no hemoptysis. GASTROINTESTINAL: No diarrhea, no nausea, no vomiting, no abdominal pain. Normoactive bowel sounds. NEUROLOGICAL: No headaches, no weakness, no numbness. Active Medications Generic Name Dose Route Start Last Admin Trade Name Freq PRN Reason Stop Dose Admin Atorvastatin Calcium 80 mg 10/28/20 21:00 10/28/20 20:05 Atorvastatin 80 Mg Tab PO 80 mg HS ABDI Administration Carvedilol 6.25 mg 10/28/20 17:30 10/29/20 06:21 Carvedilol 6.25 Mg Tab PO 6.25 mg AC-BID ABDI Administration Furosemide 40 mg 10/30/20 09:00 Furosemide 40 Mg Tab PO TUSA ABDI Isosorbide Mononitrate 60 mg 10/28/20 21:00 10/29/20 08:22 Isosorbide Mononitrate Er 60 Mg Tab.Er.24h PO 60 mg BID ABDI Administration Lorazepam 1 mg 10/28/20 00:37 Lorazepam 2 Mg/Ml Inj IV Q2HR PRN CIWA 8 or 9 Lorazepam 1 mg 10/28/20 00:37 Lorazepam 2 Mg/Ml Inj IV Q1HR PRN CIWA 10 to 15 Lorazepam 2 mg 10/28/20 00:37 Lorazepam 2 Mg/Ml Inj IV 10/30/20 00:37 Q10M PRN CIWA 16 or higher Losartan Potassium 50 mg 10/29/20 09:00 10/29/20 08:22 Losartan 50 Mg Tab PO 50 mg DAILY ABDI Administration Metformin HCl 250 mg 10/29/20 07:30 10/29/20 06:21 Metformin 500 Mg Tab PO 250 mg BID-W/MEALS ABDI Administration Miscellaneous Information 1 each 10/28/20 15:06 Magnesium Replacement Protocol 1 Each Misc MISCELLANE DAILY PRN Per Protocol Protocol Morphine Sulfate 4 mg 10/28/20 00:38 10/28/20 18:26 Morphine Sulfate 4 Mg/Ml Syringe IV 4 mg Q4HR PRN Administration Severe Pain Naloxone HCl 0.2 mg 10/28/20 00:38 Naloxone 0.4 Mg/Ml 1 Ml Vial IV Q2M PRN Opioid Reversal Nitroglycerin 0.4 mg 10/28/20 10:03 Nitroglycerin Sl Tabs 0.4 Mg Tab SUBLINGUAL Q5M PRN Chest Pain Pantoprazole Sodium 40 mg 10/28/20 09:00 10/29/20 08:22 Pantoprazole 40 Mg/10 Ml Vial IV 40 mg BID ABDI Administration Tamsulosin HCl 0.4 mg 10/29/20 09:00 10/29/20 08:22 Tamsulosin 0.4 Mg Cap.Er.24h PO 0.4 mg DAILY ABDI Administration Thiamine HCl 100 mg 10/28/20 17:30 10/29/20 06:27 Thiamine 100 Mg Tab PO 100 mg BID-W/MEALS ABDI Administration Objective - Vital Signs Vital signs: Vital Signs Temp 97 F L 10/29/20 08:00 Pulse 73 10/29/20 08:00 Resp 18 10/29/20 08:00 BP 154/66 10/29/20 08:00 Pulse Ox 100 10/29/20 08:00 Intake & Output 10/28/20 10/29/20 10/29/20 18:59 06:59 18:59 Intake Total 785 Output Total 350 250 Balance 435 -250 Weight 76.4 kg Intake: IV 10 Invasive Line 1 10 Oral 775 Output: Urine 350 250 Other: Voiding Method Urinal Urinal - Exam GENERAL: The patient is alert and oriented x3, not in any acute distress. Well developed, well nourished. HEENT: Pupils are round and equally reacting to light. EOMI. No scleral icterus. No conjunctival pallor. Normocephalic, atraumatic. No pharyngeal erythema. No thyromegaly. CARDIOVASCULAR: S1 and S2 present. No murmurs, rubs, or gallops. PULMONARY: Chest is clear to auscultation, no wheezing or crackles. ABDOMEN: Soft, nontender, nondistended, normoactive bowel sounds. No palpable organomegaly. MUSCULOSKELETAL: No joint swelling or deformity. -EXTREMITIES: No cyanosis, clubbing, or pedal edema. Right BKA NEUROLOGICAL: Gross neurological examination did not reveal any focal deficits. -SKIN: No rashes. No petechiae. Was in the back of the left arm and left ankle small abrasion of the left temporal - Labs CBC & Chem 7: 10/29/20 06:47 10/29/20 06:47 Labs: Abnormal Lab Results - Last 24 Hours (Table) 10/27/20 10/28/20 10/28/20 Range/Units 19:20 00:36 08:16 WBC (3.8-10.6) k/uL RBC (4.30-5.90) m/uL Hgb (13.0-17.5) gm/dL Hct (39.0-53.0) % MCHC (31.0-37.0) g/dL RDW (11.5-15.5) % Plt Count (150-450) k/uL Monocytes # (0-1.0) k/uL ESR (0-15) mm/hr Retic Count (0.5-2.0) % APTT (22.0-30.0) sec Chloride 97 L (98-107) mmol/L Carbon Dioxide 37 H (22-30) mmol/L BUN 21 H (9-20) mg/dL Glucose 114 H (74-99) mg/dL POC Glucose (mg/dL) (75-99) mg/dL Hemoglobin A1c 6.2 H (4.0-6.0) % Magnesium 1.3 L (1.6-2.3) mg/dL Iron (65-175) ug/dL % Saturation (15.00-50.00) Lactate Dehydrogenase (313-618) U/L Total Protein 5.9 L (6.3-8.2) g/dL Total Protein (PEP) 4.4 L (6.2-8.2) g/dL Albumin 3.1 L (3.5-5.0) g/dL 10/28/20 10/28/20 10/28/20 Range/Units 08:16 08:16 08:16 WBC (3.8-10.6) k/uL RBC (4.30-5.90) m/uL Hgb (13.0-17.5) gm/dL Hct (39.0-53.0) % MCHC (31.0-37.0) g/dL RDW (11.5-15.5) % Plt Count (150-450) k/uL Monocytes # (0-1.0) k/uL ESR (0-15) mm/hr Retic Count 3.6 H (0.5-2.0) % APTT 33.7 H (22.0-30.0) sec Chloride (98-107) mmol/L Carbon Dioxide (22-30) mmol/L BUN (9-20) mg/dL Glucose (74-99) mg/dL POC Glucose (mg/dL) (75-99) mg/dL Hemoglobin A1c (4.0-6.0) % Magnesium (1.6-2.3) mg/dL Iron 31 L (65-175) ug/dL % Saturation 8.83 L (15.00-50.00) Lactate Dehydrogenase 843 H (313-618) U/L Total Protein (6.3-8.2) g/dL Total Protein (PEP) (6.2-8.2) g/dL Albumin (3.5-5.0) g/dL 10/28/20 10/28/20 10/28/20 Range/Units 11:36 14:30 16:40 WBC (3.8-10.6) k/uL RBC (4.30-5.90) m/uL Hgb (13.0-17.5) gm/dL Hct (39.0-53.0) % MCHC (31.0-37.0) g/dL RDW (11.5-15.5) % Plt Count (150-450) k/uL Monocytes # (0-1.0) k/uL ESR 25 H (0-15) mm/hr Retic Count (0.5-2.0) % APTT (22.0-30.0) sec Chloride (98-107) mmol/L Carbon Dioxide (22-30) mmol/L BUN (9-20) mg/dL Glucose (74-99) mg/dL POC Glucose (mg/dL) 127 H 149 H (75-99) mg/dL Hemoglobin A1c (4.0-6.0) % Magnesium (1.6-2.3) mg/dL Iron (65-175) ug/dL % Saturation (15.00-50.00) Lactate Dehydrogenase (313-618) U/L Total Protein (6.3-8.2) g/dL Total Protein (PEP) (6.2-8.2) g/dL Albumin (3.5-5.0) g/dL 10/28/20 10/29/20 10/29/20 Range/Units 20:53 06:32 06:47 WBC (3.8-10.6) k/uL RBC (4.30-5.90) m/uL Hgb (13.0-17.5) gm/dL Hct (39.0-53.0) % MCHC (31.0-37.0) g/dL RDW (11.5-15.5) % Plt Count (150-450) k/uL Monocytes # (0-1.0) k/uL ESR (0-15) mm/hr Retic Count (0.5-2.0) % APTT (22.0-30.0) sec Chloride (98-107) mmol/L Carbon Dioxide 37 H (22-30) mmol/L BUN (9-20) mg/dL Glucose 115 H (74-99) mg/dL POC Glucose (mg/dL) 142 H 113 H (75-99) mg/dL Hemoglobin A1c (4.0-6.0) % Magnesium (1.6-2.3) mg/dL Iron (65-175) ug/dL % Saturation (15.00-50.00) Lactate Dehydrogenase (313-618) U/L Total Protein (6.3-8.2) g/dL Total Protein (PEP) (6.2-8.2) g/dL Albumin (3.5-5.0) g/dL 10/29/20 Range/Units 06:47 WBC 11.1 H (3.8-10.6) k/uL RBC 2.75 L (4.30-5.90) m/uL Hgb 7.8 L (13.0-17.5) gm/dL Hct 25.9 L (39.0-53.0) % MCHC 30.2 L (31.0-37.0) g/dL RDW 17.7 H (11.5-15.5) % Plt Count 475 H (150-450) k/uL Monocytes # 1.2 H (0-1.0) k/uL ESR (0-15) mm/hr Retic Count (0.5-2.0) % APTT (22.0-30.0) sec Chloride (98-107) mmol/L Carbon Dioxide (22-30) mmol/L BUN (9-20) mg/dL Glucose (74-99) mg/dL POC Glucose (mg/dL) (75-99) mg/dL Hemoglobin A1c (4.0-6.0) % Magnesium (1.6-2.3) mg/dL Iron (65-175) ug/dL % Saturation (15.00-50.00) Lactate Dehydrogenase (313-618) U/L Total Protein (6.3-8.2) g/dL Total Protein (PEP) (6.2-8.2) g/dL Albumin (3.5-5.0) g/dL Assessment and Plan Assessment: -Possible Acute GI bleed with acute blood loss anemia and iron deficiency anemia -Coagulopathy secondary to warfarin, failed to warfarin therapy -Left hydronephrosis with left perinephric edema . Repeat renal ultrasound: No hydronephrosis -Alcohol abuse at-risk of local withdrawal -Noncompliance for example with his oxygen -Coronary artery disease with stent. -Multiple diverticuli without diverticulitis -Possible pulmonary fibrosis -Chronic congestive heart failure exacerbation from diastolic dysfunction EF 55- 60% -COPD in an ex-smoker -Diabetes mellitus type 2 -GERD -Hard of hearing -Hyperlipidemia -Essential hypertension -Primary osteoarthritis -Chronic hypoxic respiratory failure on home oxygen 3 L -Right below-knee amputation with a prosthesis -Surgery of Splenectomy -Peripheral artery disease with a stent to the left leg -Troponin leak from a hemodynamic mismatch. No cardiac symptoms. -Previous history of Coumadin toxicity follow INR Plan: This is a pleasant 70 years old male who presents with low hemoglobin while on Coumadin with supratherapeutic INR with a fall. Patient is status post blood transfusion and we will monitor his hemoglobin which is improved. continue with Protonix. Monitor hemoglobin. Hold warfarin. Hold aspirin. Monitor INR. Consult hematology team. Also consult cardiology for need of anticoagulation. We will check a bladder scan. Continue Flomax. Consult urology for left hydronephrosis. Continue with CIWA protocol and plan Labs and medication were reviewed.. Continue same treatment. Continue with symptomatic treatment. Resume home medication. Monitor lytes and vitals. DVT and GI prophylaxis. Further recommendations depends on the clinical course of the patient DVT prophylaxis: Coagulopathy. GI Prophylaxis: Ppi Prognosis is guarded
[2020-10-29 09:59] LABS: Free Kappa Lt Chain Qnt, Serum 2.02 mg/dL (0.33-1.94)
[2020-10-29] MEDS: HYDROcodone/APAP 10-325MG 1 EACH TAB PO PRN ×3 (10:32→23:09)
[2020-10-29 10:44] LABS: Immunoglobulin M 16.6 mg/dL (40.0-280.0)
--- NOTE | 2020-10-29 12:44 | P.PN ---
Subjective Progress Note Date: 10/29/20 Principal diagnosis: Anemia on AC therapy Evidence of Iron deficiency noted. Patient did habe GI evaluation 10/2019 although unsure if both EGD and Colonoscopy. Rec Repeat GI Evaluation. He does not know why he is taking warfarin, states Dr. Marcus has prescribed to him. Would need to inquire with her office for further importance of continuing, although with symptomatic and worsening anemia, if warfarin can remain on hold this would be in patients best interest. Although not knowing the reasoning behind this prescription will have to defer that decision to prescriber Dr. Marcus after discharge. Objective - Vital Signs Vital signs: Vital Signs Temp 97 F L 10/29/20 08:00 Pulse 73 10/29/20 08:00 Resp 18 10/29/20 08:00 BP 154/66 10/29/20 08:00 Pulse Ox 100 10/29/20 08:00 Intake & Output 10/28/20 10/29/20 10/29/20 18:59 06:59 18:59 Intake Total 785 540 Output Total 350 250 Balance 435 -250 540 Weight 76.4 kg Intake: IV 10 Invasive Line 1 10 Oral 775 540 Output: Urine 350 250 Other: Voiding Method Urinal Urinal - Exam - Constitutional General appearance: cooperative, no acute distress - EENT Eyes: EOMI ENT: hard of hearing, NA/AT - Neck Neck: normal ROM - Respiratory Respiratory: bilateral: CTA - Cardiovascular Rhythm: regular leg Peripheral Edema: absent: None (Below knee amputation) - Gastrointestinal General gastrointestinal: soft - Integumentary Integumentary: pale - Neurologic non focal - Musculoskeletal Musculoskeletal: generalized weakness - Psychiatric Psychiatric: A&O x's 3 - Labs CBC & Chem 7: 10/30/20 06:40 10/30/20 06:40 Labs: Abnormal Lab Results - Last 24 Hours (Table) 10/27/20 10/28/20 10/28/20 Range/Units 19:20 00:36 00:36 WBC (3.8-10.6) k/uL RBC (4.30-5.90) m/uL Hgb (13.0-17.5) gm/dL Hct (39.0-53.0) % MCHC (31.0-37.0) g/dL RDW (11.5-15.5) % Plt Count (150-450) k/uL Monocytes # (0-1.0) k/uL ESR (0-15) mm/hr Retic Count (0.5-2.0) % APTT (22.0-30.0) sec Carbon Dioxide (22-30) mmol/L Glucose (74-99) mg/dL POC Glucose (mg/dL) (75-99) mg/dL Hemoglobin A1c 6.2 H (4.0-6.0) % Iron (65-175) ug/dL % Saturation (15.00-50.00) Lactate Dehydrogenase (313-618) U/L Total Protein (PEP) 4.4 L (6.2-8.2) g/dL IgG 609.0 L (700.0-1600.0) mg/dL IgM 16.6 L (40.0-280.0) mg/dL Free [place] LC, Quant 2.02 H (0.33-1.94) mg/dL 10/28/20 10/28/20 10/28/20 Range/Units 08:16 08:16 08:16 WBC (3.8-10.6) k/uL RBC (4.30-5.90) m/uL Hgb (13.0-17.5) gm/dL Hct (39.0-53.0) % MCHC (31.0-37.0) g/dL RDW (11.5-15.5) % Plt Count (150-450) k/uL Monocytes # (0-1.0) k/uL ESR (0-15) mm/hr Retic Count 3.6 H (0.5-2.0) % APTT 33.7 H (22.0-30.0) sec Carbon Dioxide (22-30) mmol/L Glucose (74-99) mg/dL POC Glucose (mg/dL) (75-99) mg/dL Hemoglobin A1c (4.0-6.0) % Iron 31 L (65-175) ug/dL % Saturation 8.83 L (15.00-50.00) Lactate Dehydrogenase 843 H (313-618) U/L Total Protein (PEP) (6.2-8.2) g/dL IgG (700.0-1600.0) mg/dL IgM (40.0-280.0) mg/dL Free [place] LC, Quant (0.33-1.94) mg/dL 10/28/20 10/28/20 10/28/20 Range/Units 14:30 16:40 20:53 WBC (3.8-10.6) k/uL RBC (4.30-5.90) m/uL Hgb (13.0-17.5) gm/dL Hct (39.0-53.0) % MCHC (31.0-37.0) g/dL RDW (11.5-15.5) % Plt Count (150-450) k/uL Monocytes # (0-1.0) k/uL ESR 25 H (0-15) mm/hr Retic Count (0.5-2.0) % APTT (22.0-30.0) sec Carbon Dioxide (22-30) mmol/L Glucose (74-99) mg/dL POC Glucose (mg/dL) 149 H 142 H (75-99) mg/dL Hemoglobin A1c (4.0-6.0) % Iron (65-175) ug/dL % Saturation (15.00-50.00) Lactate Dehydrogenase (313-618) U/L Total Protein (PEP) (6.2-8.2) g/dL IgG (700.0-1600.0) mg/dL IgM (40.0-280.0) mg/dL [place] LC, Quant (0.33-1.94) mg/dL 10/29/20 10/29/20 10/29/20 Range/Units 06:32 06:47 06:47 WBC 11.1 H (3.8-10.6) k/uL RBC 2.75 L (4.30-5.90) m/uL Hgb 7.8 L (13.0-17.5) gm/dL Hct 25.9 L (39.0-53.0) % MCHC 30.2 L (31.0-37.0) g/dL RDW 17.7 H (11.5-15.5) % Plt Count 475 H (150-450) k/uL Monocytes # 1.2 H (0-1.0) k/uL ESR (0-15) mm/hr Retic Count (0.5-2.0) % APTT (22.0-30.0) sec Carbon Dioxide 37 H (22-30) mmol/L Glucose 115 H (74-99) mg/dL POC Glucose (mg/dL) 113 H (75-99) mg/dL Hemoglobin A1c (4.0-6.0) % Iron (65-175) ug/dL % Saturation (15.00-50.00) Lactate Dehydrogenase (313-618) U/L Total Protein (PEP) (6.2-8.2) g/dL IgG (700.0-1600.0) mg/dL IgM (40.0-280.0) mg/dL [place] LC, Quant (0.33-1.94) mg/dL Assessment and Plan Plan: Assessment and Recommendations: Normocytic Anemia: This is acute on Chronic and Likely multifactorial: underlying decompensated liver with hx of ETOH, Chronic disease and inflammation, possible underlying bone marrow dysplasia, May have component of GI blood loss via AVMs. Appears he had Colonoscopy [place] [address] Cotto, if iron studies result as iron de ficiency component would recommend repeat and EGD. He is also on anticoagulation and etiology is not clear, date of PCI (?) - Defer need of anti-coagulation to cardiology. Prolonged PT/INR and PTT - Warfarin and possible underlying acute inflammatory/infectious etiology/liver disease/Vitamin K def. Full anemia work-up reviewed and evidence of iron deficiency, discussed with patient adherence to appointments and parental iron infusions. This maybe related to GI AVM blood loss. Await GI re-evalaution and recommendations. Discussed with Primary team, defer need of AC therapy to Dr. Marcus and/or cardiology evaluation regarding need of anticoagulation Rec infectious work-up In the interim supportive care and transfusions for hemoglobin less than 7. hemoglobin 7.4 today
[2020-10-29] MEDS: SODIUM FERRIC GLUCONAT-SUCROSE 125 MG in SODIUM CHLORIDE 0.9% 100 ML IVPB SCH (14:19)
[2020-10-29 14:23] VITALS: BMI 24.7
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
[2020-10-29] MEDS: IPRATROPIUM-ALBUTEROL 3 ML NEB INHALATION PRN ×2 (16:16→21:07)
[2020-10-29 16:52] LABS: Glucose,Whole Blood 123 mg/dL (75-99)
[2020-10-29 19:57] LABS: Glucose,Whole Blood 137 mg/dL (75-99)
[2020-10-29] MEDS ORDERED: IPRATROPIUM-ALBUTEROL 3 ML NEB INHALATION SCH (20:00)
[2020-10-29] MEDS: ATORVASTATIN 80 MG TAB PO SCH (21:04)
[2020-10-30 06:11] LABS: Glucose,Whole Blood 109 mg/dL (75-99)
[2020-10-30] MEDS: metFORMIN 500 MG TAB PO SCH ×2 (06:31→17:48)
[2020-10-30] MEDS: carvediloL 6.25 MG TAB PO SCH ×2 (06:32→17:48)
[2020-10-30] MEDS: THIAMINE 100 MG TAB PO SCH ×2 (06:32→17:48)
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
[2020-10-30 07:35] LABS: Anisocytosis Slight; Basophils # (A) 0.1 k/uL (0-0.2); Basophils % (A) 1 %; Eosinophils # (A) 0.4 k/uL (0-0.7); Eosinophils % (A) 5 %; HCT 24.3 % (39.0-53.0); HGB 7.4 gm/dL (13.0-17.5); Hypochromasia Marked; Lymphocytes # (A) 2.6 k/uL (1.0-4.8); Lymphocytes % (A) 27 %; MCH 28.7 pg (25.0-35.0); MCHC 30.6 g/dL (31.0-37.0); Mean Platelet Volume 7.7; Monocytes # (A) 0.9 k/uL (0-1.0); Monocytes % (A) 10 %; Neutrophils # (A) 5.4 k/uL (1.3-7.7); Neutrophils % (A) 56 %; Platelet Count 454 k/uL (150-450); Poikilocytosis Slight; RBC 2.58 m/uL (4.30-5.90); RDW 17.9 % (11.5-15.5); WBC 9.6 k/uL (3.8-10.6)
[2020-10-30 07:47] LABS: INR 1.2 (<1.2); Prothrombin Time 12.9 sec (9.0-12.0)
[2020-10-30 08:01] LABS: African American GFR (CKD) >90 (>60 ml/min/1.73 sqM); Anion Gap 3 mmol/L; Blood Urea Nitrogen 17 mg/dL (9-20); Calcium 8.5 mg/dL (8.4-10.2); Carbon Dioxide 35 mmol/L (22-30); Chloride 100 mmol/L (98-107); Glucose 96 mg/dL (74-99); Non-African American GFR(CKD) >90 (>60 ml/min/1.73 sqM); Potassium 4.8 mmol/L (3.5-5.1); Sodium 138 mmol/L (137-145)
[2020-10-30] MEDS: IPRATROPIUM-ALBUTEROL 3 ML NEB INHALATION PRN ×3 (08:08→19:21)
--- NOTE | 2020-10-30 08:31 | P.PN ---
Progress Note - Text Progress Note Date: 10/30/20 When I saw Mr. Burgos yesterday, his office records were not available. I discussed with him today the fact that his PSA level was elevated in 2018, and that his prostate is palpably abnormal. In view of this, I suspect he has prostate cancer. We are repeating his PSA level, but he will likely be advised to undergo a prostate ultrasound with biopsies as an outpatient.
--- NOTE | 2020-10-30 08:52 | XR ---
EXAMINATION TYPE: XR chest 1V DATE OF EXAM: 10/30/2020 COMPARISON: Chest x-ray 10/28/2020, CT 10/27/2020 HISTORY: Follow-up interstitial infiltrates, abnormal chest x-ray TECHNIQUE: Single frontal view of the chest is obtained. FINDINGS: Prominence of pulmonary artery is again noted. Cardiac mediastinal silhouette is prominent as on prior. Aorta is dense. Diaphyseal right clavicular fracture shows nonunion. There is no evident pneumothorax or sizable effu earline. Interstitial changes are present especially at the lung bases. IMPRESSION: Findings are similar to prior exam. Correlate to exclude pneumonia, interstitial edema, there is a hiatal hernia. There is underlying emphysema.
[2020-10-30] MEDS ORDERED: FUROSEMIDE 40 MG TAB PO SCH (09:00)
[2020-10-30] MEDS: LOSARTAN 50 MG TAB PO SCH (10:30)
[2020-10-30] MEDS: PANTOPRAZOLE 40 MG/10 ML VIAL IV SCH ×2 (10:30→19:49)
[2020-10-30] MEDS: SODIUM FERRIC GLUCONAT-SUCROSE 125 MG in SODIUM CHLORIDE 0.9% 100 ML IVPB SCH (10:30)
[2020-10-30] MEDS: TAMSULOSIN 0.4 MG CAP.ER.24H PO SCH (10:31)
[2020-10-30] MEDS: ISOSORBIDE MONONITRATE ER 60 MG TAB.ER.24H PO SCH ×2 (10:31→19:48)
[2020-10-30] MEDS: HYDROcodone/APAP 10-325MG 1 EACH TAB PO PRN ×2 (10:34→19:48)
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
[2020-10-30 12:02] LABS: Appearance,Urine Clear (Clear); Bilirubin,Urine Negative (Negative); Blood,Urine Negative (Negative); Color,Urine Yellow; Glucose,Urine (UA) Negative (Negative); Ketones,Urine Negative (Negative); Leukocyte Esterase,Urine Negative (Negative); Nitrite,Urine Negative (Negative); PH, Urine 6.5 (5.0-8.0); Protein,Urine Trace (Negative)
[2020-10-30 12:09] LABS: Glucose,Whole Blood 111 mg/dL (75-99)
[2020-10-30] MEDS: FUROSEMIDE 10 MG/ML 4 ML VIAL IV SCH (14:06)
[2020-10-30] MEDS: MAGNESIUM SULFATE-D5W PMX 1 GM in DEXTROSE/WATER 1 100ML.BAG IVPB SCH ×2 (14:06→15:21)
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
[2020-10-30] MEDS ORDERED: PEG 3350-NA SULF,BICARB,CL/KCL 4,000 ML BOTTLE PO ONE (16:00)
[2020-10-30 17:00] LABS: Glucose,Whole Blood 159 mg/dL (75-99)
--- NOTE | 2020-10-30 18:15 | P.PN ---
Subjective Progress Note Date: 10/30/20 Principal diagnosis: Anemia on AC therapy Hemoglobin 7.4 today. He was seen and evaluated by surgery and Patient is scheduled for EGD and colonoscopy tomorrow, 10/31/[address] Nunn Objective - Vital Signs Vital signs: Vital Signs Temp 98.3 F 10/30/20 08:00 Pulse 65 10/30/20 14:00 Resp 18 10/30/20 14:00 BP 167/68 10/30/20 12:00 Pulse Ox 95 10/30/20 12:00 Intake & Output 10/29/20 10/30/20 10/30/20 18:59 06:59 18:59 Intake Total 780 480 Output Total 927 143 0804 Balance 580 -300 -2995 Weight 75.886 kg 76.7 kg Intake: Oral 780 480 Output: Urine 022 686 [id number] Post Void Residual 0 Stool 0 Other: Voiding Method Urinal # Voids 0 # Bowel Movements 0 - Exam - Constitutional General appearance: cooperative, no acute distress - EENT Eyes: EOMI ENT: hard of hearing, NA/AT - Neck Neck: normal ROM - Respiratory Respiratory: bilateral: CTA - Cardiovascular Rhythm: regular leg Peripheral Edema: absent: None (Below knee amputation) - Gastrointestinal General gastrointestinal: soft - Integumentary Integumentary: pale - Neurologic non focal - Musculoskeletal Musculoskeletal: generalized weakness - Psychiatric Psychiatric: A&O x's 3 - Labs CBC & Chem 7: 10/30/20 06:40 10/30/20 06:40 Labs: Abnormal Lab Results - Last 24 Hours (Table) 10/29/20 10/30/20 10/30/20 Range/Units 19:54 06:06 06:40 RBC 2.58 L (4.30-5.90) m/uL Hgb 7.4 L (13.0-17.5) gm/dL Hct 24.3 L (39.0-53.0) % MCHC 30.6 L (31.0-37.0) g/dL RDW 17.9 H (11.5-15.5) % Plt Count 454 H (150-450) k/uL PT (9.0-12.0) sec INR (<1.2) Carbon Dioxide (22-30) mmol/L POC Glucose (mg/dL) 137 H 109 H (75-99) mg/dL Urine Protein (Negative) 10/30/20 10/30/20 10/30/20 Range/Units 06:40 06:40 10:30 RBC (4.30-5.90) m/uL Hgb (13.0-17.5) gm/dL Hct (39.0-53.0) % MCHC (31.0-37.0) g/dL RDW (11.5-15.5) % Plt Count (150-450) k/uL PT 12.9 H (9.0-12.0) sec INR 1.2 H (<1.2) Carbon Dioxide 35 H (22-30) mmol/L POC Glucose (mg/dL) (75-99) mg/dL Urine Protein Trace H (Negative) 10/30/20 10/30/20 Range/Units 11:56 16:46 RBC (4.30-5.90) m/uL Hgb (13.0-17.5) gm/dL Hct (39.0-53.0) % MCHC (31.0-37.0) g/dL RDW (11.5-15.5) % Plt Count (150-450) k/uL PT (9.0-12.0) sec INR (<1.2) Carbon Dioxide (22-30) mmol/L POC Glucose (mg/dL) 111 H 159 H (75-99) mg/dL Urine Protein (Negative) Assessment and Plan Plan: Assessment and Recommendations: Normocytic Anemia: - This is acute on Chronic and Likely multifactorial: - underlying decompensated liver with hx of ETOH, Chronic disease and inflammation - possible underlying bone marrow dysplasia, May have component of GI blood loss via AVMs. Appears he had Colonoscopy in [address] Nunn - Iron studies reveal a component of iron deficiency and general surgery is planning EGD and COlonoscopy on 10/31/20 - discussed with patient adherence to appointments and parental iron infusions. This maybe related to GI AVM blood loss. - Parental Iron given Coumadin Coagulapathy: INR >10 on admission - Prolonged PT/INR and PTT - Warfarin Discontinued at this time - Discussed with Primary team, defer need of AC therapy to Dr. Marcus and/or cardiology evaluation regarding need of anticoagulation In the interim supportive care and transfusions for hemoglobin less than 7. hemoglobin 7.4 today
[2020-10-30] MEDS: ATORVASTATIN 80 MG TAB PO SCH (19:49)
[2020-10-30 20:11] LABS: Glucose,Whole Blood 111 mg/dL (75-99)
[2020-10-31] MEDS: THIAMINE 100 MG TAB PO SCH (04:02)
[2020-10-31] MEDS: metFORMIN 500 MG TAB PO SCH (04:02)
[2020-10-31] MEDS: carvediloL 6.25 MG TAB PO SCH (04:07)
[2020-10-31 05:52] LABS: Glucose,Whole Blood 102 mg/dL (75-99)
[2020-10-31 07:48] LABS: Anisocytosis Slight; Basophils # (A) 0.1 k/uL (0-0.2); Basophils % (A) 1 %; Eosinophils # (A) 0.6 k/uL (0-0.7); Eosinophils % (A) 5 %; HCT 27.6 % (39.0-53.0); HGB 8.4 gm/dL (13.0-17.5); Hypochromasia Marked; Lymphocytes # (A) 1.8 k/uL (1.0-4.8); Lymphocytes % (A) 17 %; MCH 28.4 pg (25.0-35.0); MCHC 30.4 g/dL (31.0-37.0); MCV 93.5 fL (80.0-100.0); Mean Platelet Volume 7.7; Monocytes # (A) 0.8 k/uL (0-1.0); Monocytes % (A) 7 %; Neutrophils # (A) 7.2 k/uL (1.3-7.7); Neutrophils % (A) 68 %; Platelet Count 654 k/uL (150-450); Poikilocytosis Slight; RBC 2.95 m/uL (4.30-5.90); RDW 18.4 % (11.5-15.5); WBC 10.6 k/uL (3.8-10.6)
[2020-10-31 08:05] LABS: African American GFR (CKD) >90 (>60 ml/min/1.73 sqM); Anion Gap 8 mmol/L; Blood Urea Nitrogen 13 mg/dL (9-20); Calcium 8.7 mg/dL (8.4-10.2); Chloride 92 mmol/L (98-107); Glucose 108 mg/dL (74-99); Magnesium 1.3 mg/dL (1.6-2.3); Non-African American GFR(CKD) >90 (>60 ml/min/1.73 sqM); Potassium 4.3 mmol/L (3.5-5.1); Sodium 140 mmol/L (137-145)
[2020-10-31] MEDS: HYDROcodone/APAP 10-325MG 1 EACH TAB PO PRN (08:30)
[2020-10-31] MEDS: PANTOPRAZOLE 40 MG/10 ML VIAL IV SCH (08:31)
[2020-10-31] MEDS: FUROSEMIDE 10 MG/ML 4 ML VIAL IV SCH (08:31)
[2020-10-31] MEDS: SODIUM FERRIC GLUCONAT-SUCROSE 125 MG in SODIUM CHLORIDE 0.9% 100 ML IVPB SCH (08:31)
[2020-10-31 08:44] LABS: Carbon Dioxide 40 mmol/L (22-30)
[2020-10-31] MEDS ORDERED: PROPOFOL 10 MG/ML 20 ML VIAL IV ONE (10:13)
[2020-10-31] MEDS ORDERED: PHENYLEPHRINE-0.9% NACL SYG 1,000 MCG/10 ML SYRINGE ONE (10:13)
[2020-10-31] MEDS ORDERED: LIDOCAINE 1% INJ 10MG/ML (20 ML MDV) ONE (10:13)
[2020-10-31] MEDS ORDERED: LACTATED RINGERS 1,000 ML IV ONE (10:17)
--- NOTE | 2020-10-31 10:52 | P.PCN ---
Date of Procedure: 10/31/20 Description of Procedure: PREOPERATIVE DIAGNOSIS: Gastrointestinal bleeding Anemia Warfarin coagulopathy POSTOPERATIVE DIAGNOSIS: Gastrointestinal bleeding Anemia Warfarin coagulopathy Diaphragmatic hiatal hernia OPERATION: Esophagogastroduodenoscopy SURGEON: Devora Nunn MD ANESTHESIA: MAC. INDICATIONS: The patient is a 70-year-old male who presents with acute blood loss anemia with gastrointestinal bleeding. Benefits and risks of the procedure were described. Informed consent was obtained. DESCRIPTION: The patient was brought into the endoscopy suite and laid in the left lateral decubitus position. An Olympus gastroscope was passed along the posterior oropharynx down to the distal esophagus where the squamocolumnar junction was encountered at 34 cm from the incisors. The stomach was entered and no bile reflux was found. Additional findings are listed below. The first through t hird portion of the duodenum was examined and unremarkable. Retroflexion of the scope confirmed Hill grade 4 lower esophageal valve. The squamocolumnar junction demonstrated LA grade B erosive esophagitis. The stomach was desufflated. The patient tolerated the procedure well. FINDINGS: Squamocolumnar junction 34 cm from the incisors. Diaphragmatic hiatus at 40 cm. Hiatal hernia, 6 cm Hill grade 4 lower esophageal valve. LA grade B erosive esophagitis. No active duodenitis. Chronic gastritis RECOMMENDATIONS: Upper endoscopy as needed.
--- NOTE | 2020-10-31 10:55 | P.PCN ---
Date of Procedure: 10/31/20 Description of Procedure: PREOPERATIVE DIAGNOSIS: Gastrointestinal bleeding Acute blood loss anemia Warfarin-induced coagulopathy POSTOPERATIVE DIAGNOSIS: Gastrointestinal bleeding Acute blood loss anemia Warfarin-induced coagulopathy Diverticulosis, scattered. OPERATION: Colonoscopy to the cecum, ileocecal valve and appendiceal orifice. SURGEON: Devora Nunn MD. ANESTHESIA: MAC. INDICATIONS: The patient is a 70-year-old male who Bpresented with acute blood loss anemia and gastrointestinal bleed. enefits and risks were described and informed consent was obtained. DESCRIPTION OF PROCEDURE: The patient had undergone Golyetely prep. The patient had been brought into the operating room and laid in the left lateral decubitus position. After adequate intravenous sedation, the rectum was examined with 2% lidocaine jelly. No external hemorrhoids were encountered. The rectal tone was within normal limits. No lesions were palpated in the rectal vault. An Olympus colonoscope was advanced until the cecum, ileocecal valve and appendiceal orifice were clearly viewed. The prep was fair. Scattered diverticulosis was encountered without active bleeding . No colonic polyps were found. No evidence of focal colitis was found. Retroflexion of the scope demonstrated grade 1 internal hemorrhoids without active bleeding or inflammation. The colon was desufflated. The patient had tolerated the procedure well. Withdrawal time was over 6 minutes. FINDINGS: Aronchick preparation quality scale 2 (1-5) Internal hemorrhoids, grade 1 No external prolapsed hemorrhoids. No arteriovenous malformations. No adenomatous polyps. No focal colitis. Diverticulosis without active bleeding RECOMMENDATIONS: Lower endoscopy as needed Plan - Discharge Summary Discharge Rx Participant: No New Discharge Prescriptions: No Action Warfarin [Coumadin] 2.5 mg PO MOTUWETHFR Fluticasone/Salmeterol [Advair 250-50 Diskus] 1 puff INHALATION RT-BID Atorvastatin [Lipitor] 80 mg PO HS Tamsulosin [Flomax] 0.4 mg PO DAILY Pantoprazole [Protonix] 40 mg PO HS Aspirin 81 mg PO DAILY metFORMIN HCL ER [Glucophage Xr] 500 mg PO DAILY Losartan [Cozaar] 50 mg PO DAILY #30 tab Nitroglycerin Sl Tabs [Nitrostat] 0.4 mg SUBLINGUAL Q5M PRN #25 tab PRN Reason: Chest Pain Isosorbide Mononitrate ER [Imdur] 60 mg PO BID #60 tab HYDROcodone/APAP 10-325MG [Logan 10-325] 1 tab PO Q6H PRN PRN Reason: Pain Ipratropium-Albuterol Nebulize [Duoneb 0.5 mg-3 mg/3 ml Soln] 3 ml INHALATION RT-TID Ipratropium/Albuterol Sulfate [Combivent Respimat Inhaler] 1 puff INHALATION RT-TID carvediloL [Coreg] 6.25 mg PO AC-BID Furosemide [Lasix] 40 mg PO TUSA #30 tab Warfarin [Coumadin] 5 mg PO SUSA Discharge Medication List Fluticasone/Salmeterol [Advair 250-50 Diskus] 1 puff INHALATION RT-BID 11/07/14 [History] Warfarin [Coumadin] 2.5 mg PO MOTUWETHFR 11/07/14 [History] Atorvastatin [Lipitor] 80 mg PO HS 11/28/15 [History] Pantoprazole [Protonix] 40 mg PO HS 04/26/18 [History] Tamsulosin [Flomax] 0.4 mg PO DAILY 04/26/18 [History] Aspirin 81 mg PO DAILY 11/30/18 [History] metFORMIN HCL ER [Glucophage Xr] 500 mg PO DAILY 02/21/19 [History] Isosorbide Mononitrate ER [Imdur] 60 mg PO BID #60 tab 07/03/20 [Rx] Losartan [Cozaar] 50 mg PO DAILY #30 tab 07/03/20 [Rx] Nitroglycerin Sl Tabs [Nitrostat] 0.4 mg SUBLINGUAL Q5M PRN #25 tab 07/03/20 [Rx] HYDROcodone/APAP 10-325MG [Logan 10-325] 1 tab PO Q6H PRN 08/12/20 [History] Ipratropium-Albuterol Nebulize [Duoneb 0.5 mg-3 mg/3 ml Soln] 3 ml INHALATION RT-TID 08/12/20 [History] Ipratropium/Albuterol Sulfate [Combivent Respimat Inhaler] 1 puff INHALATION RT- TID 08/12/20 [History] carvediloL [Coreg] 6.25 mg PO AC-BID 08/12/20 [History] Furosemide [Lasix] 40 mg PO TUSA #30 tab 08/14/20 [Rx] Warfarin [Coumadin] 5 mg PO SUSA 10/27/20 [History] Follow up Appointment(s)/Referral(s): Kumar Haile MD [STAFF PHYSICIAN] - 1 Week Pasha Marcus DO [Primary Care Provider] - 1-2 days Brian Vu MD [STAFF PHYSICIAN] - 2 Weeks
[2020-10-31] MEDS: TAMSULOSIN 0.4 MG CAP.ER.24H PO SCH (11:00)
[2020-10-31] MEDS: LOSARTAN 50 MG TAB PO SCH (11:00)
[2020-10-31] MEDS: ISOSORBIDE MONONITRATE ER 60 MG TAB.ER.24H PO SCH (11:00)
[2020-10-31] MEDS ORDERED: Magnesium Replacement Protocol 1 EACH MISC MISCELLANE PRN (11:17)
[2020-10-31] MEDS: MAGNESIUM SULFATE-D5W PMX 1 GM in DEXTROSE/WATER 1 100ML.BAG IVPB SCH ×2 (11:21→14:15)
[2020-10-31] MEDS ORDERED: HEPARIN SODIUM,PORCINE 5,000 UNIT/ML 1 ML VIAL SQ SCH (11:25)
--- NOTE | 2020-10-31 11:25 | P.PN ---
Subjective This is a 70-year-old patient of Dr. Patti Marcus. Chronic stable medical conditions include COPD, diabetes, GERD, hypertension, hyperlipidemia, osteoarthritis, right below-knee amputation, hard of hearing, splenectomy, home oxygen 3 L. admitted-end of May 2020-acute non-ST elevation [place], COPD exacerbation, pneumonia. Cardiac catheterization showed no critical stenosis. Patient is awake and alert today and he told me he was brought by the police when his no adverse called 911 after he fell getting out of his car given he has a Right leg due to his history of right BKA. He denies dizziness or presyncope/syncope. Patient states that he just lost his balance and fell. There is a bruise in his left for her to this report of recurrent falling. Also patient should be on home oxygen 3 L/m as he states and reported by EMS on arriv al he was not wearing his oxygen. Patient denies specific complaints no chest pain or dyspnea or coughing. No abdominal pain. No nausea vomiting or diarrhea. No change in bowel habits. He denies any urinary symptoms, no dysuria or change in frequency flank pain or back pain. Patient states that he P his follow-up when he takes Lasix on Saturdays on Tuesdays. He denies headache or weakness or numbness or blurred vision. He has a bruise in his left arm posteriorly and a smaller one in the left ankle and he complains from He takes Coumadin at home this To him by Dr. Marcus however he wasn't sure why he takes that, I checked with the cardiology team who went over his office visit. His cytogeneticist is Dr. Vu, he has history of stent in his left circumflex artery, his last cardiac cath in last July showing patent stents. No reported history of atrial fibrillation. He states that he has a left leg clot about 2 years ago He denies smoking or illicit drugs. He drinks 2-5 mixed leak or every day. No beer or wine Vitas looks stable. Labs showing a hemoglobin of 6.6 upon admission, went up after blood transfusion to 7.9. Platelets is elevated 536 and 516 K. Patient is on Coumadin and his INR was more than 10 on admission, came down to 2.1 today. BMP is unremarkable. Liver enzymes not elevated. Magnesium is low at 1.1 and 1.3. Urine showed no infection. Acute blood in his stool is negative. Serum alcohol was elevated 132 yesterday and less than 10 today. Brunson virus not detected. Chest x-ray: R's pulmonary interstitial infiltrates increased compared to old exam and could relate to pulmonary fibrosis. No pleural fluid seen to suggest heart failure CT of the abdomen and pelvis without contrast: Left sided hydronephrosis and perinephric edema. No kidney stone. And there is aortoiliac bypass grafting. Multiple diverticuli without diverticulitis CT of the brain: Mild cerebral atrophy. Old lacunar infarct right internal capsule. No change compared to old exam the emergency room she got 5 mg of IV vitamin K and 2.5 mg of oral vitamin K, sh e got thiamine, started on Protonix 40 mg twice a day and put on CIWA protocol 10/29/2020 Patient is lying in bed with no chest pain or dyspnea or other symptoms. Fistula feels generally weak. Vitas looks stable. Patient is saturating 93 200% on 3 L oxygen via nasal cannula. He has mild leukocytosis. Hemoglobin is 7.8 after 1 unit of blood transfusion 2 days ago. ESR is 25. Platelets 470 5K. BMP is unremarkable with normal adnexa wasn't creatinine are sugar controlled on magnesium normal at 1.8. Renal ultrasound failed to show the left hydronephrosis seen on CAT scan on admission. Studies have shown an deficiency anemia and heading maker recommended to repeat EGD/colonoscopy. Also the recommended cardiology consult for the need of anticoagulation. I contacted his ECP office Dr. Marcus and left a message on callback number to find out why she started him on warfarin. His alcoholic on CIWA protocol. Also is on Protonix. By mouth Lasix. Recheck INR. 10/30/2020 Patient still with no specific symptoms, no signs of alcohol withdrawal. No chest pain or abdominal pain. Vitals are stable. Hemoglobin stable 07.4. INR is down to 1.2. Coumadin was stopped. I already discussed the case with cardiology team that Dr. Marcus place the patient on Coumadin for A. fib however Cardiology team have no evidence that the patient has atrial fibrillation, besides patient is high-risk for bleeding including noncompliance, severe coagulopathy, alcoholic, recurrent falls. [facility] team on the case as well, they suspecting GI bleed secondary to and they recommended to repeat EGD/colonoscopy, surgery team were consulted. Chest x-ray showing pneumonia versus interstitial edema and hiatal hernia and underlying emphysema. Patient saturating 95% on 3 L. We are going to give 40 mg of daily IV Lasix on the top of his 40 oral twice a week There is no progression of his abnormal chest x-ray over 3-4 days make it less likely to be pneumonia, currently is not on antibiotic. Urinalysis from 10/27 was negative for pneumonia. We are asked for repeat UA. Blood culture is pend ing Urologist suspected prostate cancer in the view of elevated PSA and recommended an outpatient prostate ultrasound and biopsy. Magnesium is low at 1.3 is been replaced discussed with staff for bladder scan 10/31/2020 Patient with no symptoms. No alcohol withdrawal. Vitals are stable. Hemo globin stable 8.4. BMP is unremarkable. Carbon dioxide is increased to 40. Magnesium 1.3 was been replaced per protocol Patient is going for EGD and colonoscopy today. Programmedcalcitonin is -0.07, BUN is normal at 89. Vitamin B12 is low normal at 391. Folate is normal 14. At standing scheduled dose of magnesium oxide. He remains on Lasix 40 mg IV daily. Patient is aware he needs to follow up with Dr. Hussein as an outpatient for high PSA. Continue with Protonix, IV iron. Patient himself is telling me he does not want coumadine upon discharge Objective - Vital Signs Vital signs: Vital Signs Temp 98.1 F 10/31/20 10:48 Pulse 80 10/31/20 11:03 Resp 16 10/31/20 11:03 BP 108/64 10/31/20 11:03 Pulse Ox 93 L 10/31/20 11:03 Intake & Output 10/30/20 10/31/20 10/31/20 18:59 06:59 18:59 Intake Total 1080 200 Output Total 3475 525 Balance -2395 -525 200 Weight 74.8 kg Intake: IV 200 Oral 1080 Output: Urine 3475 525 Post Void Residual 0 Stool 0 Other: Voiding Method Urinal Urinal # Voids 0 # Bowel Movements 1 - Exam GENERAL: The patient is alert and oriented x3, not in any acute distress. Well developed, well nourished. HEENT: Pupils are round and equally reacting to light. EOMI. No scleral icterus. No conjunctival pallor. Normocephalic, atraumatic. No pharyngeal erythema. No t hyromegaly. CARDIOVASCULAR: S1 and S2 present. No murmurs, rubs, or gallops. PULMONARY: Chest is clear to auscultation, no wheezing or crackles. ABDOMEN: Soft, nontender, nondistended, normoactive bowel sounds. No palpable organomegaly. MUSCULOSKELETAL: No joint swelling or deformity. -EXTREMITIES: No cyanosis, clubbing, or pedal edema. Right BKA NEUROLOGICAL: Gross neurological examination did not reveal any focal deficits. -SKIN: No rashes. No petechiae. Was in the back of the left arm and left ankle small abrasion of the left temporal - Labs CBC & Chem 7: 10/31/20 07:21 10/31/20 07:21 Labs: Abnormal Lab Results - Last 24 Hours (Table) 10/30/20 10/30/20 10/30/20 Range/Units 10:30 11:56 16:46 RBC (4.30-5.90) m/uL Hgb (13.0-17.5) gm/dL Hct (39.0-53.0) % MCHC (31.0-37.0) g/dL RDW (11.5-15.5) % Plt Count (150-450) k/uL Chloride (98-107) mmol/L Carbon Dioxide (22-30) mmol/L Glucose (74-99) mg/dL POC Glucose (mg/dL) 111 H 159 H (75-99) mg/dL Magnesium (1.6-2.3) mg/dL Urine Protein Trace H (Negative) 10/30/20 10/31/20 10/31/20 Range/Units 20:09 05:48 07:21 RBC 2.95 L (4.30-5.90) m/uL Hgb 8.4 L (13.0-17.5) gm/dL Hct 27.6 L (39.0-53.0) % MCHC 30.4 L (31.0-37.0) g/dL RDW 18.4 H (11.5-15.5) % Plt Count 654 H (150-450) k/uL Chloride (98-107) mmol/L Carbon Dioxide (22-30) mmol/L Glucose (74-99) mg/dL POC Glucose (mg/dL) 111 H 102 H (75-99) mg/dL Magnesium (1.6-2.3) mg/dL Urine Protein (Negative) 10/31/20 Range/Units 07:21 RBC (4.30-5.90) m/uL Hgb (13.0-17.5) gm/dL Hct (39.0-53.0) % MCHC (31.0-37.0) g/dL RDW (11.5-15.5) % Plt Count (150-450) k/uL Chloride 92 L (98-107) mmol/L Carbon Dioxide 40 H (22-30) mmol/L Glucose 108 H (74-99) mg/dL POC Glucose (mg/dL) (75-99) mg/dL Magnesium 1.3 L (1.6-2.3) mg/dL Urine Protein (Negative) Microbiology - Last 24 Hours (Table) 10/29/20 22:29 Blood Culture - Preliminary Blood No Growth after 24 hours Assessment and Plan Assessment: -Possible Acute GI bleed with acute blood loss anemia and iron deficiency anemia and surgery team were consulted for repeat EGD/colonoscopy -Coagulopathy secondary to warfarin, failed to warfarin therapy. No need for anticoagulation as per cardiology team recommendation as patient is high-risk and there is no strong evidence of atrial fibrillation -High PSA, rule out prostate cancer which can be done as an outpatient -Left hydronephrosis with left perinephric edema . Repeat renal ultrasound: No hydronephrosis -Alcohol abuse at-risk of local withdrawal -Noncompliance for example with his oxygen -Coronary artery disease with stent. -Multiple diverticuli without diverticulitis -Possible pulmonary fibrosis -Chronic congestive heart failure exacerbation from diastolic dysfunction EF 55- 60% -COPD in an ex-smoker -Diabetes mellitus type 2 -GERD -Hard of hearing -Hyperlipidemia -Essential hypertension -Primary osteoarthritis -Chronic hypoxic respiratory failure on home oxygen 3 L -Right below-knee amputation with a prosthesis -Surgery of Splenectomy -Peripheral artery disease with a stent to the left leg -Troponin leak from a hemodynamic mismatch. No cardiac symptoms. -Previous history of Coumadin toxicity follow INR Plan: This is a pleasant 70 years old male who presents with low hemoglobin while on Coumadin with supratherapeutic INR with a fall. Patient is status post blood transfusion and we will monitor his hemoglobin which is improved. continue with Protonix. Monitor hemoglobin. Discontinue warfarin. Hold aspirin. Monitor INR. Consult hematology team. Also consult cardiology for need of anticoagulation. We will check a bladder scan. Continue Flomax. urology recommended outpatient follow-up for prostate ultrasound and biopsy Continue with infectious workup Continue with [facility] protocol and plan Labs and medication were reviewed.. Continue same treatment. Continue with symptomatic treatment. Resume home medication. Monitor lytes and vitals. DVT and GI prophylaxis. Further recommendations depends on the clinical course of the patient DVT prophylaxis: Coagulopathy. Start subcutaneous heparin GI Prophylaxis: Ppi Prognosis is guarded
[2020-10-31] MEDS: IPRATROPIUM-ALBUTEROL 3 ML NEB INHALATION PRN (11:28)
[2020-10-31 11:41] LABS: Glucose,Whole Blood 159 mg/dL (75-99)
[2020-10-31 11:42] VITALS: BP 126/61; PULSE 79; RESP 18; TEMP 98
[2020-10-31] MEDS ORDERED: MAGNESIUM OXIDE 400 MG TAB PO SCH (16:00)
[2020-10-31 16:47] LABS: Glucose,Whole Blood 161 mg/dL (75-99)
[2020-10-31 17:04] LABS: Albumin 2.17 g/dL (3.80-4.90); Gamma Globulin 0.55 g/dL (0.70-1.50)
--- NOTE | 2020-11-01 07:02 | P.DS ---
Providers Date of admission: 10/28/20 00:38 Attending physician: Miguel Antonio Consults: 10/28/20 10:48 Consult Physician Urgent Consulting Provider: Cheo Mckinney Consult Reason/Comments: does pt need anti-coagulation, presents with coagulopathy Do you want consulting provider notified?: Yes 10/28/20 19:20 Consult Physician Urgent Consulting Provider: Kumar Haile Consult Reason/Comments: hydronephrosis Do you want consulting provider notified?: Yes 10/29/20 09:22 Consult Physician Routine Consulting Provider: Dallas Huertas Consult Reason/Comments: need for anti-coagulation or no Do you want consulting provider notified?: Yes 10/29/20 21:10 Consult Physician Routine Consulting Provider: Devora Nunn Consult Reason/Comments: needs repeat EGD and colonscopy Do you want consulting provider notified?: Yes, Notify in am Primary care physician: Pasha Marcus [facility] Course: Diagnoses: -Possible Acute GI bleed with acute blood loss anemia and iron deficiency anemia and surgery team were consulted for repeat EGD/colonoscopy, see below -Coagulopathy secondary to warfarin, failed to warfarin therapy. No need for anticoagulation as per cardiology team recommendation as patient is high-risk and there is no strong evidence of atrial fibrillation -High PSA, rule out prostate cancer which can be done as an outpatient -Left hydronephrosis with left perinephric edema . Repeat renal ultrasound: No hydronephrosis -Alcohol abuse at-risk of local withdrawal -Noncompliance for example with his oxygen -Coronary artery disease with stent. -Multiple diverticuli without diverticulitis -Possible pulmonary fibrosis -Chronic congestive heart failure exacerbation from diastolic dysfunction EF 55- 60% -COPD in an ex-smoker -Diabetes mellitus type 2 -GERD -Hard of hearing -Hyperlipidemia -Essential hypertension -Primary osteoarthritis -Chronic hypoxic respiratory failure on home oxygen 3 L -Right below-knee amputation with a prosthesis -History of Splenectomy -Peripheral artery disease with a stent to the left leg -Troponin leak from a hemodynamic mismatch. No cardiac symptoms. -Previous history of Coumadin toxicity follow INR Hospital course: This is a 70-year-old patient of Dr. Patti Marcus. Chronic stable medical conditions include COPD, diabetes, GERD, hypertension, hyperlipidemia, osteoarthritis, right below-knee amputation, hard of hearing, splenectomy, home oxygen 3 L. admitted-end May 2020-acute non-ST elevation SC, COPD exacerbation, pneumonia. Cardiac catheterization showed no critical stenosis. Patient is awake and alert today and he told me he was brought by the police when his neighbors called 911 after he fell getting out of his car given he has a Right leg prosthesis due to his history of right BKA. He denies dizziness or presyncope/syncope. Patient states that he just lost his balance and fell. Patient presents with thrombosis and his body and face. Patient is on Coumadin and his INR was more than 10 on admission, came down to 2.1 therapy. Hemoglobin was low 6.6 upon admission improved with blood transfusion up to 8.4 on discharge. No more evidence of active bleeding. However sore consult to see the patient including hematology, cardiology and surgery teams tank operator team felt we need to repeat EGD/colonoscopy to rule out GI bleed in view of his iron deficiency anemia. Colonoscopy: Showing no AV malformation, no polyp, no colitis diverticulosis without bleeding and internal hemorrhoids. EKG: Hiatal hernia, erosive esophagitis and chronic gastritis. Both cardiology and tank operator team's could not find a reason why the patient is on Coumadin. ecological modeler records indicate no A. fib. Besides the patient is deemed high-risk for bleeding and coagulopathy as this is not the first time a few also of his history of recurrent falls, Alcohol intoxication, noncompliance. The top of the patient told me he does not want to take Coumadin/warfarin anymore because of this Coumadin was stopped and discontinue it upon discharge because it felt that its risks higher than benefits and there is no strong indication for use in it. And patient was instructed with the same and he agrees Also tone artist apprentice Dr. 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 Patient is aware of this and dissected it back to me and he agrees with the appointments 1 for him with a urologist on 11/09 and total He'll follow-up. Patient since admission was almost asymptomatic and on the day of discharge he denies any other symptoms like no chest pain or dyspnea. No abdominal pain. No nausea vomiting. No change in urine or bowel habits. No fever. Patient was cleared for discharge by all consultants including surgery, ecological modeler and tank operator team's Problems and management plan were discussed with the patient and he verbalized understanding and acceptance Patient was found stable and can be discharged home however he needs follow-up as an outpatient. Patient was instructed to follow up with PCP Dr. Marcus within one week and patient agrees. Patient asked medical staff to help him make all appointments as instructed with tank operator Dr. Mckinney 3-4 weeks, urologist Dr. Gimenez in 1-2 weeks, and surgery Dr. Nunn in 1-2 weeks, PCP Dr. Marcus in one week and ecological modeler Dr. Vu in 1-2 weeks and he agrees Physical exam Gen: patient is a AAOx3, no distress CVS: S1-S2, RRR, no murmur Lungs: B/L CTA, no wheezing Abdomen: soft, no distention, no tenderness, positive bowel sounds Extremity: no leg edema or induration. Status post right BKA Time spent more than 35 minutes Patient Condition at Discharge: Stable Plan - Discharge Summary Discharge Rx Participant: No New Discharge Prescriptions: New metFORMIN HCL [Glucophage] 250 mg PO BID-W/MEALS #30 tab Magnesium Oxide [Mag-Ox] 400 mg PO TID #30 tab Thiamine [Vitamin B-1] 100 mg PO BID-W/MEALS #60 tab Continue Fluticasone/Salmeterol [Advair 250-50 Diskus] 1 puff INHALATION RT-BID Atorvastatin [Lipitor] 80 mg PO HS Tamsulosin [Flomax] 0.4 mg PO DAILY Pantoprazole [Protonix] 40 mg PO HS Aspirin 81 mg PO DAILY Losartan [Cozaar] 50 mg PO DAILY #30 tab Nitroglycerin Sl Tabs [Nitrostat] 0.4 mg SUBLINGUAL Q5M PRN #25 tab PRN Reason: Chest Pain Isosorbide Mononitrate ER [Imdur] 60 mg PO BID #60 tab HYDROcodone/APAP 10-325MG [[place] 10-325] 1 tab PO Q6H PRN PRN Reason: Pain Ipratropium-Albuterol Nebulize [Duoneb 0.5 mg-3 mg/3 ml Soln] 3 ml INHALATION RT-TID Ipratropium/Albuterol Sulfate [Combivent Respimat Inhaler] 1 puff INHALATION RT-TID carvediloL [Coreg] 6.25 mg PO AC-BID Furosemide [Lasix] 40 mg PO TUSA #30 tab Discontinued Warfarin [Coumadin] 2.5 mg PO MOTUWETHFR metFORMIN HCL ER [Glucophage Xr] 500 mg PO DAILY Warfarin [Coumadin] 5 mg PO SUSA Discharge Medication List Fluticasone/Salmeterol [Advair 250-50 Diskus] 1 puff INHALATION RT-BID 11/07/14 [History] Atorvastatin [Lipitor] 80 mg PO HS 11/28/15 [History] Pantoprazole [Protonix] 40 mg PO HS 04/26/18 [History] Tamsulosin [Flomax] 0.4 mg PO DAILY 04/26/18 [History] Aspirin 81 mg PO DAILY 11/30/18 [History] Isosorbide Mononitrate ER [Imdur] 60 mg PO BID #60 tab 07/03/20 [Rx] Losartan [Cozaar] 50 mg PO DAILY #30 tab 07/03/20 [Rx] Nitroglycerin Sl Tabs [Nitrostat] 0.4 mg SUBLINGUAL Q5M PRN #25 tab 07/03/20 [Rx] HYDROcodone/APAP 10-325MG [[place] 10-325] 1 tab PO Q6H PRN 08/12/20 [History] Ipratropium-Albuterol Nebulize [Duoneb 0.5 mg-3 mg/3 ml Soln] 3 ml INHALATION RT-TID 08/12/20 [History] Ipratropium/Albuterol Sulfate [Combivent Respimat Inhaler] 1 puff INHALATION RT- TID 08/12/20 [History] carvediloL [Coreg] 6.25 mg PO AC-BID 08/12/20 [History] Furosemide [Lasix] 40 mg PO TUSA #30 tab 08/14/20 [Rx] Magnesium Oxide [Mag-Ox] 400 mg PO TID #30 tab 10/31/20 [Rx] Thiamine [Vitamin B-1] 100 mg PO BID-W/MEALS #60 tab 10/31/20 [Rx] metFORMIN HCL [Glucophage] 250 mg PO BID-W/MEALS #30 tab 10/31/20 [Rx] Follow up Appointment(s)/Referral(s): Cheo Mckniney MD [STAFF PHYSICIAN] - 12/07/20 8:45 am ([facility] location) Kumar Haile MD [STAFF PHYSICIAN] - 11/09/20 10:40 am Devora Nunn MD [STAFF PHYSICIAN] - 11/13/20 3:45 pm Pasha Marcus DO [Primary Care Provider] - 11/07/20 10:00 am Brian Vu MD [STAFF PHYSICIAN] - 11/14/20 11:30 am Patient Instructions/Handouts: Abuse of Alcohol (DC), Weakness (DC), Anemia (DC) Discharge Disposition: HOME SELF-CARE
[2020-11-01] MEDS ORDERED: SODIUM FERRIC GLUCONAT-SUCROSE 125 MG in SODIUM CHLORIDE 0.9% 100 ML IVPB SCH (09:00)
--- NOTE | 2020-11-01 11:57 | P.PN ---
Subjective Progress Note Date: 11/01/20 Principal diagnosis: Anemia on AC therapy late entry as [employer] was not able to be logged into planning discharge patient will follow-up with us in office in 4-6 weeks Objective - Vital Signs Vital signs: Vital Signs Temp 98.0 F 10/31/20 11:40 Pulse 79 10/31/20 11:40 Resp 18 10/31/20 11:40 BP 126/61 10/31/20 11:40 Pulse Ox 96 10/31/20 11:40 Intake & Output 10/31/20 11/01/20 11/01/20 18:59 06:59 18:59 Intake Total 1220 Balance 1220 Intake: IV 200 Oral 1020 Other: Voiding Method Urinal # Voids 2 # Bowel Movements 1 - Exam - Constitutional General appearance: cooperative, no acute distress - EENT Eyes: EOMI ENT: hard of hearing, NA/AT - Neck Neck: normal ROM - Respiratory Respiratory: bilateral: CTA - Cardiovascular Rhythm: regular leg Peripheral Edema: absent: None (Below knee amputation) - Gastrointestinal General gastrointestinal: soft - Integumentary Integumentary: pale - Neurologic non focal - Musculoskeletal Musculoskeletal: generalized weakness - Psychiatric Psychiatric: A&O x's 3 - Labs CBC & Chem 7: 10/31/20 07:21 10/31/20 07:21 Labs: Abnormal Lab Results - Last 24 Hours (Table) 10/28/20 10/30/20 10/31/20 Range/Units 00:36 06:40 16:46 POC Glucose (mg/dL) 161 H (75-99) mg/dL Albumin (PEP) 2.17 L (3.80-4.90) g/dL [id number] 0.50 L (0.60-1.00) g/dL Gamma Globulins 0.55 L (0.70-1.50) g/dL Total PSA 7.8 H (<=4.0) ng/mL Microbiology - Last 24 Hours (Table) 10/29/20 22:29 Blood Culture - Preliminary Blood No Growth after 48 hours Assessment and Plan Plan: Assessment and Recommendations: Normocytic Anemia: - This is acute on Chronic and Likely multifactorial: - underlying decompensated liver with hx of ETOH, Chronic disease and inflammation - possible underlying bone marrow dysplasia, May have component of GI blood loss via AVMs. Appears he had Colonoscopy [place] [address] Cotto - Iron studies reveal a component of iron deficiency and general surgery is planning EGD and COlonoscopy on 10/31/20 - discussed with patient adherence to appointments and parental iron infusions. This maybe related to GI AVM blood loss. - Parental Iron given Coumadin Coagulapathy: INR >10 on admission - Prolonged PT/INR and PTT - Warfarin Discontinued at this time - Discussed with Primary team, defer need of AC therapy to Dr. Marcus and/or cardiology evaluation regarding need of anticoagulation In the interim supportive care and transfusions for hemoglobin less than 7. hemoglobin 8.4 today after two addition ferrlicit, repeat iron 3-4 weeks
--- NOTE | 2020-11-13 12:26 | CDI ---
Documentation Clarification Form Date: 11/13/2020 12:01:28 PM From: Patti Lepe RN CDS Admit Date: 10/28/2020 12:38:00 AM Patient Name: Matt Burgos Visit Number: [id number] Discharge Date: 10/31/2020 05:30:00 PM ATTENTION: The Clinical Documentation Specialists (CDI) and [facility] Coding Staff appreciate your assistance in clarifying documentation. Please respond to the clarification below the line at the bottom and electronically sign. The CDI & [facility] Coding staff will review the response and follow-up if needed. Please note: Queries are made part of the Legal Health Record. If you have any questions, please contact the author of this message via ITS. Dr. Joseph Lechuga Chronic congestive heart failure exacerbation from diastolic dysfunction EF 55- 60% is documented in the H&P 10/28 through the progress notes and the DCS on 11/01. History/Risk Factors: 70-year-old male presents to the ED after a fall. Medical History: CHF; HTN and CAD. Clinical Indicators: VS/Pulse OX 10/27: B/P 128/56; HR 92; Temp 97.8 F Oral; RR 18; Spo2 92% 3L nasal cannula Echocardiogram Results 06/19: Left ventricular systolic function is normal with, an EF between 55-60%. Trace amount of aortic regurgitation. Mild mitral regurgitation. Mild tricuspid regurgitation present. Chest X Ray 10/28: No pleural fluid seen to suggest heart failure. Treatment: Lasix 40mg po TUSA [facility] 10/30 one does. Lasix 40mg IV Daily scheduled d/c 10/30. Coreg 6.25mg PO AC BID [facility] 10/28 d/c 10/31. In your professional opinion, can you please clarify the acuity of diastolic CHF? Chronic Diastolic Heart Failure. Acute on Chronic Diastolic Heart Failure. Unable to Determine Other, please specify (Last Revision: November 2017) Chronic Diastolic Heart Failure. MTDD
== END 2020-10-31 17:30 | disposition home or self-care (01) | DRG 813 ==
LOC: EC 18:32 → 3SCARD 10-28 00:38
PROVIDERS: ADMIT Hospitalist; ATTEND Hospitalist
PROC: 30233N1 Transfusion of Nonautologous Red Blood Cells into Peripheral Vein, Percutaneous Approach (ICD-10-PCS; principal; 2020-10-27)
PROC: 0DJD8ZZ Inspection of Lower Intestinal Tract, Via Natural or Artificial Opening Endoscopic (ICD-10-PCS; 2020-10-31)
PROC: 0DJ08ZZ Inspection of Upper Intestinal Tract, Via Natural or Artificial Opening Endoscopic (ICD-10-PCS; 2020-10-31 08:00)
DX: D68.32 Hemorrhagic disorder due to extrinsic circulating anticoagulants (principal); J96.11 Chronic respiratory failure with hypoxia; K92.2 Gastrointestinal hemorrhage, unspecified; D62 Acute posthemorrhagic anemia; K22.10 Ulcer of esophagus without bleeding; N13.30 Unspecified hydronephrosis; I50.32 Chronic diastolic (congestive) heart failure; C61 Malignant neoplasm of prostate; E11.51 Type 2 diabetes mellitus with diabetic peripheral angiopathy without gangrene; I11.0 Hypertensive heart disease with heart failure; J84.10 Pulmonary fibrosis, unspecified; J44.9 Chronic obstructive pulmonary disease, unspecified; Z89.511 Acquired absence of right leg below knee; Z20.822 Contact with and (suspected) exposure to COVID-19; T45.515A Adverse effect of anticoagulants, initial encounter; F10.10 Alcohol abuse, uncomplicated; Y90.6 Blood alcohol level of 120-199 mg/100 ml; S00.81XA Abrasion of other part of head, initial encounter; K57.30 Diverticulosis of large intestine without perforation or abscess without bleeding; K21.00 Gastro-esophageal reflux disease with esophagitis, without bleeding; K29.50 Unspecified chronic gastritis without bleeding; K44.9 Diaphragmatic hernia without obstruction or gangrene; K64.8 Other hemorrhoids; E78.5 Hyperlipidemia, unspecified; R29.6 Repeated falls; I25.10 Atherosclerotic heart disease of native coronary artery without angina pectoris; D50.9 Iron deficiency anemia, unspecified; M79.605 Pain in left leg; K76.9 Liver disease, unspecified; I25.2 Old myocardial infarction; M19.91 Primary osteoarthritis, unspecified site; H91.92 Unspecified hearing loss, left ear; R77.8 Other specified abnormalities of plasma proteins; Z99.81 Dependence on supplemental oxygen; Z79.01 Long term (current) use of anticoagulants; Z79.82 Long term (current) use of aspirin; Z79.84 Long term (current) use of oral hypoglycemic drugs; Z79.51 Long term (current) use of inhaled steroids; Z79.899 Other long term (current) drug therapy; Z90.81 Acquired absence of spleen; Z97.13 Presence of artificial right leg (complete) (partial); Z86.79 Personal history of other diseases of the circulatory system; Z95.828 Presence of other vascular implants and grafts; Z87.891 Personal history of nicotine dependence; Z86.718 Personal history of other venous thrombosis and embolism; Z86.73 Personal history of transient ischemic attack (TIA), and cerebral infarction without residual deficits; Z95.5 Presence of coronary angioplasty implant and graft; Z98.42 Cataract extraction status, left eye; Z98.41 Cataract extraction status, right eye; Z91.19 Patient's noncompliance with other medical treatment and regimen; Z98.890 Other specified postprocedural states; W01.0XXA Fall on same level from slipping, tripping and stumbling without subsequent striking against object, initial encounter; Y93.01 Activity, walking, marching and hiking; Y92.009 Unspecified place in unspecified non-institutional (private) residence as the place of occurrence of the external cause; Z83.3 Family history of diabetes mellitus
CPT/HCPCS: 36415; 43235; 45378; 70450; 71045; 74176; 76770; 80048; 80053; 80320; 81001; 81003; 82272; 82607; 82728; 82746; 82784; 83010; 83036; 83540; 83550; 83615; 83690; 83735; 83883; 84100; 84145; 84153; 84154; 84165; 84425; 85025; 85045; 85610; 85652; 85730; 86038; 86334; 86431; 86850; 86900; 86901; 86920; 87040; 87635; 94640; 94760; 96365; 96372; 99284

== ENCOUNTER 2020-12-08 12:46 | Inpatient (IN) | payer MEDICARE, OTHER ==
[2020-12-08 13:02] VITALS: RESP 16; TEMP 97.9
[2020-12-08] MEDS ORDERED: SODIUM CHLORIDE 0.9% 1,000 ML IV STA (13:03)
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
[2020-12-08 13:09] LABS: Glucose,Whole Blood 129 mg/dL (75-99)
[2020-12-08 13:20] LABS: Anisocytosis Slight; Basophils # (A) 0.2 k/uL (0-0.2); Basophils % (A) 2 %; Eosinophils # (A) 0.3 k/uL (0-0.7); Eosinophils % (A) 4 %; HCT 32.5 % (39.0-53.0); HGB 10.4 gm/dL (13.0-17.5); Hypochromasia Moderate; Lymphocytes % (A) 34 %; MCH 30.8 pg (25.0-35.0); MCHC 32.1 g/dL (31.0-37.0); MCV 96.1 fL (80.0-100.0); Mean Platelet Volume 7.3; Monocytes # (A) 0.7 k/uL (0-1.0); Monocytes % (A) 8 %; Neutrophils # (A) 4.4 k/uL (1.3-7.7); Neutrophils % (A) 49 %; Platelet Count 413 k/uL (150-450); RBC 3.38 m/uL (4.30-5.90); RDW 16.6 % (11.5-15.5); WBC 8.9 k/uL (3.8-10.6)
[2020-12-08 13:33] LABS: Partial Thromboplastin Time 23.8 sec (22.0-30.0); Prothrombin Time 10.8 sec (9.0-12.0)
[2020-12-08 13:40] LABS: ALT 6 U/L (4-49); AST 20 U/L (17-59); African American GFR (CKD) >90 (>60 ml/min/1.73 sqM); Albumin 3.7 g/dL (3.5-5.0); Alkaline Phosphatase 67 U/L (38-126); Anion Gap 9 mmol/L; Blood Urea Nitrogen 11 mg/dL (9-20); Calcium 8.2 mg/dL (8.4-10.2); Carbon Dioxide 33 mmol/L (22-30); Chloride 94 mmol/L (98-107); Glucose 124 mg/dL (74-99); Lipase 95 U/L (23-300); Non-African American GFR(CKD) 82 (>60 ml/min/1.73 sqM); Sodium 136 mmol/L (137-145); Total Bilirubin 0.4 mg/dL (0.2-1.3); Total Protein 6.4 g/dL (6.3-8.2)
[2020-12-08 13:50] LABS: Lactic Acid, Venous 3.8 mmol/L (0.7-2.0)
--- NOTE | 2020-12-08 13:50 | CT ---
EXAMINATION TYPE: CT brain wo con DATE OF EXAM: 12/08/2020 COMPARISON: 10/27/2020 INDICATION: Altered mental status DLP: 1149.4 mGycm, Automated exposure control for dose reduction was used. CONTRAST: None CT of the brain is performed utilizing 3 mm thick sections through the posterior fossa and 3 mm thick sections through the remaining calvarium. Study is performed within 24 hours of arrival to the hosp ital. No abnormal hyperdensity is present to suggest an acute intracranial hemorrhage. No mass lesion is evident. No acute infarcts are evident. Very tiny lacunar infarct within the internal capsule right basal gang lion is again evident. There is some mild periventricular white matter hypodensity most likely on the basis of chronic white matter ischemic changes. Ventricles and sulci are appropriate for the patient age. In the axial plane there is a hypodensity which appears to be posterior to the left lateral ventricle and corpus callosum. Coronal plane images demonstrate this is a sulcus and is volume averaging. No suspicious infarct at this level is identif ied. Series 2021, image 35 Paranasal sinuses and mastoid air cells within the [id number] are clear. IMPRESSIONS: 1. Mild periventricular white matter ischemic-type changes. No acute infarcts are evident.
[2020-12-08 13:52] LABS: Alcohol 228 mg/dL
[2020-12-08 13:53] LABS: Magnesium 0.9 mg/dL (1.6-2.3)
--- NOTE | 2020-12-08 13:55 | XR ---
EXAMINATION TYPE: XR chest 1V portable DATE OF EXAM: 12/08/2020 COMPARISON: 11/18/2020 INDICATION: Altered mental status TECHNIQUE: Single frontal view of the chest is obtained. FINDINGS: The heart size is normal. The pulmonary vasculature is normal. Mild right lower lobe infiltrate may be present. Findings have improved over the interval. IMPRESSION: 1. There may be some mild residual or recurrent right lower lobe infiltrate. Findings are improved fr om the comparison study.
[2020-12-08] MEDS: MAGNESIUM SULFATE-D5W PMX 1 GM in DEXTROSE/WATER 1 100ML.BAG IVPB SCH ×2 (14:15→15:37)
[2020-12-08] MEDS ORDERED: diazePAM 5 MG TAB PO PRN (14:18)
[2020-12-08] MEDS ORDERED: NALOXONE 0.4 MG/ML 1 ML VIAL IV PRN (14:19)
[2020-12-08] MEDS ORDERED: ONDANSETRON 4 MG/2 ML VIAL IVP PRN (14:19)
[2020-12-08] MEDS ORDERED: ACETAMINOPHEN TAB 325 MG TAB PO PRN (14:19)
[2020-12-08] MEDS ORDERED: LORazepam 2 MG/ML INJ IV PRN ×3 (14:25)
[2020-12-08] MEDS ORDERED: SODIUM CHLORIDE 0.9% 1,000 ML IV SCH (14:30)
[2020-12-08 15:13] VITALS: BP 121/61; PULSE 69
[2020-12-08] MEDS ORDERED: NITROGLYCERIN SL TABS 0.4 MG TAB SUBLINGUAL PRN (15:23)
[2020-12-08] MEDS ORDERED: HYDROcodone/APAP 10-325MG 1 EACH TAB PO PRN (15:23)
[2020-12-08] MEDS ORDERED: FUROSEMIDE 20 MG TAB PO SCH (15:30)
[2020-12-08] MEDS ORDERED: metFORMIN 500 MG TAB PO SCH (17:30)
[2020-12-08] MEDS ORDERED: THIAMINE 100 MG TAB PO SCH (17:30)
[2020-12-08] MEDS ORDERED: carvediloL 6.25 MG TAB PO SCH (17:30)
[2020-12-08] MEDS ORDERED: WARFARIN 5 MG TAB PO SCH (18:00)
[2020-12-08] MEDS ORDERED: NON FORMULARY DRUG (Ipratropium/Albuterol Sulfate [Combivent Respimat Inhaler] 1 INHALER M INHALATION SCH (20:00)
[2020-12-08] MEDS ORDERED: IPRATROPIUM-ALBUTEROL 3 ML NEB INHALATION SCH (20:00)
[2020-12-08] MEDS ORDERED: SYMBICORT 80-4.5 MCG INHALER INHALATION SCH (20:00)
[2020-12-08] MEDS ORDERED: ATORVASTATIN 80 MG TAB PO SCH (21:00)
[2020-12-08] MEDS ORDERED: PANTOPRAZOLE 40 MG TABLET PO SCH (21:00)
[2020-12-08] MEDS ORDERED: ISOSORBIDE MONONITRATE ER 60 MG TAB.ER.24H PO SCH (21:00)
[2020-12-09] MEDS ORDERED: ASPIRIN 81 MG PO SCH (09:00)
[2020-12-09] MEDS ORDERED: TAMSULOSIN 0.4 MG CAP.ER.24H PO SCH (09:00)
[2020-12-09] MEDS ORDERED: PANTOPRAZOLE 40 MG/10 ML VIAL IV SCH (09:00)
[2020-12-09] MEDS ORDERED: LOSARTAN 50 MG TAB PO SCH (09:00)
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
--- NOTE | 2020-12-09 23:05 | P.DS ---
Providers Date of admission: 12/08/20 14:19 Expected date of discharge: 12/08/20 (Left AMA) Attending physician: Shabbir Ayoub Primary care physician: Pasha Marcus [facility] Hospital Course: Chief Complaint: Past out History of presenting complaint: This is a 70-year-old patient of Dr. Patti Marcus. Chronic stable medical conditions include COPD, diabetes, GERD, hypertension, hyperlipidemia, osteoarthritis, right below-knee amputation, hard of hearing, splenectomy, home oxygen 3 L. admitted-end of May 2020-acute non-ST elevation [place], COPD exacerbation, pneumonia. Cardiac catheterization showed no critical stenosis. Earlier today patient was being followed by the personal: 911. Patient was not driving straight. Finally came to stop. Patient become unconscious. police arrived They called EMS. Patient was rather confused. Did not know where he is the year of the president brought to the ER. Serum alcohol was 228. I came to see the patient. His laying in bed. Lethargic but arousable. He raman s like to drink. Variable amount. No chest pain. Breathing is stable. No palpitation no tongue biting. Patient is put on a CIWA scale. Late in the evening patient was AO 3. Told the nurse he wanted to leave AMA. Nurse double checked. He was AO 3. Patient called his mother left AMA Past medical history to include: COPD, diabetes, GERD, hyperlipidemia, hypertension, osteoarthritis, right below- knee amputation, home oxygen 3 L, splenectomy, hard of hearing, right leg prosthesis, peripheral arterial disease Social history: Lives with mother. Smoked a pack a day for 40 years stopped about 12 years ago. Alcohol intake variable. Has a walker Physical examination: VITAL SIGNS: 97.9, 77, 16, 100/50, 98% on 3 L GENERAL:, Reclining in bed, lethargic but arousable EYES: Pupils equal. Conjunctiva normal. HEENT: External appearance of nose and ears normal, oral cavity grossly normal. NECK: JVD not raised; masses not palpable. HEART: First and second heart sounds are normal; no edema. LUNGS:[ Respiratory rate increased; decreased breath sounds ABDOMEN: Soft, nontender, liver spleen not palpable, no masses palpable. PSYCH: Lethargic but arousable. Answering questions MUSCULAR skeletal: Right below-knee amputation with a prosthesis NEUROLOGICAL: Cranial nerves grossly intact; no facial asymmetry, power and sensation grossly intact. LYMPHATICS: No lymph nodes palpable in the axilla and neck INVESTIGATIONS, reviewed in the clinical context: WBC 8.9 hemoglobin 10.4 platelets 413 potassium 4 creatinine 0.95 lactic acid 3.8 magnesium 0.9 troponin I less than 0.012 serum alcohol 228 Coronavirus [PCR] not detected EKG tracing personally reviewed by me-normal sinus rhythm nonspecific ST-T wave changes Chest x-ray film personally reviewed by me-questionable right lower lobe infiltrate Computed tomography scan of the brain: No acute infarct Assessment: -Episode of patient getting unconscious from acute alcohol intoxication Patient placed on a CIWA scale. -Coronary artery disease with stent. Continue with Coreg, Cozaar, aspirin -Chronic congestive heart failure exacerbation from diastolic dysfunction EF 55- 60% Continue with Lasix - COPD in an ex-smoker Resume home inhalers including DuoNeb and Combivent -Diabetes mellitus type 2 Resume Glucophage. Follow Accu-Cheks -GERD Continue with Protonix -Hard of hearing -Hyperlipidemia Continue with Lipitor -Essential hypertension Continue with Cozaar, Coreg -Primary osteoarthritis Pain medications when necessary -Chronic hypoxic respiratory failure on home oxygen 3 L -Right below-knee amputation with a prosthesis -Splenectomy should follow up for immunizations with his family doctor -Peripheral artery disease with a stent to the left leg -Coumadin monitoring Disposition: Left AMA Patient Condition at Discharge: Fair Plan - Discharge Summary New Discharge Prescriptions: No Action Fluticasone/Salmeterol [Advair 250-50 Diskus] 1 puff INHALATION RT-BID Atorvastatin [Lipitor] 80 mg PO HS Tamsulosin [Flomax] 0.4 mg PO DAILY Pantoprazole [Protonix] 40 mg PO HS Aspirin 81 mg PO DAILY Losartan [Cozaar] 50 mg PO DAILY #30 tab Nitroglycerin Sl Tabs [Nitrostat] 0.4 mg SUBLINGUAL Q5M PRN #25 tab PRN Reason: Chest Pain Isosorbide Mononitrate ER [Imdur] 60 mg PO BID #60 tab HYDROcodone/APAP 10-325MG [[place] 10-325] 1 tab PO Q6H PRN PRN Reason: Pain Ipratropium-Albuterol Nebulize [Duoneb 0.5 mg-3 mg/3 ml Soln] 3 ml INHALATION RT-TID Ipratropium/Albuterol Sulfate [Combivent Respimat Inhaler] 1 puff INHALATION RT-TID carvediloL [Coreg] 6.25 mg PO AC-BID metFORMIN HCL [Glucophage] 250 mg PO BID-W/MEALS #30 tab Thiamine [Vitamin B-1] 100 mg PO BID-W/MEALS #60 tab Warfarin [Coumadin] 2.5 mg PO MOTUWETHFR Warfarin Sodium 5 mg PO SUSA Furosemide [Lasix] 20 mg PO TUSA Discharge Medication List Fluticasone/Salmeterol [Advair 250-50 Diskus] 1 puff INHALATION RT-BID 11/07/14 [History] Atorvastatin [Lipitor] 80 mg PO HS 11/28/15 [History] Pantoprazole [Protonix] 40 mg PO HS 04/26/18 [History] Tamsulosin [Flomax] 0.4 mg PO DAILY 04/26/18 [History] Aspirin 81 mg PO DAILY 11/30/18 [History] Isosorbide Mononitrate ER [Imdur] 60 mg PO BID #60 tab 07/03/20 [Rx] Losartan [Cozaar] 50 mg PO DAILY #30 tab 07/03/20 [Rx] Nitroglycerin Sl Tabs [Nitrostat] 0.4 mg SUBLINGUAL Q5M PRN #25 tab 07/03/20 [Rx] HYDROcodone/APAP 10-325MG [[place] 10-325] 1 tab PO Q6H PRN 08/12/20 [History] Ipratropium-Albuterol Nebulize [Duoneb 0.5 mg-3 mg/3 ml Soln] 3 ml INHALATION RT-TID 08/12/20 [History] Ipratropium/Albuterol Sulfate [Combivent Respimat Inhaler] 1 puff INHALATION RT- TID 08/12/20 [History] carvediloL [Coreg] 6.25 mg PO AC-BID 08/12/20 [History] Thiamine [Vitamin B-1] 100 mg PO BID-W/MEALS #60 tab 10/31/20 [Rx] metFORMIN HCL [Glucophage] 250 mg PO BID-W/MEALS #30 tab 10/31/20 [Rx] Furosemide [Lasix] 20 mg PO TUSA 12/08/20 [History] Warfarin Sodium 5 mg PO SUSA 12/08/20 [History] Warfarin [Coumadin] 2.5 mg PO MOTUWETHFR 12/08/20 [History] Follow up Appointment(s)/Referral(s): Pasha Marcus DO [Primary Care Provider] - 1-2 days Discharge Disposition: Left Against Medical Advice
[2020-12-10] MEDS ORDERED: WARFARIN 2.5 MG TAB PO SCH (18:00)
== END 2020-12-08 17:06 | disposition left against medical advice (07) | DRG 894 ==
LOC: EC 12:46 → 5NMEDONC 14:19
PROVIDERS: ADMIT Hospitalist; ATTEND Hospitalist
DX: F10.129 Alcohol abuse with intoxication, unspecified (principal); I50.33 Acute on chronic diastolic (congestive) heart failure; E87.2 Acidosis; J96.11 Chronic respiratory failure with hypoxia; Z53.29 Procedure and treatment not carried out because of patient's decision for other reasons; E11.51 Type 2 diabetes mellitus with diabetic peripheral angiopathy without gangrene; E78.5 Hyperlipidemia, unspecified; E83.42 Hypomagnesemia; H91.92 Unspecified hearing loss, left ear; I11.0 Hypertensive heart disease with heart failure; I25.10 Atherosclerotic heart disease of native coronary artery without angina pectoris; Z60.2 Problems related to living alone; Z20.822 Contact with and (suspected) exposure to COVID-19; M19.91 Primary osteoarthritis, unspecified site; J44.9 Chronic obstructive pulmonary disease, unspecified; Y90.7 Blood alcohol level of 200-239 mg/100 ml; K21.9 Gastro-esophageal reflux disease without esophagitis; I25.2 Old myocardial infarction; Z87.891 Personal history of nicotine dependence; Z89.511 Acquired absence of right leg below knee; Z83.3 Family history of diabetes mellitus; Z79.01 Long term (current) use of anticoagulants; Z79.899 Other long term (current) drug therapy; Z79.82 Long term (current) use of aspirin; Z79.84 Long term (current) use of oral hypoglycemic drugs; Z90.81 Acquired absence of spleen; Z95.5 Presence of coronary angioplasty implant and graft; Z97.13 Presence of artificial right leg (complete) (partial); Z99.81 Dependence on supplemental oxygen; Z98.42 Cataract extraction status, left eye; Z98.41 Cataract extraction status, right eye; Z98.890 Other specified postprocedural states; Z87.01 Personal history of pneumonia (recurrent)
CPT/HCPCS: 36415; 70450; 71045; 80053; 80320; 82140; 83605; 83690; 83735; 84484; 85025; 85610; 85730; 87635; 93005; 96361; 96374; 99285